=== PATIENT | female | born 1935 | race Caucasian/White ===

== ENCOUNTER 2018-01-12 14:12 | Inpatient (IN) | payer MEDICARE, OTHER ==
[~2018-01-12] VITALS: Ht 157.5 cm; Wt 71.8 kg
[2018-01-12] VITALS (20 sets, daily range): BP systolic 74–138; BP diastolic 48–61
[~2018-01-12 14:12] MED LIST: ESOM40CA25 PO; FLUC100T4 PO; FLUT1DIS IH; FURO-69 PO; HUM100VI5 SQ; HYDR25TA PO; LEVO25TA55 PO; LIPITOR80 MG PO; LISI-334 PO; MIRA25TA PO; PROAIR HFA8.5 GM IH; TRIA10PO2 MC
[2018-01-12] MEDS ORDERED: ESOM40CA PO (15:00)
[2018-01-12] MEDS ORDERED: MONT10TA9 PO (15:00)
[2018-01-12] MEDS ORDERED: OLOP5DRO EACHEYE (15:00)
[2018-01-12] MEDS ORDERED: LISI-378 PO (15:00)
[2018-01-12] MEDS ORDERED: ASPI-612 PO (15:00)
[2018-01-12] MEDS ORDERED: CALC-77 PO (15:00)
[2018-01-12] MEDS ORDERED: fentaNYL PF VIAL 100 MCG/2 ML VIAL IV PRN (15:15)
[2018-01-12] MEDS ORDERED: DEXTROSE 50% 25 GM / 50ML DISP.SYRIN. IV PRN (15:15)
[2018-01-12 16:05] LABS: BASE EXCESS ABG -7 mmol/L (-3-3); HCO3 ABG 18 mmol/L (21-28); PCO2 ABG 34 mmHg (35-46); PO2 ABG 59 mmHg (65-108); SAT O2 ABG 90 % (92-99)
[2018-01-12] MEDS: PIPERACILLIN/TAZOBACTAM 2.25 GM in IV NORMAL SALINE 50ML 50 ML IV SCH ×2 (16:23→23:32)
[2018-01-12] MEDS: IV NORMAL SALINE 1000ML BAG 1,000 ML IV SCH ×2 (16:29→21:27)
[2018-01-12] MEDS ORDERED: VANCOMYCIN 125 MG/2.5 ML ORAL SOLUTION. PO SCH (17:00)
[2018-01-12] MEDS: INSULIN LISPRO 300 UNITS/3 ML INSULN.PEN. SQ SCH (17:00)
[2018-01-12] MEDS ORDERED: LISI-130 PO (17:16)
[2018-01-12] MEDS ORDERED: MIRA25TA PO (17:16)
[2018-01-12] MEDS ORDERED: DIAZ5TAB PO (17:16)
[2018-01-12] MEDS ORDERED: INSU100I17 SQ (17:16)
[2018-01-12] MEDS ORDERED: DIPH25CA58 PO (17:16)
[2018-01-12] MEDS ORDERED: PREG75CA PO (17:16)
[2018-01-12] MEDS ORDERED: INSU100V13 SQ (17:16)
[2018-01-12] MEDS ORDERED: LEVO125T PO (17:16)
[2018-01-12] MEDS ORDERED: HYDR-2762 PO (17:16)
[2018-01-12] MEDS ORDERED: TRIA15CR TP (17:16)
[2018-01-12] MEDS ORDERED: AMLO10TA4 PO (17:16)
[2018-01-12 17:19] LABS: FIO2 ABG 21
[2018-01-12 17:22] LABS: BASO % 0 % (0-3); EOS % 0 % (0-3); HEMOGLOBIN 12.6 g/dL (12.0-15.5); LYMPH # 0.3 x10^3/uL (1.0-4.8); LYMPH % 4 % (24-48); MEAN CORPUSCULAR HEMOGLOBIN 31 pg (25-35); MEAN CORPUSCULAR HGB CONC 34 g/dL (31-37); MEAN CORPUSCULAR VOLUME 92 fL (79-100); MONO # 0.2 x10^3/uL (0.0-1.1); MONO % 3 % (0-9); NEUT # 8.4 x10^3uL (1.8-7.7); NEUT % 93 % (31-73); PLATELET COUNT 123 x10^3/uL (140-400); RED CELL DISTRIBUTION WIDTH 13.6 % (11.5-14.5); WHITE BLOOD COUNT 9.1 x10^3/uL (4.0-11.0)
[2018-01-12 17:32] LABS: CALCIUM 8.7 mg/dL (8.5-10.1); CREATININE 1.6 mg/dL (0.6-1.0); GFR 30.9; POTASSIUM 4.6 mmol/L (3.5-5.1)
[2018-01-12 17:37] LABS: ALBUMIN 1.9 g/dL (3.4-5.0); ALBUMIN/GLOBULIN RATIO 0.7 (1.0-1.7); TOTAL BILIRUBIN 0.6 mg/dL (0.2-1.0); TOTAL PROTEIN 4.8 g/dL (6.4-8.2)
[2018-01-12] MEDS ORDERED: NOREPINEPHRIN 8MG/250ML PREMIX 250 ML IV PRN (18:00)
[2018-01-12 18:55] LABS: % BANDS 47 % (0-9); % LYMPHS 8 % (24-48); % METAS 4 % (0-0); % MONOS 3 % (0-10); % SEGS 38 % (35-66)
[2018-01-12 18:56] LABS: PLT ESTIMATE DECREASED (ADEQUATE); TOXIC GRANULATION SLIGHT
[2018-01-12] MEDS: IPRATRPIUM/ALBUTEROL 0.5/2.5MG 3 ML NEBU. NEB SCH (20:10)
[2018-01-12] MEDS: KETOTIFEN FUMARATE 0.025% OPHTH SOLUTION BOTTLE. OU SCH (21:26)
[2018-01-13] VITALS (24 sets, daily range): BP systolic 89–139; BP diastolic 43–69
[2018-01-13] MEDS: IV NORMAL SALINE 1000ML BAG 1,000 ML IV SCH ×3 (05:02→23:05)
[2018-01-13] MEDS: PIPERACILLIN/TAZOBACTAM 2.25 GM in IV NORMAL SALINE 50ML 50 ML IV SCH (05:02)
[2018-01-13 06:40] LABS: BASO % 0 % (0-3); EOS % 0 % (0-3); HEMATOCRIT 39.5 % (36.0-47.0); HEMOGLOBIN 13.4 g/dL (12.0-15.5); LYMPH # 0.5 x10^3/uL (1.0-4.8); LYMPH % 5 % (24-48); MEAN CORPUSCULAR HEMOGLOBIN 31 pg (25-35); MEAN CORPUSCULAR HGB CONC 34 g/dL (31-37); MEAN CORPUSCULAR VOLUME 93 fL (79-100); MONO # 0.3 x10^3/uL (0.0-1.1); MONO % 3 % (0-9); NEUT # 9.9 x10^3uL (1.8-7.7); NEUT % 93 % (31-73); PLATELET COUNT 152 x10^3/uL (140-400); RED BLOOD COUNT 4.26 x10^6/uL (3.50-5.40); RED CELL DISTRIBUTION WIDTH 13.6 % (11.5-14.5); WHITE BLOOD COUNT 10.7 x10^3/uL (4.0-11.0)
[2018-01-13 06:53] LABS: ALBUMIN 1.9 g/dL (3.4-5.0); ALBUMIN/GLOBULIN RATIO 0.6 (1.0-1.7); CREATININE 1.3 mg/dL (0.6-1.0); GFR 39.2; POTASSIUM 4.5 mmol/L (3.5-5.1); TOTAL BILIRUBIN 0.9 mg/dL (0.2-1.0); TOTAL PROTEIN 5.2 g/dL (6.4-8.2)
[2018-01-13] MEDS: INSULIN LISPRO 300 UNITS/3 ML INSULN.PEN. SQ SCH ×3 (07:16→17:00)
--- NOTE | 2018-01-13 07:34 | PDOC ---
Infectious Disease Note Vital Sign Vital Signs Vital Signs Date Time Temp Pulse Resp B/P (MAP) Pulse Ox O2 Delivery O2 Flow Rate FiO2 01/13/18 06:05 108 20 105/59 (74) 100 Nasal Cannula 2.0 01/13/18 04:00 97.7 97.7 Labs Lab Laboratory Tests Test 01/12/18 15:11 01/12/18 16:22 01/12/18 17:15 01/12/18 23:30 O2 Saturation 90 % (92-99) Arterial Blood pH 7.33 (7.35-7.45) Arterial Blood pCO2 at Patient Temp 34 mmHg (35-46) Arterial Blood pO2 at Patient Temp 59 mmHg (65-108) Arterial Blood HCO3 18 mmol/L (21-28) Arterial Blood Base Excess -7 mmol/L (-3-3) FiO2 21 Glucose (Fingerstick) 173 mg/dL (70-99) 107 mg/dL (70-99) White Blood Count 9.1 x10^3/uL (4.0-11.0) Red Blood Count 4.00 x10^6/uL (3.50-5.40) Hemoglobin 12.6 g/dL (12.0-15.5) Hematocrit 37.0 % (36.0-47.0) Mean Corpuscular Volume 92 fL (79-100) Mean Corpuscular Hemoglobin 31 pg (25-35) Mean Corpuscular Hemoglobin Concent 34 g/dL (31-37) Red Cell Distribution Width 13.6 % (11.5-14.5) Platelet Count 123 x10^3/uL (140-400) Neutrophils (%) (Auto) 93 % (31-73) Lymphocytes (%) (Auto) 4 % (24-48) Monocytes (%) (Auto) 3 % (0-9) Eosinophils (%) (Auto) 0 % (0-3) Basophils (%) (Auto) 0 % (0-3) Neutrophils # (Auto) 8.4 x10^3uL (1.8-7.7) Lymphocytes # (Auto) 0.3 x10^3/uL (1.0-4.8) Monocytes # (Auto) 0.2 x10^3/uL (0.0-1.1) Eosinophils # (Auto) 0.0 x10^3/uL (0.0-0.7) Basophils # (Auto) 0.0 x10^3/uL (0.0-0.2) Segmented Neutrophils % 38 % (35-66) Band Neutrophils % 47 % (0-9) Lymphocytes % 8 % (24-48) Monocytes % 3 % (0-10) Metamyelocytes % 4 % (0-0) Toxic Granulation Slight Platelet Estimate Decreased (ADEQUATE) Sodium Level 143 mmol/L (136-145) Potassium Level 4.6 mmol/L (3.5-5.1) Chloride Level 111 mmol/L (98-107) Carbon Dioxide Level 20 mmol/L (21-32) Anion Gap 12 (6-14) Blood Urea Nitrogen 37 mg/dL (7-20) Creatinine 1.6 mg/dL (0.6-1.0) Estimated GFR (Cockcroft-Gault) 30.9 BUN/Creatinine Ratio 23 (6-20) Glucose Level 174 mg/dL (70-99) Lactic Acid Level 2.1 mmol/L (0.4-2.0) Calcium Level 8.7 mg/dL (8.5-10.1) Total Bilirubin 0.6 mg/dL (0.2-1.0) Aspartate Amino Transf (AST/SGOT) 57 U/L (15-37) Alanine Aminotransferase (ALT/SGPT) 40 U/L (14-59) Alkaline Phosphatase 147 U/L (46-116) Lactate Dehydrogenase 213 U/L (81-234) Total Protein 4.8 g/dL (6.4-8.2) Albumin 1.9 g/dL (3.4-5.0) Albumin/Globulin Ratio 0.7 (1.0-1.7) Test 01/13/18 05:40 White Blood Count 10.7 x10^3/uL (4.0-11.0) Red Blood Count 4.26 x10^6/uL (3.50-5.40) Hemoglobin 13.4 g/dL (12.0-15.5) Hematocrit 39.5 % (36.0-47.0) Mean Corpuscular Volume 93 fL (79-100) Mean Corpuscular Hemoglobin 31 pg (25-35) Mean Corpuscular Hemoglobin Concent 34 g/dL (31-37) Red Cell Distribution Width 13.6 % (11.5-14.5) Platelet Count 152 x10^3/uL (140-400) Neutrophils (%) (Auto) 93 % (31-73) Lymphocytes (%) (Auto) 5 % (24-48) Monocytes (%) (Auto) 3 % (0-9) Eosinophils (%) (Auto) 0 % (0-3) Basophils (%) (Auto) 0 % (0-3) Neutrophils # (Auto) 9.9 x10^3uL (1.8-7.7) Lymphocytes # (Auto) 0.5 x10^3/uL (1.0-4.8) Monocytes # (Auto) 0.3 x10^3/uL (0.0-1.1) Eosinophils # (Auto) 0.0 x10^3/uL (0.0-0.7) Basophils # (Auto) 0.0 x10^3/uL (0.0-0.2) Sodium Level 143 mmol/L (136-145) Potassium Level 4.5 mmol/L (3.5-5.1) Chloride Level 113 mmol/L (98-107) Carbon Dioxide Level 20 mmol/L (21-32) Anion Gap 10 (6-14) Blood Urea Nitrogen 34 mg/dL (7-20) Creatinine 1.3 mg/dL (0.6-1.0) Estimated GFR (Cockcroft-Gault) 39.2 BUN/Creatinine Ratio 26 (6-20) Glucose Level 107 mg/dL (70-99) Calcium Level 9.0 mg/dL (8.5-10.1) Total Bilirubin 0.9 mg/dL (0.2-1.0) Aspartate Amino Transf (AST/SGOT) 65 U/L (15-37) Alanine Aminotransferase (ALT/SGPT) 45 U/L (14-59) Alkaline Phosphatase 177 U/L (46-116) Total Protein 5.2 g/dL (6.4-8.2) Albumin 1.9 g/dL (3.4-5.0) Albumin/Globulin Ratio 0.6 (1.0-1.7) Objective Assessment Possible sepsis Colitis - Fecal impaction - ? DM gastroparesis Sulfa allergy - can't remember reaction Bandemia Right foot wound is clean GILL - did receive IV contrast - currently improving Plan Plan of Care Doubt C-diff but cont po Vanc until ruled out Cont Zosyn but increase dose Check procalcitoin ABD series GI eval F/u labs and cults Reviewed [facility]ulah's records D/w family D/w nursing 35 mins Thank you # [id number] JAYCEE CABELLO MD Jan 13, 2018 07:34
[2018-01-13] MEDS: IPRATRPIUM/ALBUTEROL 0.5/2.5MG 3 ML NEBU. NEB SCH (08:38)
[2018-01-13] MEDS: KETOTIFEN FUMARATE 0.025% OPHTH SOLUTION BOTTLE. OU SCH ×2 (08:40→21:03)
--- NOTE | 2018-01-13 08:41 | RAD ---
2 view abdominal series and AP upright chest [id number] study. Clinical indications: Abdominal pain. Fecal impaction. COMPARISON: No previous radiographic series available. FINDINGS: There is dilatation of the stomach and small bowel. Small air-fluid levels are seen. No free intraperitoneal air is seen. No air is seen within the rectum. No significant fecal retention is seen. There is a popcorn-like calcified mass within the pelvis consistent with a calcified uterine fibroid. Cholecystectomy clips are present. Chest x-ray demonstrates left lung base infiltrate and small left-sided pleural effusion. No pneumothorax is evident. The heart size and mediastinum are unremarkable. IMPRESSION: There is dilatation of stomach and small bowel. Distal small bowel obstruction is possible. No free air is evident. No significant fecal impaction is seen. Calcified uterine fibroid. Left lung base infiltrate. Small left-sided pleural effusion. Electronically signed by: Zack Garcia MD (01/13/2018 8:38 AM) [facility]
[2018-01-13] MEDS ORDERED: NON FORMULARY ITEM (Fluticasone/Salmeterol (Advair 100-50 Diskus) 1 INH) IH PRN (09:00)
[2018-01-13] MEDS ORDERED: NON FORMULARY ITEM (Albuterol Sulfate (Proair Hfa Inhaler) 2 PUFF) IH SCH (09:00)
[2018-01-13] MEDS ORDERED: ALBUTEROL SULFATE 2.5 MG/3 ML NEBU. NEB PRN (09:15)
--- NOTE | 2018-01-13 09:44 | PDOC2 ---
GI CONSULT Reason For Consult: fecal impaction ?DM gastroparesis HPI: HPI: 82 y/o female transferred from [facility] w/ possible sepsis. GI-andres, noted on CT A/ P w/o contrast (for abd and flank pain and n/v) on 01/11/18 w/ distention of sigmoid colon and rectum w/ large amount of fecal material w/ mild dilatation of the proximal colon, small intestine and stomach. CT angiogram (for elevated lactic acid) also noted distention from stool and suggested wall thickening of distal half of colon w/o non-specific colitis. Per daughter Iesla, she received an enema and had a "football-sized stool" prior to transfer. Per RN, has had liquid stool w/ hard pieces since arriving here. Acute abd series from this morning reports dilatation of stomach and small bowel w/o significant fecal impaction. She's not the best historian but is able to provide some information - daughter helps supplement. H/o GERD recently started on Nexium QD. Occasional dysphagia w/ solid foods (felt in neck, resolved w/ water), no regurgitation. Denies chronic issues w/ n/v or abd pain though didn't eat much for a couple days prior to admission. Currently has left-sided abd discomfort. Seems has h/ o intermittent constipation - mentions taking Dulcolax sometimes. D/w Dr. Arroyo earlier - h/o irregular/alternating bowel habits. Daughter mentions hematuria and is not sure about melena or hematochezia (no concern w/ this per staff). Not sure about weight loss. Can document past EGD by Dr. Burton in 2015 (for "esophageal mass on CT") which showed esophagitis, gastritis, and duodenitis (H. pylori negative). She denies previous colonoscopy or h/o colitis. S/p cholecystectomy for gallstones. Denies liver or pancreas history. Takes ibuprofen fairly regularly at home and is "supposed to take" ASA. Also has an old Rx for hydrocodone for foot and hand pain but does not use regularly per daughter. Lives w/ son, seems some issues w/ non-compliance. H/o DM, says glucose typically in 300s at home. Upon arriving at [facility], glucose was 600 and TSH was 11. Blood culture negative so far - on empiric vanco per ID. PMH: PMH: HTN, HLD, DM, peripheral neuropathy, hypothyroidism, OA, osteoporosis, GERD, hemorrhoids, cholecystectomy, tubal ligation FH: Family History: Cancer, DM Social History: Smoke: <1 pack per day ALCOHOL: none ROS: GEN: Denies fevers, chills, sweats HEENT: Denies blurred vision, sore throat CV: Denies chest pain RESP: +SOA (chronic) GI: Per HPI : +hematuria ENDO: Denies weight changes NEURO: +confusion MSK: +weakness SKIN: Denies jaundice, pruritus Vitals: Vitals: Vital Signs Date Time Temp Pulse Resp B/P (MAP) Pulse Ox O2 Delivery O2 Flow Rate FiO2 01/13/18 09:00 116 20 121/53 (75) 100 Nasal Cannula 2.0 01/13/18 08:00 98.8 98.8 Labs: Labs: Laboratory Tests Test 01/12/18 15:11 01/12/18 16:22 01/12/18 17:15 01/12/18 23:30 O2 Saturation 90 % (92-99) Arterial Blood pH 7.33 (7.35-7.45) Arterial Blood pCO2 at Patient Temp 34 mmHg (35-46) Arterial Blood pO2 at Patient Temp 59 mmHg (65-108) Arterial Blood HCO3 18 mmol/L (21-28) Arterial Blood Base Excess -7 mmol/L (-3-3) FiO2 21 Glucose (Fingerstick) 173 mg/dL (70-99) 107 mg/dL (70-99) White Blood Count 9.1 x10^3/uL (4.0-11.0) Red Blood Count 4.00 x10^6/uL (3.50-5.40) Hemoglobin 12.6 g/dL (12.0-15.5) Hematocrit 37.0 % (36.0-47.0) Mean Corpuscular Volume 92 fL (79-100) Mean Corpuscular Hemoglobin 31 pg (25-35) Mean Corpuscular Hemoglobin Concent 34 g/dL (31-37) Red Cell Distribution Width 13.6 % (11.5-14.5) Platelet Count 123 x10^3/uL (140-400) Neutrophils (%) (Auto) 93 % (31-73) Lymphocytes (%) (Auto) 4 % (24-48) Monocytes (%) (Auto) 3 % (0-9) Eosinophils (%) (Auto) 0 % (0-3) Basophils (%) (Auto) 0 % (0-3) Neutrophils # (Auto) 8.4 x10^3uL (1.8-7.7) Lymphocytes # (Auto) 0.3 x10^3/uL (1.0-4.8) Monocytes # (Auto) 0.2 x10^3/uL (0.0-1.1) Eosinophils # (Auto) 0.0 x10^3/uL (0.0-0.7) Basophils # (Auto) 0.0 x10^3/uL (0.0-0.2) Segmented Neutrophils % 38 % (35-66) Band Neutrophils % 47 % (0-9) Lymphocytes % 8 % (24-48) Monocytes % 3 % (0-10) Metamyelocytes % 4 % (0-0) Toxic Granulation Slight Platelet Estimate Decreased (ADEQUATE) Sodium Level 143 mmol/L (136-145) Potassium Level 4.6 mmol/L (3.5-5.1) Chloride Level 111 mmol/L (98-107) Carbon Dioxide Level 20 mmol/L (21-32) Anion Gap 12 (6-14) Blood Urea Nitrogen 37 mg/dL (7-20) Creatinine 1.6 mg/dL (0.6-1.0) Estimated GFR (Cockcroft-Gault) 30.9 BUN/Creatinine Ratio 23 (6-20) Glucose Level 174 mg/dL (70-99) Lactic Acid Level 2.1 mmol/L (0.4-2.0) Calcium Level 8.7 mg/dL (8.5-10.1) Total Bilirubin 0.6 mg/dL (0.2-1.0) Aspartate Amino Transf (AST/SGOT) 57 U/L (15-37) Alanine Aminotransferase (ALT/SGPT) 40 U/L (14-59) Alkaline Phosphatase 147 U/L (46-116) Lactate Dehydrogenase 213 U/L (81-234) Total Protein 4.8 g/dL (6.4-8.2) Albumin 1.9 g/dL (3.4-5.0) Albumin/Globulin Ratio 0.7 (1.0-1.7) Test 01/13/18 05:40 White Blood Count 10.7 x10^3/uL (4.0-11.0) Red Blood Count 4.26 x10^6/uL (3.50-5.40) Hemoglobin 13.4 g/dL (12.0-15.5) Hematocrit 39.5 % (36.0-47.0) Mean Corpuscular Volume 93 fL (79-100) Mean Corpuscular Hemoglobin 31 pg (25-35) Mean Corpuscular Hemoglobin Concent 34 g/dL (31-37) Red Cell Distribution Width 13.6 % (11.5-14.5) Platelet Count 152 x10^3/uL (140-400) Neutrophils (%) (Auto) 93 % (31-73) Lymphocytes (%) (Auto) 5 % (24-48) Monocytes (%) (Auto) 3 % (0-9) Eosinophils (%) (Auto) 0 % (0-3) Basophils (%) (Auto) 0 % (0-3) Neutrophils # (Auto) 9.9 x10^3uL (1.8-7.7) Lymphocytes # (Auto) 0.5 x10^3/uL (1.0-4.8) Monocytes # (Auto) 0.3 x10^3/uL (0.0-1.1) Eosinophils # (Auto) 0.0 x10^3/uL (0.0-0.7) Basophils # (Auto) 0.0 x10^3/uL (0.0-0.2) Sodium Level 143 mmol/L (136-145) Potassium Level 4.5 mmol/L (3.5-5.1) Chloride Level 113 mmol/L (98-107) Carbon Dioxide Level 20 mmol/L (21-32) Anion Gap 10 (6-14) Blood Urea Nitrogen 34 mg/dL (7-20) Creatinine 1.3 mg/dL (0.6-1.0) Estimated GFR (Cockcroft-Gault) 39.2 BUN/Creatinine Ratio 26 (6-20) Glucose Level 107 mg/dL (70-99) Calcium Level 9.0 mg/dL (8.5-10.1) Total Bilirubin 0.9 mg/dL (0.2-1.0) Aspartate Amino Transf (AST/SGOT) 65 U/L (15-37) Alanine Aminotransferase (ALT/SGPT) 45 U/L (14-59) Alkaline Phosphatase 177 U/L (46-116) Total Protein 5.2 g/dL (6.4-8.2) Albumin 1.9 g/dL (3.4-5.0) Albumin/Globulin Ratio 0.6 (1.0-1.7) Procalcitonin 14.81 ng/mL (0.00-0.10) Allergies: Coded Allergies: Sulfa (Sulfonamide Antibiotics) (Verified Allergy, Unknown, 02/18/14) Medications: Current Medications Medications (Trade) Dose Ordered Sig/Jailyn Route PRN Reason Start Time Stop Time Status Last Admin Dose Admin Piperacillin Sod/ Tazobactam Sod 2.25 gm/Sodium Chloride 50 ml @ 100 mls/hr Q6HRS IV 01/12/18 16:00 01/13/18 07:33 DC 01/13/18 05:02 Sodium Chloride 1,000 ml @ 125 mls/hr Q8H IV 01/12/18 15:15 01/13/18 05:02 Influenza Virus Vaccine (Afluria Trivalent [id number] Syringe) 0.5 ml ONCE ONCE VAX IM 01/13/18 09:00 01/13/18 09:01 DC 01/13/18 08:42 Ketotifen Fumarate (Zaditor) 1 drop BID OU 01/12/18 21:00 01/13/18 08:40 Albuterol/ Ipratropium (Duoneb) 3 ml RTQID NEB 01/12/18 20:00 01/13/18 09:14 DC 01/13/18 08:38 Norepinephrine Bitartrate 250 ml @ 1.875 mls/ hr CONT PRN IV SEE I/O RECORD 01/12/18 18:00 01/12/18 17:58 Imaging: Imaging: Acute Abd Series IMPRESSION: There is dilatation of stomach and small bowel. Distal small bowel obstruction is possible. No free air is evident. No significant fecal impaction is seen. Calcified uterine fibroid. Left lung base infiltrate. Small left-sided pleural effusion. PE: GEN: NAD HEENT: Atraumatic, PERRL LUNGS: clear, NC HEART: tachycardic ABD: BS+, ?some distention, left-sided tenderness NEURO/PSYCH: answers some questions, seems forgetful A/P: A/P: Possible sepsis - GILL, hypotension, lactic acidosis (better) Left-sided abd pain, ?n/v DM, hypothyroidism, non-compliance Abnormal CTs - fecal impaction, also mention of non-specific colitis GERD - recently started on PPI, EGD in 2014 (Dr. Burton) w/ esophagitis, H. pylori negative gastritis, duodenitis H/o intermittent constipation/alternating bowel habits CRC screen - none S/p cholecystectomy NSAID use -- Fecal impaction resolved. Has abd pain w/o h/o diarrhea or bleeding - unclear significance of "non-specific colitis" finding. Monitor stools and abd pain. Continue PPI for h/o GERD. Could have some element of gastroparesis w/ uncontrolled DM. Try Reglan PRN w/ trial of diet. JOHNATHAN BAKER Jan 13, 2018 09:44
[2018-01-13] MEDS: LEVOTHYROXINE 125 MCG TABLET PO SCH (10:18)
[2018-01-13] MEDS: PANTOPRAZOLE 40 MG TABLET.DR. PO SCH (10:18)
--- NOTE | 2018-01-13 10:58 | HP ---
ADMIT DATE: 01/12/2018 HISTORY OF PRESENT ILLNESS: The patient is an 82-year-old -[place] female patient, who was transferred from [facility], where she was originally admitted on 01/11/2018 with severe abdominal pain. She apparently has been sick for the last week, but refused to come to the hospital or a clinic. She has been having a little to eat or drink for the last couple of days. She is diabetic that is poorly controlled. Her sugar on arrival to the Emergency Room was more than 600 mg/dL and when she first came in, she was extremely hypotensive. She was given a liter of fluid. The patient also has been complaining of abdominal pain, the lower back pain as well as hemorrhoids. She was found to have a large impaction as well as having colitis of her colon. The patient was admitted for possible sepsis due to infectious colitis and hypotension as well as lactic acidosis. She was treated with IV fluid, IV antibiotic in the form of Rocephin and Levaquin. She was also started on oral vancomycin. Her initial lactic acid was apparently high 9.7. She was extremely hyperglycemic and her potassium was low initially at 2.9. She was treated with aggressive IV fluids and IV antibiotics and was transferred to the ICU in [facility] with the infectious colitis with sepsis and hypotension, lactic acidosis, hypokalemia and poorly controlled type 2 diabetes. I did change her antibiotics to piperacillin and tazobactam and continued with oral vancomycin and continued with IV fluids. She continued to be hypotensive and was started on Levophed. PAST MEDICAL HISTORY: Significant for: 1. Type 2 diabetes mellitus. 2. Diabetic peripheral neuropathy. 3. 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 4. Hypercholesterolemia. 5. Hypertension. 6. Hemorrhoids. 7. Gastroesophageal reflux disease. 8. Generalized osteoarthritis. 9. Osteoporosis. 10. Hypothyroidism. PAST SURGICAL HISTORY: Significant for tubal ligation, cholecystectomy as well as bilateral cataract extraction. FAMILY HISTORY: Positive for diabetes in her father and mother has some form of cancer. SOCIAL HISTORY: She apparently lives with her son. Smoked for about 75 years and does not drink alcohol or use any recreational drugs. She is up-to-date on her Pneumococcal vaccination and was vaccinated for influenza last year. MEDICATIONS: She is currently on the following medications: She is on aspirin 81 mg once a day, calcium with vitamin D 500/200 one tablet once a day, Lipitor 80 mg at bedtime, Lasix 20 mg daily and Patanol eye drops 1 drop to both eyes 2 times a day. She is on hydroxyzine 25 mg 3 times a day, Singulair 10 mg at bedtime, Zestril 20 mg daily, Nexium 40 mg once a day and Lyrica 75 mg twice a day. She is on Synthroid 125 mcg daily and hydrocodone/APAP 7.5/325 one to two tablets every 6 hours. She is also on Norvasc 10 mg daily. She is on NovoLog insulin sliding scale 3 times a day, Advair Diskus 100/50 one puff twice a day, triamcinolone cream applied topically 3 times a day, Valium 5 mg 4 times daily as needed, Myrbetriq 25 mg daily, ProAir 2 puffs 4 times a day and Levemir 25 units twice a day. REVIEW OF SYSTEMS: As per history of present illness. PHYSICAL EXAMINATION: GENERAL: On arrival to the ICU in [facility], the patient was pale, but not jaundiced or cyanosed. No lymphadenopathy, no thyromegaly. No jugular venous distention. No lower limb edema. VITAL SIGNS: Her heart rate was 110, blood pressure was 81/53, temperature was 98.4, respiratory rate was 20 and her oxygen saturation was 98%. HEENT: Examination of the head, eyes, ears, nose and throat showed normocephalic, atraumatic. NECK: Supple. HEART: Showed normal first and second heart sounds, with no gallop, rub or murmur. CHEST: Clear to auscultation. No crepitation or rhonchi. ABDOMEN: Distended, soft. No guarding or rigidity. No organomegaly. All hernial orifices intact and bowel sounds normal. NEUROLOGIC: She is awake, alert, somewhat confused, but no obvious lateralizing signs. All cranial nerves intact. She moves extremities without difficulty. LABORATORY DATA: Her lab work on arrival showed a white cell count of 9100, hemoglobin 12.6, hematocrit 37, MCV 92 and platelet count of 123,000 with normal manual differential. She has 93% polymorphic neutrophils, of which 47 were band cells. Her blood gases showed a pH of 7.33, a pCO2 of 34, pO2 of 59, bicarbonate of 18 and oxygen saturation was 90% on FiO2 of 21%. Her chemistry on arrival showed serum sodium of 143, potassium 4.6, chloride 111, bicarbonate 20, anion gap of 12, BUN 37, creatinine 1.6, estimated GFR was 31 mL per minute, her glucose 174 and calcium was 8.7. Lactic acid was 2.1. Her total bilirubin, AST, ALT were normal. Alkaline phosphatase slightly elevated. Lactate dehydrogenase was 213. Total protein was 4.8. Albumin was 1.9. SUMMARY: I switched her to Zosyn at 2.275 grams IV every 8 hours, was given a bolus of IV fluids as per sepsis protocol and started on Levophed to maintain her mean arterial pressure of more than 65. I did consult the Infectious Disease specialist, the supervisor mirror fabrication as well as the faculty dean and obviously will decide on further management accordingly. SAVANNA LYNN MD DR: STEPH/shanthi JOB#: [id number] / [id number]
[2018-01-13] MEDS: ALBUTEROL SULFATE 2.5 MG/3 ML NEBU. NEB SCH ×3 (12:09→19:39)
[2018-01-13] MEDS: PIPERACILLIN/TAZOBACTAM 3.375 GM in IV NORMAL SALINE 50ML 50 ML IV SCH ×3 (13:00→23:51)
--- NOTE | 2018-01-13 14:28 | PDOC2 ---
CONSULT Date of Consult Date of Consult DATE: 01/13/18 TIME: 14:16 Reason for Consult Reason for Consult: GILL Identification/Chief Complaint Chief Complaint States feeling good, No complaints currently Source Source: Caregiver, Chart review, Patient History of Present Illness Reason for Visit: Pt is 82 y/o AA female transferred from [facility] w/ possible sepsis. As per daughter she ws c/o severe abdominal pain . No N/V /D. H/o GERD recently started on Nexium QD. Occasional dysphagia w/ solid foods As per daughter she received an enema prior to transfer to [facility] . She has a Dx of DM, and had BS 0f 600 at [facility] . Denies any Kidney problems in past . No Urinary complaints Takes ibuprofen prn as per daughter- "not very often" Also has an old Rx for hydrocodone for foot and hand pain but does not use regularly. . Today reports she is feeling better. Denies any complaints Social History <1 pack per day ALCOHOL: none Current Medications Current Medications Current Medications Fentanyl Citrate (Fentanyl 2ml Vial) 50 mcg PRN Q3HRS PRN IV SEVERE PAIN; Start 01/12/18 at 15:15 Fentanyl Citrate (Fentanyl 2ml Vial) 25 mcg PRN Q3HRS PRN IV MODERATE PAIN; Start 01/12/18 at 15:15 Piperacillin Sod/ Tazobactam Sod 2.25 gm/Sodium Chloride 50 ml @ 100 mls/hr Q6HRS IV Last administered on 01/13/18at 05:02; Start 01/12/18 at 16:00; Stop 01/13/18 at 07:33; Status DC Sodium Chloride 1,000 ml @ 125 mls/hr Q8H IV Last administered on 01/13/18at 05:02; Start 01/12/18 at 15:15 Insulin Human Lispro (HumaLOG) 0-5 UNITS TIDWMEALS SQ ; Start 01/12/18 at 17:00 Dextrose (Dextrose 50%-Water Syringe) 12.5 gm PRN Q15MIN PRN IV SEE COMMENTS; Start 01/12/18 at 15:15 Vancomycin HCl (Vancomycin Oral Solution) 125 mg [id number] PO ; Start 01/12/18 at 17:00; Stop 01/12/18 at 17:00; Status DC Influenza Virus Vaccine (Afluria Trivalent [id number] Syringe) 0.5 ml ONCE ONCE VAX IM Last administered on 01/13/18at 08:42; Start 01/13/18 at 09:00; Stop 01/13/18 at 09:01; Status DC Ketotifen Fumarate (Zaditor) 1 drop BID OU Last administered on 01/13/18at 08: 40; Start 01/12/18 at 21:00 Albuterol/ Ipratropium (Duoneb) 3 ml RTQID NEB Last administered on 01/13/18at 08:38; Start 01/12/18 at 20:00; Stop 01/13/18 at 09:14; Status DC Norepinephrine Bitartrate 250 ml @ 1.875 mls/ hr CONT PRN IV SEE I/O RECORD Last administered on 01/12/18at 17:58; Start 01/12/18 at 18:00 Piperacillin Sod/ Tazobactam Sod 3.375 gm/Sodium Chloride 50 ml @ 100 mls/hr Q6HRS IV Last administered on 01/13/18at 13:00; Start 01/13/18 at 12:00 Non-Formulary Medication (Albuterol Sulfate (Proair Hfa Inhaler)) 2 puff PRN Q4- 6HRS IH ; Start 01/13/18 at 09:00; Status UNV Pantoprazole Sodium (Protonix) 40 mg DAILYAC PO Last administered on at 10:18; Start 01/13/18 at 09:30 Non-Formulary Medication (Fluticasone/ Salmeterol (Advair 100-50 Diskus)) 1 inh BID PRN IH SHORTNESS OF BREATH; Start 01/13/18 at 09:00; Status UNV Levothyroxine Sodium (Synthroid) 125 mcg DAILY06 PO Last administered on at 10:18; Start 01/13/18 at 10:00 Albuterol Sulfate (Ventolin Neb Soln) 2.5 mg RTQID NEB Last administered on at 12:09; Start 01/13/18 at 12:00 Budesonide (Pulmicort) 0.5 mg RTBID NEB ; Start 01/13/18 at 20:00 Albuterol Sulfate (Ventolin Neb Soln) 2.5 mg PRN Q4HRS PRN NEB SHORTNESS OF BREATH; Start 01/13/18 at 09:15 Metoclopramide HCl (Reglan Vial) 5 mg PRN Q6HRS PRN IV NAUSEA/VOMITING; Start 01/13/18 at 09:45 Lactobacillus Rhamnosus (Culturelle) 1 cap BID PO ; Start 01/13/18 at 21:00 Active Scripts Active Reported Levemir (Insulin Detemir) 100 Unit/1 Ml Vial 25 Unit SQ BID Benadryl (Diphenhydramine Hcl) 25 Mg Capsule 25 Mg PO TID Myrbetriq (Mirabegron) 25 Mg Tab.er.24h 25 Mg PO DAILY PRN Valium (Diazepam) 5 Mg Tablet 5 Mg PO QID Triamcinolone Acetonide 0.5% Cream (Triamcinolone Acetonide) 15 Gm Cream..g. 1 Alem TP TID PRN Novolog Flexpen (Insulin Aspart) 100 Unit/1 Ml Insuln.pen 1 Unit SQ TIDAC Lisinopril 40 Mg Tablet 40 Mg PO DAILY Norvasc (Amlodipine Besylate) 10 Mg Tablet 10 Mg PO DAILY Hydrocodone-Apap 7.5-325 (Hydrocodone Bit/Acetaminophen) 1 Each Tablet 1 Tab PO PRN Q6HRS PRN Synthroid (Levothyroxine Sodium) 125 Mcg Tablet 125 Mcg PO DAILYAC Lyrica (Pregabalin) 75 Mg Capsule 75 Mg PO BID Nexium Capsule (Esomeprazole Magnesium) 40 Mg Capsule.dr 40 Mg PO DAILYAC Zestril (Lisinopril) 20 Mg Tablet 20 Mg PO DAILY Montelukast Sodium Tablet (Montelukast Sodium) 10 Mg Tablet 10 Mg PO DAILY Patanol (Olopatadine Hcl) 5 Ml Drops 1 Drop EACHEYE BID Calcium + D3 Er Tablet (Calcium Carb & Cit/Vitamin D3) 1 Each Tablet.er 1 Each PO DAILY Aspirin Ec (Aspirin) 81 Mg Tablet.dr 81 Mg PO DAILY Lasix (Furosemide) 20 Mg Tablet 20 Mg PO DAILY Proair Hfa Inhaler (Albuterol Sulfate) 8.5 Gm Hfa.aer.ad 2 Puff IH PRN Q4-6HRS Advair 100-50 Diskus (Fluticasone/Salmeterol) 1 Each Disk.w.dev 1 Inh IH BID PRN Lipitor (Atorvastatin Calcium) 80 Mg Tablet 80 Mg PO HS Hydroxyzine Hcl 25 Mg Tablet 25 Mg PO TID PRN Allergies Allergies: Coded Allergies: Sulfa (Sulfonamide Antibiotics) (Verified Allergy, Intermediate, CANNOT REMEMBER, 01/14/18) ROS Review of System As per HPI Physical Exam Physical Exam GENERAL: NAD HEENT: om moist O2 by nc NECK: Supple. HEART: with no gallop, rub or murmur. CHEST: Clear to auscultation. Non labored ABDOMEN: Distended, soft. NEUROLOGIC: awake, alert, - Stover + \\Skin No rash Ext- No LE edema Vital Signs Vital Signs Date Time Temp Pulse Resp B/P (MAP) Pulse Ox O2 Delivery O2 Flow Rate FiO2 01/13/18 13:00 112 20 111/49 (69) 97 Room Air 01/13/18 12:06 98.7 98.7 01/13/18 09:00 2.0 Assessment & Plan GILL- Low pre-renal,? IV contrast Improving , Non Oliguric E-Lytes and Acid base stable Monitor CKD- Likely present, Hx of Uncontrolled DM use of NSAID Fecal impaction- resolved NSAID use DM- With BS in 600 at [facility] As per primary Labs Labs Laboratory Tests Test 01/12/18 15:11 01/12/18 16:22 01/12/18 17:15 01/12/18 23:30 O2 Saturation 90 % (92-99) Arterial Blood pH 7.33 (7.35-7.45) Arterial Blood pCO2 at Patient Temp 34 mmHg (35-46) Arterial Blood pO2 at Patient Temp 59 mmHg (65-108) Arterial Blood HCO3 18 mmol/L (21-28) Arterial Blood Base Excess -7 mmol/L (-3-3) FiO2 21 Glucose (Fingerstick) 173 mg/dL (70-99) 107 mg/dL (70-99) White Blood Count 9.1 x10^3/uL (4.0-11.0) Red Blood Count 4.00 x10^6/uL (3.50-5.40) Hemoglobin 12.6 g/dL (12.0-15.5) Hematocrit 37.0 % (36.0-47.0) Mean Corpuscular Volume 92 fL (79-100) Mean Corpuscular Hemoglobin 31 pg (25-35) Mean Corpuscular Hemoglobin Concent 34 g/dL (31-37) Red Cell Distribution Width 13.6 % (11.5-14.5) Platelet Count 123 x10^3/uL (140-400) Neutrophils (%) (Auto) 93 % (31-73) Lymphocytes (%) (Auto) 4 % (24-48) Monocytes (%) (Auto) 3 % (0-9) Eosinophils (%) (Auto) 0 % (0-3) Basophils (%) (Auto) 0 % (0-3) Neutrophils # (Auto) 8.4 x10^3uL (1.8-7.7) Lymphocytes # (Auto) 0.3 x10^3/uL (1.0-4.8) Monocytes # (Auto) 0.2 x10^3/uL (0.0-1.1) Eosinophils # (Auto) 0.0 x10^3/uL (0.0-0.7) Basophils # (Auto) 0.0 x10^3/uL (0.0-0.2) Segmented Neutrophils % 38 % (35-66) Band Neutrophils % 47 % (0-9) Lymphocytes % 8 % (24-48) Monocytes % 3 % (0-10) Metamyelocytes % 4 % (0-0) Toxic Granulation Slight Platelet Estimate Decreased (ADEQUATE) Sodium Level 143 mmol/L (136-145) Potassium Level 4.6 mmol/L (3.5-5.1) Chloride Level 111 mmol/L (98-107) Carbon Dioxide Level 20 mmol/L (21-32) Anion Gap 12 (6-14) Blood Urea Nitrogen 37 mg/dL (7-20) Creatinine 1.6 mg/dL (0.6-1.0) Estimated GFR (Cockcroft-Gault) 30.9 BUN/Creatinine Ratio 23 (6-20) Glucose Level 174 mg/dL (70-99) Lactic Acid Level 2.1 mmol/L (0.4-2.0) Calcium Level 8.7 mg/dL (8.5-10.1) Total Bilirubin 0.6 mg/dL (0.2-1.0) Aspartate Amino Transf (AST/SGOT) 57 U/L (15-37) Alanine Aminotransferase (ALT/SGPT) 40 U/L (14-59) Alkaline Phosphatase 147 U/L (46-116) Lactate Dehydrogenase 213 U/L (81-234) Total Protein 4.8 g/dL (6.4-8.2) Albumin 1.9 g/dL (3.4-5.0) Albumin/Globulin Ratio 0.7 (1.0-1.7) Test 01/13/18 05:40 01/13/18 12:45 White Blood Count 10.7 x10^3/uL (4.0-11.0) Red Blood Count 4.26 x10^6/uL (3.50-5.40) Hemoglobin 13.4 g/dL (12.0-15.5) Hematocrit 39.5 % (36.0-47.0) Mean Corpuscular Volume 93 fL (79-100) Mean Corpuscular Hemoglobin 31 pg (25-35) Mean Corpuscular Hemoglobin Concent 34 g/dL (31-37) Red Cell Distribution Width 13.6 % (11.5-14.5) Platelet Count 152 x10^3/uL (140-400) Neutrophils (%) (Auto) 93 % (31-73) Lymphocytes (%) (Auto) 5 % (24-48) Monocytes (%) (Auto) 3 % (0-9) Eosinophils (%) (Auto) 0 % (0-3) Basophils (%) (Auto) 0 % (0-3) Neutrophils # (Auto) 9.9 x10^3uL (1.8-7.7) Lymphocytes # (Auto) 0.5 x10^3/uL (1.0-4.8) Monocytes # (Auto) 0.3 x10^3/uL (0.0-1.1) Eosinophils # (Auto) 0.0 x10^3/uL (0.0-0.7) Basophils # (Auto) 0.0 x10^3/uL (0.0-0.2) Sodium Level 143 mmol/L (136-145) Potassium Level 4.5 mmol/L (3.5-5.1) Chloride Level 113 mmol/L (98-107) Carbon Dioxide Level 20 mmol/L (21-32) Anion Gap 10 (6-14) Blood Urea Nitrogen 34 mg/dL (7-20) Creatinine 1.3 mg/dL (0.6-1.0) Estimated GFR (Cockcroft-Gault) 39.2 BUN/Creatinine Ratio 26 (6-20) Glucose Level 107 mg/dL (70-99) Calcium Level 9.0 mg/dL (8.5-10.1) Total Bilirubin 0.9 mg/dL (0.2-1.0) Aspartate Amino Transf (AST/SGOT) 65 U/L (15-37) Alanine Aminotransferase (ALT/SGPT) 45 U/L (14-59) Alkaline Phosphatase 177 U/L (46-116) Total Protein 5.2 g/dL (6.4-8.2) Albumin 1.9 g/dL (3.4-5.0) Albumin/Globulin Ratio 0.6 (1.0-1.7) Procalcitonin 14.81 ng/mL (0.00-0.10) Glucose (Fingerstick) 95 mg/dL (70-99) Laboratory Tests Test 01/12/18 15:11 01/12/18 16:22 01/12/18 17:15 01/12/18 23:30 O2 Saturation 90 % (92-99) Arterial Blood pH 7.33 (7.35-7.45) Arterial Blood pCO2 at Patient Temp 34 mmHg (35-46) Arterial Blood pO2 at Patient Temp 59 mmHg (65-108) Arterial Blood HCO3 18 mmol/L (21-28) Arterial Blood Base Excess -7 mmol/L (-3-3) FiO2 21 Glucose (Fingerstick) 173 mg/dL (70-99) 107 mg/dL (70-99) White Blood Count 9.1 x10^3/uL (4.0-11.0) Red Blood Count 4.00 x10^6/uL (3.50-5.40) Hemoglobin 12.6 g/dL (12.0-15.5) Hematocrit 37.0 % (36.0-47.0) Mean Corpuscular Volume 92 fL (79-100) Mean Corpuscular Hemoglobin 31 pg (25-35) Mean Corpuscular Hemoglobin Concent 34 g/dL (31-37) Red Cell Distribution Width 13.6 % (11.5-14.5) Platelet Count 123 x10^3/uL (140-400) Neutrophils (%) (Auto) 93 % (31-73) Lymphocytes (%) (Auto) 4 % (24-48) Monocytes (%) (Auto) 3 % (0-9) Eosinophils (%) (Auto) 0 % (0-3) Basophils (%) (Auto) 0 % (0-3) Neutrophils # (Auto) 8.4 x10^3uL (1.8-7.7) Lymphocytes # (Auto) 0.3 x10^3/uL (1.0-4.8) Monocytes # (Auto) 0.2 x10^3/uL (0.0-1.1) Eosinophils # (Auto) 0.0 x10^3/uL (0.0-0.7) Basophils # (Auto) 0.0 x10^3/uL (0.0-0.2) Segmented Neutrophils % 38 % (35-66) Band Neutrophils % 47 % (0-9) Lymphocytes % 8 % (24-48) Monocytes % 3 % (0-10) Metamyelocytes % 4 % (0-0) Toxic Granulation Slight Platelet Estimate Decreased (ADEQUATE) Sodium Level 143 mmol/L (136-145) Potassium Level 4.6 mmol/L (3.5-5.1) Chloride Level 111 mmol/L (98-107) Carbon Dioxide Level 20 mmol/L (21-32) Anion Gap 12 (6-14) Blood Urea Nitrogen 37 mg/dL (7-20) Creatinine 1.6 mg/dL (0.6-1.0) Estimated GFR (Cockcroft-Gault) 30.9 BUN/Creatinine Ratio 23 (6-20) Glucose Level 174 mg/dL (70-99) Lactic Acid Level 2.1 mmol/L (0.4-2.0) Calcium Level 8.7 mg/dL (8.5-10.1) Total Bilirubin 0.6 mg/dL (0.2-1.0) Aspartate Amino Transf (AST/SGOT) 57 U/L (15-37) Alanine Aminotransferase (ALT/SGPT) 40 U/L (14-59) Alkaline Phosphatase 147 U/L (46-116) Lactate Dehydrogenase 213 U/L (81-234) Total Protein 4.8 g/dL (6.4-8.2) Albumin 1.9 g/dL (3.4-5.0) Albumin/Globulin Ratio 0.7 (1.0-1.7) Test 01/13/18 05:40 01/13/18 12:45 White Blood Count 10.7 x10^3/uL (4.0-11.0) Red Blood Count 4.26 x10^6/uL (3.50-5.40) Hemoglobin 13.4 g/dL (12.0-15.5) Hematocrit 39.5 % (36.0-47.0) Mean Corpuscular Volume 93 fL (79-100) Mean Corpuscular Hemoglobin 31 pg (25-35) Mean Corpuscular Hemoglobin Concent 34 g/dL (31-37) Red Cell Distribution Width 13.6 % (11.5-14.5) Platelet Count 152 x10^3/uL (140-400) Neutrophils (%) (Auto) 93 % (31-73) Lymphocytes (%) (Auto) 5 % (24-48) Monocytes (%) (Auto) 3 % (0-9) Eosinophils (%) (Auto) 0 % (0-3) Basophils (%) (Auto) 0 % (0-3) Neutrophils # (Auto) 9.9 x10^3uL (1.8-7.7) Lymphocytes # (Auto) 0.5 x10^3/uL (1.0-4.8) Monocytes # (Auto) 0.3 x10^3/uL (0.0-1.1) Eosinophils # (Auto) 0.0 x10^3/uL (0.0-0.7) Basophils # (Auto) 0.0 x10^3/uL (0.0-0.2) Sodium Level 143 mmol/L (136-145) Potassium Level 4.5 mmol/L (3.5-5.1) Chloride Level 113 mmol/L (98-107) Carbon Dioxide Level 20 mmol/L (21-32) Anion Gap 10 (6-14) Blood Urea Nitrogen 34 mg/dL (7-20) Creatinine 1.3 mg/dL (0.6-1.0) Estimated GFR (Cockcroft-Gault) 39.2 BUN/Creatinine Ratio 26 (6-20) Glucose Level 107 mg/dL (70-99) Calcium Level 9.0 mg/dL (8.5-10.1) Total Bilirubin 0.9 mg/dL (0.2-1.0) Aspartate Amino Transf (AST/SGOT) 65 U/L (15-37) Alanine Aminotransferase (ALT/SGPT) 45 U/L (14-59) Alkaline Phosphatase 177 U/L (46-116) Total Protein 5.2 g/dL (6.4-8.2) Albumin 1.9 g/dL (3.4-5.0) Albumin/Globulin Ratio 0.6 (1.0-1.7) Procalcitonin 14.81 ng/mL (0.00-0.10) Glucose (Fingerstick) 95 mg/dL (70-99) Review All relevant outside records, renal labs, imaging studies, telemetry/EKG's were reviewed. SOLOMON SULLIVAN MD Jan 13, 2018 14:28
[2018-01-13] MEDS ORDERED: POLYETHYLENE GLYCOL 3350 17 GM PACKET. PO PRN (14:30)
[2018-01-13] MEDS: fentaNYL PF VIAL 100 MCG/2 ML VIAL IV PRN ×2 (17:25→23:49)
--- NOTE | 2018-01-13 18:08 | CONS ---
DATE OF CONSULTATION: 01/13/2018 ROOM: 112. REQUESTING PHYSICIAN: Milad Mccormack MD. REASON FOR CONSULTATION: Sepsis and colitis. HISTORY OF PRESENT ILLNESS: The patient is an 82-year-old female with a history of diabetes for over 30 years, also has some hypothyroidism. She presented to [facility] on the 11 of January secondary to complaints of severe abdominal pain. She states she has been sick for over a week. She said that she has complications with constipation fairly regularly and every 2 weeks, she will have a severe elizondo and then will have some loose stools, which then improve after a normal bowel movement. She has not had any antimicrobials for quite some time that she cannot remember. She did not have any sinus congestion until her admission. She denies any ill contacts. She has no sore throat. She has no cough, but her mouth is dry. She has no chest pain. No dysuria, frequency, urgency, has not had a UTI for quite some time. Denies any falls or trauma or rashes. On arrival to [facility], she had a white count of 10.5 with 86% neutrophils. Urinalysis was negative for nitrite and leukocyte esterase, bacteria and white blood cells. Lactic acid was elevated at 9.7. Her creatinine was 1.9. Chest x-ray showed no acute cardio process. She underwent a CT scan of the abdomen and pelvis without contrast that showed marked distention of the sigmoid colon and rectum with a large amount of fecal material with mild dilation of the proximal colon, small intestine and stomach. A focal site of obstruction was not identified. She had a 4.5 cm calcified uterine fibroid. She had complications with some urinary retention, she has a Stover placed. CT angiography of the abdomen and pelvis did not show any complications. It showed the abdominal aorta branches were patent. She has moderate distention of the rectum and sigmoid colon and there is some wall thickening in the distal half of the colon suggestive of nonspecific colitis. She received Rocephin, levofloxacin, IV vancomycin and IV metronidazole and then oral vancomycin. She was stabilized and transferred to [facility] where she is now on Zosyn and oral vancomycin. Currently, she is lying fairly comfortable, but does feel a little distended, has a little discomfort in her left lower quadrant and feels dry. She does see a personal lines advisor. She has been going to a personal lines advisor for 2 years. She has a wound on her right foot that has been treated with some Salve, has not received any antibiotics. PAST MEDICAL HISTORY: Positive for diabetes, peripheral neuropathy, hypercholesterolemia, hypertension, previous colitis, hemorrhoids, abdominal pain, gastroesophageal reflux disease, abnormal uterine bleeding, arthritis, hypothyroidism. PAST SURGICAL HISTORY: Positive for cholecystectomy and tubal ligation. REVIEW OF SYSTEMS: Otherwise negative except for mentioned above. ALLERGIES: LISTED SULFA, BUT SHE CANNOT REMEMBER WHAT HAPPENS WHEN SHE TAKES THIS. IT OCCURRED WHEN SHE WAS IN [place]. SOCIAL HISTORY: She is a smoker. Denies any alcohol, does not have any pets. FAMILY HISTORY: Positive for diabetes. Her sister has thyroid cancer. Her mother also had some type of cancer. CURRENT MEDICATIONS: Include Levophed at 4 mcg, Zosyn, oral vancomycin, albuterol, Atrovent. Other meds are available, have been reviewed in the chart. PHYSICAL EXAMINATION: VITAL SIGNS: She has been afebrile, blood pressure has been as low as the 70s and 40s, current temperature is 97.7, pulse 108, respirations 20, blood pressure 105/59, satting 100% on 2 liters. CONSTITUTIONAL: She is pleasant. She is cooperative. She is in no acute distress. HEENT: Pupils equal and reactive. Oral cavity, pharynx is clear. She has dentures is dry. NECK: Supple, no JVD. LUNGS: Decreased in the bases. HEART: S1, S2. ABDOMEN: Mildly protuberant and soft. There is no guarding, there is no rebound. She has a little discomfort in the left lower quadrant. Stover without complications. EXTREMITIES: Without clubbing, cyanosis or gross edema. Her right foot on the medial aspect of the dorsal side, she has a dry scaly callus type area without surrounding signs of inflammation, no erythema, no warmth, no fluctuance. NEUROLOGIC: She is nonfocal. PSYCHIATRIC: Affect is pleasant. LABORATORY DATA: White count 10.7, hemoglobin 13.4, platelets of 152, neutrophils of 93. She did have 47% segs on arrival last evening. Creatinine from last evening was 1.6, currently is 1.3, glucose of 107, AST 65, ALT 45, alkaline phosphatase 177. Again, urinalysis reviewed from [facility] was clear. IMPRESSION: 1. Possible sepsis. 2. 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 3. SULFA ALLERGY, BUT CANNOT REMEMBER THE REACTION. 4. Bandemia. 5. Right foot wound is clean. 6. Acute kidney injury. She did receive IV contrast, currently improving. RECOMMENDATIONS: I doubt this is C. diff, given her denial of recent antimicrobials, but we will continue the oral vancomycin until this is ruled out as it is possible that she is tired or septic and little confused, she may not remember. We will continue the Zosyn, but given her improved renal function, we will increase the dose. We will check a procalcitonin level this morning. We will check abdominal series and consult GI also as this seemed to be a chronic problem. We will follow up labs and cultures. I did review Delfin's records, I discussed with the family who was in the room, discussed with nursing, spent 35 minutes of critical care time. Thanks for the opportunity to participate in the patient's care.. Should you have further questions, please do not hesitate to contact me. JAYCEE CABELLO MD DR: JORDON/shanthi JOB#: [id number] / [id number]
[2018-01-13] MEDS: ONDANSETRON PF 4 MG/2 ML VIAL. IV PRN (18:19)
--- NOTE | 2018-01-13 19:01 | PN ---
DATE: 01/13/2018 SUBJECTIVE: The patient is resting slightly propped up in bed, awake, alert. On questioning her, she stated her abdominal pain is much improved. Denied any nausea or vomiting. Denied any chills, rigors or fever. PHYSICAL EXAMINATION: GENERAL: When I examined her, she was pale. Not jaundiced or cyanosed. No lymphadenopathy, no thyromegaly. No jugular venous distension. No lower limb edema. VITAL SIGNS: Her heart rate was 109, blood pressure was 125/48, temperature was 98.8, respiratory rate 21 and oxygen saturation was 100% on 2 liters of oxygen by nasal cannula. HEAD, EYES, EARS, NOSE AND THROAT: Normocephalic, atraumatic. NECK: Supple. HEART: Showed normal first and second heart sounds with no gallop, rub or murmur. CHEST: Clear to auscultation. No crepitation or rhonchi. ABDOMEN: Distended, soft, nontender. No guarding or rigidity. No organomegaly with hernial orifice intact. Bowel sounds normal. NEUROLOGIC: She was awake, alert, responding appropriately, complaining that she is thirsty. All her cranial nerves intact. She moves extremities without difficulty. Her intake over the last 24 hours was 2100, output was 675. LABORATORY DATA: This morning showed a serum sodium 143, potassium 4.5, chloride 113, bicarbonate 20, anion gap of 10, BUN 34, creatinine 1.3, estimated GFR was 39 mL per minute. Her glucose 107, calcium was 9. Total bilirubin and ALT were normal. AST and alkaline phosphatase slightly elevated. Total protein was 5.2, albumin was 1.9. Her white cell count was 10,700, hemoglobin 13.4, hematocrit 39, MCV was 93 and platelet count up to 152. ASSESSMENT: In summary, this is an 82-year-old female patient who was admitted with severe abdominal pain, hypertension, found to be septic with probably infectious colitis. She has also fecal impaction, metabolic acidosis, poorly controlled type 2 diabetes with a blood sugar which was more than 600. Other medical problems include hypertension, hypothyroidism, hyperlipidemia, and diabetic peripheral neuropathy. We will obviously continue with IV fluid, continue with Levophed and titrate. Continue with IV antibiotic. She is on a clear liquid diet. I will probably restart her Synthroid. I will hold all her antihypertensive medication for the time being as well as her diuretics. SAVANNA LYNN MD DR: STEPH/shanthi JOB#: [id number] / [id number]
[2018-01-13] MEDS: BUDESONIDE 0.5 MG/2 ML NEBU. NEB SCH (19:39)
[2018-01-13] MEDS: LACTOBACILLUS RHAMNOSUS GG 1 CAPSULE. PO SCH (21:02)
[2018-01-14] VITALS (13 sets, daily range): BP systolic 101–136; BP diastolic 45–62
[2018-01-14 03:52] LABS: BASO % 0 % (0-3); EOS % 0 % (0-3); HEMATOCRIT 36.5 % (36.0-47.0); HEMOGLOBIN 12.4 g/dL (12.0-15.5); LYMPH # 0.4 x10^3/uL (1.0-4.8); LYMPH % 4 % (24-48); MEAN CORPUSCULAR HEMOGLOBIN 31 pg (25-35); MEAN CORPUSCULAR HGB CONC 34 g/dL (31-37); MEAN CORPUSCULAR VOLUME 92 fL (79-100); MONO # 0.4 x10^3/uL (0.0-1.1); MONO % 4 % (0-9); NEUT # 9.6 x10^3uL (1.8-7.7); NEUT % 92 % (31-73); PLATELET COUNT 147 x10^3/uL (140-400); RED BLOOD COUNT 3.96 x10^6/uL (3.50-5.40); RED CELL DISTRIBUTION WIDTH 13.9 % (11.5-14.5); WHITE BLOOD COUNT 10.4 x10^3/uL (4.0-11.0)
[2018-01-14 04:18] LABS: ALBUMIN 1.8 g/dL (3.4-5.0); ALBUMIN/GLOBULIN RATIO 0.5 (1.0-1.7); CALCIUM 8.6 mg/dL (8.5-10.1); CREATININE 1.2 mg/dL (0.6-1.0); POTASSIUM 3.8 mmol/L (3.5-5.1); TOTAL BILIRUBIN 1.1 mg/dL (0.2-1.0); TOTAL PROTEIN 5.5 g/dL (6.4-8.2)
[2018-01-14] MEDS: fentaNYL PF VIAL 100 MCG/2 ML VIAL IV PRN ×2 (05:41→20:54)
[2018-01-14] MEDS: LEVOTHYROXINE 125 MCG TABLET PO SCH (05:41)
[2018-01-14] MEDS: PIPERACILLIN/TAZOBACTAM 3.375 GM in IV NORMAL SALINE 50ML 50 ML IV SCH ×4 (05:42→23:23)
--- NOTE | 2018-01-14 07:27 | PDOC ---
Infectious Disease Note Subjective Subjective Feels better but still some LLQ discomfort No F/C/S/SOA/Rash Did vomit. Some + BM ROS ROS o/w neg Vital Sign Vital Signs Vital Signs Date Time Temp Pulse Resp B/P (MAP) Pulse Ox O2 Delivery O2 Flow Rate FiO2 01/14/18 06:10 16 96 Room Air 01/14/18 06:00 104 114/55 (74) 01/14/18 04:00 98.8 98.8 01/13/18 20:00 2.0 Physical Exam PHYSICAL EXAM CONSTITUTIONAL: She is pleasant. She is cooperative. She is in no acute distress. HEENT: Pupils equal and reactive. Oral cavity, pharynx is clear. She has dentures is more dry. NECK: Supple, no JVD. LUNGS: Decreased in the bases. HEART: S1, S2. ABDOMEN: Mildly protuberant and soft. There is no guarding, there is no rebound. She has a little discomfort in the left lower quadrant. : Stover without complications. EXTREMITIES: Without clubbing, cyanosis or gross edema. Her right foot on the medial aspect of the dorsal side, she has a dry scaly callus type area without surrounding signs of inflammation, no erythema, no warmth, no fluctuance. NEUROLOGIC: She is nonfocal. PSYCHIATRIC: Affect is pleasant Labs Lab Laboratory Tests Test 01/13/18 12:45 01/13/18 17:23 01/14/18 00:05 01/14/18 03:05 Glucose (Fingerstick) 95 mg/dL (70-99) 89 mg/dL (70-99) 100 mg/dL (70-99) White Blood Count 10.4 x10^3/uL (4.0-11.0) Red Blood Count 3.96 x10^6/uL (3.50-5.40) Hemoglobin 12.4 g/dL (12.0-15.5) Hematocrit 36.5 % (36.0-47.0) Mean Corpuscular Volume 92 fL (79-100) Mean Corpuscular Hemoglobin 31 pg (25-35) Mean Corpuscular Hemoglobin Concent 34 g/dL (31-37) Red Cell Distribution Width 13.9 % (11.5-14.5) Platelet Count 147 x10^3/uL (140-400) Neutrophils (%) (Auto) 92 % (31-73) Lymphocytes (%) (Auto) 4 % (24-48) Monocytes (%) (Auto) 4 % (0-9) Eosinophils (%) (Auto) 0 % (0-3) Basophils (%) (Auto) 0 % (0-3) Neutrophils # (Auto) 9.6 x10^3uL (1.8-7.7) Lymphocytes # (Auto) 0.4 x10^3/uL (1.0-4.8) Monocytes # (Auto) 0.4 x10^3/uL (0.0-1.1) Eosinophils # (Auto) 0.0 x10^3/uL (0.0-0.7) Basophils # (Auto) 0.0 x10^3/uL (0.0-0.2) Sodium Level 143 mmol/L (136-145) Potassium Level 3.8 mmol/L (3.5-5.1) Chloride Level 111 mmol/L (98-107) Carbon Dioxide Level 19 mmol/L (21-32) Anion Gap 13 (6-14) Blood Urea Nitrogen 28 mg/dL (7-20) Creatinine 1.2 mg/dL (0.6-1.0) Estimated GFR (Cockcroft-Gault) 43.0 BUN/Creatinine Ratio 23 (6-20) Glucose Level 94 mg/dL (70-99) Calcium Level 8.6 mg/dL (8.5-10.1) Total Bilirubin 1.1 mg/dL (0.2-1.0) Aspartate Amino Transf (AST/SGOT) 80 U/L (15-37) Alanine Aminotransferase (ALT/SGPT) 46 U/L (14-59) Alkaline Phosphatase 334 U/L (46-116) Total Protein 5.5 g/dL (6.4-8.2) Albumin 1.8 g/dL (3.4-5.0) Albumin/Globulin Ratio 0.5 (1.0-1.7) Test 01/14/18 05:50 Glucose (Fingerstick) 89 mg/dL (70-99) Micro IMPRESSION: There is dilatation of stomach and small bowel. Distal small bowel obstruction is possible. No free air is evident. No significant fecal impaction is seen Objective Assessment Possible sepsis - elevated procalcitonin but off pressors Colitis - Fecal impaction - resolved ? DM gastroparesis - dilated stomach and SB on Abd film - + vomiting Mild transaminitis Sulfa allergy - can't remember reaction Hypothyroid Bandemia Right foot wound is clean GILL - did receive IV contrast - currently improving Plan Plan of Care Doubt C-diff but cont po Vanc until ruled out Cont Zosyn Await further GI eval F/u labs in am and cults JAYCEE CABELLO MD Jan 14, 2018 07:27
[2018-01-14] MEDS: INSULIN LISPRO 300 UNITS/3 ML INSULN.PEN. SQ SCH ×3 (08:00→17:00)
[2018-01-14] MEDS: IV NORMAL SALINE 1000ML BAG 1,000 ML IV SCH ×2 (08:22→16:53)
[2018-01-14] MEDS: LACTOBACILLUS RHAMNOSUS GG 1 CAPSULE. PO SCH ×2 (08:23→20:54)
[2018-01-14] MEDS: KETOTIFEN FUMARATE 0.025% OPHTH SOLUTION BOTTLE. OU SCH ×2 (08:23→20:53)
[2018-01-14] MEDS: PANTOPRAZOLE 40 MG TABLET.DR. PO SCH (08:23)
[2018-01-14] MEDS: ALBUTEROL SULFATE 2.5 MG/3 ML NEBU. NEB SCH ×4 (09:03→20:21)
[2018-01-14] MEDS: BUDESONIDE 0.5 MG/2 ML NEBU. NEB SCH ×2 (09:03→20:21)
--- NOTE | 2018-01-14 09:10 | PDOC ---
Subjective: Subjective: Ate a little yesterday, had some nausea. Lower left abd pain, some to right as well. Objective: Objective: Per RN - a couple watery stools overnight. D/w Dr. Mccormack - plans for CT A/P w/ PO contrast. Vital Signs: Vital Signs Date Time Temp Pulse Resp B/P (MAP) Pulse Ox O2 Delivery O2 Flow Rate FiO2 01/14/18 08:00 Room Air 01/14/18 07:00 104 16 117/57 (77) 94 01/14/18 04:00 98.8 98.8 01/13/18 20:00 2.0 Labs: Laboratory Tests Test 01/13/18 12:45 01/13/18 17:23 01/14/18 00:05 01/14/18 03:05 Glucose (Fingerstick) 95 mg/dL 89 mg/dL 100 mg/dL White Blood Count 10.4 x10^3/uL Red Blood Count 3.96 x10^6/uL Hemoglobin 12.4 g/dL Hematocrit 36.5 % Mean Corpuscular Volume 92 fL Mean Corpuscular Hemoglobin 31 pg Mean Corpuscular Hemoglobin Concent 34 g/dL Red Cell Distribution Width 13.9 % Platelet Count 147 x10^3/uL Neutrophils (%) (Auto) 92 % Lymphocytes (%) (Auto) 4 % Monocytes (%) (Auto) 4 % Eosinophils (%) (Auto) 0 % Basophils (%) (Auto) 0 % Neutrophils # (Auto) 9.6 x10^3uL Lymphocytes # (Auto) 0.4 x10^3/uL Monocytes # (Auto) 0.4 x10^3/uL Eosinophils # (Auto) 0.0 x10^3/uL Basophils # (Auto) 0.0 x10^3/uL Sodium Level 143 mmol/L Potassium Level 3.8 mmol/L Chloride Level 111 mmol/L Carbon Dioxide Level 19 mmol/L Anion Gap 13 Blood Urea Nitrogen 28 mg/dL Creatinine 1.2 mg/dL Estimated GFR (Cockcroft-Gault) 43.0 BUN/Creatinine Ratio 23 Glucose Level 94 mg/dL Calcium Level 8.6 mg/dL Total Bilirubin 1.1 mg/dL Aspartate Amino Transf (AST/SGOT) 80 U/L Alanine Aminotransferase (ALT/SGPT) 46 U/L Alkaline Phosphatase 334 U/L Total Protein 5.5 g/dL Albumin 1.8 g/dL Albumin/Globulin Ratio 0.5 Test 01/14/18 05:50 01/14/18 07:50 01/14/18 08:28 Glucose (Fingerstick) 89 mg/dL 86 mg/dL Lactic Acid Level 0.8 mmol/L PE: GEN: NAD LUNGS: NC HEART: tachycardic ABD: LLQ discomfort, left to right, some distention NEURO/PSYCH: A & O 3 A/P: ?sepsis N/v, lower abd pain (L > R) -uncontrolled DM, has Reglan ordered PRN (not tried yet) -h/o GERD on PPI, last EGD 2014 -initial CTs w/ fecal impaction - significant stooling since, has Miralax PRN -- Plans to repeat CT, await this. Continue PPI, try Reglan - d/w RN. UPDATE - CT A/P Findings: There are prominent infiltrates of the lower lobes bilaterally at the lung bases also small bilateral pleural effusions. There is coronary calcification. There is [id number] dilatation of the visualized distal esophagus, air contrast level present. There is likely small hiatal hernia. There is small quantity of perihepatic free fluid. There is gastric distention. There is also small bowel dilatation, greatest of caliber about 4.5 cm, probable wall thickening more distally although the entirety of the small bowel is not opacified with oral contrast. More distal small bowel is fairly not as dilated. There may be transition of caliber in the right paracentral pelvic region. Evaluation of the colon is limited although there is wall thickening of the ascending colon, also likely descending colon and sigmoid colon. There is also fairly prominent pneumatosis of the sigmoid colon. No definitive free air is identified. There is mild nonorganized free fluid in the pelvis. There is diffuse mesenteric edema. There is diffuse body wall edema. There is atherosclerotic calcification of the abdominal aorta and iliac arteries. There are calcified masses of the uterus, findings of leiomyomas. There is no hydronephrosis of either kidney, no renal calculi. There is no obvious adrenal nodularity. There is no obvious abnormality of the liver or spleen, pancreas poorly visualized on this exam. Gallbladder is absent. There is multilevel lumbar degenerative disc disease. IMPRESSION: 1. There is small bowel and gastric dilatation, evidence of small bowel obstruction although difficult to determine transition site on this exam. There is long segment pneumatosis of the sigmoid colon. There is colonic wall thickening, evidence of colitis. 2. There is diffuse mesenteric and body wall edema. There are prominent infiltrates of the lower lobes lung bases bilaterally, also small bilateral pleural effusions. There is mild free fluid most notable about the liver, minimally in the pelvis. D/w Dr. Carlos - ask surgery to see, place NG tube. Possible ischemic compromise from prior obstipation. D/w RN - had plans to transfer to regular floor this afternoon - would d/w Dr. Mccormack. JOHNATHAN BAKER Jan 14, 2018 09:10
[2018-01-14] MEDS ORDERED: IOHEXOL 240 MG/ML 50ML VIAL. PO ONE (10:00)
--- NOTE | 2018-01-14 10:17 | PDOC ---
SUBJECTIVE ROS Vomitings Yesterday afternoon, better today OBJECTIVE Vital Signs Vital Signs Date Time Temp Pulse Resp B/P (MAP) Pulse Ox O2 Delivery O2 Flow Rate FiO2 01/14/18 09:00 105 18 109/56 (73) 97 Room Air 01/14/18 08:00 98.6 98.6 01/13/18 20:00 2.0 I & 0 Intake and Output 01/14/18 07:00 Intake Total 4186.4 ml Output Total 810 ml Balance 3376.4 ml Intake Oral 1140 ml IV Total 3046.4 ml Output Urine Total 810 ml # Bowel Movements 4 PHYSICAL EXAM Physical Exam GENERAL: NAD HEENT: om moist O2 by nc NECK: Supple. HEART: with no gallop, rub or murmur. CHEST: Clear to auscultation. Non labored ABDOMEN: Distended, soft. NEUROLOGIC: awake, alert, - Stover + \Skin No rash Ext- No LE edema DIAGNOSIS/ASSESSMENT Assessment & Plan GILL- Low pre-renal,? IV contrast Improving , Non Oliguric E-Lytes normal, Bicrb Mildly Low, stable, Monitor CKD- Likely present, Hx of Uncontrolled DM use of NSAID Fecal impaction- resolved CT Ordered by primary today Hx of NSAID use Elevated Alk Phos- as per primary DW RN COMMENT/RELEVANT DATA Meds Current Medications Medications (Trade) Dose Ordered Sig/Jailyn Start Time Stop Time Status Last Admin Dose Admin Albuterol Sulfate (Ventolin Neb Soln) 2.5 mg PRN Q4HRS PRN 01/13/18 09:15 Albuterol/ Ipratropium (Duoneb) 3 ml RTQID 01/12/18 20:00 01/13/18 09:14 DC 01/13/18 08:38 3 ML Budesonide (Pulmicort) 0.5 mg RTBID 01/13/18 20:00 01/14/18 09:03 0.5 MG Dextrose (Dextrose 50%-Water Syringe) 12.5 gm PRN Q15MIN PRN 01/12/18 15:15 Fentanyl Citrate (Fentanyl 2ml Vial) 25 mcg PRN Q3HRS PRN 01/12/18 15:15 01/13/18 20:00 25 MCG Influenza Virus Vaccine (Afluria Trivalent [id number] Syringe) 0.5 ml ONCE ONCE 01/13/18 09:00 01/13/18 09:01 DC 01/13/18 08:42 0.5 ML Insulin Human Lispro (HumaLOG) 0-5 UNITS TIDWMEALS 01/12/18 17:00 Iohexol (Omnipaque 240 Mg/ml) 50 ml 1X ONCE 01/14/18 10:00 01/14/18 10:01 DC Ketotifen Fumarate (Zaditor) 1 drop BID 01/12/18 21:00 01/14/18 08:23 1 DROP Lactobacillus Rhamnosus (Culturelle) 1 cap BID 01/13/18 21:00 01/14/18 08:23 1 CAP Levothyroxine Sodium (Synthroid) 125 mcg DAILY06 01/13/18 10:00 01/14/18 05:41 125 MCG Metoclopramide HCl (Reglan Vial) 5 mg PRN Q6HRS PRN 01/13/18 09:45 Non-Formulary Medication (Albuterol Sulfate (Proair Hfa Inhaler)) 2 puff PRN Q4-6HRS 01/13/18 09:00 UNV Non-Formulary Medication (Fluticasone/ Salmeterol (Advair 100-50 Diskus)) 1 inh BID PRN 01/13/18 09:00 UNV Norepinephrine Bitartrate 250 ml @ 1.875 mls/ hr CONT PRN 01/12/18 18:00 01/12/18 17:58 9.375 MLS/HR Ondansetron HCl (Zofran) 4 mg PRN Q8HRS PRN 01/13/18 18:00 01/13/18 18:19 4 MG Pantoprazole Sodium (Protonix) 40 mg DAILYAC 01/13/18 09:30 01/14/18 08:23 40 MG Piperacillin Sod/ Tazobactam Sod 2.25 gm/Sodium Chloride 50 ml @ 100 mls/hr Q6HRS 01/12/18 16:00 01/13/18 07:33 DC 01/13/18 05:02 100 MLS/HR Piperacillin Sod/ Tazobactam Sod 3.375 gm/Sodium Chloride 50 ml @ 100 mls/hr Q6HRS 01/13/18 12:00 01/14/18 05:42 100 MLS/HR Polyethylene Glycol (miraLAX PACKET) 17 gm PRN DAILY PRN 01/13/18 14:30 Sodium Chloride 1,000 ml @ 125 mls/hr Q8H 01/12/18 15:15 01/14/18 08:22 125 MLS/HR Vancomycin HCl (Vancomycin Oral Solution) 125 mg [id number] 01/14/18 09:30 Lab Laboratory Tests Test 01/13/18 12:45 01/13/18 17:23 01/14/18 00:05 01/14/18 03:05 Glucose (Fingerstick) 95 mg/dL (70-99) 89 mg/dL (70-99) 100 mg/dL (70-99) White Blood Count 10.4 x10^3/uL (4.0-11.0) Red Blood Count 3.96 x10^6/uL (3.50-5.40) Hemoglobin 12.4 g/dL (12.0-15.5) Hematocrit 36.5 % (36.0-47.0) Mean Corpuscular Volume 92 fL (79-100) Mean Corpuscular Hemoglobin 31 pg (25-35) Mean Corpuscular Hemoglobin Concent 34 g/dL (31-37) Red Cell Distribution Width 13.9 % (11.5-14.5) Platelet Count 147 x10^3/uL (140-400) Neutrophils (%) (Auto) 92 % (31-73) Lymphocytes (%) (Auto) 4 % (24-48) Monocytes (%) (Auto) 4 % (0-9) Eosinophils (%) (Auto) 0 % (0-3) Basophils (%) (Auto) 0 % (0-3) Neutrophils # (Auto) 9.6 x10^3uL (1.8-7.7) Lymphocytes # (Auto) 0.4 x10^3/uL (1.0-4.8) Monocytes # (Auto) 0.4 x10^3/uL (0.0-1.1) Eosinophils # (Auto) 0.0 x10^3/uL (0.0-0.7) Basophils # (Auto) 0.0 x10^3/uL (0.0-0.2) Sodium Level 143 mmol/L (136-145) Potassium Level 3.8 mmol/L (3.5-5.1) Chloride Level 111 mmol/L (98-107) Carbon Dioxide Level 19 mmol/L (21-32) Anion Gap 13 (6-14) Blood Urea Nitrogen 28 mg/dL (7-20) Creatinine 1.2 mg/dL (0.6-1.0) Estimated GFR (Cockcroft-Gault) 43.0 BUN/Creatinine Ratio 23 (6-20) Glucose Level 94 mg/dL (70-99) Calcium Level 8.6 mg/dL (8.5-10.1) Total Bilirubin 1.1 mg/dL (0.2-1.0) Aspartate Amino Transf (AST/SGOT) 80 U/L (15-37) Alanine Aminotransferase (ALT/SGPT) 46 U/L (14-59) Alkaline Phosphatase 334 U/L (46-116) Total Protein 5.5 g/dL (6.4-8.2) Albumin 1.8 g/dL (3.4-5.0) Albumin/Globulin Ratio 0.5 (1.0-1.7) Test 01/14/18 05:50 01/14/18 07:50 01/14/18 08:28 Glucose (Fingerstick) 89 mg/dL (70-99) 86 mg/dL (70-99) Lactic Acid Level 0.8 mmol/L (0.4-2.0) Results All relevant outside records, renal labs, imaging studies, telemetry/EKG's were reviewed. SOLOMON SULLIVAN MD Jan 14, 2018 10:17
[2018-01-14] MEDS: ONDANSETRON PF 4 MG/2 ML VIAL. IV PRN (10:48)
[2018-01-14] MEDS: METOCLOPRAMIDE HCL 10 MG/2 ML VIAL. IV PRN (10:48)
[2018-01-14] MEDS: VANCOMYCIN 125 MG/2.5 ML ORAL SOLUTION. PO SCH ×4 (11:53→20:54)
--- NOTE | 2018-01-14 15:11 | RAD ---
CT ABD PEL W/ORAL CONTRST ONLY Indication: Dilated stomach and small bowel, possible obstruction Technique: Noncontrast CT imaging was performed of the abdomen pelvis, multiplanar reconstruction images submitted. Oral contrast was given. One or more of the following individualized dose reduction techniques were utilized for this examination: 1. Automated exposure control 2. Adjustment of the mA and/or kV according to patient size 3. Use of iterative reconstruction technique. Comparison: None Findings: There are prominent infiltrates of the lower lobes bilaterally at the lung bases also small bilateral pleural effusions. There is coronary calcification. There is [id number] dilatation of the visualized distal esophagus, air contrast level present. There is likely small hiatal hernia. There is small quantity of perihepatic free fluid. There is gastric distention. There is also small bowel dilatation, greatest of caliber about 4.5 cm, probable wall thickening more distally although the entirety of the small bowel is not opacified with oral contrast. More distal small bowel is fairly not as dilated. There may be transition of caliber in the right paracentral pelvic region. Evaluation of the colon is limited although there is wall thickening of the ascending colon, also likely descending colon and sigmoid colon. There is also fairly prominent pneumatosis of the sigmoid colon. No definitive free air is identified. There is mild nonorganized free fluid in the pelvis. There is diffuse mesenteric edema. There is diffuse body wall edema. There is atherosclerotic calcification of the abdominal aorta and iliac arteries. There are calcified masses of the uterus, findings of leiomyomas. There is no hydronephrosis of either kidney, no renal calculi. There is no obvious adrenal nodularity. There is no obvious abnormality of the liver or spleen, pancreas poorly visualized on this exam. Gallbladder is absent. There is multilevel lumbar degenerative disc disease. IMPRESSION: 1. There is small bowel and gastric dilatation, evidence of small bowel obstruction although difficult to determine transition site on this exam. There is long segment pneumatosis of the sigmoid colon. There is colonic wall thickening, evidence of colitis. 2. There is diffuse mesenteric and body wall edema. There are prominent infiltrates of the lower lobes lung bases bilaterally, also small bilateral pleural effusions. There is mild free fluid most notable about the liver, minimally in the pelvis. Electronically signed by: Waldo Calderon MD (01/14/2018 3:08 PM) [email or web address]
--- NOTE | 2018-01-14 16:01 | RAD ---
EXAM: Abdomen sonogram. HISTORY: Abnormal liver enzymes laboratory values. TECHNIQUE: Sonographic imaging of the abdomen was performed. COMPARISON: None. FINDINGS: The liver is normal in size. There is heterogeneous coarse liver echotexture. The gallbladder is surgically absent. The common bile duct is normal in caliber for patient age. The right kidney is unremarkable. The inferior vena cava and pancreas are partially obscured due to bowel gas. There is trace abdominal ascites. There is a small right pleural effusion. IMPRESSION: 1. Heterogeneous coarse hepatic echotexture, a nonspecific finding which can be seen with hepatitis. No focal hepatic lesion is seen. 2. Trace abdominal ascites and small right pleural effusion. Electronically signed by: Joann Herzog MD (01/14/2018 3:58 PM) [id number]
[2018-01-14] MEDS: AMINO AC 3%/ELECTROLYTE/GLYCER 1,000 ML IV SCH (17:33)
--- NOTE | 2018-01-14 20:43 | PDOC2 ---
CONSULT Date of Consult Date of Consult DATE: 01/14/18 TIME: 20:28 Reason for Consult Reason for Consult: Colonic pneumatosis Referring Physician Referring Physician: [place] Identification/Chief Complaint Chief Complaint abd pain Source Source: Chart review, Patient History of Present Illness Reason for Visit: 82 yo F transferred from [facility] for abd pain, noted to have severe constipation, but has since had multiple stools. Pt reports feeling much better today, with near resolution of abd pain. No N/v. Main c/o is thirst. Seen in ICU, accompanied by supportive daughter. Past Medical History Cardiovascular: CAD, CHF, HTN, Hyperlipidemia Pulmonary: COPD CENTRAL NERVOUS SYSTEM: Other (forgetfullness) GI: Constipation Rheumatologic: Rheumatoid arthritis Endocrine: Diabetes (poorly controlled, glu >300) Past Surgical History Past Surgical History: Cholecystectomy, Cataract Removal, Tubal Ligation Family History Family History: Cancer, Diabetes Social History <1 pack per day (extensive smoking history) ALCOHOL: none Current Medications Current Medications Current Medications Fentanyl Citrate (Fentanyl 2ml Vial) 50 mcg PRN Q3HRS PRN IV SEVERE PAIN Last administered on 01/14/18at 05:41; Start 01/12/18 at 15:15 Fentanyl Citrate (Fentanyl 2ml Vial) 25 mcg PRN Q3HRS PRN IV MODERATE PAIN Last administered on 01/13/18at 20:00; Start 01/12/18 at 15:15 Piperacillin Sod/ Tazobactam Sod 2.25 gm/Sodium Chloride 50 ml @ 100 mls/hr Q6HRS IV Last administered on 01/13/18at 05:02; Start 01/12/18 at 16:00; Stop 01/13/18 at 07:33; Status DC Sodium Chloride 1,000 ml @ 125 mls/hr Q8H IV Last administered on 01/14/18at 16:53; Start 01/12/18 at 15:15; Stop 01/14/18 at 17:17; Status DC Insulin Human Lispro (HumaLOG) 0-5 UNITS TIDWMEALS SQ ; Start 01/12/18 at 17:00 Dextrose (Dextrose 50%-Water Syringe) 12.5 gm PRN Q15MIN PRN IV SEE COMMENTS; Start 01/12/18 at 15:15 Vancomycin HCl (Vancomycin Oral Solution) 125 mg [id number] PO ; Start 01/12/18 at 17:00; Stop 01/12/18 at 17:00; Status DC Influenza Virus Vaccine (Afluria Trivalent [id number] Syringe) 0.5 ml ONCE ONCE VAX IM Last administered on 01/13/18at 08:42; Start 01/13/18 at 09:00; Stop 01/13/18 at 09:01; Status DC Ketotifen Fumarate (Zaditor) 1 drop BID OU Last administered on 01/14/18 08: 23; Start 01/12/18 at 21:00 Albuterol/ Ipratropium (Duoneb) 3 ml RTQID NEB Last administered on 01/13/18at 08:38; Start 01/12/18 at 20:00; Stop 01/13/18 at 09:14; Status DC Norepinephrine Bitartrate 250 ml @ 1.875 mls/ hr CONT PRN IV SEE I/O RECORD Last administered on 01/12/18at 17:58; Start 01/12/18 at 18:00 Piperacillin Sod/ Tazobactam Sod 3.375 gm/Sodium Chloride 50 ml @ 100 mls/hr Q6HRS IV Last administered on 01/14/18 17:22; Start 01/13/18 at 12:00 Non-Formulary Medication (Albuterol Sulfate (Proair Hfa Inhaler)) 2 puff PRN Q4- 6HRS IH ; Start 01/13/18 at 09:00; Status UNV Pantoprazole Sodium (Protonix) 40 mg DAILYAC PO Last administered on at 08:23; Start 01/13/18 at 09:30 Non-Formulary Medication (Fluticasone/ Salmeterol (Advair 100-50 Diskus)) 1 inh BID PRN IH SHORTNESS OF BREATH; Start 01/13/18 at 09:00; Status UNV Levothyroxine Sodium (Synthroid) 125 mcg DAILY06 PO Last administered on at 05:41; Start 01/13/18 at 10:00 Albuterol Sulfate (Ventolin Neb Soln) 2.5 mg RTQID NEB Last administered on at 20:21; Start 01/13/18 at 12:00 Budesonide (Pulmicort) 0.5 mg RTBID NEB Last administered on 10/16/18at 20:21; Start 01/13/18 at 20:00 Albuterol Sulfate (Ventolin Neb Soln) 2.5 mg PRN Q4HRS PRN NEB SHORTNESS OF BREATH; Start 01/13/18 at 09:15 Metoclopramide HCl (Reglan Vial) 5 mg PRN Q6HRS PRN IV NAUSEA/VOMITING Last administered on 01/14/18at 10:48; Start 01/13/18 at 09:45 Lactobacillus Rhamnosus (Culturelle) 1 cap BID PO Last administered on at 08:23; Start 01/13/18 at 21:00 Polyethylene Glycol (miraLAX PACKET) 17 gm PRN DAILY PRN PO CONSTIPATION; Start 01/13/18 at 14:30 Ondansetron HCl (Zofran) 4 mg PRN Q8HRS PRN IV NAUSEA/VOMITING Last administered on 01/14/18at 10:48; Start 01/13/18 at 18:00 Vancomycin HCl (Vancomycin Oral Solution) 125 mg [id number] PO Last administered on 01/14/18at 11:53; Start 01/14/18 at 09:30 Iohexol (Omnipaque 240 Mg/ml) 50 ml 1X ONCE PO Last administered on at 10:00; Start 01/14/18 at 10:00; Stop 01/14/18 at 10:01; Status DC Amino Acids/ Glycerin/ Electrolytes 1,000 ml @ 75 mls/hr [id number] IV Last administered on 01/14/18at 17:33; Start 01/14/18 at 17:15 Active Scripts Active Reported Levemir (Insulin Detemir) 100 Unit/1 Ml Vial 25 Unit SQ BID Benadryl (Diphenhydramine Hcl) 25 Mg Capsule 25 Mg PO TID Myrbetriq (Mirabegron) 25 Mg Tab.er.24h 25 Mg PO DAILY PRN Valium (Diazepam) 5 Mg Tablet 5 Mg PO QID Triamcinolone Acetonide 0.5% Cream (Triamcinolone Acetonide) 15 Gm Cream..g. 1 Alem TP TID PRN Novolog Flexpen (Insulin Aspart) 100 Unit/1 Ml Insuln.pen 1 Unit SQ TIDAC Lisinopril 40 Mg Tablet 40 Mg PO DAILY Norvasc (Amlodipine Besylate) 10 Mg Tablet 10 Mg PO DAILY Hydrocodone-Apap 7.5-325 (Hydrocodone Bit/Acetaminophen) 1 Each Tablet 1 Tab PO PRN Q6HRS PRN Synthroid (Levothyroxine Sodium) 125 Mcg Tablet 125 Mcg PO DAILYAC Lyrica (Pregabalin) 75 Mg Capsule 75 Mg PO BID Nexium Capsule (Esomeprazole Magnesium) 40 Mg Capsule.dr 40 Mg PO DAILYAC Zestril (Lisinopril) 20 Mg Tablet 20 Mg PO DAILY Montelukast Sodium Tablet (Montelukast Sodium) 10 Mg Tablet 10 Mg PO DAILY Patanol (Olopatadine Hcl) 5 Ml Drops 1 Drop EACHEYE BID Calcium + D3 Er Tablet (Calcium Carb & Cit/Vitamin D3) 1 Each Tablet.er 1 Each PO DAILY Aspirin Ec (Aspirin) 81 Mg Tablet.dr 81 Mg PO DAILY Lasix (Furosemide) 20 Mg Tablet 20 Mg PO DAILY Proair Hfa Inhaler (Albuterol Sulfate) 8.5 Gm Hfa.aer.ad 2 Puff IH PRN Q4-6HRS Advair 100-50 Diskus (Fluticasone/Salmeterol) 1 Each Disk.w.dev 1 Inh IH BID PRN Lipitor (Atorvastatin Calcium) 80 Mg Tablet 80 Mg PO HS Hydroxyzine Hcl 25 Mg Tablet 25 Mg PO TID PRN Allergies Allergies: Coded Allergies: Sulfa (Sulfonamide Antibiotics) (Verified Allergy, Intermediate, CANNOT REMEMBER, 01/14/18) ROS Gastrointestinal: Yes Abdominal Pain, Yes Constipation Physical Exam General: Alert, Oriented X3, Cooperative, No acute distress HEENT: Atraumatic Lungs: Normal air movement Abdomen: Soft, Other (min TTP deep palpation LLQ) Extremities: No clubbing, No cyanosis Skin: No rashes, No breakdown Neuro: Normal speech, Sensation intact Psych/Mental Status: Mental status NL, Mood NL Vitals VITALS Vital Signs Date Time Temp Pulse Resp B/P (MAP) Pulse Ox O2 Delivery O2 Flow Rate FiO2 01/14/18 20:22 100 Room Air 01/14/18 19:35 98.0 110 22 111/51 (71) 98.0 01/13/18 20:00 2.0 Labs Labs Laboratory Tests Test 01/12/18 23:30 01/13/18 05:40 01/13/18 12:45 01/13/18 17:23 Glucose (Fingerstick) 107 mg/dL (70-99) 95 mg/dL (70-99) 89 mg/dL (70-99) White Blood Count 10.7 x10^3/uL (4.0-11.0) Red Blood Count 4.26 x10^6/uL (3.50-5.40) Hemoglobin 13.4 g/dL (12.0-15.5) Hematocrit 39.5 % (36.0-47.0) Mean Corpuscular Volume 93 fL (79-100) Mean Corpuscular Hemoglobin 31 pg (25-35) Mean Corpuscular Hemoglobin Concent 34 g/dL (31-37) Red Cell Distribution Width 13.6 % (11.5-14.5) Platelet Count 152 x10^3/uL (140-400) Neutrophils (%) (Auto) 93 % (31-73) Lymphocytes (%) (Auto) 5 % (24-48) Monocytes (%) (Auto) 3 % (0-9) Eosinophils (%) (Auto) 0 % (0-3) Basophils (%) (Auto) 0 % (0-3) Neutrophils # (Auto) 9.9 x10^3uL (1.8-7.7) Lymphocytes # (Auto) 0.5 x10^3/uL (1.0-4.8) Monocytes # (Auto) 0.3 x10^3/uL (0.0-1.1) Eosinophils # (Auto) 0.0 x10^3/uL (0.0-0.7) Basophils # (Auto) 0.0 x10^3/uL (0.0-0.2) Sodium Level 143 mmol/L (136-145) Potassium Level 4.5 mmol/L (3.5-5.1) Chloride Level 113 mmol/L (98-107) Carbon Dioxide Level 20 mmol/L (21-32) Anion Gap 10 (6-14) Blood Urea Nitrogen 34 mg/dL (7-20) Creatinine 1.3 mg/dL (0.6-1.0) Estimated GFR (Cockcroft-Gault) 39.2 BUN/Creatinine Ratio 26 (6-20) Glucose Level 107 mg/dL (70-99) Calcium Level 9.0 mg/dL (8.5-10.1) Total Bilirubin 0.9 mg/dL (0.2-1.0) Aspartate Amino Transf (AST/SGOT) 65 U/L (15-37) Alanine Aminotransferase (ALT/SGPT) 45 U/L (14-59) Alkaline Phosphatase 177 U/L (46-116) Total Protein 5.2 g/dL (6.4-8.2) Albumin 1.9 g/dL (3.4-5.0) Albumin/Globulin Ratio 0.6 (1.0-1.7) Procalcitonin 14.81 ng/mL (0.00-0.10) Test 01/14/18 00:05 01/14/18 03:05 01/14/18 05:50 01/14/18 07:50 Glucose (Fingerstick) 100 mg/dL (70-99) 89 mg/dL (70-99) White Blood Count 10.4 x10^3/uL (4.0-11.0) Red Blood Count 3.96 x10^6/uL (3.50-5.40) Hemoglobin 12.4 g/dL (12.0-15.5) Hematocrit 36.5 % (36.0-47.0) Mean Corpuscular Volume 92 fL (79-100) Mean Corpuscular Hemoglobin 31 pg (25-35) Mean Corpuscular Hemoglobin Concent 34 g/dL (31-37) Red Cell Distribution Width 13.9 % (11.5-14.5) Platelet Count 147 x10^3/uL (140-400) Neutrophils (%) (Auto) 92 % (31-73) Lymphocytes (%) (Auto) 4 % (24-48) Monocytes (%) (Auto) 4 % (0-9) Eosinophils (%) (Auto) 0 % (0-3) Basophils (%) (Auto) 0 % (0-3) Neutrophils # (Auto) 9.6 x10^3uL (1.8-7.7) Lymphocytes # (Auto) 0.4 x10^3/uL (1.0-4.8) Monocytes # (Auto) 0.4 x10^3/uL (0.0-1.1) Eosinophils # (Auto) 0.0 x10^3/uL (0.0-0.7) Basophils # (Auto) 0.0 x10^3/uL (0.0-0.2) Sodium Level 143 mmol/L (136-145) Potassium Level 3.8 mmol/L (3.5-5.1) Chloride Level 111 mmol/L (98-107) Carbon Dioxide Level 19 mmol/L (21-32) Anion Gap 13 (6-14) Blood Urea Nitrogen 28 mg/dL (7-20) Creatinine 1.2 mg/dL (0.6-1.0) Estimated GFR (Cockcroft-Gault) 43.0 BUN/Creatinine Ratio 23 (6-20) Glucose Level 94 mg/dL (70-99) Calcium Level 8.6 mg/dL (8.5-10.1) Total Bilirubin 1.1 mg/dL (0.2-1.0) Aspartate Amino Transf (AST/SGOT) 80 U/L (15-37) Alanine Aminotransferase (ALT/SGPT) 46 U/L (14-59) Alkaline Phosphatase 334 U/L (46-116) Total Protein 5.5 g/dL (6.4-8.2) Albumin 1.8 g/dL (3.4-5.0) Albumin/Globulin Ratio 0.5 (1.0-1.7) Lactic Acid Level 0.8 mmol/L (0.4-2.0) Test 01/14/18 08:28 01/14/18 11:55 01/14/18 16:56 Glucose (Fingerstick) 86 mg/dL (70-99) 87 mg/dL (70-99) 79 mg/dL (70-99) Laboratory Tests Test 01/14/18 00:05 01/14/18 03:05 01/14/18 05:50 01/14/18 07:50 Glucose (Fingerstick) 100 mg/dL (70-99) 89 mg/dL (70-99) White Blood Count 10.4 x10^3/uL (4.0-11.0) Red Blood Count 3.96 x10^6/uL (3.50-5.40) Hemoglobin 12.4 g/dL (12.0-15.5) Hematocrit 36.5 % (36.0-47.0) Mean Corpuscular Volume 92 fL (79-100) Mean Corpuscular Hemoglobin 31 pg (25-35) Mean Corpuscular Hemoglobin Concent 34 g/dL (31-37) Red Cell Distribution Width 13.9 % (11.5-14.5) Platelet Count 147 x10^3/uL (140-400) Neutrophils (%) (Auto) 92 % (31-73) Lymphocytes (%) (Auto) 4 % (24-48) Monocytes (%) (Auto) 4 % (0-9) Eosinophils (%) (Auto) 0 % (0-3) Basophils (%) (Auto) 0 % (0-3) Neutrophils # (Auto) 9.6 x10^3uL (1.8-7.7) Lymphocytes # (Auto) 0.4 x10^3/uL (1.0-4.8) Monocytes # (Auto) 0.4 x10^3/uL (0.0-1.1) Eosinophils # (Auto) 0.0 x10^3/uL (0.0-0.7) Basophils # (Auto) 0.0 x10^3/uL (0.0-0.2) Sodium Level 143 mmol/L (136-145) Potassium Level 3.8 mmol/L (3.5-5.1) Chloride Level 111 mmol/L (98-107) Carbon Dioxide Level 19 mmol/L (21-32) Anion Gap 13 (6-14) Blood Urea Nitrogen 28 mg/dL (7-20) Creatinine 1.2 mg/dL (0.6-1.0) Estimated GFR (Cockcroft-Gault) 43.0 BUN/Creatinine Ratio 23 (6-20) Glucose Level 94 mg/dL (70-99) Calcium Level 8.6 mg/dL (8.5-10.1) Total Bilirubin 1.1 mg/dL (0.2-1.0) Aspartate Amino Transf (AST/SGOT) 80 U/L (15-37) Alanine Aminotransferase (ALT/SGPT) 46 U/L (14-59) Alkaline Phosphatase 334 U/L (46-116) Total Protein 5.5 g/dL (6.4-8.2) Albumin 1.8 g/dL (3.4-5.0) Albumin/Globulin Ratio 0.5 (1.0-1.7) Lactic Acid Level 0.8 mmol/L (0.4-2.0) Test 01/14/18 08:28 01/14/18 11:55 01/14/18 16:56 Glucose (Fingerstick) 86 mg/dL (70-99) 87 mg/dL (70-99) 79 mg/dL (70-99) Images Images Reviewed CT, small bowel and stomach distention, resolved constipation, but pneumatosis noted in sigmoid colon, small amount free fluid Assessment/Plan Assessment/Plan Colonic pneumatosis, not present on recent scans. Recent scans were concerning for constipation and colitis, now improved. Her decreased pain and labs (decreased lactic acid) suggest improvement in clinical status. As such, agree with continued supportive care currently with bowel rest, IVF and abx. If she does not improve, may need to consider surgical intervention, although she represents a poor surgical candidate (uncontrolled DM, heart disease, long standing smoking) This was extensively d/w pt and pt's supportive daughter, whom appear to understand, and agree to current plan. Thanks for consult! BEATRIZ RAYMUNDO MD Jan 14, 2018 20:42
[2018-01-15] VITALS (10 sets, daily range): BP systolic 107–147; BP diastolic 51–72
[2018-01-15] MEDS: AMINO AC 3%/ELECTROLYTE/GLYCER 1,000 ML IV SCH ×2 (04:26→20:19)
[2018-01-15] MEDS: PIPERACILLIN/TAZOBACTAM 3.375 GM in IV NORMAL SALINE 50ML 50 ML IV SCH ×3 (04:26→17:07)
[2018-01-15 04:38] LABS: BASO % 0 % (0-3); EOS # 0.1 x10^3/uL (0.0-0.7); EOS % 1 % (0-3); HEMATOCRIT 35.4 % (36.0-47.0); LYMPH # 0.2 x10^3/uL (1.0-4.8); LYMPH % 2 % (24-48); MEAN CORPUSCULAR HEMOGLOBIN 31 pg (25-35); MEAN CORPUSCULAR HGB CONC 34 g/dL (31-37); MEAN CORPUSCULAR VOLUME 92 fL (79-100); MONO # 0.6 x10^3/uL (0.0-1.1); MONO % 5 % (0-9); NEUT # 10.8 x10^3uL (1.8-7.7); NEUT % 92 % (31-73); PLATELET COUNT 137 x10^3/uL (140-400); RED BLOOD COUNT 3.88 x10^6/uL (3.50-5.40); RED CELL DISTRIBUTION WIDTH 13.7 % (11.5-14.5); WHITE BLOOD COUNT 11.7 x10^3/uL (4.0-11.0)
[2018-01-15 05:04] LABS: ALBUMIN 1.8 g/dL (3.4-5.0); ALBUMIN/GLOBULIN RATIO 0.5 (1.0-1.7); CALCIUM 9.5 mg/dL (8.5-10.1); CREATININE 1.4 mg/dL (0.6-1.0); POTASSIUM 3.9 mmol/L (3.5-5.1); TOTAL BILIRUBIN 0.9 mg/dL (0.2-1.0); TOTAL PROTEIN 5.6 g/dL (6.4-8.2)
[2018-01-15] MEDS: LEVOTHYROXINE 125 MCG TABLET PO SCH (05:42)
[2018-01-15] MEDS: INSULIN LISPRO 300 UNITS/3 ML INSULN.PEN. SQ SCH ×3 (08:00→17:06)
--- NOTE | 2018-01-15 08:09 | PDOC ---
SURGICAL PROGRESS NOTE Subjective Pt with c/o thirst, but denies abd pain, no N/V Vital Signs Vital Signs Date Time Temp Pulse Resp B/P (MAP) Pulse Ox O2 Delivery O2 Flow Rate FiO2 01/15/18 04:15 97.9 110 21 133/56 (81) 98 Room Air 97.9 I&O Intake and Output 01/15/18 07:00 Intake Total 0 ml Output Total 1090 ml Balance -1090 ml Intake Oral 0 ml Output Urine Total 1090 ml # Bowel Movements 3 PATIENT HAS A ANDREA: Yes General: Alert, Oriented X3, Cooperative, No acute distress Abdomen: Soft, No tenderness, Other (some distention) Labs Laboratory Tests Test 01/13/18 12:45 01/13/18 17:23 01/14/18 00:05 01/14/18 03:05 Glucose (Fingerstick) 95 mg/dL (70-99) 89 mg/dL (70-99) 100 mg/dL (70-99) White Blood Count 10.4 x10^3/uL (4.0-11.0) Red Blood Count 3.96 x10^6/uL (3.50-5.40) Hemoglobin 12.4 g/dL (12.0-15.5) Hematocrit 36.5 % (36.0-47.0) Mean Corpuscular Volume 92 fL (79-100) Mean Corpuscular Hemoglobin 31 pg (25-35) Mean Corpuscular Hemoglobin Concent 34 g/dL (31-37) Red Cell Distribution Width 13.9 % (11.5-14.5) Platelet Count 147 x10^3/uL (140-400) Neutrophils (%) (Auto) 92 % (31-73) Lymphocytes (%) (Auto) 4 % (24-48) Monocytes (%) (Auto) 4 % (0-9) Eosinophils (%) (Auto) 0 % (0-3) Basophils (%) (Auto) 0 % (0-3) Neutrophils # (Auto) 9.6 x10^3uL (1.8-7.7) Lymphocytes # (Auto) 0.4 x10^3/uL (1.0-4.8) Monocytes # (Auto) 0.4 x10^3/uL (0.0-1.1) Eosinophils # (Auto) 0.0 x10^3/uL (0.0-0.7) Basophils # (Auto) 0.0 x10^3/uL (0.0-0.2) Sodium Level 143 mmol/L (136-145) Potassium Level 3.8 mmol/L (3.5-5.1) Chloride Level 111 mmol/L (98-107) Carbon Dioxide Level 19 mmol/L (21-32) Anion Gap 13 (6-14) Blood Urea Nitrogen 28 mg/dL (7-20) Creatinine 1.2 mg/dL (0.6-1.0) Estimated GFR (Cockcroft-Gault) 43.0 BUN/Creatinine Ratio 23 (6-20) Glucose Level 94 mg/dL (70-99) Calcium Level 8.6 mg/dL (8.5-10.1) Total Bilirubin 1.1 mg/dL (0.2-1.0) Aspartate Amino Transf (AST/SGOT) 80 U/L (15-37) Alanine Aminotransferase (ALT/SGPT) 46 U/L (14-59) Alkaline Phosphatase 334 U/L (46-116) Total Protein 5.5 g/dL (6.4-8.2) Albumin 1.8 g/dL (3.4-5.0) Albumin/Globulin Ratio 0.5 (1.0-1.7) Test 01/14/18 05:50 01/14/18 07:50 01/14/18 08:28 01/14/18 11:55 Glucose (Fingerstick) 89 mg/dL (70-99) 86 mg/dL (70-99) 87 mg/dL (70-99) Lactic Acid Level 0.8 mmol/L (0.4-2.0) Test 01/14/18 16:56 01/14/18 23:26 01/15/18 04:25 01/15/18 04:27 Glucose (Fingerstick) 79 mg/dL (70-99) 108 mg/dL (70-99) White Blood Count 11.7 x10^3/uL (4.0-11.0) Red Blood Count 3.88 x10^6/uL (3.50-5.40) Hemoglobin 12.0 g/dL (12.0-15.5) Hematocrit 35.4 % (36.0-47.0) Mean Corpuscular Volume 92 fL (79-100) Mean Corpuscular Hemoglobin 31 pg (25-35) Mean Corpuscular Hemoglobin Concent 34 g/dL (31-37) Red Cell Distribution Width 13.7 % (11.5-14.5) Platelet Count 137 x10^3/uL (140-400) Neutrophils (%) (Auto) 92 % (31-73) Lymphocytes (%) (Auto) 2 % (24-48) Monocytes (%) (Auto) 5 % (0-9) Eosinophils (%) (Auto) 1 % (0-3) Basophils (%) (Auto) 0 % (0-3) Neutrophils # (Auto) 10.8 x10^3uL (1.8-7.7) Lymphocytes # (Auto) 0.2 x10^3/uL (1.0-4.8) Monocytes # (Auto) 0.6 x10^3/uL (0.0-1.1) Eosinophils # (Auto) 0.1 x10^3/uL (0.0-0.7) Basophils # (Auto) 0.0 x10^3/uL (0.0-0.2) Sodium Level 140 mmol/L (136-145) Potassium Level 3.9 mmol/L (3.5-5.1) Chloride Level 109 mmol/L (98-107) Carbon Dioxide Level 17 mmol/L (21-32) Anion Gap 14 (6-14) Blood Urea Nitrogen 32 mg/dL (7-20) Creatinine 1.4 mg/dL (0.6-1.0) Estimated GFR (Cockcroft-Gault) 36.0 BUN/Creatinine Ratio 23 (6-20) Glucose Level 142 mg/dL (70-99) Calcium Level 9.5 mg/dL (8.5-10.1) Total Bilirubin 0.9 mg/dL (0.2-1.0) Aspartate Amino Transf (AST/SGOT) 82 U/L (15-37) Alanine Aminotransferase (ALT/SGPT) 45 U/L (14-59) Alkaline Phosphatase 417 U/L (46-116) Total Protein 5.6 g/dL (6.4-8.2) Albumin 1.8 g/dL (3.4-5.0) Albumin/Globulin Ratio 0.5 (1.0-1.7) Procalcitonin 7.76 ng/mL (0.00-0.10) Laboratory Tests Test 01/14/18 08:28 01/14/18 11:55 01/14/18 16:56 01/14/18 23:26 Glucose (Fingerstick) 86 mg/dL (70-99) 87 mg/dL (70-99) 79 mg/dL (70-99) 108 mg/dL (70-99) Test 01/15/18 04:25 01/15/18 04:27 White Blood Count 11.7 x10^3/uL (4.0-11.0) Red Blood Count 3.88 x10^6/uL (3.50-5.40) Hemoglobin 12.0 g/dL (12.0-15.5) Hematocrit 35.4 % (36.0-47.0) Mean Corpuscular Volume 92 fL (79-100) Mean Corpuscular Hemoglobin 31 pg (25-35) Mean Corpuscular Hemoglobin Concent 34 g/dL (31-37) Red Cell Distribution Width 13.7 % (11.5-14.5) Platelet Count 137 x10^3/uL (140-400) Neutrophils (%) (Auto) 92 % (31-73) Lymphocytes (%) (Auto) 2 % (24-48) Monocytes (%) (Auto) 5 % (0-9) Eosinophils (%) (Auto) 1 % (0-3) Basophils (%) (Auto) 0 % (0-3) Neutrophils # (Auto) 10.8 x10^3uL (1.8-7.7) Lymphocytes # (Auto) 0.2 x10^3/uL (1.0-4.8) Monocytes # (Auto) 0.6 x10^3/uL (0.0-1.1) Eosinophils # (Auto) 0.1 x10^3/uL (0.0-0.7) Basophils # (Auto) 0.0 x10^3/uL (0.0-0.2) Sodium Level 140 mmol/L (136-145) Potassium Level 3.9 mmol/L (3.5-5.1) Chloride Level 109 mmol/L (98-107) Carbon Dioxide Level 17 mmol/L (21-32) Anion Gap 14 (6-14) Blood Urea Nitrogen 32 mg/dL (7-20) Creatinine 1.4 mg/dL (0.6-1.0) Estimated GFR (Cockcroft-Gault) 36.0 BUN/Creatinine Ratio 23 (6-20) Glucose Level 142 mg/dL (70-99) Calcium Level 9.5 mg/dL (8.5-10.1) Total Bilirubin 0.9 mg/dL (0.2-1.0) Aspartate Amino Transf (AST/SGOT) 82 U/L (15-37) Alanine Aminotransferase (ALT/SGPT) 45 U/L (14-59) Alkaline Phosphatase 417 U/L (46-116) Total Protein 5.6 g/dL (6.4-8.2) Albumin 1.8 g/dL (3.4-5.0) Albumin/Globulin Ratio 0.5 (1.0-1.7) Procalcitonin 7.76 ng/mL (0.00-0.10) Problem List colonic pneumatosis clinically appears to be improved will try clears cont careful observation, hopefully will improve without surgical intervention BEATRIZ RAYMUNDO MD Jan 15, 2018 08:09
[2018-01-15] MEDS: BUDESONIDE 0.5 MG/2 ML NEBU. NEB SCH ×2 (08:29→19:48)
[2018-01-15] MEDS: ALBUTEROL SULFATE 2.5 MG/3 ML NEBU. NEB SCH ×4 (08:29→19:48)
[2018-01-15] MEDS: VANCOMYCIN 125 MG/2.5 ML ORAL SOLUTION. PO SCH ×4 (08:39→22:10)
[2018-01-15] MEDS: METOCLOPRAMIDE HCL 10 MG/2 ML VIAL. IV PRN (08:39)
[2018-01-15] MEDS: PANTOPRAZOLE 40 MG TABLET.DR. PO SCH (08:39)
[2018-01-15] MEDS: ONDANSETRON PF 4 MG/2 ML VIAL. IV PRN (08:39)
[2018-01-15] MEDS: LACTOBACILLUS RHAMNOSUS GG 1 CAPSULE. PO SCH ×2 (08:39→22:09)
[2018-01-15] MEDS: KETOTIFEN FUMARATE 0.025% OPHTH SOLUTION BOTTLE. OU SCH ×2 (08:40→21:00)
--- NOTE | 2018-01-15 09:13 | PDOC ---
Subjective: Subjective: Less pain today. Thirsty. Feels like she needs to belch. Objective: Objective: Reviewed other notes - surgery following, plans to try clear liquids. Per RN - smear of stool overnight. Has PPN. Vital Signs: Vital Signs Date Time Temp Pulse Resp B/P (MAP) Pulse Ox O2 Delivery O2 Flow Rate FiO2 01/15/18 08:30 96 Room Air 01/15/18 04:15 97.9 110 21 133/56 (81) 97.9 Labs: Laboratory Tests Test 01/14/18 11:55 01/14/18 16:56 01/14/18 23:26 01/15/18 04:25 Glucose (Fingerstick) 87 mg/dL 79 mg/dL 108 mg/dL White Blood Count 11.7 x10^3/uL Red Blood Count 3.88 x10^6/uL Hemoglobin 12.0 g/dL Hematocrit 35.4 % Mean Corpuscular Volume 92 fL Mean Corpuscular Hemoglobin 31 pg Mean Corpuscular Hemoglobin Concent 34 g/dL Red Cell Distribution Width 13.7 % Platelet Count 137 x10^3/uL Neutrophils (%) (Auto) 92 % Lymphocytes (%) (Auto) 2 % Monocytes (%) (Auto) 5 % Eosinophils (%) (Auto) 1 % Basophils (%) (Auto) 0 % Neutrophils # (Auto) 10.8 x10^3uL Lymphocytes # (Auto) 0.2 x10^3/uL Monocytes # (Auto) 0.6 x10^3/uL Eosinophils # (Auto) 0.1 x10^3/uL Basophils # (Auto) 0.0 x10^3/uL Sodium Level 140 mmol/L Potassium Level 3.9 mmol/L Chloride Level 109 mmol/L Carbon Dioxide Level 17 mmol/L Anion Gap 14 Blood Urea Nitrogen 32 mg/dL Creatinine 1.4 mg/dL Estimated GFR (Cockcroft-Gault) 36.0 BUN/Creatinine Ratio 23 Glucose Level 142 mg/dL Calcium Level 9.5 mg/dL Total Bilirubin 0.9 mg/dL Aspartate Amino Transf (AST/SGOT) 82 U/L Alanine Aminotransferase (ALT/SGPT) 45 U/L Alkaline Phosphatase 417 U/L Total Protein 5.6 g/dL Albumin 1.8 g/dL Albumin/Globulin Ratio 0.5 Test 01/15/18 04:27 Procalcitonin 7.76 ng/mL PE: GEN: NAD LUNGS: breathing treatment in process HEART: RRR ABD: still quiet, distended, less tender LLQ NEURO/PSYCH: A & O 3 A/P: Abnormal CT - gastric and SB dilation, pneumatosis sigmoid colon -- Plans to try liquids per surgery, will follow. JOHNATHAN BAKER Jan 15, 2018 09:13
--- NOTE | 2018-01-15 10:33 | PDOC ---
SUBJECTIVE ROS Stable, better. Can start clear liquids today as per GS , Good UOP OBJECTIVE Vital Signs Vital Signs Date Time Temp Pulse Resp B/P (MAP) Pulse Ox O2 Delivery O2 Flow Rate FiO2 01/15/18 09:00 104 19 147/58 (87) 95 Room Air 01/15/18 08:00 98.5 98.5 I & 0 Intake and Output 01/15/18 07:00 Intake Total 0 ml Output Total 1090 ml Balance -1090 ml Intake Oral 0 ml Output Urine Total 1090 ml # Bowel Movements 3 PHYSICAL EXAM Physical Exam GENERAL: NAD HEENT: om moist NECK: Supple. HEART: with no gallop, rub or murmur. CHEST: Clear to auscultation. Non labored ABDOMEN: Distended, soft. NEUROLOGIC: awake, alert, - Stover + \Skin No rash DIAGNOSIS/ASSESSMENT Assessment & Plan GILL- Likely pre-renal,? IV contrast Stable, Non Oliguric, Unknown baseline E-Lytes normal Metabolic acidosis- Bicarb Mildly Low, stable, Monitor CKD- Likely present, Hx of Uncontrolled DM use of NSAID Unknown baseline Fecal impaction- resolved CT Ordered by primary today Hx of NSAID use Elevated Alk Phos- as per primary DW RN , Pt and daughter at bedside COMMENT/RELEVANT DATA Meds Current Medications Medications (Trade) Dose Ordered Sig/Jailyn Start Time Stop Time Status Last Admin Dose Admin Albuterol Sulfate (Ventolin Neb Soln) 2.5 mg PRN Q4HRS PRN 01/13/18 09:15 Albuterol/ Ipratropium (Duoneb) 3 ml RTQID 01/12/18 20:00 01/13/18 09:14 DC 01/13/18 08:38 3 ML Amino Acids/ Glycerin/ Electrolytes 1,000 ml @ 75 mls/hr [id number] 01/14/18 17:15 01/15/18 04:26 75 MLS/HR Budesonide (Pulmicort) 0.5 mg RTBID 01/13/18 20:00 01/15/18 08:29 0.5 MG Dextrose (Dextrose 50%-Water Syringe) 12.5 gm PRN Q15MIN PRN 01/12/18 15:15 Fentanyl Citrate (Fentanyl 2ml Vial) 25 mcg PRN Q3HRS PRN 01/12/18 15:15 01/13/18 20:00 25 MCG Influenza Virus Vaccine (Afluria Trivalent [id number] Syringe) 0.5 ml ONCE ONCE 01/13/18 09:00 01/13/18 09:01 DC 01/13/18 08:42 0.5 ML Insulin Human Lispro (HumaLOG) 0-5 UNITS TIDWMEALS 01/12/18 17:00 Iohexol (Omnipaque 240 Mg/ml) 50 ml 1X ONCE 01/14/18 10:00 01/14/18 10:01 DC 01/14/18 10:00 50 ML Ketotifen Fumarate (Zaditor) 1 drop BID 01/12/18 21:00 01/15/18 08:40 1 DROP Lactobacillus Rhamnosus (Culturelle) 1 cap BID 01/13/18 21:00 01/15/18 08:39 1 CAP Levothyroxine Sodium (Synthroid) 125 mcg DAILY06 01/13/18 10:00 01/14/18 05:41 125 MCG Metoclopramide HCl (Reglan Vial) 5 mg PRN Q6HRS PRN 01/13/18 09:45 01/15/18 08:39 5 MG Non-Formulary Medication (Albuterol Sulfate (Proair Hfa Inhaler)) 2 puff PRN Q4-6HRS 01/13/18 09:00 UNV Non-Formulary Medication (Fluticasone/ Salmeterol (Advair 100-50 Diskus)) 1 inh BID PRN 01/13/18 09:00 UNV Norepinephrine Bitartrate 250 ml @ 1.875 mls/ hr CONT PRN 01/12/18 18:00 01/12/18 17:58 9.375 MLS/HR Ondansetron HCl (Zofran) 4 mg PRN Q8HRS PRN 01/13/18 18:00 01/15/18 08:39 4 MG Pantoprazole Sodium (Protonix) 40 mg DAILYAC 01/13/18 09:30 01/15/18 08:39 40 MG Piperacillin Sod/ Tazobactam Sod 2.25 gm/Sodium Chloride 50 ml @ 100 mls/hr Q6HRS 01/12/18 16:00 01/13/18 07:33 DC 01/13/18 05:02 100 MLS/HR Piperacillin Sod/ Tazobactam Sod 3.375 gm/Sodium Chloride 50 ml @ 100 mls/hr Q6HRS 01/13/18 12:00 01/15/18 04:26 100 MLS/HR Polyethylene Glycol (miraLAX PACKET) 17 gm PRN DAILY PRN 01/13/18 14:30 Sodium Chloride 1,000 ml @ 125 mls/hr Q8H 01/12/18 15:15 01/14/18 17:17 DC 01/14/18 16:53 125 MLS/HR Vancomycin HCl (Vancomycin Oral Solution) 125 mg [id number] 01/14/18 09:30 01/15/18 08:39 125 MG Lab Laboratory Tests Test 01/14/18 11:55 01/14/18 16:56 01/14/18 23:26 01/15/18 04:25 Glucose (Fingerstick) 87 mg/dL (70-99) 79 mg/dL (70-99) 108 mg/dL (70-99) White Blood Count 11.7 x10^3/uL (4.0-11.0) Red Blood Count 3.88 x10^6/uL (3.50-5.40) Hemoglobin 12.0 g/dL (12.0-15.5) Hematocrit 35.4 % (36.0-47.0) Mean Corpuscular Volume 92 fL (79-100) Mean Corpuscular Hemoglobin 31 pg (25-35) Mean Corpuscular Hemoglobin Concent 34 g/dL (31-37) Red Cell Distribution Width 13.7 % (11.5-14.5) Platelet Count 137 x10^3/uL (140-400) Neutrophils (%) (Auto) 92 % (31-73) Lymphocytes (%) (Auto) 2 % (24-48) Monocytes (%) (Auto) 5 % (0-9) Eosinophils (%) (Auto) 1 % (0-3) Basophils (%) (Auto) 0 % (0-3) Neutrophils # (Auto) 10.8 x10^3uL (1.8-7.7) Lymphocytes # (Auto) 0.2 x10^3/uL (1.0-4.8) Monocytes # (Auto) 0.6 x10^3/uL (0.0-1.1) Eosinophils # (Auto) 0.1 x10^3/uL (0.0-0.7) Basophils # (Auto) 0.0 x10^3/uL (0.0-0.2) Sodium Level 140 mmol/L (136-145) Potassium Level 3.9 mmol/L (3.5-5.1) Chloride Level 109 mmol/L (98-107) Carbon Dioxide Level 17 mmol/L (21-32) Anion Gap 14 (6-14) Blood Urea Nitrogen 32 mg/dL (7-20) Creatinine 1.4 mg/dL (0.6-1.0) Estimated GFR (Cockcroft-Gault) 36.0 BUN/Creatinine Ratio 23 (6-20) Glucose Level 142 mg/dL (70-99) Calcium Level 9.5 mg/dL (8.5-10.1) Total Bilirubin 0.9 mg/dL (0.2-1.0) Aspartate Amino Transf (AST/SGOT) 82 U/L (15-37) Alanine Aminotransferase (ALT/SGPT) 45 U/L (14-59) Alkaline Phosphatase 417 U/L (46-116) Total Protein 5.6 g/dL (6.4-8.2) Albumin 1.8 g/dL (3.4-5.0) Albumin/Globulin Ratio 0.5 (1.0-1.7) Test 01/15/18 04:27 Procalcitonin 7.76 ng/mL (0.00-0.10) Results All relevant outside records, renal labs, imaging studies, telemetry/EKG's were reviewed CT abdomen-- .1. There is small bowel and gastric dilatation, evidence of small bowel obstruction although difficult to determine transition site on this exam. There is long segment pneumatosis of the sigmoid colon. There is colonic wall thickening, evidence of colitis. 2. There is diffuse mesenteric and body wall edema. There are prominent infiltrates of the lower lobes lung bases bilaterally, also small bilateral pleural effusions. There is mild free fluid most notable about the liver, minimally in the pelvis. SOLOMON SULLIVAN MD Jan 15, 2018 10:33
--- NOTE | 2018-01-15 12:01 | PDOC ---
Infectious Disease Note Subjective Subjective Feels better but still some LLQ discomfort Tolerating clears. No Flatus or BM No F/C/S/SOA/Rash No vomiting today ROS ROS o/w neg Vital Sign Vital Signs Vital Signs Date Time Temp Pulse Resp B/P (MAP) Pulse Ox O2 Delivery O2 Flow Rate FiO2 01/15/18 10:00 103 20 107/51 (69) 96 Room Air 01/15/18 08:00 98.5 98.5 Physical Exam PHYSICAL EXAM CONSTITUTIONAL: She is pleasant. She is cooperative. She is in no acute distress. HEENT: Pupils equal and reactive. Oral cavity, pharynx is clear. She has dentures is more dry. NECK: Supple, no JVD. LUNGS: Decreased in the bases. HEART: S1, S2. ABDOMEN: Mildly protuberant and soft. There is no guarding, there is no rebound. She has a little discomfort in the left lower quadrant but less. : Stover without complications. EXTREMITIES: Without clubbing, cyanosis or gross edema. Her right foot on the medial aspect of the dorsal side, she has a dry scaly callus type area without surrounding signs of inflammation, no erythema, no warmth, no fluctuance. NEUROLOGIC: She is nonfocal. PSYCHIATRIC: Affect is pleasant Labs Lab Laboratory Tests Test 01/14/18 16:56 01/14/18 23:26 01/15/18 04:25 01/15/18 04:27 Glucose (Fingerstick) 79 mg/dL (70-99) 108 mg/dL (70-99) White Blood Count 11.7 x10^3/uL (4.0-11.0) Red Blood Count 3.88 x10^6/uL (3.50-5.40) Hemoglobin 12.0 g/dL (12.0-15.5) Hematocrit 35.4 % (36.0-47.0) Mean Corpuscular Volume 92 fL (79-100) Mean Corpuscular Hemoglobin 31 pg (25-35) Mean Corpuscular Hemoglobin Concent 34 g/dL (31-37) Red Cell Distribution Width 13.7 % (11.5-14.5) Platelet Count 137 x10^3/uL (140-400) Neutrophils (%) (Auto) 92 % (31-73) Lymphocytes (%) (Auto) 2 % (24-48) Monocytes (%) (Auto) 5 % (0-9) Eosinophils (%) (Auto) 1 % (0-3) Basophils (%) (Auto) 0 % (0-3) Neutrophils # (Auto) 10.8 x10^3uL (1.8-7.7) Lymphocytes # (Auto) 0.2 x10^3/uL (1.0-4.8) Monocytes # (Auto) 0.6 x10^3/uL (0.0-1.1) Eosinophils # (Auto) 0.1 x10^3/uL (0.0-0.7) Basophils # (Auto) 0.0 x10^3/uL (0.0-0.2) Sodium Level 140 mmol/L (136-145) Potassium Level 3.9 mmol/L (3.5-5.1) Chloride Level 109 mmol/L (98-107) Carbon Dioxide Level 17 mmol/L (21-32) Anion Gap 14 (6-14) Blood Urea Nitrogen 32 mg/dL (7-20) Creatinine 1.4 mg/dL (0.6-1.0) Estimated GFR (Cockcroft-Gault) 36.0 BUN/Creatinine Ratio 23 (6-20) Glucose Level 142 mg/dL (70-99) Calcium Level 9.5 mg/dL (8.5-10.1) Total Bilirubin 0.9 mg/dL (0.2-1.0) Aspartate Amino Transf (AST/SGOT) 82 U/L (15-37) Alanine Aminotransferase (ALT/SGPT) 45 U/L (14-59) Alkaline Phosphatase 417 U/L (46-116) Total Protein 5.6 g/dL (6.4-8.2) Albumin 1.8 g/dL (3.4-5.0) Albumin/Globulin Ratio 0.5 (1.0-1.7) Procalcitonin 7.76 ng/mL (0.00-0.10) Micro IMPRESSION: There is dilatation of stomach and small bowel. Distal small bowel obstruction is possible. No free air is evident. No significant fecal impaction is seen Objective Assessment Possible sepsis - elevated procalcitonin but better today but off pressors Colitis - Fecal impaction - resolved ? DM gastroparesis SBO- dilated stomach and SB on Abd film Mild leukocytosis ? reactive Mild transaminitis Sulfa allergy - can't remember reaction Hypothyroid Bandemia Right foot wound is clean GILL - did receive IV contrast - currently improving Plan Plan of Care Doubt C-diff but cont po Vanc until ruled out Cont Zosyn F/u labs in am and cults JAYCEE CABELLO MD Jan 15, 2018 12:01
--- NOTE | 2018-01-15 20:52 | PN ---
DATE: 01/15/2018 SUBJECTIVE: The patient is resting, slightly propped up in bed, in no apparent distress. She is awake, alert. On questioning her, denied any abdominal pain. Denied any nausea, vomiting. She apparently was seen by the surgical team and Dr. Anderson recommended a clear liquid diet. She apparently drank some water and Sprite and kept that without any problem. OBJECTIVE: GENERAL: When I saw her this morning, she looked well, slightly pale, but no jaundice, cyanosis or thyromegaly. No jugular venous distention. No limb edema. VITAL SIGNS: Her heart rate was 103, blood pressure was 107/51, temperature was 98.5, respiratory rate 20, and oxygen saturation was 96% on room air. HEAD, EYES, EARS, NOSE AND THROAT: Showed normocephalic, atraumatic. NECK: Supple. HEART: Showed normal first and second heart sounds. No gallop, rub or murmur. CHEST: Clear to auscultation. No crepitation or rhonchi. ABDOMEN: Distended, soft, nontender. No guarding or rigidity. No organomegaly. Hernial orifice intact and bowel sounds are sluggish to absent. NEUROLOGIC: However, she is awake, alert, responding appropriately. Cranial nerves intact. She moves extremities without difficulty, although she is mostly bed bound. Her intake yesterday was 3980, output was 840. LABORATORY DATA: This morning showed serum sodium of 140, potassium 3.9, chloride 109, bicarbonate 17, anion gap of 14, BUN 32, creatinine 1.4, estimated GFR was 36 mL per minute. Her glucose 142, calcium was 9.5. Total bilirubin, AST, ALT, alkaline phosphatase were normal. Her total protein was 5.6, albumin is 1.6. Her white cell count was 11,700; hemoglobin 12; hematocrit 35; MCV 92; and platelet count of 137,000. ASSESSMENT: 1. Abdominal pain, hypotension and sepsis, probably due to infectious colitis. 2. Fecal impaction, resolved, metabolic acidosis. 3. Poorly controlled type 2 diabetes, blood sugar more than 600. 4. Acute kidney injury on chronic kidney disease. 5. Hypothyroidism. 6. Hyperlipidemia. 7. Diabetic peripheral neuropathy. Her CT scan done yesterday with oral contrast only showed that there is a small bowel and gastric dilatation, evidence of small-bowel obstruction, though difficult to determine transition site on this exam. There is long segment with pneumatosis of the sigmoid colon, there is colonic wall thickening and evidence of colitis. There is diffuse mesenteric and body wall edema. There are prominent infiltrates in the lower lobes of the lung bases bilaterally, also small bilateral pleural effusion. There is mild free fluid, most notable about the liver, minimally in the pelvis. Did have also abdominal ultrasound which showed that there is a heterogenous coarse hepatic echotexture, a nonspecific finding which can be seen with hepatitis. No focal hepatic lesion is seen. Trace abdominal ascites and small right pleural effusion. PLAN: To continue with IV Zosyn and oral vancomycin. Continue with the PPN, continue with clear liquid diet for now, monitor her lab works closely and decide on further management accordingly. SAVANNA LYNN MD DR: STEPH/shanthi JOB#: [id number] / [id number]
[2018-01-16] MEDS: PIPERACILLIN/TAZOBACTAM 3.375 GM in IV NORMAL SALINE 50ML 50 ML IV SCH ×4 (00:42→18:05)
[2018-01-16 03:50] VITALS: BP 138/68
[2018-01-16 05:46] LABS: BASO # 0.1 x10^3/uL (0.0-0.2); BASO % 0 % (0-3); EOS # 0.1 x10^3/uL (0.0-0.7); EOS % 0 % (0-3); HEMATOCRIT 36.8 % (36.0-47.0); HEMOGLOBIN 12.6 g/dL (12.0-15.5); LYMPH # 0.5 x10^3/uL (1.0-4.8); LYMPH % 3 % (24-48); MEAN CORPUSCULAR HEMOGLOBIN 32 pg (25-35); MEAN CORPUSCULAR HGB CONC 34 g/dL (31-37); MEAN CORPUSCULAR VOLUME 93 fL (79-100); MONO # 0.9 x10^3/uL (0.0-1.1); MONO % 6 % (0-9); NEUT # 13.4 x10^3uL (1.8-7.7); NEUT % 90 % (31-73); PLATELET COUNT 140 x10^3/uL (140-400); RED BLOOD COUNT 3.97 x10^6/uL (3.50-5.40); RED CELL DISTRIBUTION WIDTH 13.9 % (11.5-14.5); WHITE BLOOD COUNT 14.9 x10^3/uL (4.0-11.0)
[2018-01-16 05:57] LABS: CALCIUM 9.5 mg/dL (8.5-10.1); CREATININE 1.5 mg/dL (0.6-1.0); GFR 33.2; POTASSIUM 3.8 mmol/L (3.5-5.1)
[2018-01-16] MEDS: LEVOTHYROXINE 125 MCG TABLET PO SCH (06:19)
[2018-01-16 07:15] VITALS: BP 138/68
[2018-01-16] MEDS: BUDESONIDE 0.5 MG/2 ML NEBU. NEB SCH ×2 (08:11→20:12)
[2018-01-16] MEDS: ALBUTEROL SULFATE 2.5 MG/3 ML NEBU. NEB SCH ×4 (08:11→20:12)
--- NOTE | 2018-01-16 08:12 | PDOC ---
SURGICAL PROGRESS NOTE Subjective Pt reports feeling better, no N/V, passing stools, notes pain has resolved Vital Signs Vital Signs Date Time Temp Pulse Resp B/P (MAP) Pulse Ox O2 Delivery O2 Flow Rate FiO2 01/16/18 07:15 101 18 138/68 (91) 92 Room Air 01/16/18 03:50 97.9 97.9 I&O Intake and Output 01/16/18 07:00 Intake Total 1150 ml Output Total 865 ml Balance 285 ml Intake Oral 1150 ml Output Urine Total 865 ml # Bowel Movements 2 General: Alert, Oriented X3, Cooperative, No acute distress Abdomen: Soft, No tenderness Labs Laboratory Tests Test 01/14/18 08:28 01/14/18 11:55 01/14/18 16:56 01/14/18 23:26 Glucose (Fingerstick) 86 mg/dL (70-99) 87 mg/dL (70-99) 79 mg/dL (70-99) 108 mg/dL (70-99) Test 01/15/18 04:25 01/15/18 04:27 01/15/18 12:21 01/15/18 16:40 White Blood Count 11.7 x10^3/uL (4.0-11.0) Red Blood Count 3.88 x10^6/uL (3.50-5.40) Hemoglobin 12.0 g/dL (12.0-15.5) Hematocrit 35.4 % (36.0-47.0) Mean Corpuscular Volume 92 fL (79-100) Mean Corpuscular Hemoglobin 31 pg (25-35) Mean Corpuscular Hemoglobin Concent 34 g/dL (31-37) Red Cell Distribution Width 13.7 % (11.5-14.5) Platelet Count 137 x10^3/uL (140-400) Neutrophils (%) (Auto) 92 % (31-73) Lymphocytes (%) (Auto) 2 % (24-48) Monocytes (%) (Auto) 5 % (0-9) Eosinophils (%) (Auto) 1 % (0-3) Basophils (%) (Auto) 0 % (0-3) Neutrophils # (Auto) 10.8 x10^3uL (1.8-7.7) Lymphocytes # (Auto) 0.2 x10^3/uL (1.0-4.8) Monocytes # (Auto) 0.6 x10^3/uL (0.0-1.1) Eosinophils # (Auto) 0.1 x10^3/uL (0.0-0.7) Basophils # (Auto) 0.0 x10^3/uL (0.0-0.2) Sodium Level 140 mmol/L (136-145) Potassium Level 3.9 mmol/L (3.5-5.1) Chloride Level 109 mmol/L (98-107) Carbon Dioxide Level 17 mmol/L (21-32) Anion Gap 14 (6-14) Blood Urea Nitrogen 32 mg/dL (7-20) Creatinine 1.4 mg/dL (0.6-1.0) Estimated GFR (Cockcroft-Gault) 36.0 BUN/Creatinine Ratio 23 (6-20) Glucose Level 142 mg/dL (70-99) Calcium Level 9.5 mg/dL (8.5-10.1) Total Bilirubin 0.9 mg/dL (0.2-1.0) Aspartate Amino Transf (AST/SGOT) 82 U/L (15-37) Alanine Aminotransferase (ALT/SGPT) 45 U/L (14-59) Alkaline Phosphatase 417 U/L (46-116) Total Protein 5.6 g/dL (6.4-8.2) Albumin 1.8 g/dL (3.4-5.0) Albumin/Globulin Ratio 0.5 (1.0-1.7) Procalcitonin 7.76 ng/mL (0.00-0.10) Glucose (Fingerstick) 195 mg/dL (70-99) 221 mg/dL (70-99) Test 01/15/18 21:35 01/16/18 05:00 01/16/18 07:48 Glucose (Fingerstick) 214 mg/dL (70-99) 235 mg/dL (70-99) White Blood Count 14.9 x10^3/uL (4.0-11.0) Red Blood Count 3.97 x10^6/uL (3.50-5.40) Hemoglobin 12.6 g/dL (12.0-15.5) Hematocrit 36.8 % (36.0-47.0) Mean Corpuscular Volume 93 fL (79-100) Mean Corpuscular Hemoglobin 32 pg (25-35) Mean Corpuscular Hemoglobin Concent 34 g/dL (31-37) Red Cell Distribution Width 13.9 % (11.5-14.5) Platelet Count 140 x10^3/uL (140-400) Neutrophils (%) (Auto) 90 % (31-73) Lymphocytes (%) (Auto) 3 % (24-48) Monocytes (%) (Auto) 6 % (0-9) Eosinophils (%) (Auto) 0 % (0-3) Basophils (%) (Auto) 0 % (0-3) Neutrophils # (Auto) 13.4 x10^3uL (1.8-7.7) Lymphocytes # (Auto) 0.5 x10^3/uL (1.0-4.8) Monocytes # (Auto) 0.9 x10^3/uL (0.0-1.1) Eosinophils # (Auto) 0.1 x10^3/uL (0.0-0.7) Basophils # (Auto) 0.1 x10^3/uL (0.0-0.2) Sodium Level 138 mmol/L (136-145) Potassium Level 3.8 mmol/L (3.5-5.1) Chloride Level 107 mmol/L (98-107) Carbon Dioxide Level 16 mmol/L (21-32) Anion Gap 15 (6-14) Blood Urea Nitrogen 40 mg/dL (7-20) Creatinine 1.5 mg/dL (0.6-1.0) Estimated GFR (Cockcroft-Gault) 33.2 Glucose Level 244 mg/dL (70-99) Calcium Level 9.5 mg/dL (8.5-10.1) Laboratory Tests Test 01/15/18 12:21 01/15/18 16:40 01/15/18 21:35 01/16/18 05:00 Glucose (Fingerstick) 195 mg/dL (70-99) 221 mg/dL (70-99) 214 mg/dL (70-99) White Blood Count 14.9 x10^3/uL (4.0-11.0) Red Blood Count 3.97 x10^6/uL (3.50-5.40) Hemoglobin 12.6 g/dL (12.0-15.5) Hematocrit 36.8 % (36.0-47.0) Mean Corpuscular Volume 93 fL (79-100) Mean Corpuscular Hemoglobin 32 pg (25-35) Mean Corpuscular Hemoglobin Concent 34 g/dL (31-37) Red Cell Distribution Width 13.9 % (11.5-14.5) Platelet Count 140 x10^3/uL (140-400) Neutrophils (%) (Auto) 90 % (31-73) Lymphocytes (%) (Auto) 3 % (24-48) Monocytes (%) (Auto) 6 % (0-9) Eosinophils (%) (Auto) 0 % (0-3) Basophils (%) (Auto) 0 % (0-3) Neutrophils # (Auto) 13.4 x10^3uL (1.8-7.7) Lymphocytes # (Auto) 0.5 x10^3/uL (1.0-4.8) Monocytes # (Auto) 0.9 x10^3/uL (0.0-1.1) Eosinophils # (Auto) 0.1 x10^3/uL (0.0-0.7) Basophils # (Auto) 0.1 x10^3/uL (0.0-0.2) Sodium Level 138 mmol/L (136-145) Potassium Level 3.8 mmol/L (3.5-5.1) Chloride Level 107 mmol/L (98-107) Carbon Dioxide Level 16 mmol/L (21-32) Anion Gap 15 (6-14) Blood Urea Nitrogen 40 mg/dL (7-20) Creatinine 1.5 mg/dL (0.6-1.0) Estimated GFR (Cockcroft-Gault) 33.2 Glucose Level 244 mg/dL (70-99) Calcium Level 9.5 mg/dL (8.5-10.1) Test 01/16/18 07:48 Glucose (Fingerstick) 235 mg/dL (70-99) Problem List colonic pneumatosis her clinical picture and labs are incongruent recommend proceeding with CT to reevaluate BEATRIZ RAYMUNDO MD Jan 16, 2018 08:12
[2018-01-16] MEDS: PANTOPRAZOLE 40 MG TABLET.DR. PO SCH (09:00)
[2018-01-16] MEDS: LACTOBACILLUS RHAMNOSUS GG 1 CAPSULE. PO SCH ×2 (09:00→19:47)
[2018-01-16] MEDS: KETOTIFEN FUMARATE 0.025% OPHTH SOLUTION BOTTLE. OU SCH ×2 (09:03→21:00)
[2018-01-16] MEDS: INSULIN LISPRO 300 UNITS/3 ML INSULN.PEN. SQ SCH ×3 (09:10→17:22)
[2018-01-16] MEDS: AMINO AC 3%/ELECTROLYTE/GLYCER 1,000 ML IV SCH (09:15)
[2018-01-16] MEDS ORDERED: IOHEXOL 240 MG/ML 50ML VIAL. PO ONE (09:30)
[2018-01-16] MEDS ORDERED: CONTRAST GIVEN. MC PRN (09:30)
--- NOTE | 2018-01-16 10:14 | PDOC ---
Infectious Disease Note Subjective Subjective Feels ok Tolerating clears. + BM No F/C/S/SOA/Rash No vomiting today ROS ROS o/w neg Vital Sign Vital Signs Vital Signs Date Time Temp Pulse Resp B/P (MAP) Pulse Ox O2 Delivery O2 Flow Rate FiO2 01/16/18 08:17 97 Room Air 01/16/18 07:15 101 18 138/68 (91) 01/16/18 03:50 97.9 97.9 Physical Exam PHYSICAL EXAM CONSTITUTIONAL: She is pleasant. She is cooperative. She is in no acute distress. Looks a little more tired today HEENT: Pupils equal and reactive. Oral cavity, pharynx is clear. She has dentures is more dry. NECK: Supple, no JVD. LUNGS: Decreased in the bases. HEART: S1, S2. ABDOMEN: Mildly - to protuberant and soft. There is no guarding, there is no rebound. She has a little discomfort in the left lower quadrant but less. : Stover without complications. EXTREMITIES: Without clubbing, cyanosis or gross edema. Her right foot on the medial aspect of the dorsal side, she has a dry scaly callus type area without surrounding signs of inflammation, no erythema, no warmth, no fluctuance. NEUROLOGIC: She is nonfocal. PSYCHIATRIC: Affect is pleasant Labs Lab Laboratory Tests Test 01/15/18 12:21 01/15/18 16:40 01/15/18 21:35 01/16/18 05:00 Glucose (Fingerstick) 195 mg/dL (70-99) 221 mg/dL (70-99) 214 mg/dL (70-99) White Blood Count 14.9 x10^3/uL (4.0-11.0) Red Blood Count 3.97 x10^6/uL (3.50-5.40) Hemoglobin 12.6 g/dL (12.0-15.5) Hematocrit 36.8 % (36.0-47.0) Mean Corpuscular Volume 93 fL (79-100) Mean Corpuscular Hemoglobin 32 pg (25-35) Mean Corpuscular Hemoglobin Concent 34 g/dL (31-37) Red Cell Distribution Width 13.9 % (11.5-14.5) Platelet Count 140 x10^3/uL (140-400) Neutrophils (%) (Auto) 90 % (31-73) Lymphocytes (%) (Auto) 3 % (24-48) Monocytes (%) (Auto) 6 % (0-9) Eosinophils (%) (Auto) 0 % (0-3) Basophils (%) (Auto) 0 % (0-3) Neutrophils # (Auto) 13.4 x10^3uL (1.8-7.7) Lymphocytes # (Auto) 0.5 x10^3/uL (1.0-4.8) Monocytes # (Auto) 0.9 x10^3/uL (0.0-1.1) Eosinophils # (Auto) 0.1 x10^3/uL (0.0-0.7) Basophils # (Auto) 0.1 x10^3/uL (0.0-0.2) Sodium Level 138 mmol/L (136-145) Potassium Level 3.8 mmol/L (3.5-5.1) Chloride Level 107 mmol/L (98-107) Carbon Dioxide Level 16 mmol/L (21-32) Anion Gap 15 (6-14) Blood Urea Nitrogen 40 mg/dL (7-20) Creatinine 1.5 mg/dL (0.6-1.0) Estimated GFR (Cockcroft-Gault) 33.2 Glucose Level 244 mg/dL (70-99) Calcium Level 9.5 mg/dL (8.5-10.1) Test 01/16/18 07:48 Glucose (Fingerstick) 235 mg/dL (70-99) Micro IMPRESSION: There is dilatation of stomach and small bowel. Distal small bowel obstruction is possible. No free air is evident. No significant fecal impaction is seen Objective Assessment Possible sepsis - elevated procalcitonin but better 01/15 but off pressors Colitis - Fecal impaction - resolved ? DM gastroparesis SBO- dilated stomach and SB on Abd film Mild leukocytosis ? reactive - increasing Mild transaminitis Sulfa allergy - can't remember reaction Hypothyroid Bandemia Right foot wound is clean GILL - did receive IV contrast - currently improving Plan Plan of Care Doubt C-diff but cont po Vanc until ruled out Cont Zosyn Add Micafungin Await CT scan F/u labs in am and cults D/w daughter JAYCEE CABELLO MD Jan 16, 2018 10:14
[2018-01-16] MEDS: MICAFUNGIN 100 MG in IV DEXTROSE 5% 100ML 100 ML IV SCH (10:28)
[2018-01-16] MEDS: VANCOMYCIN 125 MG/2.5 ML ORAL SOLUTION. PO SCH ×4 (10:47→19:37)
[2018-01-16 11:03] VITALS: BP 137/72
--- NOTE | 2018-01-16 11:27 | PDOC ---
SUBJECTIVE ROS Stable, good UOP, Transferred out of ICU OBJECTIVE Vital Signs Vital Signs Date Time Temp Pulse Resp B/P (MAP) Pulse Ox O2 Delivery O2 Flow Rate FiO2 01/16/18 08:17 97 Room Air 01/16/18 07:15 101 18 138/68 (91) 01/16/18 03:50 97.9 97.9 I & 0 Intake and Output 01/16/18 07:00 Intake Total 1150 ml Output Total 865 ml Balance 285 ml Intake Oral 1150 ml Output Urine Total 865 ml # Bowel Movements 2 PHYSICAL EXAM Physical Exam GENERAL: NAD HEENT: om moist NECK: Supple. HEART: with no gallop, rub or murmur. CHEST: Clear to auscultation. Non labored ABDOMEN: Distended, soft. NEUROLOGIC: awake, alert, - Stover + \Skin No rash DIAGNOSIS/ASSESSMENT Assessment & Plan GILL on? CKD - Likely pre-renal,? IV contrast Stable, Non Oliguric, Unknown baseline E-Lytes normal Metabolic acidosis- Bicarb Mildly Low, s May need PO NaHCO3 CKD- Likely present, Hx of Uncontrolled DM use of NSAID Unknown baseline Fecal impaction- resolved CT Ordered by primary today Hx of NSAID use Elevated Alk Phos- as per primary DW RN , Pt and daughter at bedside COMMENT/RELEVANT DATA Meds Current Medications Medications (Trade) Dose Ordered Sig/Jailyn Start Time Stop Time Status Last Admin Dose Admin Albuterol Sulfate (Ventolin Neb Soln) 2.5 mg PRN Q4HRS PRN 01/13/18 09:15 Albuterol/ Ipratropium (Duoneb) 3 ml RTQID 01/12/18 20:00 01/13/18 09:14 DC 01/13/18 08:38 3 ML Amino Acids/ Glycerin/ Electrolytes 1,000 ml @ 75 mls/hr [id number] 01/14/18 17:15 01/15/18 20:19 75 MLS/HR Budesonide (Pulmicort) 0.5 mg RTBID 01/13/18 20:00 01/16/18 08:11 0.5 MG Dextrose (Dextrose 50%-Water Syringe) 12.5 gm PRN Q15MIN PRN 01/12/18 15:15 Fentanyl Citrate (Fentanyl 2ml Vial) 25 mcg PRN Q3HRS PRN 01/12/18 15:15 01/13/18 20:00 25 MCG Influenza Virus Vaccine (Afluria Trivalent [id number] Syringe) 0.5 ml ONCE ONCE 01/13/18 09:00 01/13/18 09:01 DC 01/13/18 08:42 0.5 ML Info (CONTRAST GIVEN -- Rx MONITORING) 1 each PRN DAILY PRN 01/16/18 09:30 01/18/18 09:29 Insulin Human Lispro (HumaLOG) 0-5 UNITS TIDWMEALS 01/12/18 17:00 01/16/18 09:10 3 UNITS Iohexol (Omnipaque 240 Mg/ml) 30 ml 1X ONCE 01/16/18 09:30 01/16/18 09:31 DC Ketotifen Fumarate (Zaditor) 1 drop BID 01/12/18 21:00 01/16/18 09:03 1 DROP Lactobacillus Rhamnosus (Culturelle) 1 cap BID 01/13/18 21:00 01/16/18 09:00 1 CAP Levothyroxine Sodium (Synthroid) 125 mcg DAILY06 01/13/18 10:00 01/16/18 06:19 125 MCG Metoclopramide HCl (Reglan Vial) 5 mg PRN Q6HRS PRN 01/13/18 09:45 01/15/18 08:39 5 MG Micafungin Sodium 100 mg/Dextrose 100 ml @ 100 mls/hr Q24H 01/16/18 11:00 01/16/18 10:28 100 MLS/HR Non-Formulary Medication (Albuterol Sulfate (Proair Hfa Inhaler)) 2 puff PRN Q4-6HRS 01/13/18 09:00 UNV Non-Formulary Medication (Fluticasone/ Salmeterol (Advair 100-50 Diskus)) 1 inh BID PRN 01/13/18 09:00 UNV Norepinephrine Bitartrate 250 ml @ 1.875 mls/ hr CONT PRN 01/12/18 18:00 01/16/18 10:14 DC 01/12/18 17:58 9.375 MLS/HR Ondansetron HCl (Zofran) 4 mg PRN Q8HRS PRN 01/13/18 18:00 01/15/18 08:39 4 MG Pantoprazole Sodium (Protonix) 40 mg DAILYAC 01/13/18 09:30 01/16/18 09:00 40 MG Piperacillin Sod/ Tazobactam Sod 2.25 gm/Sodium Chloride 50 ml @ 100 mls/hr Q6HRS 01/12/18 16:00 01/13/18 07:33 DC 01/13/18 05:02 100 MLS/HR Piperacillin Sod/ Tazobactam Sod 3.375 gm/Sodium Chloride 50 ml @ 100 mls/hr Q6HRS 01/13/18 12:00 01/16/18 06:19 100 MLS/HR Polyethylene Glycol (miraLAX PACKET) 17 gm PRN DAILY PRN 01/13/18 14:30 Sodium Chloride 1,000 ml @ 125 mls/hr Q8H 01/12/18 15:15 01/14/18 17:17 DC 01/14/18 16:53 125 MLS/HR Vancomycin HCl (Vancomycin Oral Solution) 125 mg [id number] 01/14/18 09:30 01/16/18 10:47 125 MG Lab Laboratory Tests Test 01/15/18 12:21 01/15/18 16:40 01/15/18 21:35 01/16/18 05:00 Glucose (Fingerstick) 195 mg/dL (70-99) 221 mg/dL (70-99) 214 mg/dL (70-99) White Blood Count 14.9 x10^3/uL (4.0-11.0) Red Blood Count 3.97 x10^6/uL (3.50-5.40) Hemoglobin 12.6 g/dL (12.0-15.5) Hematocrit 36.8 % (36.0-47.0) Mean Corpuscular Volume 93 fL (79-100) Mean Corpuscular Hemoglobin 32 pg (25-35) Mean Corpuscular Hemoglobin Concent 34 g/dL (31-37) Red Cell Distribution Width 13.9 % (11.5-14.5) Platelet Count 140 x10^3/uL (140-400) Neutrophils (%) (Auto) 90 % (31-73) Lymphocytes (%) (Auto) 3 % (24-48) Monocytes (%) (Auto) 6 % (0-9) Eosinophils (%) (Auto) 0 % (0-3) Basophils (%) (Auto) 0 % (0-3) Neutrophils # (Auto) 13.4 x10^3uL (1.8-7.7) Lymphocytes # (Auto) 0.5 x10^3/uL (1.0-4.8) Monocytes # (Auto) 0.9 x10^3/uL (0.0-1.1) Eosinophils # (Auto) 0.1 x10^3/uL (0.0-0.7) Basophils # (Auto) 0.1 x10^3/uL (0.0-0.2) Sodium Level 138 mmol/L (136-145) Potassium Level 3.8 mmol/L (3.5-5.1) Chloride Level 107 mmol/L (98-107) Carbon Dioxide Level 16 mmol/L (21-32) Anion Gap 15 (6-14) Blood Urea Nitrogen 40 mg/dL (7-20) Creatinine 1.5 mg/dL (0.6-1.0) Estimated GFR (Cockcroft-Gault) 33.2 Glucose Level 244 mg/dL (70-99) Calcium Level 9.5 mg/dL (8.5-10.1) Test 01/16/18 07:48 Glucose (Fingerstick) 235 mg/dL (70-99) Results All relevant outside records, renal labs, imaging studies, telemetry/EKG's were reviewed. SOLOMON SULLIVAN MD Jan 16, 2018 11:27
--- NOTE | 2018-01-16 13:43 | PDOC ---
Subjective: Subjective: Denies nausea, says vomited yesterday - then clarifies it was "a big burp." A few watery stools - confirmed w/ RN. Denies abd pain. Objective: Objective: Reviewed surgery note - ordered repeat CT. Vital Signs: Vital Signs Date Time Temp Pulse Resp B/P (MAP) Pulse Ox O2 Delivery O2 Flow Rate FiO2 01/16/18 12:07 Room Air 01/16/18 11:03 98.3 99 20 137/72 (93) 94 98.3 Labs: Laboratory Tests Test 01/15/18 16:40 01/15/18 21:35 01/16/18 05:00 01/16/18 07:48 Glucose (Fingerstick) 221 mg/dL 214 mg/dL 235 mg/dL White Blood Count 14.9 x10^3/uL Red Blood Count 3.97 x10^6/uL Hemoglobin 12.6 g/dL Hematocrit 36.8 % Mean Corpuscular Volume 93 fL Mean Corpuscular Hemoglobin 32 pg Mean Corpuscular Hemoglobin Concent 34 g/dL Red Cell Distribution Width 13.9 % Platelet Count 140 x10^3/uL Neutrophils (%) (Auto) 90 % Lymphocytes (%) (Auto) 3 % Monocytes (%) (Auto) 6 % Eosinophils (%) (Auto) 0 % Basophils (%) (Auto) 0 % Neutrophils # (Auto) 13.4 x10^3uL Lymphocytes # (Auto) 0.5 x10^3/uL Monocytes # (Auto) 0.9 x10^3/uL Eosinophils # (Auto) 0.1 x10^3/uL Basophils # (Auto) 0.1 x10^3/uL Sodium Level 138 mmol/L Potassium Level 3.8 mmol/L Chloride Level 107 mmol/L Carbon Dioxide Level 16 mmol/L Anion Gap 15 Blood Urea Nitrogen 40 mg/dL Creatinine 1.5 mg/dL Estimated GFR (Cockcroft-Gault) 33.2 Glucose Level 244 mg/dL Calcium Level 9.5 mg/dL Test 01/16/18 11:43 Glucose (Fingerstick) 232 mg/dL Imaging: CT A/P pending PE: GEN: ill LUNGS: CTAB HEART: tachycardic ABD: distended, quiet, not much tenderness NEURO/PSYCH: A & O 3, drowsy A/P: Gastric and SB dilation Pneumatosis sigmoid colon Leukocytosis -- Await repeat CT. JOHNATHAN BAKER Jan 16, 2018 13:43
--- NOTE | 2018-01-16 14:06 | RAD ---
CT of the abdomen and pelvis without contrast, 01/16/2018: HISTORY: Elevated white blood cell count, colonic pneumatosis Multidetector CT imaging was performed following oral ingestion of contrast material. No IV contrast was administered as requested. Comparison is made to a study from 01/14/2018. There are small ongoing bilateral pleural effusions. There is moderate underlying atelectasis in both lower lobes. Coronary artery calcifications are present. Artifacts arising from the patient's arms degrade image quality in the upper abdomen. The gallbladder is surgically absent. There is increased density in the mesenteric fat as well as in the subcutaneous soft tissues bilaterally. The appearance is compatible with generalized anasarca. The pancreas is not clearly defined but shows no specific abnormality. The spleen is of normal size. The unopacified kidneys are unremarkable. There is moderate aortoiliac calcific plaquing. A Stover catheter is present in the collapsed urinary bladder. There are coarse uterine calcifications compatible with fibroids. There are persistent mural gas collections in the sigmoid colon. No portal venous gas is evident. There appears to be mild ongoing mural thickening involving the descending colon and the hepatic flexure region. Other portions of the colon are not clearly defined. No definite bowel obstruction is currently seen. There is no free air in the abdomen. A small volume of ascites is again noted. Moderate multilevel degenerative changes are present in the spine. IMPRESSION: 1. Unchanged small bilateral pleural effusions with moderate bilateral lower lobe atelectasis. 2. Persistent small volume of ascites. 3. Ongoing subcutaneous and generalized mesenteric edema suggesting anasarca. 4. Persistent colonic mural thickening and pneumatosis involving the sigmoid colon. This can be due to a variety of causes including infection or ischemia. PQRS Compliance Statement: One or more of the following individualized dose reduction techniques were utilized for this examination: 1. Automated exposure control 2. Adjustment of the mA and/or kV according to patient size 3. Use of iterative reconstruction technique Electronically signed by: Jan Cui MD (01/16/2018 2:03 PM) [facility]
[2018-01-16 15:04] VITALS: BP 124/68
[2018-01-16] MEDS: fentaNYL PF VIAL 100 MCG/2 ML VIAL IV PRN ×2 (19:37→21:46)
[2018-01-16 23:13] VITALS: BP 138/71
[2018-01-17] MEDS: AMINO AC 3%/ELECTROLYTE/GLYCER 1,000 ML IV SCH ×3 (00:54→14:05)
[2018-01-17] MEDS: PIPERACILLIN/TAZOBACTAM 3.375 GM in IV NORMAL SALINE 50ML 50 ML IV SCH ×5 (00:54→23:28)
[2018-01-17] MEDS: fentaNYL PF VIAL 100 MCG/2 ML VIAL IV PRN ×3 (00:54→21:45)
[2018-01-17 03:16] VITALS: BP 148/78
[2018-01-17 04:43] LABS: BASO % 0 % (0-3); EOS % 0 % (0-3); HEMATOCRIT 40.2 % (36.0-47.0); HEMOGLOBIN 13.7 g/dL (12.0-15.5); LYMPH # 0.5 x10^3/uL (1.0-4.8); LYMPH % 4 % (24-48); MEAN CORPUSCULAR HEMOGLOBIN 31 pg (25-35); MEAN CORPUSCULAR HGB CONC 34 g/dL (31-37); MEAN CORPUSCULAR VOLUME 91 fL (79-100); MONO % 8 % (0-9); NEUT # 11.6 x10^3uL (1.8-7.7); NEUT % 88 % (31-73); PLATELET COUNT 146 x10^3/uL (140-400); RED CELL DISTRIBUTION WIDTH 14.2 % (11.5-14.5); WHITE BLOOD COUNT 13.2 x10^3/uL (4.0-11.0)
[2018-01-17 05:05] LABS: ALBUMIN 1.6 g/dL (3.4-5.0); ALBUMIN/GLOBULIN RATIO 0.6 (1.0-1.7); CREATININE 1.5 mg/dL (0.6-1.0); GFR 33.2; POTASSIUM 4.1 mmol/L (3.5-5.1); TOTAL BILIRUBIN 0.6 mg/dL (0.2-1.0); TOTAL PROTEIN 4.5 g/dL (6.4-8.2)
[2018-01-17] MEDS: LEVOTHYROXINE 125 MCG TABLET PO SCH (05:30)
--- NOTE | 2018-01-17 06:06 | PN ---
DATE: 01/16/2018 SUBJECTIVE: The patient is resting slightly propped up in bed, no apparent respiratory distress. Awake, alert. On questioning her, she denied any complaint, in particular, she denied any nausea, vomiting. Denied any abdominal pain. She stated that she had a large bowel movement this morning. She has had another CT scan of the abdomen and pelvis this morning. PHYSICAL EXAMINATION: GENERAL: When I examined her, she was pale, but no jaundice, cyanosis, or thyromegaly. No jugular venous distension. No lower limb edema. VITAL SIGNS: Her heart rate was 99, blood pressure was 137/72, temperature was 98.3, respiratory rate was 20, and oxygen saturation was 94%. HEAD, EYES, EARS, NOSE AND THROAT: Showed normocephalic, atraumatic. NECK: Supple. HEART: Showed normal first and second heart sounds. No gallop, rub or murmur. CHEST: Clear to auscultation. No crepitation or rhonchi. ABDOMEN: Distended, soft, nontender. No guarding or rigidity. No organomegaly. Hernial orifice intact; however, the bowel sounds are sluggish. NEUROLOGIC: She is awake, alert, responding appropriately with cranial nerves intact. She moves extremities with difficulty. Her intake was 1150, output was 865. LABORATORY DATA: This morning showed a serum sodium 138, potassium 3.8, chloride 107, bicarbonate 16, anion gap of 15, BUN is 40, creatinine 1.5, estimated GFR was 33 mL per minute. Her glucose was 244, calcium was 9.5. Her white cell count is up to 14,900, hemoglobin 12.6, hematocrit 36.8, MCV 93, and platelet count of 140,000 with normal manual differential. ASSESSMENT: 1. Abdominal pain, hypertension, sepsis, thought to be due to infectious colitis. She continues to be on IV Zosyn and p.o. vancomycin. 2. Fecal impaction, resolved. 3. Poorly controlled type 2 diabetes mellitus. The blood sugar on admission was more than 600, resolved. Much better controlled now. 4. Acute kidney injury on chronic kidney disease. Her creatinine and BUN are going up slightly. Creatinine is up to 1.5 and BUN is 40, leukocytosis also rising. 5. Hypothyroidism. 6. Hyperlipidemia. 7. Diabetic peripheral neuropathy. Her CT scan of the abdomen and pelvis with oral contrast done 2 days ago showed that there is a small bowel and gastric dilatation, evidence of small-bowel obstruction, although difficult to determine transition site on this exam. There is a long segment of pneumatosis of the sigmoid colon, there is colonic wall thickening with evidence of colitis. She also has diffuse mesenteric and body wall edema. There are prominent infiltrates in the lower lobe lung bases bilaterally, also small bilateral pleural effusion. PLAN: To continue with the PPN for now; although, she is on a clear liquid diet, continue with IV Zosyn and p.o. vancomycin and micafungin was added this morning. SAVANNA LYNN MD DR: STEPH/shanthi JOB#: [id number] / [id number]
[2018-01-17 07:00] VITALS: BP 138/78
[2018-01-17] MEDS: ALBUTEROL SULFATE 2.5 MG/3 ML NEBU. NEB SCH ×4 (07:13→19:28)
[2018-01-17] MEDS: BUDESONIDE 0.5 MG/2 ML NEBU. NEB SCH ×2 (07:13→19:27)
[2018-01-17] MEDS: INSULIN LISPRO 300 UNITS/3 ML INSULN.PEN. SQ SCH ×3 (08:00→17:24)
[2018-01-17] MEDS: LACTOBACILLUS RHAMNOSUS GG 1 CAPSULE. PO SCH ×2 (09:11→20:36)
[2018-01-17] MEDS: PANTOPRAZOLE 40 MG TABLET.DR. PO SCH (09:11)
[2018-01-17] MEDS: KETOTIFEN FUMARATE 0.025% OPHTH SOLUTION BOTTLE. OU SCH ×2 (09:11→20:31)
[2018-01-17] MEDS: VANCOMYCIN 125 MG/2.5 ML ORAL SOLUTION. PO SCH ×4 (10:59→20:36)
[2018-01-17 11:00] VITALS: BP 128/72
[2018-01-17] MEDS: MICAFUNGIN 100 MG in IV DEXTROSE 5% 100ML 100 ML IV SCH (11:05)
--- NOTE | 2018-01-17 14:59 | PDOC ---
Infectious Disease Note Subjective Subjective Feels ok Tolerating clears. + BM No F/C/S/SOA/Rash No vomiting today Vital Sign Vital Signs Vital Signs Date Time Temp Pulse Resp B/P (MAP) Pulse Ox O2 Delivery O2 Flow Rate FiO2 01/17/18 11:21 96 Room Air 01/17/18 11:00 97.4 96 16 128/72 (90) 97.4 01/17/18 01:24 2.0 Physical Exam PHYSICAL EXAM CONSTITUTIONAL: She is pleasant. She is cooperative. She is in no acute distress. Looks a little more tired today HEENT: Pupils equal and reactive. Oral cavity, pharynx is clear. She has dentures is more dry. NECK: Supple, no JVD. LUNGS: Decreased in the bases. HEART: S1, S2. ABDOMEN: Mildly - to protuberant and soft. There is no guarding, there is no rebound. She has a little discomfort in the left lower quadrant but less. : Stover without complications. EXTREMITIES: Without clubbing, cyanosis or gross edema. Her right foot on the medial aspect of the dorsal side, she has a dry scaly callus type area without surrounding signs of inflammation, no erythema, no warmth, no fluctuance. NEUROLOGIC: She is nonfocal. PSYCHIATRIC: Affect is pleasant Labs Lab Laboratory Tests Test 01/16/18 16:57 01/16/18 21:12 01/17/18 03:50 01/17/18 07:43 Glucose (Fingerstick) 240 mg/dL (70-99) 239 mg/dL (70-99) 277 mg/dL (70-99) White Blood Count 13.2 x10^3/uL (4.0-11.0) Red Blood Count 4.40 x10^6/uL (3.50-5.40) Hemoglobin 13.7 g/dL (12.0-15.5) Hematocrit 40.2 % (36.0-47.0) Mean Corpuscular Volume 91 fL (79-100) Mean Corpuscular Hemoglobin 31 pg (25-35) Mean Corpuscular Hemoglobin Concent 34 g/dL (31-37) Red Cell Distribution Width 14.2 % (11.5-14.5) Platelet Count 146 x10^3/uL (140-400) Neutrophils (%) (Auto) 88 % (31-73) Lymphocytes (%) (Auto) 4 % (24-48) Monocytes (%) (Auto) 8 % (0-9) Eosinophils (%) (Auto) 0 % (0-3) Basophils (%) (Auto) 0 % (0-3) Neutrophils # (Auto) 11.6 x10^3uL (1.8-7.7) Lymphocytes # (Auto) 0.5 x10^3/uL (1.0-4.8) Monocytes # (Auto) 1.0 x10^3/uL (0.0-1.1) Eosinophils # (Auto) 0.0 x10^3/uL (0.0-0.7) Basophils # (Auto) 0.0 x10^3/uL (0.0-0.2) Sodium Level 142 mmol/L (136-145) Potassium Level 4.1 mmol/L (3.5-5.1) Chloride Level 109 mmol/L (98-107) Carbon Dioxide Level 17 mmol/L (21-32) Anion Gap 16 (6-14) Blood Urea Nitrogen 44 mg/dL (7-20) Creatinine 1.5 mg/dL (0.6-1.0) Estimated GFR (Cockcroft-Gault) 33.2 BUN/Creatinine Ratio 29 (6-20) Glucose Level 282 mg/dL (70-99) Calcium Level 9.0 mg/dL (8.5-10.1) Total Bilirubin 0.6 mg/dL (0.2-1.0) Aspartate Amino Transf (AST/SGOT) 75 U/L (15-37) Alanine Aminotransferase (ALT/SGPT) 33 U/L (14-59) Alkaline Phosphatase 454 U/L (46-116) Total Protein 4.5 g/dL (6.4-8.2) Albumin 1.6 g/dL (3.4-5.0) Albumin/Globulin Ratio 0.6 (1.0-1.7) Test 01/17/18 11:24 Glucose (Fingerstick) 285 mg/dL (70-99) Objective Assessment Possible sepsis - elevated procalcitonin but better 01/15 but off pressors Colitis - Fecal impaction - resolved ? DM gastroparesis SBO- dilated stomach and SB on Abd film Mild leukocytosis ? reactive - increasing Mild transaminitis Sulfa allergy - can't remember reaction Hypothyroid Bandemia Right foot wound is clean GILL - did receive IV contrast - currently improving Plan Plan of Care Doubt C-diff but cont po Vanc until ruled out Cont Zosyn Add Micafungin F/u labs in am and cults pt likely has ischemic colitis NICKY GARNICA MD Jan 17, 2018 14:59
--- NOTE | 2018-01-17 14:59 | PDOC ---
SURGICAL PROGRESS NOTE Subjective Pt without c/o, omar clears well Vital Signs Vital Signs Date Time Temp Pulse Resp B/P (MAP) Pulse Ox O2 Delivery O2 Flow Rate FiO2 01/17/18 11:21 96 Room Air 01/17/18 11:00 97.4 96 16 128/72 (90) 97.4 01/17/18 01:24 2.0 I&O Intake and Output 01/17/18 07:00 Intake Total 1510 ml Output Total 1700 ml Balance -190 ml Intake Oral 360 ml IV Total 1150 ml Output Urine Total 1700 ml # Bowel Movements 1 General: Alert, Oriented X3, Cooperative, No acute distress Abdomen: Soft, No tenderness Labs Laboratory Tests Test 01/15/18 16:40 01/15/18 21:35 01/16/18 05:00 01/16/18 07:48 Glucose (Fingerstick) 221 mg/dL (70-99) 214 mg/dL (70-99) 235 mg/dL (70-99) White Blood Count 14.9 x10^3/uL (4.0-11.0) Red Blood Count 3.97 x10^6/uL (3.50-5.40) Hemoglobin 12.6 g/dL (12.0-15.5) Hematocrit 36.8 % (36.0-47.0) Mean Corpuscular Volume 93 fL (79-100) Mean Corpuscular Hemoglobin 32 pg (25-35) Mean Corpuscular Hemoglobin Concent 34 g/dL (31-37) Red Cell Distribution Width 13.9 % (11.5-14.5) Platelet Count 140 x10^3/uL (140-400) Neutrophils (%) (Auto) 90 % (31-73) Lymphocytes (%) (Auto) 3 % (24-48) Monocytes (%) (Auto) 6 % (0-9) Eosinophils (%) (Auto) 0 % (0-3) Basophils (%) (Auto) 0 % (0-3) Neutrophils # (Auto) 13.4 x10^3uL (1.8-7.7) Lymphocytes # (Auto) 0.5 x10^3/uL (1.0-4.8) Monocytes # (Auto) 0.9 x10^3/uL (0.0-1.1) Eosinophils # (Auto) 0.1 x10^3/uL (0.0-0.7) Basophils # (Auto) 0.1 x10^3/uL (0.0-0.2) Sodium Level 138 mmol/L (136-145) Potassium Level 3.8 mmol/L (3.5-5.1) Chloride Level 107 mmol/L (98-107) Carbon Dioxide Level 16 mmol/L (21-32) Anion Gap 15 (6-14) Blood Urea Nitrogen 40 mg/dL (7-20) Creatinine 1.5 mg/dL (0.6-1.0) Estimated GFR (Cockcroft-Gault) 33.2 Glucose Level 244 mg/dL (70-99) Calcium Level 9.5 mg/dL (8.5-10.1) Test 01/16/18 11:43 01/16/18 16:57 01/16/18 21:12 01/17/18 03:50 Glucose (Fingerstick) 232 mg/dL (70-99) 240 mg/dL (70-99) 239 mg/dL (70-99) White Blood Count 13.2 x10^3/uL (4.0-11.0) Red Blood Count 4.40 x10^6/uL (3.50-5.40) Hemoglobin 13.7 g/dL (12.0-15.5) Hematocrit 40.2 % (36.0-47.0) Mean Corpuscular Volume 91 fL (79-100) Mean Corpuscular Hemoglobin 31 pg (25-35) Mean Corpuscular Hemoglobin Concent 34 g/dL (31-37) Red Cell Distribution Width 14.2 % (11.5-14.5) Platelet Count 146 x10^3/uL (140-400) Neutrophils (%) (Auto) 88 % (31-73) Lymphocytes (%) (Auto) 4 % (24-48) Monocytes (%) (Auto) 8 % (0-9) Eosinophils (%) (Auto) 0 % (0-3) Basophils (%) (Auto) 0 % (0-3) Neutrophils # (Auto) 11.6 x10^3uL (1.8-7.7) Lymphocytes # (Auto) 0.5 x10^3/uL (1.0-4.8) Monocytes # (Auto) 1.0 x10^3/uL (0.0-1.1) Eosinophils # (Auto) 0.0 x10^3/uL (0.0-0.7) Basophils # (Auto) 0.0 x10^3/uL (0.0-0.2) Sodium Level 142 mmol/L (136-145) Potassium Level 4.1 mmol/L (3.5-5.1) Chloride Level 109 mmol/L (98-107) Carbon Dioxide Level 17 mmol/L (21-32) Anion Gap 16 (6-14) Blood Urea Nitrogen 44 mg/dL (7-20) Creatinine 1.5 mg/dL (0.6-1.0) Estimated GFR (Cockcroft-Gault) 33.2 BUN/Creatinine Ratio 29 (6-20) Glucose Level 282 mg/dL (70-99) Calcium Level 9.0 mg/dL (8.5-10.1) Total Bilirubin 0.6 mg/dL (0.2-1.0) Aspartate Amino Transf (AST/SGOT) 75 U/L (15-37) Alanine Aminotransferase (ALT/SGPT) 33 U/L (14-59) Alkaline Phosphatase 454 U/L (46-116) Total Protein 4.5 g/dL (6.4-8.2) Albumin 1.6 g/dL (3.4-5.0) Albumin/Globulin Ratio 0.6 (1.0-1.7) Test 01/17/18 07:43 01/17/18 11:24 Glucose (Fingerstick) 277 mg/dL (70-99) 285 mg/dL (70-99) Laboratory Tests Test 01/16/18 16:57 01/16/18 21:12 01/17/18 03:50 01/17/18 07:43 Glucose (Fingerstick) 240 mg/dL (70-99) 239 mg/dL (70-99) 277 mg/dL (70-99) White Blood Count 13.2 x10^3/uL (4.0-11.0) Red Blood Count 4.40 x10^6/uL (3.50-5.40) Hemoglobin 13.7 g/dL (12.0-15.5) Hematocrit 40.2 % (36.0-47.0) Mean Corpuscular Volume 91 fL (79-100) Mean Corpuscular Hemoglobin 31 pg (25-35) Mean Corpuscular Hemoglobin Concent 34 g/dL (31-37) Red Cell Distribution Width 14.2 % (11.5-14.5) Platelet Count 146 x10^3/uL (140-400) Neutrophils (%) (Auto) 88 % (31-73) Lymphocytes (%) (Auto) 4 % (24-48) Monocytes (%) (Auto) 8 % (0-9) Eosinophils (%) (Auto) 0 % (0-3) Basophils (%) (Auto) 0 % (0-3) Neutrophils # (Auto) 11.6 x10^3uL (1.8-7.7) Lymphocytes # (Auto) 0.5 x10^3/uL (1.0-4.8) Monocytes # (Auto) 1.0 x10^3/uL (0.0-1.1) Eosinophils # (Auto) 0.0 x10^3/uL (0.0-0.7) Basophils # (Auto) 0.0 x10^3/uL (0.0-0.2) Sodium Level 142 mmol/L (136-145) Potassium Level 4.1 mmol/L (3.5-5.1) Chloride Level 109 mmol/L (98-107) Carbon Dioxide Level 17 mmol/L (21-32) Anion Gap 16 (6-14) Blood Urea Nitrogen 44 mg/dL (7-20) Creatinine 1.5 mg/dL (0.6-1.0) Estimated GFR (Cockcroft-Gault) 33.2 BUN/Creatinine Ratio 29 (6-20) Glucose Level 282 mg/dL (70-99) Calcium Level 9.0 mg/dL (8.5-10.1) Total Bilirubin 0.6 mg/dL (0.2-1.0) Aspartate Amino Transf (AST/SGOT) 75 U/L (15-37) Alanine Aminotransferase (ALT/SGPT) 33 U/L (14-59) Alkaline Phosphatase 454 U/L (46-116) Total Protein 4.5 g/dL (6.4-8.2) Albumin 1.6 g/dL (3.4-5.0) Albumin/Globulin Ratio 0.6 (1.0-1.7) Test 01/17/18 11:24 Glucose (Fingerstick) 285 mg/dL (70-99) Problem List colitis cont supportive care OK to add nutritional shakes no surgical plans currently BEATRIZ RAYMUNDO MD Jan 17, 2018 14:59
[2018-01-17 15:00] VITALS: BP 157/85
--- NOTE | 2018-01-17 15:43 | PDOC ---
Subjective: Subjective: Pt states she is feeling ok today. She denies nausea or vomiting. She states her stomach and bowels are "fine." She had a small BM this morning. Objective: Vital Signs: Vital Signs Date Time Temp Pulse Resp B/P (MAP) Pulse Ox O2 Delivery O2 Flow Rate FiO2 01/17/18 11:21 96 Room Air 01/17/18 11:00 97.4 96 16 128/72 (90) 97.4 01/17/18 01:24 2.0 Labs: Laboratory Tests Test 01/16/18 16:57 01/16/18 21:12 01/17/18 03:50 01/17/18 07:43 Glucose (Fingerstick) 240 mg/dL 239 mg/dL 277 mg/dL White Blood Count 13.2 x10^3/uL Red Blood Count 4.40 x10^6/uL Hemoglobin 13.7 g/dL Hematocrit 40.2 % Mean Corpuscular Volume 91 fL Mean Corpuscular Hemoglobin 31 pg Mean Corpuscular Hemoglobin Concent 34 g/dL Red Cell Distribution Width 14.2 % Platelet Count 146 x10^3/uL Neutrophils (%) (Auto) 88 % Lymphocytes (%) (Auto) 4 % Monocytes (%) (Auto) 8 % Eosinophils (%) (Auto) 0 % Basophils (%) (Auto) 0 % Neutrophils # (Auto) 11.6 x10^3uL Lymphocytes # (Auto) 0.5 x10^3/uL Monocytes # (Auto) 1.0 x10^3/uL Eosinophils # (Auto) 0.0 x10^3/uL Basophils # (Auto) 0.0 x10^3/uL Sodium Level 142 mmol/L Potassium Level 4.1 mmol/L Chloride Level 109 mmol/L Carbon Dioxide Level 17 mmol/L Anion Gap 16 Blood Urea Nitrogen 44 mg/dL Creatinine 1.5 mg/dL Estimated GFR (Cockcroft-Gault) 33.2 BUN/Creatinine Ratio 29 Glucose Level 282 mg/dL Calcium Level 9.0 mg/dL Total Bilirubin 0.6 mg/dL Aspartate Amino Transf (AST/SGOT) 75 U/L Alanine Aminotransferase (ALT/SGPT) 33 U/L Alkaline Phosphatase 454 U/L Total Protein 4.5 g/dL Albumin 1.6 g/dL Albumin/Globulin Ratio 0.6 Test 01/17/18 11:24 Glucose (Fingerstick) 285 mg/dL Current Medications Medications (Trade) Dose Ordered Sig/Jailyn Route PRN Reason Start Time Stop Time Status Last Admin Dose Admin Fentanyl Citrate (Fentanyl 2ml Vial) 50 mcg PRN Q3HRS PRN IV SEVERE PAIN 01/12/18 15:15 01/17/18 14:05 Fentanyl Citrate (Fentanyl 2ml Vial) 25 mcg PRN Q3HRS PRN IV MODERATE PAIN 01/12/18 15:15 01/13/18 20:00 Piperacillin Sod/ Tazobactam Sod 2.25 gm/Sodium Chloride 50 ml @ 100 mls/hr Q6HRS IV 01/12/18 16:00 01/13/18 07:33 DC 01/13/18 05:02 Sodium Chloride 1,000 ml @ 125 mls/hr Q8H IV 01/12/18 15:15 01/14/18 17:17 DC 01/14/18 16:53 Insulin Human Lispro (HumaLOG) 0-5 UNITS TIDWMEALS SQ 01/12/18 17:00 01/17/18 12:53 Dextrose (Dextrose 50%-Water Syringe) 12.5 gm PRN Q15MIN PRN IV SEE COMMENTS 01/12/18 15:15 Vancomycin HCl (Vancomycin Oral Solution) 125 mg [id number] PO 01/12/18 17:00 01/12/18 17:00 DC Influenza Virus Vaccine (Afluria Trivalent [id number] Syringe) 0.5 ml ONCE ONCE VAX IM 01/13/18 09:00 01/13/18 09:01 DC 01/13/18 08:42 Ketotifen Fumarate (Zaditor) 1 drop BID OU 01/12/18 21:00 01/17/18 09:11 Albuterol/ Ipratropium (Duoneb) 3 ml RTQID NEB 01/12/18 20:00 01/13/18 09:14 DC 01/13/18 08:38 Norepinephrine Bitartrate 250 ml @ 1.875 mls/ hr CONT PRN IV SEE I/O RECORD 01/12/18 18:00 01/16/18 10:14 DC 01/12/18 17:58 Piperacillin Sod/ Tazobactam Sod 3.375 gm/Sodium Chloride 50 ml @ 100 mls/hr Q6HRS IV 01/13/18 12:00 01/17/18 12:52 Non-Formulary Medication (Albuterol Sulfate (Proair Hfa Inhaler)) 2 puff PRN Q4-6HRS IH 01/13/18 09:00 UNV Pantoprazole Sodium (Protonix) 40 mg DAILYAC PO 01/13/18 09:30 01/17/18 09:11 Non-Formulary Medication (Fluticasone/ Salmeterol (Advair 100-50 Diskus)) 1 inh BID PRN IH SHORTNESS OF BREATH 01/13/18 09:00 UNV Levothyroxine Sodium (Synthroid) 125 mcg [id number] PO 01/13/18 10:00 01/17/18 05:30 Albuterol Sulfate (Ventolin Neb Soln) 2.5 mg RTQID NEB 01/13/18 12:00 01/17/18 11:18 Budesonide (Pulmicort) 0.5 mg RTBID NEB 01/13/18 20:00 01/17/18 07:13 Albuterol Sulfate (Ventolin Neb Soln) 2.5 mg PRN Q4HRS PRN NEB SHORTNESS OF BREATH 01/13/18 09:15 Metoclopramide HCl (Reglan Vial) 5 mg PRN Q6HRS PRN IV NAUSEA/VOMITING, 2nd CHOICE 01/13/18 09:45 01/15/18 08:39 Lactobacillus Rhamnosus (Culturelle) 1 cap BID PO 01/13/18 21:00 01/17/18 09:11 Polyethylene Glycol (miraLAX PACKET) 17 gm PRN DAILY PRN PO CONSTIPATION 01/13/18 14:30 Ondansetron HCl (Zofran) 4 mg PRN Q8HRS PRN IV NAUSEA/VOMITING, 1st CHOICE 01/13/18 18:00 01/15/18 08:39 Vancomycin HCl (Vancomycin Oral Solution) 125 mg [id number] PO 01/14/18 09:30 01/17/18 14:05 Iohexol (Omnipaque 240 Mg/ml) 50 ml 1X ONCE PO 01/14/18 10:00 01/14/18 10:01 DC 01/14/18 10:00 Amino Acids/ Glycerin/ Electrolytes 1,000 ml @ 70 mls/hr [id number] IV 01/14/18 17:15 10/19/18 14:05 Iohexol (Omnipaque 240 Mg/ml) 30 ml 1X ONCE PO 01/16/18 09:30 01/16/18 09:31 DC 01/16/18 09:30 Info (CONTRAST GIVEN -- Rx MONITORING) 1 each PRN DAILY PRN MC SEE COMMENTS 01/16/18 09:30 01/18/18 09:29 Micafungin Sodium 100 mg/Dextrose 100 ml @ 100 mls/hr Q24H IV 01/16/18 11:00 01/17/18 11:05 Imaging: CT A/P 01/16/18 1. Unchanged small bilateral pleural effusions with moderate bilateral lower lobe atelectasis. 2. Persistent small volume of ascites. 3. Ongoing subcutaneous and generalized mesenteric edema suggesting anasarca. 4. Persistent colonic mural thickening and pneumatosis involving the sigmoid colon. This can be due to a variety of causes including infection or ischemia. PE: GEN: ill LUNGS: CTAB HEART: tachycardic ABD: distended, quiet, not much tenderness NEURO/PSYCH: A & O 3, drowsy A/P: Gastric and SB dilation Pneumatosis sigmoid colon Leukocytosis -Continue current antibiotics -Pt still following with surgery, though no surgical intervention recommended at this time -- DORYS PADILLA Jan 17, 2018 15:43
--- NOTE | 2018-01-17 16:20 | PDOC ---
SUBJECTIVE ROS Stable OBJECTIVE Vital Signs Vital Signs Date Time Temp Pulse Resp B/P (MAP) Pulse Ox O2 Delivery O2 Flow Rate FiO2 01/17/18 14:35 Room Air 01/17/18 11:21 96 01/17/18 11:00 97.4 96 16 128/72 (90) 97.4 01/17/18 01:24 2.0 I & 0 Intake and Output 01/17/18 07:00 Intake Total 1510 ml Output Total 1700 ml Balance -190 ml Intake Oral 360 ml IV Total 1150 ml Output Urine Total 1700 ml # Bowel Movements 1 PHYSICAL EXAM Physical Exam GENERAL: NAD HEENT: om moist NECK: Supple. HEART: with no gallop, rub or murmur. CHEST: Clear to auscultation. Non labored ABDOMEN: Distended, soft. NEUROLOGIC: awake, alert, - Stover + \Skin No rash DIAGNOSIS/ASSESSMENT Assessment & Plan GILL on? CKD - Likely pre-renal,? IV contrast Stable, Non Oliguric, Unknown baseline E-Lytes normal Metabolic acidosis- Bicarb Mildly Low, adjust in TPN CKD- , Hx of Uncontrolled DM use of NSAID Unknown baseline Fecal impaction- Pneumatosis sigmoid colon following with surgery and GI no surgical intervention recommended at this time Hx of NSAID use Elevated Alk Phos- as per primary COMMENT/RELEVANT DATA Meds Current Medications Medications (Trade) Dose Ordered Sig/Jailyn Start Time Stop Time Status Last Admin Dose Admin Albuterol Sulfate (Ventolin Neb Soln) 2.5 mg PRN Q4HRS PRN 01/13/18 09:15 Albuterol/ Ipratropium (Duoneb) 3 ml RTQID 01/12/18 20:00 01/13/18 09:14 DC 01/13/18 08:38 3 ML Amino Acids/ Glycerin/ Electrolytes 1,000 ml @ 70 mls/hr [id number] 01/14/18 17:15 01/17/18 14:05 70 MLS/HR Budesonide (Pulmicort) 0.5 mg RTBID 01/13/18 20:00 01/17/18 07:13 0.5 MG Dextrose (Dextrose 50%-Water Syringe) 12.5 gm PRN Q15MIN PRN 01/12/18 15:15 Fentanyl Citrate (Fentanyl 2ml Vial) 25 mcg PRN Q3HRS PRN 01/12/18 15:15 01/13/18 20:00 25 MCG Influenza Virus Vaccine (Afluria Trivalent [id number] Syringe) 0.5 ml ONCE ONCE 01/13/18 09:00 01/13/18 09:01 DC 01/13/18 08:42 0.5 ML Info (CONTRAST GIVEN -- Rx MONITORING) 1 each PRN DAILY PRN 01/16/18 09:30 01/18/18 09:29 Insulin Human Lispro (HumaLOG) 0-5 UNITS TIDWMEALS 01/12/18 17:00 01/17/18 12:53 2 UNITS Iohexol (Omnipaque 240 Mg/ml) 30 ml 1X ONCE 01/16/18 09:30 01/16/18 09:31 DC 01/16/18 09:30 30 ML Ketotifen Fumarate (Zaditor) 1 drop BID 01/12/18 21:00 01/17/18 09:11 1 DROP Lactobacillus Rhamnosus (Culturelle) 1 cap BID 01/13/18 21:00 01/17/18 09:11 1 CAP Levothyroxine Sodium (Synthroid) 125 mcg DAILY06 01/13/18 10:00 01/17/18 05:30 125 MCG Metoclopramide HCl (Reglan Vial) 5 mg PRN Q6HRS PRN 01/13/18 09:45 01/15/18 08:39 5 MG Micafungin Sodium 100 mg/Dextrose 100 ml @ 100 mls/hr Q24H 01/16/18 11:00 01/17/18 11:05 100 MLS/HR Non-Formulary Medication (Albuterol Sulfate (Proair Hfa Inhaler)) 2 puff PRN Q4-6HRS 01/13/18 09:00 UNV Non-Formulary Medication (Fluticasone/ Salmeterol (Advair 100-50 Diskus)) 1 inh BID PRN 01/13/18 09:00 UNV Norepinephrine Bitartrate 250 ml @ 1.875 mls/ hr CONT PRN 01/12/18 18:00 01/16/18 10:14 DC 01/12/18 17:58 9.375 MLS/HR Ondansetron HCl (Zofran) 4 mg PRN Q8HRS PRN 01/13/18 18:00 01/15/18 08:39 4 MG Pantoprazole Sodium (Protonix) 40 mg DAILYAC 01/13/18 09:30 01/17/18 09:11 40 MG Piperacillin Sod/ Tazobactam Sod 2.25 gm/Sodium Chloride 50 ml @ 100 mls/hr Q6HRS 01/12/18 16:00 01/13/18 07:33 DC 01/13/18 05:02 100 MLS/HR Piperacillin Sod/ Tazobactam Sod 3.375 gm/Sodium Chloride 50 ml @ 100 mls/hr Q6HRS 01/13/18 12:00 01/17/18 12:52 100 MLS/HR Polyethylene Glycol (miraLAX PACKET) 17 gm PRN DAILY PRN 01/13/18 14:30 Sodium Chloride 1,000 ml @ 125 mls/hr Q8H 01/12/18 15:15 01/14/18 17:17 DC 01/14/18 16:53 125 MLS/HR Vancomycin HCl (Vancomycin Oral Solution) 125 mg [id number] 01/14/18 09:30 01/17/18 14:05 125 MG Lab Laboratory Tests Test 01/16/18 16:57 01/16/18 21:12 01/17/18 03:50 01/17/18 07:43 Glucose (Fingerstick) 240 mg/dL (70-99) 239 mg/dL (70-99) 277 mg/dL (70-99) White Blood Count 13.2 x10^3/uL (4.0-11.0) Red Blood Count 4.40 x10^6/uL (3.50-5.40) Hemoglobin 13.7 g/dL (12.0-15.5) Hematocrit 40.2 % (36.0-47.0) Mean Corpuscular Volume 91 fL (79-100) Mean Corpuscular Hemoglobin 31 pg (25-35) Mean Corpuscular Hemoglobin Concent 34 g/dL (31-37) Red Cell Distribution Width 14.2 % (11.5-14.5) Platelet Count 146 x10^3/uL (140-400) Neutrophils (%) (Auto) 88 % (31-73) Lymphocytes (%) (Auto) 4 % (24-48) Monocytes (%) (Auto) 8 % (0-9) Eosinophils (%) (Auto) 0 % (0-3) Basophils (%) (Auto) 0 % (0-3) Neutrophils # (Auto) 11.6 x10^3uL (1.8-7.7) Lymphocytes # (Auto) 0.5 x10^3/uL (1.0-4.8) Monocytes # (Auto) 1.0 x10^3/uL (0.0-1.1) Eosinophils # (Auto) 0.0 x10^3/uL (0.0-0.7) Basophils # (Auto) 0.0 x10^3/uL (0.0-0.2) Sodium Level 142 mmol/L (136-145) Potassium Level 4.1 mmol/L (3.5-5.1) Chloride Level 109 mmol/L (98-107) Carbon Dioxide Level 17 mmol/L (21-32) Anion Gap 16 (6-14) Blood Urea Nitrogen 44 mg/dL (7-20) Creatinine 1.5 mg/dL (0.6-1.0) Estimated GFR (Cockcroft-Gault) 33.2 BUN/Creatinine Ratio 29 (6-20) Glucose Level 282 mg/dL (70-99) Calcium Level 9.0 mg/dL (8.5-10.1) Total Bilirubin 0.6 mg/dL (0.2-1.0) Aspartate Amino Transf (AST/SGOT) 75 U/L (15-37) Alanine Aminotransferase (ALT/SGPT) 33 U/L (14-59) Alkaline Phosphatase 454 U/L (46-116) Total Protein 4.5 g/dL (6.4-8.2) Albumin 1.6 g/dL (3.4-5.0) Albumin/Globulin Ratio 0.6 (1.0-1.7) Test 01/17/18 11:24 Glucose (Fingerstick) 285 mg/dL (70-99) Results All relevant outside records, renal labs, imaging studies, telemetry/EKG's were reviewed. SOLOMON SULLIVAN MD Jan 17, 2018 16:19
[2018-01-17 19:25] VITALS: BP 117/61
[2018-01-17] MEDS ORDERED: INSULIN GLARGINE 300 UNITS/3 ML INSULN.PEN. SQ ONE (21:30)
[2018-01-17 23:25] VITALS: BP 149/78
[2018-01-18] MEDS: fentaNYL PF VIAL 100 MCG/2 ML VIAL IV PRN ×2 (01:24→09:55)
--- NOTE | 2018-01-18 01:49 | PN ---
DATE: 01/17/2018 SUBJECTIVE: The patient is resting, almost flat in bed, in no apparent distress. On questioning her, she denied any abdominal pain. Denied any nausea or vomiting. She did have a bowel movement last night according to nursing staff. PHYSICAL EXAMINATION: GENERAL: When I examined her this morning, she looked well and was clearly in no apparent respiratory distress. No pallor, jaundice, cyanosis, or thyromegaly. No jugular venous distension. No lower limb edema. VITAL SIGNS: Her heart rate was 100, blood pressure was 138/78, temperature was 98.9, respiratory rate was 18 and oxygen saturation was 94% on room air. HEAD, EYES, EARS, NOSE AND THROAT: Showed normocephalic, atraumatic. NECK: Supple. HEART: Showed normal first and second heart sounds. No gallop, rub or murmur. CHEST: Clear to auscultation. No crepitation or rhonchi. ABDOMEN: Distended, soft, nontender. No guarding or rigidity. No organomegaly. Hernial orifice intact; however, the bowel sounds are sluggish. NEUROLOGIC: She is awake, alert, responding appropriately. Cranial nerves intact. She moves extremities without difficulty. Her intake over the last 24 hours was 1150, output was 865. LABORATORY DATA: Her lab work this morning showed a white cell count of 13,200, hemoglobin 13.7, hematocrit 40, MCV 91, and platelet count of 146,000. Her chemistry showed serum sodium of 142, potassium 4.1, chloride 109, bicarbonate 17, anion gap of 16, BUN 44, creatinine 1.5, estimated GFR was 53 mL per minute. Her glucose was 282, calcium was 9. Total bilirubin, AST, ALT, alkaline phosphatase were elevated. Her total protein was 4.5, albumin was 1.6. Her CT scan of the abdomen and pelvis with oral contrast done yesterday showed that she has unchanged small bilateral pleural effusion, moderate bilateral lower lobe atelectasis. She has persistent small volume of ascites. She has ongoing subcutaneous and generalized mesenteric edema suggesting anasarca. Persistent colonic mural thickening and pneumatosis involving the sigmoid colon. This can be due to a variety of causes including infection or ischemia. ASSESSMENT: 1. In summary, this is an 82-year-old female patient who presented originally with abdominal pain, hypotension, sepsis, thought to be due to infectious colitis. She continues to be on IV Zosyn and p.o. vancomycin. 2. Fecal impaction, resolved. 3. Poorly controlled type 2 diabetes, much better controlled now. 4. Acute on chronic kidney injury. Her BUN and creatinine are stabilized at 44 and 1.5. 5. Hypothyroidism. 6. Hyperlipidemia. 7. Diabetic peripheral neuropathy. 8. Her second CT scan of the abdomen and pelvis showed no evidence of obstruction, but continued mural thickening of the sigmoid colon with pneumatosis coli. My plan is to cut down on her PPN to 70 mL per hour. Continue with IV micafungin as well as p.o. vancomycin and Zosyn. I will consult Physical and Occupational Therapy and decide on further management accordingly. SAVANNA LYNN MD DR: STEPH/shanthi JOB#: [id number] / [id number]
[2018-01-18 03:25] VITALS: BP 144/75
[2018-01-18] MEDS: AMINO AC 3%/ELECTROLYTE/GLYCER 1,000 ML IV SCH ×2 (04:54→22:30)
[2018-01-18] MEDS: PIPERACILLIN/TAZOBACTAM 3.375 GM in IV NORMAL SALINE 50ML 50 ML IV SCH ×4 (04:54→23:30)
[2018-01-18] MEDS: LEVOTHYROXINE 125 MCG TABLET PO SCH (05:00)
[2018-01-18 05:48] LABS: CALCIUM 9.4 mg/dL (8.5-10.1); CREATININE 1.5 mg/dL (0.6-1.0); GFR 33.2; POTASSIUM 4.2 mmol/L (3.5-5.1)
[2018-01-18 07:00] VITALS: BP 165/92
[2018-01-18] MEDS: BUDESONIDE 0.5 MG/2 ML NEBU. NEB SCH ×2 (07:59→20:36)
[2018-01-18] MEDS: ALBUTEROL SULFATE 2.5 MG/3 ML NEBU. NEB SCH ×4 (07:59→20:40)
[2018-01-18] MEDS: INSULIN LISPRO 300 UNITS/3 ML INSULN.PEN. SQ SCH ×3 (08:33→17:00)
--- NOTE | 2018-01-18 09:02 | PDOC ---
SURGICAL PROGRESS NOTE Subjective Patient doing well no complaints would like to eat more and denies any abdominal pain Vital Signs Vital Signs Date Time Temp Pulse Resp B/P (MAP) Pulse Ox O2 Delivery O2 Flow Rate FiO2 01/18/18 08:00 93 Room Air 01/18/18 07:00 97.5 91 20 165/92 (116) 97.5 I&O Intake and Output 01/18/18 07:00 Intake Total 880 ml Output Total 1525 ml Balance -645 ml Intake Oral 880 ml Output Urine Total 1525 ml PATIENT HAS A ANDREA: No General: Alert, Oriented X3, Cooperative, No acute distress Abdomen: Normal bowel sounds, Soft, No tenderness Labs Laboratory Tests Test 01/16/18 11:43 01/16/18 16:57 01/16/18 21:12 01/17/18 03:50 Glucose (Fingerstick) 232 mg/dL (70-99) 240 mg/dL (70-99) 239 mg/dL (70-99) White Blood Count 13.2 x10^3/uL (4.0-11.0) Red Blood Count 4.40 x10^6/uL (3.50-5.40) Hemoglobin 13.7 g/dL (12.0-15.5) Hematocrit 40.2 % (36.0-47.0) Mean Corpuscular Volume 91 fL (79-100) Mean Corpuscular Hemoglobin 31 pg (25-35) Mean Corpuscular Hemoglobin Concent 34 g/dL (31-37) Red Cell Distribution Width 14.2 % (11.5-14.5) Platelet Count 146 x10^3/uL (140-400) Neutrophils (%) (Auto) 88 % (31-73) Lymphocytes (%) (Auto) 4 % (24-48) Monocytes (%) (Auto) 8 % (0-9) Eosinophils (%) (Auto) 0 % (0-3) Basophils (%) (Auto) 0 % (0-3) Neutrophils # (Auto) 11.6 x10^3uL (1.8-7.7) Lymphocytes # (Auto) 0.5 x10^3/uL (1.0-4.8) Monocytes # (Auto) 1.0 x10^3/uL (0.0-1.1) Eosinophils # (Auto) 0.0 x10^3/uL (0.0-0.7) Basophils # (Auto) 0.0 x10^3/uL (0.0-0.2) Sodium Level 142 mmol/L (136-145) Potassium Level 4.1 mmol/L (3.5-5.1) Chloride Level 109 mmol/L (98-107) Carbon Dioxide Level 17 mmol/L (21-32) Anion Gap 16 (6-14) Blood Urea Nitrogen 44 mg/dL (7-20) Creatinine 1.5 mg/dL (0.6-1.0) Estimated GFR (Cockcroft-Gault) 33.2 BUN/Creatinine Ratio 29 (6-20) Glucose Level 282 mg/dL (70-99) Calcium Level 9.0 mg/dL (8.5-10.1) Total Bilirubin 0.6 mg/dL (0.2-1.0) Aspartate Amino Transf (AST/SGOT) 75 U/L (15-37) Alanine Aminotransferase (ALT/SGPT) 33 U/L (14-59) Alkaline Phosphatase 454 U/L (46-116) Total Protein 4.5 g/dL (6.4-8.2) Albumin 1.6 g/dL (3.4-5.0) Albumin/Globulin Ratio 0.6 (1.0-1.7) Test 01/17/18 07:43 01/17/18 11:24 01/17/18 16:47 01/17/18 20:53 Glucose (Fingerstick) 277 mg/dL (70-99) 285 mg/dL (70-99) 310 mg/dL (70-99) 319 mg/dL (70-99) Test 01/18/18 04:25 01/18/18 07:26 Sodium Level 140 mmol/L (136-145) Potassium Level 4.2 mmol/L (3.5-5.1) Chloride Level 107 mmol/L (98-107) Carbon Dioxide Level 19 mmol/L (21-32) Anion Gap 14 (6-14) Blood Urea Nitrogen 49 mg/dL (7-20) Creatinine 1.5 mg/dL (0.6-1.0) Estimated GFR (Cockcroft-Gault) 33.2 Glucose Level 330 mg/dL (70-99) Calcium Level 9.4 mg/dL (8.5-10.1) Lactate Dehydrogenase 292 U/L (81-234) Glucose (Fingerstick) 310 mg/dL (70-99) Laboratory Tests Test 01/17/18 11:24 01/17/18 16:47 01/17/18 20:53 01/18/18 04:25 Glucose (Fingerstick) 285 mg/dL (70-99) 310 mg/dL (70-99) 319 mg/dL (70-99) Sodium Level 140 mmol/L (136-145) Potassium Level 4.2 mmol/L (3.5-5.1) Chloride Level 107 mmol/L (98-107) Carbon Dioxide Level 19 mmol/L (21-32) Anion Gap 14 (6-14) Blood Urea Nitrogen 49 mg/dL (7-20) Creatinine 1.5 mg/dL (0.6-1.0) Estimated GFR (Cockcroft-Gault) 33.2 Glucose Level 330 mg/dL (70-99) Calcium Level 9.4 mg/dL (8.5-10.1) Lactate Dehydrogenase 292 U/L (81-234) Test 01/18/18 07:26 Glucose (Fingerstick) 310 mg/dL (70-99) Assessment/Plan Diverticulitis versus ischemic bowel asymptomatic Would advance diet as tolerated No plans for any surgical intervention MYRIAM JENSEN MD Jan 18, 2018 09:02
[2018-01-18] MEDS: PANTOPRAZOLE 40 MG TABLET.DR. PO SCH (09:54)
[2018-01-18] MEDS: LACTOBACILLUS RHAMNOSUS GG 1 CAPSULE. PO SCH ×2 (09:54→22:07)
[2018-01-18] MEDS: VANCOMYCIN 125 MG/2.5 ML ORAL SOLUTION. PO SCH ×4 (09:55→22:06)
[2018-01-18] MEDS: KETOTIFEN FUMARATE 0.025% OPHTH SOLUTION BOTTLE. OU SCH ×2 (09:56→22:07)
[2018-01-18 11:00] VITALS: BP 144/70
[2018-01-18] MEDS: MICAFUNGIN 100 MG in IV DEXTROSE 5% 100ML 100 ML IV SCH (11:00)
--- NOTE | 2018-01-18 11:46 | PDOC ---
Infectious Disease Note Subjective Subjective Feeling better Some back pain from lying in bed Mild abdominal cramping and bloating Denies SOA/CP/cough/N/V/D/F/C NPO ROS ROS per HPI otherwise neg Vital Sign Vital Signs Vital Signs Date Time Temp Pulse Resp B/P (MAP) Pulse Ox O2 Delivery O2 Flow Rate FiO2 01/18/18 11:25 93 Room Air 01/18/18 10:30 2.0 01/18/18 07:00 97.5 91 20 165/92 (116) 97.5 Physical Exam PHYSICAL EXAM GENERAL: Lying down, appears comfortable HEENT: Oral cavity, pharynx is clear. LUNGS: Decreased in the bases. HEART: S1, S2. ABDOMEN: Mildly - to protuberant and soft. There is no guarding, there is no rebound. Nontender : Stover EXTREMITIES: Without clubbing, cyanosis or gross edema. Her right foot on the medial aspect of the dorsal side, she has a dry scaly callus type area without surrounding signs of inflammation, no erythema, no warmth, no fluctuance. NEUROLOGIC: She is nonfocal. PIV Labs Lab Laboratory Tests Test 01/17/18 16:47 01/17/18 20:53 01/18/18 04:25 01/18/18 07:26 Glucose (Fingerstick) 310 mg/dL (70-99) 319 mg/dL (70-99) 310 mg/dL (70-99) Sodium Level 140 mmol/L (136-145) Potassium Level 4.2 mmol/L (3.5-5.1) Chloride Level 107 mmol/L (98-107) Carbon Dioxide Level 19 mmol/L (21-32) Anion Gap 14 (6-14) Blood Urea Nitrogen 49 mg/dL (7-20) Creatinine 1.5 mg/dL (0.6-1.0) Estimated GFR (Cockcroft-Gault) 33.2 Glucose Level 330 mg/dL (70-99) Calcium Level 9.4 mg/dL (8.5-10.1) Lactate Dehydrogenase 292 U/L (81-234) Test 01/18/18 11:12 Glucose (Fingerstick) 316 mg/dL (70-99) Objective Assessment Possible sepsis - elevated procalcitonin but better 01/15 but off pressors Colitis - Fecal impaction - resolved ? DM gastroparesis SBO- dilated stomach and SB on Abd film Mild leukocytosis ? reactive Mild transaminitis Sulfa allergy - can't remember reaction Hypothyroid Bandemia Right foot wound is clean GILL - did receive IV contrast - currently improving Plan Plan of Care Doubt C-diff but cont po Vanc until ruled out Cont Zosyn and Micafungin F/u labs and cults pt likely has ischemic colitis Patient seen, examined, I agree with above. Assessment and plan was formulated with HIMS CLERK. NANDINI CASTAÑEDA APRN Jan 18, 2018 11:46 ELIJAH GARNICA MD Jan 18, 2018 15:51
--- NOTE | 2018-01-18 12:27 | PDOC ---
SUBJECTIVE ROS F/up for GILL +/- CKD III She appears to be doing well and denies any specific complaints currently. CVS: no Orthopnea, no CP RESP: no SOB, no DIAZ GI: no Nausea, no Vomiting : no Dysuria, no Urgency OBJECTIVE Vital Signs Vital Signs Date Time Temp Pulse Resp B/P (MAP) Pulse Ox O2 Delivery O2 Flow Rate FiO2 01/18/18 11:25 93 Room Air 01/18/18 11:00 96.1 91 18 144/70 (94) 96.1 01/18/18 10:30 2.0 I & 0 Intake and Output 01/18/18 07:00 Intake Total 880 ml Output Total 1525 ml Balance -645 ml Intake Oral 880 ml Output Urine Total 1525 ml PHYSICAL EXAM Physical Exam GEN: Awake, Oriented x 1-2, In no distress EYES: Vision Unchanged, Conjunctiva Normal EN: No EN Drainage, Mucous Membranes moist NECK: no JVD, min JVP, Supple, no Thyromegaly CVS: S1S2, soft Murmur, No Gallop, No Rub,no Edema RESP: no Rales, no Rhonchi,no Acc. Muscle Use GI: BS + ve, NO Bruit, Non Tender, ? min Distended : no CVA tenderness, no Suprapubic Tenderness DIAGNOSIS/ASSESSMENT Assessment & Plan AK I due to contrast nephropathy , underlying colitis cannot be ruled out. Current fluid and E-lyte status does not necessitate emergent need for dialysis. Kidneys have been reportedly normal on imaging studies. Underlying CKD cannot be ruled out patient's daughter is not aware of that diagnosis. Presumably hypertensive nephrosclerosis given other foci of atherosclerotic vascular disease Metabolic acidosis appears to have resolved now. Once sodium is much better, IV bicarbonate can be given Elevated FS BS: We'll defer to Dr. Mccormack to correct at this time. Severe malnutrition with albumin of 1.8: She remains on PPN. If enteral feeds cannot be resumed in the near future, she may need TPN Discussed Plan of Care with family at bedside COMMENT/RELEVANT DATA Meds Current Medications Medications (Trade) Dose Ordered Sig/Jailyn Start Time Stop Time Status Last Admin Dose Admin Albuterol Sulfate (Ventolin Neb Soln) 2.5 mg PRN Q4HRS PRN 01/13/18 09:15 Albuterol/ Ipratropium (Duoneb) 3 ml RTQID 01/12/18 20:00 01/13/18 09:14 DC 01/13/18 08:38 3 ML Amino Acids/ Glycerin/ Electrolytes 1,000 ml @ 70 mls/hr [id number] 01/14/18 17:15 01/18/18 04:54 70 MLS/HR Budesonide (Pulmicort) 0.5 mg RTBID 01/13/18 20:00 01/18/18 07:59 0.5 MG Dextrose (Dextrose 50%-Water Syringe) 12.5 gm PRN Q15MIN PRN 01/12/18 15:15 Fentanyl Citrate (Fentanyl 2ml Vial) 25 mcg PRN Q3HRS PRN 01/12/18 15:15 01/13/18 20:00 25 MCG Influenza Virus Vaccine (Afluria Trivalent [id number] Syringe) 0.5 ml ONCE ONCE 01/13/18 09:00 01/13/18 09:01 DC 01/13/18 08:42 0.5 ML Info (CONTRAST GIVEN -- Rx MONITORING) 1 each PRN DAILY PRN 01/16/18 09:30 01/18/18 09:29 DC Insulin Glargine (Lantus) 10 units 1X ONCE 01/17/18 21:30 01/17/18 21:31 DC 01/17/18 21:51 10 UNITS Insulin Human Lispro (HumaLOG) 0-5 UNITS TIDWMEALS 01/12/18 17:00 01/18/18 08:33 3 UNITS Iohexol (Omnipaque 240 Mg/ml) 30 ml 1X ONCE 01/16/18 09:30 01/16/18 09:31 DC 01/16/18 09:30 30 ML Ketotifen Fumarate (Zaditor) 1 drop BID 01/12/18 21:00 01/18/18 09:56 1 DROP Lactobacillus Rhamnosus (Culturelle) 1 cap BID 01/13/18 21:00 01/18/18 09:54 1 CAP Levothyroxine Sodium (Synthroid) 125 mcg DAILY06 01/13/18 10:00 01/17/18 05:30 125 MCG Metoclopramide HCl (Reglan Vial) 5 mg PRN Q6HRS PRN 01/13/18 09:45 01/15/18 08:39 5 MG Micafungin Sodium 100 mg/Dextrose 100 ml @ 100 mls/hr Q24H 01/16/18 11:00 01/17/18 11:05 100 MLS/HR Non-Formulary Medication (Albuterol Sulfate (Proair Hfa Inhaler)) 2 puff PRN Q4-6HRS 01/13/18 09:00 UNV Non-Formulary Medication (Fluticasone/ Salmeterol (Advair 100-50 Diskus)) 1 inh BID PRN 01/13/18 09:00 UNV Norepinephrine Bitartrate 250 ml @ 1.875 mls/ hr CONT PRN 01/12/18 18:00 01/16/18 10:14 DC 01/12/18 17:58 9.375 MLS/HR Ondansetron HCl (Zofran) 4 mg PRN Q8HRS PRN 01/13/18 18:00 01/15/18 08:39 4 MG Pantoprazole Sodium (Protonix) 40 mg DAILYAC 01/13/18 09:30 01/18/18 09:54 40 MG Piperacillin Sod/ Tazobactam Sod 2.25 gm/Sodium Chloride 50 ml @ 100 mls/hr Q6HRS 01/12/18 16:00 01/13/18 07:33 DC 01/13/18 05:02 100 MLS/HR Piperacillin Sod/ Tazobactam Sod 3.375 gm/Sodium Chloride 50 ml @ 100 mls/hr Q6HRS 01/13/18 12:00 01/18/18 04:54 100 MLS/HR Polyethylene Glycol (miraLAX PACKET) 17 gm PRN DAILY PRN 01/13/18 14:30 Sodium Chloride 1,000 ml @ 125 mls/hr Q8H 01/12/18 15:15 01/14/18 17:17 DC 01/14/18 16:53 125 MLS/HR Vancomycin HCl (Vancomycin Oral Solution) 125 mg [id number] 01/14/18 09:30 01/18/18 09:55 125 MG Lab Laboratory Tests Test 01/17/18 16:47 01/17/18 20:53 01/18/18 04:25 01/18/18 07:26 Glucose (Fingerstick) 310 mg/dL (70-99) 319 mg/dL (70-99) 310 mg/dL (70-99) Sodium Level 140 mmol/L (136-145) Potassium Level 4.2 mmol/L (3.5-5.1) Chloride Level 107 mmol/L (98-107) Carbon Dioxide Level 19 mmol/L (21-32) Anion Gap 14 (6-14) Blood Urea Nitrogen 49 mg/dL (7-20) Creatinine 1.5 mg/dL (0.6-1.0) Estimated GFR (Cockcroft-Gault) 33.2 Glucose Level 330 mg/dL (70-99) Calcium Level 9.4 mg/dL (8.5-10.1) Lactate Dehydrogenase 292 U/L (81-234) Test 01/18/18 11:12 Glucose (Fingerstick) 316 mg/dL (70-99) Results All relevant outside records, renal labs, imaging studies, telemetry/EKG's were reviewed. GRISELDA GARNICA MD Jan 18, 2018 12:27
--- NOTE | 2018-01-18 12:38 | PN ---
DATE: 01/18/2018 SUBJECTIVE: The patient is resting slightly propped up in bed, in no apparent distress. Awake, alert. On questioning her, she denied any abdominal pain. Denied any nausea or vomiting. She apparently has some problems swallowing and speech therapy was consulted, although they have not seen her yet. Her main complaint is back pain. PHYSICAL EXAMINATION: GENERAL: When I examined her, she looked somewhat pale, but no jaundice, cyanosis, or thyromegaly. No jugular venous distension. No lower limb edema. VITAL SIGNS: Her heart rate was 91, blood pressure was 165/92, temperature was 97.5, respiratory rate was 20, and oxygen saturation was 93% on room air. HEAD, EYES, EARS, NOSE AND THROAT: Showed normocephalic, atraumatic. NECK: Supple. HEART: Showed normal first and second sounds. No gallop, rub or murmur. CHEST: Clear to auscultation. No crepitation or rhonchi. ABDOMEN: Distended, soft, nontender. No guarding or rigidity. No organomegaly. All hernial orifices intact. Bowel sounds are more active today. NEUROLOGIC: She is awake, alert, responding appropriately. All cranial nerves intact. She moves extremities without difficulty. She apparently managed to get out of bed yesterday to the chair. Her intake over the last 24 hours was 1500, output was 1700. LABORATORY DATA: Her white cell count was 13,000; hemoglobin 13; hematocrit 40; MCV 91; and platelet count of 146,000. Her chemistry showed a serum sodium 142, potassium 4.1, chloride 109, bicarbonate 17, anion gap of 16. Her BUN is 44, creatinine 1.5, estimated GFR was 33 mL per minute. Her glucose was 282, calcium was 9. Total bilirubin, AST, ALT, alkaline phosphatase are slightly elevated. Total protein was 4.5, albumin was 1.6. ASSESSMENT: 1. This is an 82-year-old -[place] female patient who presented initially with abdominal pain, hypotension and sepsis , thought to be due to infectious colitis. She continues to be on IV Zosyn and p.o. vancomycin. 2. Fecal impaction, resolved. 3. Poorly controlled diabetes mellitus, much better controlled now. 4. Ftabk-tf-ubjxcee kidney injury. Her BUN and creatinine have stabilized at 44 and 1.5. 5. Hypothyroidism. 6. Hyperlipidemia. 7. Diabetic peripheral neuropathy. 8. 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 PLAN: To continue with TPN, continue with IV micafungin as well as p.o. vancomycin and IV Zosyn. We are awaiting the speech therapy and I am hoping the patient's oral intake will increase over the weekend, so that we can discharge her back to [facility] on Saturday to start the process of physical and occupational therapy. SAVANNA LYNN MD DR: STEPH/shanthi JOB#: [id number] / [id number]
[2018-01-18 15:00] VITALS: BP 137/76
[2018-01-18 19:00] VITALS: BP 159/86
[2018-01-18 22:58] VITALS: BP 160/79
[2018-01-19 03:00] VITALS: BP 142/85
[2018-01-19 06:05] LABS: CALCIUM 9.4 mg/dL (8.5-10.1); CREATININE 1.4 mg/dL (0.6-1.0); POTASSIUM 4.5 mmol/L (3.5-5.1)
[2018-01-19] MEDS: PIPERACILLIN/TAZOBACTAM 3.375 GM in IV NORMAL SALINE 50ML 50 ML IV SCH ×3 (06:14→17:24)
[2018-01-19] MEDS: LEVOTHYROXINE 125 MCG TABLET PO SCH (06:14)
[2018-01-19 07:00] VITALS: BP 172/95
[2018-01-19] MEDS: ALBUTEROL SULFATE 2.5 MG/3 ML NEBU. NEB SCH ×4 (08:35→19:45)
[2018-01-19] MEDS: BUDESONIDE 0.5 MG/2 ML NEBU. NEB SCH ×2 (08:35→19:45)
[2018-01-19 09:05] LABS: PHOSPHORUS 3.4 mg/dL (2.6-4.7)
--- NOTE | 2018-01-19 09:24 | PDOC ---
SURGICAL PROGRESS NOTE Subjective Patient doing well without complaints Vital Signs Vital Signs Date Time Temp Pulse Resp B/P (MAP) Pulse Ox O2 Delivery O2 Flow Rate FiO2 01/19/18 08:35 96 Room Air 01/19/18 07:00 97.8 90 18 172/95 (120) 97.8 01/18/18 10:30 2.0 I&O Intake and Output 01/19/18 07:00 Intake Total 240 ml Output Total 1550 ml Balance -1310 ml Intake Oral 240 ml Output Urine Total 1550 ml PATIENT HAS A ANDREA: No General: Alert, Oriented X3, Cooperative, No acute distress Abdomen: Normal bowel sounds, Soft, No tenderness Labs Laboratory Tests Test 01/17/18 11:24 01/17/18 16:47 01/17/18 20:53 01/18/18 04:25 Glucose (Fingerstick) 285 mg/dL (70-99) 310 mg/dL (70-99) 319 mg/dL (70-99) Sodium Level 140 mmol/L (136-145) Potassium Level 4.2 mmol/L (3.5-5.1) Chloride Level 107 mmol/L (98-107) Carbon Dioxide Level 19 mmol/L (21-32) Anion Gap 14 (6-14) Blood Urea Nitrogen 49 mg/dL (7-20) Creatinine 1.5 mg/dL (0.6-1.0) Estimated GFR (Cockcroft-Gault) 33.2 Glucose Level 330 mg/dL (70-99) Calcium Level 9.4 mg/dL (8.5-10.1) Lactate Dehydrogenase 292 U/L (81-234) Test 01/18/18 07:26 01/18/18 11:12 01/18/18 16:44 01/18/18 20:59 Glucose (Fingerstick) 310 mg/dL (70-99) 316 mg/dL (70-99) 314 mg/dL (70-99) 272 mg/dL (70-99) Test 01/19/18 04:55 01/19/18 05:00 Sodium Level 137 mmol/L (136-145) Potassium Level 4.5 mmol/L (3.5-5.1) Chloride Level 108 mmol/L (98-107) Carbon Dioxide Level 15 mmol/L (21-32) Anion Gap 14 (6-14) Blood Urea Nitrogen 48 mg/dL (7-20) Creatinine 1.4 mg/dL (0.6-1.0) Estimated GFR (Cockcroft-Gault) 36.0 Glucose Level 358 mg/dL (70-99) Calcium Level 9.4 mg/dL (8.5-10.1) Thyroid Stimulating Hormone (TSH) 9.179 uIU/mL (0.358-3.74) Phosphorus Level 3.4 mg/dL (2.6-4.7) Magnesium Level 2.0 mg/dL (1.8-2.4) Laboratory Tests Test 01/18/18 11:12 01/18/18 16:44 01/18/18 20:59 01/19/18 04:55 Glucose (Fingerstick) 316 mg/dL (70-99) 314 mg/dL (70-99) 272 mg/dL (70-99) Sodium Level 137 mmol/L (136-145) Potassium Level 4.5 mmol/L (3.5-5.1) Chloride Level 108 mmol/L (98-107) Carbon Dioxide Level 15 mmol/L (21-32) Anion Gap 14 (6-14) Blood Urea Nitrogen 48 mg/dL (7-20) Creatinine 1.4 mg/dL (0.6-1.0) Estimated GFR (Cockcroft-Gault) 36.0 Glucose Level 358 mg/dL (70-99) Calcium Level 9.4 mg/dL (8.5-10.1) Thyroid Stimulating Hormone (TSH) 9.179 uIU/mL (0.358-3.74) Test 01/19/18 05:00 Phosphorus Level 3.4 mg/dL (2.6-4.7) Magnesium Level 2.0 mg/dL (1.8-2.4) Assessment/Plan Diverticulitis continue medical therapy No plans for surgery at this time MYRIAM JENSEN MD Jan 19, 2018 09:24
[2018-01-19] MEDS: PANTOPRAZOLE 40 MG TABLET.DR. PO SCH (10:09)
[2018-01-19] MEDS: VANCOMYCIN 125 MG/2.5 ML ORAL SOLUTION. PO SCH ×4 (10:09→20:46)
[2018-01-19] MEDS: KETOTIFEN FUMARATE 0.025% OPHTH SOLUTION BOTTLE. OU SCH ×2 (10:09→20:45)
[2018-01-19] MEDS: LACTOBACILLUS RHAMNOSUS GG 1 CAPSULE. PO SCH ×2 (10:10→20:45)
[2018-01-19] MEDS: INSULIN LISPRO 300 UNITS/3 ML INSULN.PEN. SQ SCH ×3 (10:15→17:27)
--- NOTE | 2018-01-19 10:27 | PDOC ---
Infectious Disease Note Subjective Subjective Feeling better, comfortable Now on dysphagia diet Denies pain/N/V/D Denies SOA/CP/cough Denies F/C/S NPO Vital Sign Vital Signs Vital Signs Date Time Temp Pulse Resp B/P (MAP) Pulse Ox O2 Delivery O2 Flow Rate FiO2 01/19/18 08:35 96 Room Air 01/19/18 07:00 97.8 90 18 172/95 (120) 97.8 01/18/18 10:30 2.0 Physical Exam PHYSICAL EXAM GENERAL: Lying down, alert, relaxed appearance HEENT: Oral cavity, pharynx is clear. LUNGS: Decreased in the bases. HEART: S1, S2. ABDOMEN: Soft, no guarding or rebound. Nontender EXTREMITIES: No gross edema or cyanosis SKIN: warm without rash NEUROLOGIC: Alert, responds appropriately and follows commands PIV Labs Lab Laboratory Tests Test 01/18/18 11:12 01/18/18 16:44 01/18/18 20:59 01/19/18 04:55 Glucose (Fingerstick) 316 mg/dL (70-99) 314 mg/dL (70-99) 272 mg/dL (70-99) Sodium Level 137 mmol/L (136-145) Potassium Level 4.5 mmol/L (3.5-5.1) Chloride Level 108 mmol/L (98-107) Carbon Dioxide Level 15 mmol/L (21-32) Anion Gap 14 (6-14) Blood Urea Nitrogen 48 mg/dL (7-20) Creatinine 1.4 mg/dL (0.6-1.0) Estimated GFR (Cockcroft-Gault) 36.0 Glucose Level 358 mg/dL (70-99) Calcium Level 9.4 mg/dL (8.5-10.1) Thyroid Stimulating Hormone (TSH) 9.179 uIU/mL (0.358-3.74) Test 01/19/18 05:00 Phosphorus Level 3.4 mg/dL (2.6-4.7) Magnesium Level 2.0 mg/dL (1.8-2.4) Objective Assessment Possible sepsis - elevated procalcitonin but better 01/15 but off pressors Colitis - Fecal impaction - resolved ? DM gastroparesis SBO- dilated stomach and SB on Abd film Mild leukocytosis ? reactive Mild transaminitis Sulfa allergy - can't remember reaction Hypothyroid Bandemia Right foot wound is clean GILL - did receive IV contrast - currently improving Plan Plan of Care Doubt C-diff but cont po Vanc until ruled out Cont Zosyn and Micafungin F/u labs and cults pt likely has ischemic colitis Patient seen, examined, I agree with above. Assessment and plan was formulated with [employer]. NANDINI CASTAÑEDA APRN Jan 19, 2018 10:27 ELIJAH GARNICA MD Jan 19, 2018 14:04
[2018-01-19 10:48] VITALS: BP 158/77
[2018-01-19] MEDS: MICAFUNGIN 100 MG in IV DEXTROSE 5% 100ML 100 ML IV SCH (11:00)
[2018-01-19] MEDS: TPN PER PHARMACY MC PRN (13:08)
[2018-01-19] MEDS: AMINO AC 3%/ELECTROLYTE/GLYCER 1,000 ML IV SCH (14:14)
--- NOTE | 2018-01-19 14:30 | RAD ---
AP portable chest 01/19/2018. Reason for exam: PICC line placement. Comparison is made with a prior exam of 01/13/2018. A right side PICC line has been placed. Its tip is near the cavoatrial junction. Depth of inspiration is shallow. Allowing for this, there is greater haziness in the lungs. This could indicate edema. There is also probably increased atelectasis at the left base. The heart does not appear enlarged. IMPRESSION: Placement of PICC line as discussed above. Electronically signed by: Chad Hilliard Jr., MD (01/19/2018 2:27 PM) [facility] [place]
[2018-01-19 15:00] VITALS: BP 147/78
[2018-01-19] MEDS: HEPARIN for SUB-Q USE 5,000 UNIT/ML VIAL. SQ SCH ×2 (15:16→21:00)
[2018-01-19 19:00] VITALS: BP 161/89
--- NOTE | 2018-01-19 19:33 | PN ---
DATE: 01/19/2018 SUBJECTIVE: The patient is resting flat in bed, sleeping comfortably, in no apparent distress. She is arousable. On questioning her, she denied any nausea or vomiting, denied any abdominal pain. She said she had a bowel movement yesterday. The nursing staff stated that her appetite is extremely poor. She was seen yesterday by the speech therapist and she is on dysphagia 2, which basically a mechanically soft diet; however, she has not really eaten anything this morning. Given that her appetite continues to be poor and she continues to require antibiotics, I will place PICC line and start her on TPN and consult the director of social media marketing to screen her for admission to [facility]. PHYSICAL EXAMINATION: GENERAL: When I saw her this morning, she looked well and was clearly in no apparent respiratory distress. Slightly pale. No jaundice, cyanosis, or thyromegaly. No jugular venous distension. No limb edema. VITAL SIGNS: Her heart rate was 92, blood pressure was 142/85, temperature was 98.7, respiratory rate was 18 and oxygen saturation was 95% on room air. HEAD, EYES, EARS, NOSE AND THROAT: Normocephalic, atraumatic. NECK: Supple. HEART: Showed normal first and second heart sounds. No gallop, rub or murmur. CHEST: Clear to auscultation. No crepitation or rhonchi. ABDOMEN: Distended, soft, nontender. No guarding or rigidity. No organomegaly with hernial orifice intact. Bowel sounds normal. NEUROLOGIC: She is awake, alert, although the nursing staff stated that she is more confused. All her cranial nerves are grossly intact. She moves her extremities without difficulty, although she is mostly bed bound. Her intake over the last 24 hours was 1880, output was 1525. LABORATORY DATA: This morning showed a serum sodium 137, potassium 4.5, chloride 108, bicarbonate 15, anion gap of 14, BUN of 48, creatinine 1.4, estimated GFR was 36 mL per minute. Her glucose was 358 and calcium was 9.4. Her TSH was high at 9.179. Her white cell count was 13,200, hemoglobin 13.7, hematocrit 40, MCV 91, and platelet count of 146,000. ASSESSMENT AND PLAN: My plan is to continue with IV antibiotics. Continue with all her other medications. I will put an order for PICC line and start her on TPN as per pharmacist and she is also bedridden and I will add SCDs. I will also consult the director of social media marketing to screen her for an LTAC placement. SAVANNA LYNN MD DR: STEPH/shanthi JOB#: [id number] / [id number]
[2018-01-19] MEDS ORDERED: TOTAL PARENTERAL NUTRITION 1,402.4987 ML, AMINO ACIDS 10 % 60 GM, DEXTROSE 70 % IN WATE... IV SCH ×10 (22:00)
[2018-01-19 23:00] VITALS: BP 161/93
[2018-01-20] MEDS: PIPERACILLIN/TAZOBACTAM 3.375 GM in IV NORMAL SALINE 50ML 50 ML IV SCH ×3 (00:18→12:14)
[2018-01-20 03:00] VITALS: BP 171/98
[2018-01-20 04:06] LABS: HEMOGLOBIN 12.9 g/dL (12.0-15.5); RED BLOOD COUNT 4.16 x10^6/uL (3.50-5.40); RED CELL DISTRIBUTION WIDTH 13.2 % (11.5-14.5); WHITE BLOOD COUNT 15.2 x10^3/uL (4.0-11.0)
[2018-01-20 04:29] LABS: ALBUMIN 1.7 g/dL (3.4-5.0); ALBUMIN/GLOBULIN RATIO 0.4 (1.0-1.7); CALCIUM 8.9 mg/dL (8.5-10.1); CREATININE 1.4 mg/dL (0.6-1.0); MAGNESIUM 1.7 mg/dL (1.8-2.4); PHOSPHORUS 3.2 mg/dL (2.6-4.7); POTASSIUM 3.9 mmol/L (3.5-5.1); TOTAL BILIRUBIN 0.5 mg/dL (0.2-1.0); TOTAL PROTEIN 5.5 g/dL (6.4-8.2)
[2018-01-20] MEDS: LEVOTHYROXINE 125 MCG TABLET PO SCH (05:41)
[2018-01-20] MEDS: HEPARIN for SUB-Q USE 5,000 UNIT/ML VIAL. SQ SCH (05:45)
[2018-01-20 07:00] VITALS: BP 188/95
[2018-01-20] MEDS: ALBUTEROL SULFATE 2.5 MG/3 ML NEBU. NEB SCH ×2 (07:58→11:38)
[2018-01-20] MEDS: BUDESONIDE 0.5 MG/2 ML NEBU. NEB SCH (07:58)
--- NOTE | 2018-01-20 08:15 | PDOC ---
DESTINEE YEN TRAY FILLER 01/20/1815: SURGICAL PROGRESS NOTE Subjective tolerating diet only complaint is back pain from laying in bed no nausea Vital Signs Vital Signs Date Time Temp Pulse Resp B/P (MAP) Pulse Ox O2 Delivery O2 Flow Rate FiO2 01/20/18 08:03 100 Nasal Cannula 2.5 01/20/18 07:00 97.8 95 20 188/95 (126) 97.8 I&O Intake and Output 01/20/18 07:00 Intake Total 580 ml Output Total 800 ml Balance -220 ml Intake Oral 580 ml Output Urine Total 800 ml General: Alert, Oriented X3, Cooperative, No acute distress Abdomen: Soft, No tenderness Labs Laboratory Tests Test 01/18/18 11:12 01/18/18 16:44 01/18/18 20:59 01/19/18 04:55 Glucose (Fingerstick) 316 mg/dL (70-99) 314 mg/dL (70-99) 272 mg/dL (70-99) Sodium Level 137 mmol/L (136-145) Potassium Level 4.5 mmol/L (3.5-5.1) Chloride Level 108 mmol/L (98-107) Carbon Dioxide Level 15 mmol/L (21-32) Anion Gap 14 (6-14) Blood Urea Nitrogen 48 mg/dL (7-20) Creatinine 1.4 mg/dL (0.6-1.0) Estimated GFR (Cockcroft-Gault) 36.0 Glucose Level 358 mg/dL (70-99) Calcium Level 9.4 mg/dL (8.5-10.1) Thyroid Stimulating Hormone (TSH) 9.179 uIU/mL (0.358-3.74) Test 01/19/18 05:00 01/19/18 07:23 01/19/18 11:20 01/19/18 16:17 Phosphorus Level 3.4 mg/dL (2.6-4.7) Magnesium Level 2.0 mg/dL (1.8-2.4) Glucose (Fingerstick) 309 mg/dL (70-99) 346 mg/dL (70-99) 358 mg/dL (70-99) Test 01/19/18 20:29 01/20/18 03:40 01/20/18 07:25 Glucose (Fingerstick) 321 mg/dL (70-99) 491 mg/dL (70-99) White Blood Count 15.2 x10^3/uL (4.0-11.0) Red Blood Count 4.16 x10^6/uL (3.50-5.40) Hemoglobin 12.9 g/dL (12.0-15.5) Hematocrit 38.0 % (36.0-47.0) Mean Corpuscular Volume 91 fL (79-100) Mean Corpuscular Hemoglobin 31 pg (25-35) Mean Corpuscular Hemoglobin Concent 34 g/dL (31-37) Red Cell Distribution Width 13.2 % (11.5-14.5) Platelet Count 166 x10^3/uL (140-400) Sodium Level 140 mmol/L (136-145) Potassium Level 3.9 mmol/L (3.5-5.1) Chloride Level 108 mmol/L (98-107) Carbon Dioxide Level 22 mmol/L (21-32) Anion Gap 10 (6-14) Blood Urea Nitrogen 41 mg/dL (7-20) Creatinine 1.4 mg/dL (0.6-1.0) Estimated GFR (Cockcroft-Gault) 36.0 BUN/Creatinine Ratio 29 (6-20) Glucose Level 468 mg/dL (70-99) Calcium Level 8.9 mg/dL (8.5-10.1) Phosphorus Level 3.2 mg/dL (2.6-4.7) Magnesium Level 1.7 mg/dL (1.8-2.4) Total Bilirubin 0.5 mg/dL (0.2-1.0) Aspartate Amino Transf (AST/SGOT) 49 U/L (15-37) Alanine Aminotransferase (ALT/SGPT) 24 U/L (14-59) Alkaline Phosphatase 340 U/L (46-116) Total Protein 5.5 g/dL (6.4-8.2) Albumin 1.7 g/dL (3.4-5.0) Albumin/Globulin Ratio 0.4 (1.0-1.7) Triglycerides Level 147 mg/dL (0-150) Laboratory Tests Test 01/19/18 11:20 01/19/18 16:17 01/19/18 20:29 01/20/18 03:40 Glucose (Fingerstick) 346 mg/dL (70-99) 358 mg/dL (70-99) 321 mg/dL (70-99) White Blood Count 15.2 x10^3/uL (4.0-11.0) Red Blood Count 4.16 x10^6/uL (3.50-5.40) Hemoglobin 12.9 g/dL (12.0-15.5) Hematocrit 38.0 % (36.0-47.0) Mean Corpuscular Volume 91 fL (79-100) Mean Corpuscular Hemoglobin 31 pg (25-35) Mean Corpuscular Hemoglobin Concent 34 g/dL (31-37) Red Cell Distribution Width 13.2 % (11.5-14.5) Platelet Count 166 x10^3/uL (140-400) Sodium Level 140 mmol/L (136-145) Potassium Level 3.9 mmol/L (3.5-5.1) Chloride Level 108 mmol/L (98-107) Carbon Dioxide Level 22 mmol/L (21-32) Anion Gap 10 (6-14) Blood Urea Nitrogen 41 mg/dL (7-20) Creatinine 1.4 mg/dL (0.6-1.0) Estimated GFR (Cockcroft-Gault) 36.0 BUN/Creatinine Ratio 29 (6-20) Glucose Level 468 mg/dL (70-99) Calcium Level 8.9 mg/dL (8.5-10.1) Phosphorus Level 3.2 mg/dL (2.6-4.7) Magnesium Level 1.7 mg/dL (1.8-2.4) Total Bilirubin 0.5 mg/dL (0.2-1.0) Aspartate Amino Transf (AST/SGOT) 49 U/L (15-37) Alanine Aminotransferase (ALT/SGPT) 24 U/L (14-59) Alkaline Phosphatase 340 U/L (46-116) Total Protein 5.5 g/dL (6.4-8.2) Albumin 1.7 g/dL (3.4-5.0) Albumin/Globulin Ratio 0.4 (1.0-1.7) Triglycerides Level 147 mg/dL (0-150) Test 01/20/18 07:25 Glucose (Fingerstick) 491 mg/dL (70-99) Problem List improved, no surgical plans BEATRIZ RAYMUNDO MD 01/20/18 1512: SURGICAL PROGRESS NOTE Problem List Pt seen and examined. Agree with Ms. Scout's note Pt without new c/o abd soft d/w pt and pt's daughter agree with plans for select encouraged to return if worsening sx DESTINEE YEN APRN Jan 20, 2018 08:15 BEATRIZ RAYMUNDO MD Jan 20, 2018 15:12
[2018-01-20] MEDS: LACTOBACILLUS RHAMNOSUS GG 1 CAPSULE. PO SCH (08:41)
[2018-01-20] MEDS: PANTOPRAZOLE 40 MG TABLET.DR. PO SCH (08:41)
[2018-01-20] MEDS: KETOTIFEN FUMARATE 0.025% OPHTH SOLUTION BOTTLE. OU SCH (08:42)
[2018-01-20] MEDS: INSULIN LISPRO 300 UNITS/3 ML INSULN.PEN. SQ SCH ×4 (08:55→12:23)
[2018-01-20] MEDS ORDERED: MONTELUKAST SODIUM 10 MG TABLET. PO SCH (09:00)
[2018-01-20] MEDS ORDERED: amLODIPine BESYLATE 10 MG TABLET PO SCH (09:00)
[2018-01-20] MEDS ORDERED: CALCIUM CARB/VIT D3 500/200 TABLET. PO SCH (09:00)
[2018-01-20] MEDS: VANCOMYCIN 125 MG/2.5 ML ORAL SOLUTION. PO SCH ×2 (09:16→12:15)
--- NOTE | 2018-01-20 11:03 | PDOC ---
Infectious Disease Note Subjective Subjective Feeling better, comfortable Now on dysphagia diet Denies pain/N/V/D Denies SOA/CP/cough Denies F/C/S NPO Vital Sign Vital Signs Vital Signs Date Time Temp Pulse Resp B/P (MAP) Pulse Ox O2 Delivery O2 Flow Rate FiO2 01/20/18 08:42 95 188/95 01/20/18 08:03 Room Air 01/20/18 07:00 97.8 20 97.8 Physical Exam PHYSICAL EXAM GENERAL: Lying down, alert, relaxed appearance HEENT: Oral cavity, pharynx is clear. LUNGS: Decreased in the bases. HEART: S1, S2. ABDOMEN: Soft, no guarding or rebound. Nontender EXTREMITIES: No gross edema or cyanosis SKIN: warm without rash NEUROLOGIC: Alert, responds appropriately and follows commands PIV Labs Lab Laboratory Tests Test 01/19/18 11:20 01/19/18 16:17 01/19/18 20:29 01/20/18 03:40 Glucose (Fingerstick) 346 mg/dL (70-99) 358 mg/dL (70-99) 321 mg/dL (70-99) White Blood Count 15.2 x10^3/uL (4.0-11.0) Red Blood Count 4.16 x10^6/uL (3.50-5.40) Hemoglobin 12.9 g/dL (12.0-15.5) Hematocrit 38.0 % (36.0-47.0) Mean Corpuscular Volume 91 fL (79-100) Mean Corpuscular Hemoglobin 31 pg (25-35) Mean Corpuscular Hemoglobin Concent 34 g/dL (31-37) Red Cell Distribution Width 13.2 % (11.5-14.5) Platelet Count 166 x10^3/uL (140-400) Sodium Level 140 mmol/L (136-145) Potassium Level 3.9 mmol/L (3.5-5.1) Chloride Level 108 mmol/L (98-107) Carbon Dioxide Level 22 mmol/L (21-32) Anion Gap 10 (6-14) Blood Urea Nitrogen 41 mg/dL (7-20) Creatinine 1.4 mg/dL (0.6-1.0) Estimated GFR (Cockcroft-Gault) 36.0 BUN/Creatinine Ratio 29 (6-20) Glucose Level 468 mg/dL (70-99) Calcium Level 8.9 mg/dL (8.5-10.1) Phosphorus Level 3.2 mg/dL (2.6-4.7) Magnesium Level 1.7 mg/dL (1.8-2.4) Total Bilirubin 0.5 mg/dL (0.2-1.0) Aspartate Amino Transf (AST/SGOT) 49 U/L (15-37) Alanine Aminotransferase (ALT/SGPT) 24 U/L (14-59) Alkaline Phosphatase 340 U/L (46-116) Total Protein 5.5 g/dL (6.4-8.2) Albumin 1.7 g/dL (3.4-5.0) Albumin/Globulin Ratio 0.4 (1.0-1.7) Triglycerides Level 147 mg/dL (0-150) Test 01/20/18 07:25 Glucose (Fingerstick) 491 mg/dL (70-99) Objective Assessment Possible sepsis - elevated procalcitonin but better 01/15 but off pressors Colitis - Fecal impaction - resolved ? DM gastroparesis SBO- dilated stomach and SB on Abd film Mild leukocytosis ? reactive Mild transaminitis Sulfa allergy - can't remember reaction Hypothyroid Bandemia Right foot wound is clean GILL - did receive IV contrast - currently improving Plan Plan of Care Doubt C-diff pending, po Vanc Cont Zosyn and d/c Micafungin F/u labs and cults pt likely has ischemic colitis d/w daughter in detail NICKY GARNICA MD Jan 20, 2018 11:03
[2018-01-20 11:14] VITALS: BP 184/89
--- NOTE | 2018-01-20 11:57 | PN ---
DATE: 01/20/2018 SUBJECTIVE: The patient is an 82-year-old -[place]ian female patient who was originally admitted with fecal impaction, was diagnosed with infectious colitis and possible bowel obstruction. Her appetite continued to be poor, although she did well on her video swallowing evaluation yesterday. I did place a PICC line and started her on TPN and consulted the rehabilitation case coordinator to see whether this qualifies to LTAC at [facility]. When I saw her this morning, she was sitting slightly propped up in bed, in no apparent respiratory distress. She denied any nausea or vomiting. Denied any abdominal pain. She continued to complain of back pain. PHYSICAL EXAMINATION: GENERAL: When I examined her, she looked pale, but no jaundice, cyanosis or thyromegaly. No jugular venous distension. No lower limb edema. VITAL SIGNS: Her heart rate was 95, blood pressure was 188/95, temperature was 97.8, respiratory rate was 20 and oxygen saturation was 96% on 2.5 liters of oxygen. HEAD, EYES, EARS, NOSE AND THROAT: Showed normocephalic, atraumatic. NECK: Supple. HEART: Showed normal first and second heart sounds with no gallop, rub or murmur. CHEST: Clear to auscultation. No crepitation or rhonchi. ABDOMEN: Distended, soft, nontender. No guarding or rigidity. No organomegaly. All hernial orifice intact. Bowel sounds normal. NEUROLOGIC: She is awake, alert, responding appropriately. All cranial nerves intact. She moves all extremities spontaneously, although she is mostly bed bound. Her intake over the last 24 hours was 240, output was 1550. LABORATORY DATA: As of this morning showed a white cell count of 15,200, hemoglobin 12.9, hematocrit 38, MCV 91 and platelet count of 166,000. Her chemistry this morning showed a serum sodium 140, potassium 3.8, chloride 108, bicarbonate 22, anion gap of 10, glucose was 41 and creatinine was 1.4. Estimated GFR was 46 mL per minute. Her glucose was 468 and calcium was 8.9, phosphorus 3.2, magnesium was 1.7. Total bilirubin, AST, alkaline phosphatase are elevated. ALT was normal. Her total protein was 5.5, albumin was 1.7, triglycerides 147. ASSESSMENT: 1. Abdominal pain, hypertension, sepsis, thought to be due to infectious colitis. She continues to be on IV Zosyn and p.o. vancomycin. She is off vasopressors. 2. Fecal impaction, resolved. 3. Poorly controlled type 2 diabetes mellitus, much better controlled. However, with TPN, her blood sugars are high again. 4. Acute on chronic kidney injury. Her BUN and creatinine has stabilized at 44 and 1.4. 5. Hypothyroidism. 6. Hyperlipidemia. 7. Diabetic peripheral neuropathy. 8. Poor appetite and severe protein-calorie malnutrition. Her albumin is only 1.7 g/dL Although she did well on her video swallowing evaluation, her intake is extremely poor. PLAN: My plan is to consult the rehabilitation case coordinator to see if she qualifies to go to [facility], to continue with the TPN for nutritional support, IV antibiotic and to start the process of physical and occupational therapy. I will start her on insulin sliding scale and perhaps Lantus. insulin SAVANNA LYNN MD DR: STEPH/shanthi JOB#: [id number] / [id number]
--- NOTE | 2018-01-20 12:22 | PDOC ---
Renal-Progress Notes Subjective Notes Notes EATING BETTER Vitals Vitals Vital Signs Date Time Temp Pulse Resp B/P (MAP) Pulse Ox O2 Delivery O2 Flow Rate FiO2 01/20/18 11:38 96 Room Air 01/20/18 11:14 97.8 92 20 184/89 (120) 97.8 01/20/18 08:03 Weight Weight [ ] I.O. Intake and Output Intake and Output 01/20/18 07:00 Intake Total 580 ml Output Total 800 ml Balance -220 ml Intake Oral 580 ml Output Urine Total 800 ml Labs Labs Laboratory Tests Test 01/19/18 16:17 01/19/18 20:29 01/20/18 03:40 01/20/18 07:25 Glucose (Fingerstick) 358 mg/dL (70-99) 321 mg/dL (70-99) 491 mg/dL (70-99) White Blood Count 15.2 x10^3/uL (4.0-11.0) Red Blood Count 4.16 x10^6/uL (3.50-5.40) Hemoglobin 12.9 g/dL (12.0-15.5) Hematocrit 38.0 % (36.0-47.0) Mean Corpuscular Volume 91 fL (79-100) Mean Corpuscular Hemoglobin 31 pg (25-35) Mean Corpuscular Hemoglobin Concent 34 g/dL (31-37) Red Cell Distribution Width 13.2 % (11.5-14.5) Platelet Count 166 x10^3/uL (140-400) Sodium Level 140 mmol/L (136-145) Potassium Level 3.9 mmol/L (3.5-5.1) Chloride Level 108 mmol/L (98-107) Carbon Dioxide Level 22 mmol/L (21-32) Anion Gap 10 (6-14) Blood Urea Nitrogen 41 mg/dL (7-20) Creatinine 1.4 mg/dL (0.6-1.0) Estimated GFR (Cockcroft-Gault) 36.0 BUN/Creatinine Ratio 29 (6-20) Glucose Level 468 mg/dL (70-99) Calcium Level 8.9 mg/dL (8.5-10.1) Phosphorus Level 3.2 mg/dL (2.6-4.7) Magnesium Level 1.7 mg/dL (1.8-2.4) Total Bilirubin 0.5 mg/dL (0.2-1.0) Aspartate Amino Transf (AST/SGOT) 49 U/L (15-37) Alanine Aminotransferase (ALT/SGPT) 24 U/L (14-59) Alkaline Phosphatase 340 U/L (46-116) Total Protein 5.5 g/dL (6.4-8.2) Albumin 1.7 g/dL (3.4-5.0) Albumin/Globulin Ratio 0.4 (1.0-1.7) Triglycerides Level 147 mg/dL (0-150) Test 01/20/18 11:43 Glucose (Fingerstick) 491 mg/dL (70-99) Review of Systems Constitutional: yes: weakness, alert, oriented Ears/Nose/Throat: Yes: no symptom reported Eyes: Yes: no symptom reported Pulmonary: Yes no symptom reported Cardiovascular: Yes no symptom reported Genitourinary: Yes: no symptom reported Musculoskeletal: Yes: no symptom reported Skin: Yes no symptom reported Psychiatric/Neurological: Yes: no symptom reported Endocrine: Yes: no symptom reported Physical Exam General Appearance: no apparent distress Skin: warm Respiratory: bilateral CTA Heart: S1S2 Abdomen: soft, bowel sounds present Genitourinary: bladder flat Extremities: pulses present Neurology: alert Assessment Assessment IMP DIVERTICULITIS CKD STAGE 3-CR STABLE AT 1.5 PLAN ON TPN ENC PO WILL FOLLOW LADARIUS DRAKE MD Jan 20, 2018 12:22
[2018-01-20] MEDS: TPN PER PHARMACY MC PRN (12:48)
[2018-01-20] MEDS ORDERED: INSU100I13 SQ (13:14)
[2018-01-20] MEDS ORDERED: INSU100C SQ (13:14)
--- NOTE | 2018-01-20 13:16 | DISCH ---
DISCHARGE DISCHARGE INFORMATION: CONDITION ON DISCHARGE: Stable CODE STATUS: Code Status: Full TREATMENT/EQUIPMENT ORDERS: INFUSION EQUIPMENT NEEDED: PICC Line RESPIRATORY EQUIPMENT NEEDED: Oxygen, Nebulizer Physical Therapy For: Evalulation/Treatment Occupational Therapy For: Evaluation/Treatment DISCHARGE MEDICATIONS: Home Meds Reported Medications Insulin Detemir (LEVEMIR) 100 Unit/1 Ml Vial, 25 UNIT SQ BID, VIAL 01/12/18 Diphenhydramine Hcl (BENADRYL) 25 Mg Capsule, 25 MG PO TID for itching, CAP 01/12/18 Mirabegron (MYRBETRIQ) 25 Mg Tab.er.24h, 25 MG PO DAILY PRN for overactive bladder, TAB.SR 01/12/18 Diazepam (VALIUM) 5 Mg Tablet, 5 MG PO QID for anxiety, TAB 01/12/18 Triamcinolone Acetonide (TRIAMCINOLONE ACETONIDE 0.5% CREAM) 15 Gm Cream..g., 1 CELINE TP TID PRN for ITCHING, #15 GM 1 Refill 01/12/18 Insulin Aspart (NOVOLOG FLEXPEN) 100 Unit/1 Ml Insuln.pen, 1 UNIT SQ TIDAC, SYR 01/12/18 Lisinopril (LISINOPRIL) 40 Mg Tablet, 40 MG PO DAILY for FOR HYPERTENSION, #30 TAB 0 Refills 01/12/18 Amlodipine Besylate (NORVASC) 10 Mg Tablet, 10 MG PO DAILY, TAB 01/12/18 Hydrocodone Bit/Acetaminophen (HYDROCODONE-APAP 7.5-325 ) 1 Each Tablet, 1 TAB PO PRN Q6HRS PRN for PAIN, TAB 0 Refills 01/12/18 Levothyroxine Sodium (SYNTHROID) 125 Mcg Tablet, 125 MCG PO DAILYAC for THYROID SUPPLEMENT, #30 TAB 0 Refills 01/12/18 Pregabalin (LYRICA) 75 Mg Capsule, 75 MG PO BID, CAP 01/12/18 Esomeprazole Magnesium (NEXIUM CAPSULE) 40 Mg Capsule.dr, 40 MG PO DAILYAC, #30 CAP 0 Refills 01/12/18 Lisinopril (ZESTRIL) 20 Mg Tablet, 20 MG PO DAILY for FOR HYPERTENSION, #30 TAB 0 Refills 01/12/18 Montelukast Sodium (MONTELUKAST SODIUM TABLET) 10 Mg Tablet, 10 MG PO DAILY for FOR ASTHMA, #30 TAB 0 Refills 01/12/18 Olopatadine Hcl (PATANOL) 5 Ml Drops, 1 DROP EACHEYE BID, #5 ML 3 Refills 01/12/18 Calcium Carb & Cit/Vitamin D3 (CALCIUM + D3 ER TABLET) 1 Each Tablet.er, 1 EACH PO DAILY, TAB.SR 01/12/18 Aspirin (ASPIRIN EC) 81 Mg Tablet.dr, 81 MG PO DAILY, TAB.SR 01/12/18 Furosemide (LASIX) 20 Mg Tablet, 20 MG PO DAILY, TAB 02/18/14 Albuterol Sulfate (PROAIR HFA INHALER) 8.5 Gm Hfa.aer.ad, 2 PUFF IH PRN Q4-6HRS , #1 INHALER 02/18/14 Fluticasone/Salmeterol (ADVAIR 100-50 DISKUS) 1 Each Disk.w.dev, 1 INH IH BID PRN for SHORTNESS OF BREATH, INHALER 02/18/14 Atorvastatin Calcium (LIPITOR) 80 Mg Tablet, 80 MG PO HS for FOR CHOLESTEROL, # 30 TAB 0 Refills 02/18/14 Hydroxyzine Hcl (HYDROXYZINE HCL) 25 Mg Tablet, 25 MG PO TID PRN for ANXIETY / AGITATION, TAB 02/18/14 SAVANNA LYNN MD Jan 20, 2018 13:16
--- NOTE | 2018-01-20 14:12 | DS ---
DATE OF DISCHARGE: 01/20/2018 HOSPITAL COURSE: The patient is resting, slightly propped up in bed, in no apparent distress. She denied any abdominal pain, denied any nausea or vomiting. Her appetite continued to be extremely poor and therefore we did place a PICC line, start her on TPN and given that she was markedly debilitated and requires physical and occupational therapy, a decision was made to transfer her to [facility] to continue with IV antibiotic, continue with nutritional support and to start the process of physical and occupational therapy. PHYSICAL EXAMINATION: GENERAL: When I examined her today, she looked pale, but no jaundice, cyanosis, or thyromegaly. No jugular venous distension. No limb edema. VITAL SIGNS: Her heart rate was 92, blood pressure was 184/89, temperature was 97.8, respiratory rate was 20, and her oxygen saturation was 96% on room air. HEAD, EYES, EARS, NOSE AND THROAT: Normocephalic, atraumatic. NECK: Supple. HEART: Showed normal first and second sounds. No gallop, rub or murmur. CHEST: Clear to auscultation. No crepitation or rhonchi. ABDOMEN: Distended, soft, nontender. No guarding or rigidity. No organomegaly. Hernial orifice intact. Bowel sounds normal. NEUROLOGIC: She is awake, alert, responding appropriately. The cranial nerves intact. She moves extremities without difficulty, although she is mostly bed bound. Her intake over the last 24 hours was 240, output was 1550. LABORATORY DATA: Her lab work this morning showed a white cell count 15,200, hemoglobin 12.6, hematocrit 38, MCV 91, and platelet count of 166,000. Serum sodium 140, potassium 3.9, chloride 108, bicarbonate 22, anion gap of 10, BUN ____, creatinine 1.4, estimated GFR was 36 mL per minute. Her glucose was 168, calcium was 8.9. Total phosphorus was 3.2, magnesium was 1.7. Total bilirubin, AST, alkaline phosphatase are elevated. ALT was normal. Total protein was 5.5, albumin is only ____. DISCHARGE MEDICATIONS: She was transferred to [facility] to continue with her Lantus 25 units at bedtime, Humalog insulin 8 units every 6 hours, albuterol sulfate 2 puffs every 4 hours, amlodipine 10 mg once a day, aspirin 81 mg once a day, atorvastatin 80 mg at bedtime, she is on calcium carbonate with vitamin D 1 tablet daily, diphenhydramine 25 mg 3 times a day, Nexium 40 mg once a day, Advair Diskus 1 puff twice a day, hydrocodone/APAP 7.5/325 one tablet every 6 hours, levothyroxine sodium (Synthroid) 125 mcg once a day, montelukast sodium 10 mg at bedtime, olopatadine (Patanol) 1 drop to both eyes twice a day, pregabalin 75 mg twice a day, triamcinolone acetonide 0.5% cream applied topically twice a day for itching, she will continue also on Zosyn 3.375 grams IV q.8 hourly, oral vancomycin 125 mg p.o. every 6 hours as well as TPN as per pharmacy recommendation. FINAL DISCHARGE DIAGNOSES: 1. Abdominal pain, hypotension and sepsis, thought to be due to infectious colitis. She continues to be on IV Zosyn and p.o. vancomycin. She is off vasopressors. 2. Fecal impaction, resolved. 3. Poorly controlled type 2 diabetes mellitus, now back on Lantus and Humalog insulin. 4. Poor appetite and extremely poor oral intake for which she is on TPN. 5. Acute on chronic kidney injury with BUN and creatinine stabilized at ____ and 1.4. 6. Hypothyroidism, on Synthroid. 7. Hyperlipidemia. 8. Diabetic peripheral neuropathy. 9. Severe protein calorie malnutrition with serum albumin is only ____ gram per deciliter. SAVANNA LYNN MD DR: STEPH/shanthi JOB#: [id number] / [id number]
--- NOTE | 2018-01-20 15:09 | PDOC ---
Subjective: Subjective: Pt states she is feeling well today. She has had 2-3 BM's today. She denies abdominal pain. She has not been eating much, and is now on TPN due to malnourishment. She states she will be going to [facility] today. Objective: Vital Signs: Vital Signs Date Time Temp Pulse Resp B/P (MAP) Pulse Ox O2 Delivery O2 Flow Rate FiO2 01/20/18 11:38 96 Room Air 01/20/18 11:14 97.8 92 20 184/89 (120) 97.8 01/20/18 08:03 Labs: Laboratory Tests Test 01/19/18 16:17 01/19/18 20:29 01/20/18 03:40 01/20/18 07:25 Glucose (Fingerstick) 358 mg/dL 321 mg/dL 491 mg/dL White Blood Count 15.2 x10^3/uL Red Blood Count 4.16 x10^6/uL Hemoglobin 12.9 g/dL Hematocrit 38.0 % Mean Corpuscular Volume 91 fL Mean Corpuscular Hemoglobin 31 pg Mean Corpuscular Hemoglobin Concent 34 g/dL Red Cell Distribution Width 13.2 % Platelet Count 166 x10^3/uL Sodium Level 140 mmol/L Potassium Level 3.9 mmol/L Chloride Level 108 mmol/L Carbon Dioxide Level 22 mmol/L Anion Gap 10 Blood Urea Nitrogen 41 mg/dL Creatinine 1.4 mg/dL Estimated GFR (Cockcroft-Gault) 36.0 BUN/Creatinine Ratio 29 Glucose Level 468 mg/dL Calcium Level 8.9 mg/dL Phosphorus Level 3.2 mg/dL Magnesium Level 1.7 mg/dL Total Bilirubin 0.5 mg/dL Aspartate Amino Transf (AST/SGOT) 49 U/L Alanine Aminotransferase (ALT/SGPT) 24 U/L Alkaline Phosphatase 340 U/L Total Protein 5.5 g/dL Albumin 1.7 g/dL Albumin/Globulin Ratio 0.4 Triglycerides Level 147 mg/dL Test 01/20/18 11:43 Glucose (Fingerstick) 491 mg/dL Current Medications Medications (Trade) Dose Ordered Sig/Jailyn Route PRN Reason Start Time Stop Time Status Last Admin Dose Admin Fentanyl Citrate (Fentanyl 2ml Vial) 50 mcg PRN Q3HRS PRN IV SEVERE PAIN 01/12/18 15:15 01/18/18 09:55 Fentanyl Citrate (Fentanyl 2ml Vial) 25 mcg PRN Q3HRS PRN IV MODERATE PAIN 01/12/18 15:15 01/13/18 20:00 Piperacillin Sod/ Tazobactam Sod 2.25 gm/Sodium Chloride 50 ml @ 100 mls/hr Q6HRS IV 01/12/18 16:00 01/13/18 07:33 DC 01/13/18 05:02 Sodium Chloride 1,000 ml @ 125 mls/hr Q8H IV 01/12/18 15:15 01/14/18 17:17 DC 01/14/18 16:53 Insulin Human Lispro (HumaLOG) 0-5 UNITS TIDWMEALS SQ 01/12/18 17:00 01/20/18 12:23 Dextrose (Dextrose 50%-Water Syringe) 12.5 gm PRN Q15MIN PRN IV SEE COMMENTS 01/12/18 15:15 Vancomycin HCl (Vancomycin Oral Solution) 125 mg [id number] PO 01/12/18 17:00 01/12/18 17:00 DC Influenza Virus Vaccine (Afluria Trivalent [id number] Syringe) 0.5 ml ONCE ONCE VAX IM 01/13/18 09:00 01/13/18 09:01 DC 01/13/18 08:42 Ketotifen Fumarate (Zaditor) 1 drop BID OU 01/12/18 21:00 01/20/18 08:42 Albuterol/ Ipratropium (Duoneb) 3 ml RTQID NEB 01/12/18 20:00 01/13/18 09:14 DC 01/13/18 08:38 Norepinephrine Bitartrate 250 ml @ 1.875 mls/ hr CONT PRN IV SEE I/O RECORD 01/12/18 18:00 01/16/18 10:14 DC 01/12/18 17:58 Piperacillin Sod/ Tazobactam Sod 3.375 gm/Sodium Chloride 50 ml @ 100 mls/hr Q6HRS IV 01/13/18 12:00 01/20/18 12:14 Non-Formulary Medication (Albuterol Sulfate (Proair Hfa Inhaler)) 2 puff PRN Q4-6HRS IH 01/13/18 09:00 UNV Pantoprazole Sodium (Protonix) 40 mg DAILYAC PO 01/13/18 09:30 01/20/18 08:41 Non-Formulary Medication (Fluticasone/ Salmeterol (Advair 100-50 Diskus)) 1 inh BID PRN IH SHORTNESS OF BREATH 01/13/18 09:00 UNV Levothyroxine Sodium (Synthroid) 125 mcg [id number] PO 01/13/18 10:00 01/20/18 05:41 Albuterol Sulfate (Ventolin Neb Soln) 2.5 mg RTQID NEB 01/13/18 12:00 01/20/18 11:38 Budesonide (Pulmicort) 0.5 mg RTBID NEB 01/13/18 20:00 01/20/18 07:58 Albuterol Sulfate (Ventolin Neb Soln) 2.5 mg PRN Q4HRS PRN NEB SHORTNESS OF BREATH 01/13/18 09:15 Metoclopramide HCl (Reglan Vial) 5 mg PRN Q6HRS PRN IV NAUSEA/VOMITING, 2nd CHOICE 01/13/18 09:45 01/15/18 08:39 Lactobacillus Rhamnosus (Culturelle) 1 cap BID PO 01/13/18 21:00 01/20/18 08:41 Polyethylene Glycol (miraLAX PACKET) 17 gm PRN DAILY PRN PO CONSTIPATION 01/13/18 14:30 Ondansetron HCl (Zofran) 4 mg PRN Q8HRS PRN IV NAUSEA/VOMITING, 1st CHOICE 01/13/18 18:00 01/15/18 08:39 Vancomycin HCl (Vancomycin Oral Solution) 125 mg [id number] PO 01/14/18 09:30 01/20/18 12:15 Iohexol (Omnipaque 240 Mg/ml) 50 ml 1X ONCE PO 01/14/18 10:00 01/14/18 10:01 DC 01/14/18 10:00 Amino Acids/ Glycerin/ Electrolytes 1,000 ml @ 70 mls/hr [id number] IV 01/14/18 17:15 01/19/18 21:59 DC 01/18/18 22:30 Iohexol (Omnipaque 240 Mg/ml) 30 ml 1X ONCE PO 01/16/18 09:30 01/16/18 09:31 DC 01/16/18 09:30 Info (CONTRAST GIVEN -- Rx MONITORING) 1 each PRN DAILY PRN MC SEE COMMENTS 01/16/18 09:30 01/18/18 09:29 DC Micafungin Sodium 100 mg/Dextrose 100 ml @ 100 mls/hr Q24H IV 01/16/18 11:00 01/20/18 11:04 DC 01/18/18 11:00 Insulin Glargine (Lantus) 10 units 1X ONCE SQ 01/17/18 21:30 01/17/18 21:31 DC 01/17/18 21:51 Info (Tpn Per Pharmacy) 1 each PRN DAILY PRN MC SEE COMMENTS 01/19/18 08:30 01/20/18 12:48 Heparin Sodium (Porcine) (Heparin Sodium) 5,000 unit Q8HRS SQ 01/19/18 14:00 01/20/18 05:45 Sodium Acetate 90 meq/Potassium Acetate 50 meq/ Potassium Phosphate 13.6 mmol/Magnesium Sulfate 10 meq/ Calcium Gluconate 10 meq/ Multivitamins 10 ml/Chromium/ Copper/Manganese/ Seleni/Zn 1 ml/ Total Parenteral Nutrition/Amino Acids/Dextrose/ Fat Emulsion Intravenous 1,512 ml @ 63 mls/hr TPN CONT IV 01/19/18 22:00 01/20/18 21:59 01/19/18 20:55 Amlodipine Besylate (Norvasc) 10 mg DAILY PO 01/20/18 09:00 01/20/18 08:42 Atorvastatin Calcium (Lipitor) 80 mg QHS PO 01/20/18 21:00 Calcium/Vitamin D (Oscal D 500mg/ 200uts) 1 tab DAILY PO 01/20/18 09:00 01/20/18 08:41 Montelukast Sodium (Singulair) 10 mg DAILY PO 01/20/18 09:00 01/20/18 08:42 Insulin Glargine (Lantus) 25 units QHS SQ 01/20/18 21:00 Insulin Human Lispro (HumaLOG) 8 units Q6HRS SQ 01/20/18 09:00 01/20/18 12:23 Imaging: Chest x-ray 01/19/18 A right side PICC line has been placed. Its tip is near the cavoatrial junction. Depth of inspiration is shallow. Allowing for this, there is greater haziness in the lungs. This could indicate edema. There is also probably increased atelectasis at the left base. The heart does not appear enlarged. IMPRESSION: Placement of PICC line as discussed above. PE: GEN: NAD HEENT: Atraumatic, PERRLA LUNGS: CTAB HEART: RRR, no murmurs ABD: NABS, S/ND/NT, no masses EXTREMITY: No edema SKIN: No rashes, no jaundice NEURO/PSYCH: A & O 3 A/P: Gastric and SB dilation Pneumatosis sigmoid colon Leukocytosis -Continue current antibiotics -Pt still following with surgery, though no surgical intervention recommended at this time Malnourishment -Pt currently on TPN Pt plans on being discharged to [facility] today. DORYS PADILLA Jan 20, 2018 15:09
[2018-01-20] MEDS ORDERED: INSULIN GLARGINE 300 UNITS/3 ML INSULN.PEN. SQ SCH (21:00)
[2018-01-20] MEDS ORDERED: ATORVASTATIN CALCIUM 40 MG TABLET. PO SCH (21:00)
== END 2018-01-20 15:15 | DRG 871 ==
LOC: 1 WEST ICU 14:17 → 5 SOUTH 01-15 15:39
PROVIDERS: ADMIT Internal Medicine; ATTEND Internal Medicine
PROC: 02HV33Z Insertion of Infusion Device into Superior Vena Cava, Percutaneous Approach (ICD-10-PCS; principal; 2018-01-19)
DX: A41.9 Sepsis, unspecified organism (principal); N17.0 Acute kidney failure with tubular necrosis; E43 Unspecified severe protein-calorie malnutrition; A09 Infectious gastroenteritis and colitis, unspecified; K57.92 Diverticulitis of intestine, part unspecified, without perforation or abscess without bleeding; I13.0 Hypertensive heart and chronic kidney disease with heart failure and stage 1 through stage 4 chronic kidney disease, or unspecified chronic kidney disease; D25.9 Leiomyoma of uterus, unspecified; E11.42 Type 2 diabetes mellitus with diabetic polyneuropathy; E11.22 Type 2 diabetes mellitus with diabetic chronic kidney disease; E11.65 Type 2 diabetes mellitus with hyperglycemia; Z68.29 Body mass index [BMI] 29.0-29.9, adult; E78.00 Pure hypercholesterolemia, unspecified; E78.5 Hyperlipidemia, unspecified; E87.6 Hypokalemia; F17.210 Nicotine dependence, cigarettes, uncomplicated; E03.9 Hypothyroidism, unspecified; I50.9 Heart failure, unspecified; J44.9 Chronic obstructive pulmonary disease, unspecified; K21.9 Gastro-esophageal reflux disease without esophagitis; K64.9 Unspecified hemorrhoids; I25.10 Atherosclerotic heart disease of native coronary artery without angina pectoris; M06.9 Rheumatoid arthritis, unspecified; M15.9 Polyosteoarthritis, unspecified; M81.0 Age-related osteoporosis without current pathological fracture; N18.3 Chronic kidney disease, stage 3 (moderate); R13.10 Dysphagia, unspecified; K56.41 Fecal impaction; Z80.8 Family history of malignant neoplasm of other organs or systems; Z83.3 Family history of diabetes mellitus; Z88.2 Allergy status to sulfonamides; Z98.41 Cataract extraction status, right eye; Z90.49 Acquired absence of other specified parts of digestive tract; Z98.42 Cataract extraction status, left eye; Z98.51 Tubal ligation status; Z79.899 Other long term (current) drug therapy
CPT/HCPCS: 36415; 36569; 36600; 71045; 74022; 74176; 76705; 80048; 80053; 82805; 82962; 83605; 83615; 83735; 84100; 84145; 84443; 84478; 85007; 85025; 85027; 87324; 87641; 90471; 90756; 94640; 94660; 94760; J0610; J1644; J1815; J2248; J2405; J2543; J2765; J3010; J3475; J7030; J7613; J7620; J7626; Q9966; 92526; 92610; 97110; 97116; 97530; 97535; Q2035

== ENCOUNTER 2019-05-07 18:30 | Inpatient (IN) | payer MEDICARE, OTHER ==
[~2019-05-07] VITALS: Ht 152.4 cm; Wt 62.9 kg
[~2019-05-07 18:30] MED LIST changes: +ACET325T9 PO; +ALBU2.5V8 IH; +AMLO10TA4 PO; +AMOX1TAB61 PO; +ASCO500T3 PO; +ASPI-612 PO; +ATOR20TA58 PO; +BUPR100T7 PO; +CALC-77 PO; +DEXT38GE2 PO; +DIAZ5TAB PO; +DIPH25CA58 PO; +ESOM40CA PO; +HYDR-2765 PO; +HYDR453.3 TP; +INSU100C SQ; +INSU100I13 SQ; +INSU100I17 SQ; +INSU100V13 SQ; +INSU200I SQ; +KETO5DRO4 EACHEYE; +LACT1CAP2 PO; +LEVO125T PO; +LIDO700A21 TP; +LISI-130 PO; +LISI-378 PO; +MONT10TA49 PO; +OLOP5DRO EACHEYE; +OXYC1TAB15 PO; +POLY17PO29 PO; +POTA20TA4 PO; +PREG75CA PO; -PROAIR HFA8.5 GM IH; +TAMS0.4C2 PO; +TRIA15CR TP
[2019-05-07 18:38] VITALS: BP 164/75
[2019-05-07] MEDS ORDERED: INSU100I13 SQ (19:59)
[2019-05-07] MEDS ORDERED: INSU100V38 SQ (19:59)
[2019-05-07] MEDS ORDERED: GABA300C18 PO (20:00)
[2019-05-07] MEDS ORDERED: BETA15CR5 TP (20:01)
[2019-05-07] MEDS ORDERED: DOCUSATE SODIUM 100 MG CAPSULE. PO PRN (20:15)
[2019-05-07] MEDS ORDERED: guaiFENesin ORAL 200 MG/10 ML LIQUID. PO PRN (20:15)
[2019-05-07] MEDS ORDERED: MAG HYDROX/ALUMINUM HYD/SIMETH 30 ML ORAL.SUSP PO PRN (20:15)
[2019-05-07] MEDS ORDERED: IV NORMAL SALINE 1000ML BAG 1,000 ML IV SCH (21:00)
[2019-05-07] MEDS ORDERED: DEXTROSE 50% 25 GM / 50ML DISP.SYRIN. IV PRN (21:15)
[2019-05-07] MEDS ORDERED: IV DEXTROSE 5% 250 ML BAG. IV PRN (21:15)
[2019-05-07] MEDS: HEPARIN for SUB-Q USE 5,000 UNIT/ML VIAL. SQ SCH (21:34)
--- NOTE | 2019-05-07 21:34 | PDOC1 ---
History and Physical Date of Admission Date of Admission DATE: 05/07/19 TIME: 21:07 Identification/Chief Complaint Chief Complaint AMS Problems: (1) Encephalopathy acute Source Source: Caregiver, Chart review History of Present Illness History of Present Illness 83 year old BF with hx of COPD, DM, insulin dependent DM, osteoporosis, hypothyr oidism, skin cancer HLD, peripheral neuropathy, colon resection due to bowel obstruction s/p steotomy, lap chol, tubal ligations who initially presented to [facility] with mental status changes. according to the daughter where most of the history obtained patient was last seen normal at 3 pm on 05/04/19. Patient lives with her son and was found in a chair unresponsive and slouched. per the daughter she was like this for 24 hrs. the son thought she was asleep so he didn't bother her. daughter took her to [facility] ER. on arrival to the ER she was found unresponsive, only to noxious stimuli. She was unable to communicate or follow commands. She was found dehydrated and admitted to the hospitalist service at [facility] for further work up. per documentation, no evidence of seizure, falls, weakness, or head injury. While at [place], patient had CT head, EEG, carotid US which were all negative. Neuro consulted and deemed this was encephalopathy of unclear etiology but needed MRI so sent to [place] for further work up. Upon arrival to [place] patient is dysarthric, does not follow follow commands and mumbles. does not move extremities when asked but did so with nurse. she has been NPO while at [facility]. unclear if she had speech eval. daughter at bedside and updated on plan of care. Past Medical History Cardiovascular: CAD, CHF, HTN, Hyperlipidemia Pulmonary: COPD CENTRAL NERVOUS SYSTEM: Other GI: Constipation Rheumatologic: Rheumatoid arthritis Endocrine: Diabetes Past Surgical History Past Surgical History: Cholecystectomy, Cataract Removal, Tubal Ligation Family History Family History: Cancer, Diabetes Social History ALCOHOL: none Drugs: None Current Medications Current Medications Current Medications Al Hydroxide/Mg Hydroxide (Mylanta Plus Xs) 30 ml PRN DAILY PRN PO HEARTBURN / GAS; Start 05/07/19 at 20:15 Docusate Sodium (Colace) 100 mg PRN BID PRN PO CONSTIPATION; Start 05/07/19 at 20:15 Guaifenesin (Robitussin) 200 mg PRN Q4HRS PRN PO COUGH; Start 05/07/19 at 20:15 Active Scripts Active Reported Betamethasone Dipropionate 15 Gm Cream..g. 1 Alem TP BID Gabapentin 300 Mg Capsule 300 Mg PO TID Insulin Lispro 100 Unit/1 Ml Vial 5 Unit SQ TIDBFRMEAL Lantus Solostar (Insulin Glargine,Hum.rec.anlog) 100 Unit/1 Ml Insuln.pen 20 Unit SQ BID Glucose Gel (Dextrose) 38 Gm Gel..gram. 38 Gm PO PRN PRN Tamsulosin Hcl 0.4 Mg Cap.er.24h 0.8 Mg PO DAILY Ascorbic Acid 500 Mg Tablet 500 Mg PO DAILY Potassium Chloride (Potassium Chloride) 20 Meq Tablet.er 20 Meq PO BID Acidophilus (Lactobacillus Acidophilus) 1 Each Capsule 1 Each PO BID Zaditor (Ketotifen Fumarate) 5 Ml Drops 1 Drop EACHEYE BID Hydrocortisone 453.6 Gm Cream..g. 1 Alem TP PRN BID PRN Miralax (Polyethylene Glycol 3350) 17 Gm Powd.pack 1 Packet PO PRN DAILY PRN Tylenol (Acetaminophen) 325 Mg Tablet 2 Tab PO PRN Q6HRS PRN Atorvastatin Calcium 20 Mg Tablet 20 Mg PO HS Norvasc (Amlodipine Besylate) 10 Mg Tablet 10 Mg PO DAILY Synthroid (Levothyroxine Sodium) 125 Mcg Tablet 125 Mcg PO DAILYAC Calcium + D3 Er Tablet (Calcium Carb & Cit/Vitamin D3) 1 Each Tablet.er 1 Each PO DAILY Allergies Allergies: Coded Allergies: Sulfa (Sulfonamide Antibiotics) (Verified Allergy, Intermediate, CANNOT REMEMBER, 01/14/18) ROS Review of System difficult to obtain given inability to follow commands Physical Exam Physical Exam GENERAL: No apparent distress. Alert and oriented. HEENT: Head normocephalic, atraumatic. NECK: Supple LUNGS: Clear to auscultation. HEART: RRR, S1, S2 present, pulses intact ABDOMEN: Soft, positive bowel sounds. + ostomy pouch EXTREMITIES: No cyanosis or edema. does not follow commands NEUROLOGIC: dysarthria, does not follow commands PSYCHIATRIC: Normal affect, normal mood. SKIN: plantar ulceration POA Vitals Vitals Vital Signs Date Time Temp Pulse Resp B/P (MAP) Pulse Ox O2 Delivery O2 Flow Rate FiO2 05/07/19 18:38 99.8 87 20 164/75 (104) 98 Room Air 99.8 Labs Labs Laboratory Tests Test 05/07/19 20:38 Glucose (Fingerstick) 197 mg/dL (70-99) Laboratory Tests Test 05/07/19 20:38 Glucose (Fingerstick) 197 mg/dL (70-99) VTE Prophylaxis Ordered VTE Prophylaxis Devices: Yes VTE Pharmacological Prophylaxi: Yes Assessment/Plan Assessment/Plan ASSESSMENT Acute Encephalopathy of unclear etiololgy, suspect CVA HTN HLD DM Hypothyroidism Peripheral Neuropathy Bowel Obstruction s/p colon resection with ostomy pouch PLAN admit to tele bed NPO status IVF neurochecks q4 hrs MRI brain without contrast EEG, carotid US, CT head at [facility] negative speech eval PT/OT neuro consult in AM change PO synthroid to IV (decrease by 50% dose) IV metoprolol 5 mg q6. hold oral BP meds for now hold all other nonessential PO meds med rec completed check TSH, B12, ESR, lipids, A1c, ammonia level, CBC, BMP, LFTS dvt ppx: heparin full code >2 MN los due to acute encephalopathy unclear etiology, further imaging and consultative services. >45 min spent reviewing [facility] records, obtaining history and physical, and formulating plan of care EVARISTO KEITH MD May 07, 2019 21:34
[2019-05-07] MEDS: INSULIN GLARGINE SYRINGE. SQ SCH (21:35)
[2019-05-07 22:50] VITALS: BP 160/68
[2019-05-08] MEDS: METOPROLOL TARTRATE 5 MG/5 ML VIAL. IVP SCH ×4 (00:19→17:50)
[2019-05-08 03:26] VITALS: BP 151/70
[2019-05-08 04:09] LABS: BASO # 0.1 x10^3/uL (0.0-0.2); BASO % 1 % (0-3); EOS % 0 % (0-3); HEMATOCRIT 35.9 % (36.0-47.0); HEMOGLOBIN 11.8 g/dL (12.0-15.5); LYMPH % 11 % (24-48); MEAN CORPUSCULAR HEMOGLOBIN 30 pg (25-35); MEAN CORPUSCULAR HGB CONC 33 g/dL (31-37); MEAN CORPUSCULAR VOLUME 90 fL (79-100); MONO # 0.7 x10^3/uL (0.0-1.1); MONO % 8 % (0-9); NEUT # 7.4 x10^3/uL (1.8-7.7); NEUT % 80 % (31-73); PLATELET COUNT 170 x10^3/uL (140-400); RED BLOOD COUNT 3.99 x10^6/uL (3.50-5.40); WHITE BLOOD COUNT 9.3 x10^3/uL (4.0-11.0)
[2019-05-08 04:22] LABS: ALBUMIN 1.9 g/dL (3.4-5.0); CALCIUM 9.5 mg/dL (8.5-10.1); DIRECT BILIRUBIN 0.1 mg/dL (0.0-0.2); POTASSIUM 3.9 mmol/L (3.5-5.1); TOTAL BILIRUBIN 0.3 mg/dL (0.2-1.0); TOTAL PROTEIN 5.7 g/dL (6.4-8.2)
[2019-05-08 04:23] LABS: CHOLESTEROL/HDL RATIO 1.9
[2019-05-08] MEDS: HEPARIN for SUB-Q USE 5,000 UNIT/ML VIAL. SQ SCH ×3 (06:01→21:43)
[2019-05-08 07:00] VITALS: BP 155/70
--- NOTE | 2019-05-08 07:20 | NUR ---
Patient arrived to unit at approx 1830. Accompanied by DaughterIsela. Patient is alert to self. Pt was able to squeeze hands, was not able to move legs. Patient opens eyes when spoken to, or light shaking. Pt family dynamics is questionable- daughter states that brother Artemio is to have no contact with patient. patient currently lives with Isela Ulloa is DPOA and customer care consultant. Assessment complete, VS obtained and stable. Plan of care explained to daughter. Call light in reach, bed in low locked position, bed alarm on. Will continue to monitor.
[2019-05-08] MEDS ORDERED: LABETALOL 20 MG/4 ML DISP.SYRIN. IVP PRN (08:45)
[2019-05-08] MEDS ORDERED: AMINO AC 3%/ELECTROLYTE/GLYCER 1,000 ML IV SCH (08:45)
[2019-05-08] MEDS ORDERED: ACETAMINOPHEN 325 MG TABLET. PO PRN (08:45)
[2019-05-08] MEDS ORDERED: ACETAMINOPHEN 650 MG SUPP.RECT. PR PRN (08:45)
[2019-05-08] MEDS: AA 4.25 %/CALCIUM/LYTES/D5W 1,000 ML IV SCH ×2 (08:59→23:13)
[2019-05-08] MEDS: KETOTIFEN FUMARATE 0.025% OPHTH SOLUTION BOTTLE. OU SCH ×2 (09:00→21:00)
[2019-05-08] MEDS: INSULIN LISPRO 300 UNITS/3 ML VIAL. SQ SCH ×3 (09:06→17:59)
--- NOTE | 2019-05-08 09:34 | PDOC2 ---
NEUROLOGY CONSULT Date of Admission Date of Admission DATE: 05/08/19 TIME: 09:34 Referring Physician Referring Physician: Dr. Ybarra PCP: Dr. Vann Source Source: Caregiver (Daughter), Chart review History of Present Illness History of Present Illness The patient is an 83-year-old right-handed female who came to [place] emergency room on 05/04. The patient was last seen normal at 3 PM on 05/03. She was found in a chair unresponsive. Her son was with her, but he has some psychiatric and palacios bstance abuse issues. She has been noncompliant with her insulin for diabetes and did have a low sugar. At [facility], she had 2 CT scans of the head, carotid Doppler studies, and an electroencephalogram, all reportedly negative although EEG report is not in the chart. She was transferred here so that she could have an MRI. There is no history of stroke, seizure, or head injury. Past Medical History Cardiovascular: HTN, Hyperlipidemia Pulmonary: COPD CENTRAL NERVOUS SYSTEM: Periperal neuropathy Musculoskeletal: Osteoarthritis Endocrine: Diabetes, Hypothyroidism, Osteoporosis Dermatology: Other ( skin cancer) Past Surgical History Past Surgical History: Cholecystectomy ( laparoscopic), Tubal Ligation, Colon Resection ( has colostomy) Family History Family History: Cancer, DM Social History Social History Smoker, son lives with her and he has substance abuse and psychiatric disease as described above, rare alcohol, retired Current Medications Current Medications Current Medications Al Hydroxide/Mg Hydroxide (Mylanta Plus Xs) 30 ml PRN DAILY PRN PO HEARTBURN / GAS; Start 05/07/19 at 20:15 Docusate Sodium (Colace) 100 mg PRN BID PRN PO CONSTIPATION; Start 05/07/19 at 20:15 Guaifenesin (Robitussin) 200 mg PRN Q4HRS PRN PO COUGH; Start 05/07/19 at 20:15 Sodium Chloride 1,000 ml @ 75 mls/hr [id number] IV Last administered on 05/07/19at 21:32; Start 05/07/19 at 21:00; Stop 05/08/19 at 08:41; Status DC Ketotifen Fumarate (Zaditor) 1 drop BID OU ; Start 05/08/19 at 09:00 Levothyroxine Sodium 62.5 mcg/ Sodium Chloride 5 ml @ 75 mls/hr Q72H IVP ; Start 05/15/19 at 09:00 Metoprolol Tartrate (Lopressor Vial) 5 mg Q6HRS IVP Last administered on 05/08/19at 05:39; Start 05/08/19 at 00:00 Insulin Glargine (Lantus Syringe) 10 unit QHS SQ Last administered on 05/07/19at 21:35; Start 05/07/19 at 21:30 Insulin Human Lispro (HumaLOG) 0-7 UNITS TIDWMEALS SQ Last administered on 05/08/19at 09:06; Start 05/08/19 at 08:00 Dextrose (Dextrose 50%-Water Syringe) 12.5 gm PRN Q15MIN PRN IV SEE COMMENTS; Start 05/07/19 at 21:15 Dextrose (Iv Dextrose 5%) 250 ml PRN Q15MIN PRN IV SEE COMMENTS; Start 05/07/19 at 21:15 Heparin Sodium (Porcine) (Heparin Sodium) 5,000 unit Q8HRS SQ Last administered on 05/08/19at 06:01; Start 05/07/19 at 22:00 Labetalol HCl (Normodyne Iv Push) 10 mg PRN Q10MIN PRN IVP ELEVATED BP, SEE COMMENTS; Start 05/08/19 at 08:45 Acetaminophen (Tylenol) 650 mg PRN Q6HRS PRN PO TEMP > 100.4F; Start 05/08/19 at 08:45 Acetaminophen (Tylenol Supp) 650 mg PRN Q4HRS PRN MD TEMP > 100.4F; Start 05/08/19 at 08:45 Aspirin (Ecotrin) 325 mg DAILYWBKFT PO ; Start 05/09/19 at 10:00 Aspirin (Aspirin Rectal Supp) 300 mg PRN DAILY PRN MD IF UNABLE TO TAKE PO; Start 05/08/19 at 08:45 Amino Acids/ Glycerin/ Electrolytes 1,000 ml @ 80 mls/hr [id number] IV ; Start 05/08/19 at 08:45; Status UNV Amino Acids/ Electrolytes/ Dextrose 1,000 ml @ 80 mls/hr [id number] IV Last administered on 05/08/19at 08:59; Start 05/08/19 at 09:00 Active Scripts Active Reported Betamethasone Dipropionate 15 Gm Cream..g. 1 Alem TP BID Gabapentin 300 Mg Capsule 300 Mg PO TID Insulin Lispro 100 Unit/1 Ml Vial 5 Unit SQ TIDBFRMEAL Lantus Solostar (Insulin Glargine,Hum.rec.anlog) 100 Unit/1 Ml Insuln.pen 20 Unit SQ BID Glucose Gel (Dextrose) 38 Gm Gel..gram. 38 Gm PO PRN PRN Tamsulosin Hcl 0.4 Mg Cap.er.24h 0.8 Mg PO DAILY Ascorbic Acid 500 Mg Tablet 500 Mg PO DAILY Potassium Chloride (Potassium Chloride) 20 Meq Tablet.er 20 Meq PO BID Acidophilus (Lactobacillus Acidophilus) 1 Each Capsule 1 Each PO BID Zaditor (Ketotifen Fumarate) 5 Ml Drops 1 Drop EACHEYE BID Hydrocortisone 453.6 Gm Cream..g. 1 Alem TP PRN BID PRN Miralax (Polyethylene Glycol 3350) 17 Gm Powd.pack 1 Packet PO PRN DAILY PRN Tylenol (Acetaminophen) 325 Mg Tablet 2 Tab PO PRN Q6HRS PRN Atorvastatin Calcium 20 Mg Tablet 20 Mg PO HS Norvasc (Amlodipine Besylate) 10 Mg Tablet 10 Mg PO DAILY Synthroid (Levothyroxine Sodium) 125 Mcg Tablet 125 Mcg PO DAILYAC Calcium + D3 Er Tablet (Calcium Carb & Cit/Vitamin D3) 1 Each Tablet.er 1 Each PO DAILY Allergies Allergies: Coded Allergies: Sulfa (Sulfonamide Antibiotics) (Verified Allergy, Intermediate, CANNOT REMEMBER, 01/14/18) ROS Review of System Negative for fever, chills, weight loss, shortness of breath, chest pain, indigestion, hematochezia, melena, and dysuria. Full 14-point review of systems is negative. Physical Exam Physical Examination General: Well-developed, well-nourished black female in no acute distress HEENT: Normocephalic andatraumatic. Tympanic membranes clear.Temporal arteriespulsatile and nontender.Fundoscopic exam unremarkable Neck: Supple without bruit, no meningismus Musculoskeletal: Stability:see neurologic. Gait exam:see neurologic. Tone:see neurologic.Strength:see neurologic. Neurological: Mental Status: orientation, memory, attention span/concentration, language, fund of knowledge: she opens her eyes up to voice, does not follow commands, nonsense speech. Cranial Nerves:Pupils equal and reactive to light, extraocular movements areintact, visual shahid are full to confrontation. Facial sensation is normal. There is a subtle right central facial weakness. Vestibulo-ocular reflex is intact. All other cranial related problems are negative except as mentioned before.Reflexes:0+ and symmetric with silent plantar responses. Motor: moves the right side less than the left. Coordination and gait: not tested. Sensory: not cooperative, does withdraw to pain. Vitals VITALS Vital Signs Date Time Temp Pulse Resp B/P (MAP) Pulse Ox O2 Delivery O2 Flow Rate FiO2 05/08/19 07:50 Room Air 05/08/19 07:00 99.9 69 20 155/70 (98) 95 99.9 Labs Labs Labs from [place]: CBC revealed white blood cells of 10,100, hemoglobin 11.2, hematocrit 34.6, platelet count 165,000. Chemistry: Sodium of 147, potassium 3.7, chloride, 116, pCO2 of 22, BUN 22, creatinine 1, glucose is 77, calcium 8.8. Hemoglobin A1c is 9.2. Vitamin B12 is 640. Urinalysis is negative for urinary tract infections. Urine drug screen is negative. Ammonia level from yesterday was less than 10 and TSH is low at 0.245. Troponin level is normal and lactic acid 1.4. Laboratory Tests Test 05/07/19 20:38 05/08/19 01:03 05/08/19 04:00 05/08/19 07:47 Glucose (Fingerstick) 197 mg/dL (70-99) 179 mg/dL (70-99) 158 mg/dL (70-99) White Blood Count 9.3 x10^3/uL (4.0-11.0) Red Blood Count 3.99 x10^6/uL (3.50-5.40) Hemoglobin 11.8 g/dL (12.0-15.5) Hematocrit 35.9 % (36.0-47.0) Mean Corpuscular Volume 90 fL (79-100) Mean Corpuscular Hemoglobin 30 pg (25-35) Mean Corpuscular Hemoglobin Concent 33 g/dL (31-37) Red Cell Distribution Width 14.0 % (11.5-14.5) Platelet Count 170 x10^3/uL (140-400) Neutrophils (%) (Auto) 80 % (31-73) Lymphocytes (%) (Auto) 11 % (24-48) Monocytes (%) (Auto) 8 % (0-9) Eosinophils (%) (Auto) 0 % (0-3) Basophils (%) (Auto) 1 % (0-3) Neutrophils # (Auto) 7.4 x10^3/uL (1.8-7.7) Lymphocytes # (Auto) 1.0 x10^3/uL (1.0-4.8) Monocytes # (Auto) 0.7 x10^3/uL (0.0-1.1) Eosinophils # (Auto) 0.0 x10^3/uL (0.0-0.7) Basophils # (Auto) 0.1 x10^3/uL (0.0-0.2) Erythrocyte Sedimentation Rate 90 (0-25) Sodium Level 153 mmol/L (136-145) Potassium Level 3.9 mmol/L (3.5-5.1) Chloride Level 116 mmol/L (98-107) Carbon Dioxide Level 28 mmol/L (21-32) Anion Gap 9 (6-14) Blood Urea Nitrogen 23 mg/dL (7-20) Creatinine 1.0 mg/dL (0.6-1.0) Estimated GFR (Cockcroft-Gault) 53.0 Glucose Level 186 mg/dL (70-99) Calcium Level 9.5 mg/dL (8.5-10.1) Total Bilirubin 0.3 mg/dL (0.2-1.0) Direct Bilirubin 0.1 mg/dL (0.0-0.2) Aspartate Amino Transf (AST/SGOT) 15 U/L (15-37) Alanine Aminotransferase (ALT/SGPT) 17 U/L (14-59) Alkaline Phosphatase 159 U/L (46-116) Ammonia 15 mcmol/L (11-34) Total Protein 5.7 g/dL (6.4-8.2) Albumin 1.9 g/dL (3.4-5.0) Triglycerides Level 82 mg/dL (0-150) Cholesterol Level 83 mg/dL (0-200) LDL Cholesterol, Calculated 24 mg/dL (0-100) VLDL Cholesterol, Calculated 16 mg/dL (0-40) Non-HDL Cholesterol Calculated 40 mg/dL (0-129) HDL Cholesterol 43 mg/dL (40-60) Cholesterol/HDL Ratio 1.9 Thyroid Stimulating Hormone (TSH) 0.345 uIU/mL (0.358-3.74) Laboratory Tests Test 05/07/19 20:38 05/08/19 01:03 05/08/19 04:00 05/08/19 07:47 Glucose (Fingerstick) 197 mg/dL (70-99) 179 mg/dL (70-99) 158 mg/dL (70-99) White Blood Count 9.3 x10^3/uL (4.0-11.0) Red Blood Count 3.99 x10^6/uL (3.50-5.40) Hemoglobin 11.8 g/dL (12.0-15.5) Hematocrit 35.9 % (36.0-47.0) Mean Corpuscular Volume 90 fL (79-100) Mean Corpuscular Hemoglobin 30 pg (25-35) Mean Corpuscular Hemoglobin Concent 33 g/dL (31-37) Red Cell Distribution Width 14.0 % (11.5-14.5) Platelet Count 170 x10^3/uL (140-400) Neutrophils (%) (Auto) 80 % (31-73) Lymphocytes (%) (Auto) 11 % (24-48) Monocytes (%) (Auto) 8 % (0-9) Eosinophils (%) (Auto) 0 % (0-3) Basophils (%) (Auto) 1 % (0-3) Neutrophils # (Auto) 7.4 x10^3/uL (1.8-7.7) Lymphocytes # (Auto) 1.0 x10^3/uL (1.0-4.8) Monocytes # (Auto) 0.7 x10^3/uL (0.0-1.1) Eosinophils # (Auto) 0.0 x10^3/uL (0.0-0.7) Basophils # (Auto) 0.1 x10^3/uL (0.0-0.2) Erythrocyte Sedimentation Rate 90 (0-25) Sodium Level 153 mmol/L (136-145) Potassium Level 3.9 mmol/L (3.5-5.1) Chloride Level 116 mmol/L (98-107) Carbon Dioxide Level 28 mmol/L (21-32) Anion Gap 9 (6-14) Blood Urea Nitrogen 23 mg/dL (7-20) Creatinine 1.0 mg/dL (0.6-1.0) Estimated GFR (Cockcroft-Gault) 53.0 Glucose Level 186 mg/dL (70-99) Calcium Level 9.5 mg/dL (8.5-10.1) Total Bilirubin 0.3 mg/dL (0.2-1.0) Direct Bilirubin 0.1 mg/dL (0.0-0.2) Aspartate Amino Transf (AST/SGOT) 15 U/L (15-37) Alanine Aminotransferase (ALT/SGPT) 17 U/L (14-59) Alkaline Phosphatase 159 U/L (46-116) Ammonia 15 mcmol/L (11-34) Total Protein 5.7 g/dL (6.4-8.2) Albumin 1.9 g/dL (3.4-5.0) Triglycerides Level 82 mg/dL (0-150) Cholesterol Level 83 mg/dL (0-200) LDL Cholesterol, Calculated 24 mg/dL (0-100) VLDL Cholesterol, Calculated 16 mg/dL (0-40) Non-HDL Cholesterol Calculated 40 mg/dL (0-129) HDL Cholesterol 43 mg/dL (40-60) Cholesterol/HDL Ratio 1.9 Thyroid Stimulating Hormone (TSH) 0.345 uIU/mL (0.358-3.74) Images Images Carotids: Findings: Within the right carotid arterial system, there is minimal mural thickening and irregularity without significant stenosis.. The Doppler velocities and waveforms are normal with a peak systolic velocity of 50 cm/s in the distal internal carotid artery. The ICA/CCA ratio is 0.7. The common carotid artery has a peak systolic velocity of 73 cm/sec. The external carotid artery has a peak systolic velocity of 67 cm/sec. There is antegrade flow in the right vertebral artery. Within the left carotid arterial system, there is minimal atheromatous thickening without significant stenosis.. The Doppler velocities and waveforms are normal with a peak systolic velocity of 77 cm/s in the distal internal carotid artery. The ICA/CCA ratio is 1.The common carotid artery has a peak systolic velocity of 84 cm/sec. The external carotid artery has a peak systolic velocity of 106 cm/sec. There is antegrade flow in the left vertebral artery. Impression: <50 percent ICA stenosis bilaterally. CT head without contrast 05/07/2019 10:46 AM INDICATION: Worsening responsiveness COMPARISON: May 04, 2019 CT head TECHNIQUE: Multiple axial CT images of the head were obtained from skull base through the vertex without intravenous contrast. FINDINGS: Head: Ventricles, sulci and basal cisterns are prominent compatible with moderate to advanced generalized cerebral volume loss. Low-attenuation in the periventricular white matter is suggestive of chronic small vessel ischemic changes. There is no hydrocephalus. Crews-white matter differentiation is normal. There is no acute intracranial hemorrhage. There is no mass, mass effect or midline shift. Posterior fossa is normal in appearance. Sinus and calcifications are identified within the basal ganglia bilaterally. Visualized portions of the orbits are normal with exception of bilateral lens replacement. Mild to moderate mucosal thickening of the ethmoid air cells and sphenoid sinuses. Mastoid. Mastoid air cells are well aerated. Scalp and calvaria are normal. IMPRESSION: No acute intracranial hemorrhage. Moderate to advanced generalized cerebral volume loss. Low-attenuation in the periventricular white matter is suggestive of chronic small vessel ischemic changes. CT Head without IV contrast, 2/3 FINDINGS: There is no evidence of hemorrhage, mass or extra-axial fluid collection. Miramontes-white differentiation is maintained with no evidence of edema. Diffuse periventricular, subcortical and deep white matter hypoattenuation likely changes of chronic cholecystitis. There is no mass effect or shift of the intracranial structures. There is prominence of the ventricles and sulci bilaterally consistent with generalized atrophy. The cerebellum and brainstem are unremarkable. The calvarium demonstrates no evidence of fracture or focal lesion. Changes of right lamina papyracea deformity, likely old fracture. There is normal aeration of the visualized paranasal sinuses and mastoid air cells. The visualized portions of the orbits are normal. IMPRESSION: 1. No evidence for acute intracranial hemorrhage. 2. White matter changes likely chronic small vessel disease. 3. There is prominence of the ventricles and sulci bilaterally consistent with generalized atrophy. 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 Recommendations: MRI of the brain Also see stroke orders I will consider a lumbar puncture is the MRI is unrevealing. Fully discussed with the patient's daughter. Thank you for letting me help with the patient's care. JAYDEN SALDIVAR MD May 08, 2019 09:34
[2019-05-08 11:00] VITALS: BP 149/67
--- NOTE | 2019-05-08 14:34 | RAD ---
EXAM: Brain MRI without contrast. HISTORY: Confusion. TECHNIQUE: Multiplanar, multisequence magnetic resonance imaging of the brain was performed without contrast. COMPARISON: None. FINDINGS: There is no restricted diffusion to suggest acute or subacute infarction. There is no susceptibility effect to suggest hemorrhage. There is no mass effect or midline shift. There is ventricular enlargement due to cerebral volume loss. There are scattered areas of signal change throughout the cerebral white matter and asia, a finding which can be seen with chronic small vessel disease. 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 There is evidence of lens surgery. There is paranasal sinus mucosal thickening. There is minimal fluid within mastoid air cells. There are normal flow voids within the cerebral vessels. No calvarial lesion is seen. IMPRESSION: 1. No acute intracranial finding. 2. Scattered areas of signal change throughout the cerebral white, a nonspecific finding which can be seen with chronic small vessel disease. 3. Cerebral volume loss. 4. 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 Electronically signed by: Joann Herzog MD (05/08/2019 2:31 PM) [facility]
[2019-05-08 15:00] VITALS: BP 159/68
--- NOTE | 2019-05-08 15:01 | NUR ---
SS following for discharge planning. SS reviewed pt chart. Pt is from home with son and is currently on room air. PT/OT ordered. SS will continue to follow for discharge planning.
--- NOTE | 2019-05-08 19:09 | PDOC ---
PROGRESS NOTES Chief Complaint Chief Complaint ASSESSMENT Acute Encephalopathy of unclear etiololgy, suspect CVA HTN HLD DM Hypothyroidism Peripheral Neuropathy Bowel Obstruction s/p colon resection with ostomy pouch PLAN tele bed MRI results reviewed IVF resume diet once evaluated by MRI brain without contrast EEG, carotid US, CT head at [facility] negative speech eval PT/OT neuro consult appreicated change PO synthroid to IV (decrease by 50% dose) IV metoprolol 5 mg q6. hold oral BP meds for now hold all other nonessential PO meds med rec completed normal TSH, B12, lipids, elevated ESR dvt ppx: heparin full code >2 MN los due to acute encephalopathy unclear etiology, further imaging and consultative services. History of Present Illness History of Present Illness No new changes,, no acute events reported overnight, colostomy working well, no new neurolgoical deficits reported. Daughter at bedside reassurance provided Vitals Vitals Vital Signs Date Time Temp Pulse Resp B/P (MAP) Pulse Ox O2 Delivery O2 Flow Rate FiO2 05/08/19 17:50 63 159/68 05/08/19 15:00 98.9 18 92 Room Air 98.9 Physical Exam General: Alert, Oriented X3, Cooperative, No acute distress Heart: Regular rate, Normal S1, Normal S2 Lungs: Clear Abdomen: Normal bowel sounds, Soft, No tenderness Extremities: No clubbing, No cyanosis Skin: No rashes, No breakdown Labs LABS MRI results: IMPRESSION: 1. No acute intracranial finding. 2. Scattered areas of signal change throughout the cerebral white, a nonspecific finding which can be seen with chronic small vessel disease. 3. Cerebral volume loss. 4. 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 Laboratory Tests Test 05/07/19 20:38 05/08/19 01:03 05/08/19 04:00 05/08/19 07:47 Glucose (Fingerstick) 197 mg/dL (70-99) 179 mg/dL (70-99) 158 mg/dL (70-99) White Blood Count 9.3 x10^3/uL (4.0-11.0) Red Blood Count 3.99 x10^6/uL (3.50-5.40) Hemoglobin 11.8 g/dL (12.0-15.5) Hematocrit 35.9 % (36.0-47.0) Mean Corpuscular Volume 90 fL (79-100) Mean Corpuscular Hemoglobin 30 pg (25-35) Mean Corpuscular Hemoglobin Concent 33 g/dL (31-37) Red Cell Distribution Width 14.0 % (11.5-14.5) Platelet Count 170 x10^3/uL (140-400) Neutrophils (%) (Auto) 80 % (31-73) Lymphocytes (%) (Auto) 11 % (24-48) Monocytes (%) (Auto) 8 % (0-9) Eosinophils (%) (Auto) 0 % (0-3) Basophils (%) (Auto) 1 % (0-3) Neutrophils # (Auto) 7.4 x10^3/uL (1.8-7.7) Lymphocytes # (Auto) 1.0 x10^3/uL (1.0-4.8) Monocytes # (Auto) 0.7 x10^3/uL (0.0-1.1) Eosinophils # (Auto) 0.0 x10^3/uL (0.0-0.7) Basophils # (Auto) 0.1 x10^3/uL (0.0-0.2) Erythrocyte Sedimentation Rate 90 (0-25) Sodium Level 153 mmol/L (136-145) Potassium Level 3.9 mmol/L (3.5-5.1) Chloride Level 116 mmol/L (98-107) Carbon Dioxide Level 28 mmol/L (21-32) Anion Gap 9 (6-14) Blood Urea Nitrogen 23 mg/dL (7-20) Creatinine 1.0 mg/dL (0.6-1.0) Estimated GFR (Cockcroft-Gault) 53.0 Glucose Level 186 mg/dL (70-99) Calcium Level 9.5 mg/dL (8.5-10.1) Total Bilirubin 0.3 mg/dL (0.2-1.0) Direct Bilirubin 0.1 mg/dL (0.0-0.2) Aspartate Amino Transf (AST/SGOT) 15 U/L (15-37) Alanine Aminotransferase (ALT/SGPT) 17 U/L (14-59) Alkaline Phosphatase 159 U/L (46-116) Ammonia 15 mcmol/L (11-34) Total Protein 5.7 g/dL (6.4-8.2) Albumin 1.9 g/dL (3.4-5.0) Triglycerides Level 82 mg/dL (0-150) Cholesterol Level 83 mg/dL (0-200) LDL Cholesterol, Calculated 24 mg/dL (0-100) VLDL Cholesterol, Calculated 16 mg/dL (0-40) Non-HDL Cholesterol Calculated 40 mg/dL (0-129) HDL Cholesterol 43 mg/dL (40-60) Cholesterol/HDL Ratio 1.9 Vitamin B12 Level 802 pg/mL (247-911) Thyroid Stimulating Hormone (TSH) 0.345 uIU/mL (0.358-3.74) Free Thyroxine 0.96 ng/dL (0.76-1.46) Test 05/08/19 11:43 05/08/19 16:39 Glucose (Fingerstick) 184 mg/dL (70-99) 162 mg/dL (70-99) Comment Review of Relevant I have reviewed the following items leonel (where applicable) has been applied. Labs Laboratory Tests Test 05/07/19 20:38 05/08/19 01:03 05/08/19 04:00 05/08/19 07:47 Glucose (Fingerstick) 197 mg/dL (70-99) 179 mg/dL (70-99) 158 mg/dL (70-99) White Blood Count 9.3 x10^3/uL (4.0-11.0) Red Blood Count 3.99 x10^6/uL (3.50-5.40) Hemoglobin 11.8 g/dL (12.0-15.5) Hematocrit 35.9 % (36.0-47.0) Mean Corpuscular Volume 90 fL (79-100) Mean Corpuscular Hemoglobin 30 pg (25-35) Mean Corpuscular Hemoglobin Concent 33 g/dL (31-37) Red Cell Distribution Width 14.0 % (11.5-14.5) Platelet Count 170 x10^3/uL (140-400) Neutrophils (%) (Auto) 80 % (31-73) Lymphocytes (%) (Auto) 11 % (24-48) Monocytes (%) (Auto) 8 % (0-9) Eosinophils (%) (Auto) 0 % (0-3) Basophils (%) (Auto) 1 % (0-3) Neutrophils # (Auto) 7.4 x10^3/uL (1.8-7.7) Lymphocytes # (Auto) 1.0 x10^3/uL (1.0-4.8) Monocytes # (Auto) 0.7 x10^3/uL (0.0-1.1) Eosinophils # (Auto) 0.0 x10^3/uL (0.0-0.7) Basophils # (Auto) 0.1 x10^3/uL (0.0-0.2) Erythrocyte Sedimentation Rate 90 (0-25) Sodium Level 153 mmol/L (136-145) Potassium Level 3.9 mmol/L (3.5-5.1) Chloride Level 116 mmol/L (98-107) Carbon Dioxide Level 28 mmol/L (21-32) Anion Gap 9 (6-14) Blood Urea Nitrogen 23 mg/dL (7-20) Creatinine 1.0 mg/dL (0.6-1.0) Estimated GFR (Cockcroft-Gault) 53.0 Glucose Level 186 mg/dL (70-99) Calcium Level 9.5 mg/dL (8.5-10.1) Total Bilirubin 0.3 mg/dL (0.2-1.0) Direct Bilirubin 0.1 mg/dL (0.0-0.2) Aspartate Amino Transf (AST/SGOT) 15 U/L (15-37) Alanine Aminotransferase (ALT/SGPT) 17 U/L (14-59) Alkaline Phosphatase 159 U/L (46-116) Ammonia 15 mcmol/L (11-34) Total Protein 5.7 g/dL (6.4-8.2) Albumin 1.9 g/dL (3.4-5.0) Triglycerides Level 82 mg/dL (0-150) Cholesterol Level 83 mg/dL (0-200) LDL Cholesterol, Calculated 24 mg/dL (0-100) VLDL Cholesterol, Calculated 16 mg/dL (0-40) Non-HDL Cholesterol Calculated 40 mg/dL (0-129) HDL Cholesterol 43 mg/dL (40-60) Cholesterol/HDL Ratio 1.9 Vitamin B12 Level 802 pg/mL (247-911) Thyroid Stimulating Hormone (TSH) 0.345 uIU/mL (0.358-3.74) Free Thyroxine 0.96 ng/dL (0.76-1.46) Test 05/08/19 11:43 05/08/19 16:39 Glucose (Fingerstick) 184 mg/dL (70-99) 162 mg/dL (70-99) Laboratory Tests Test 05/07/19 20:38 05/08/19 01:03 05/08/19 04:00 05/08/19 07:47 Glucose (Fingerstick) 197 mg/dL (70-99) 179 mg/dL (70-99) 158 mg/dL (70-99) White Blood Count 9.3 x10^3/uL (4.0-11.0) Red Blood Count 3.99 x10^6/uL (3.50-5.40) Hemoglobin 11.8 g/dL (12.0-15.5) Hematocrit 35.9 % (36.0-47.0) Mean Corpuscular Volume 90 fL (79-100) Mean Corpuscular Hemoglobin 30 pg (25-35) Mean Corpuscular Hemoglobin Concent 33 g/dL (31-37) Red Cell Distribution Width 14.0 % (11.5-14.5) Platelet Count 170 x10^3/uL (140-400) Neutrophils (%) (Auto) 80 % (31-73) Lymphocytes (%) (Auto) 11 % (24-48) Monocytes (%) (Auto) 8 % (0-9) Eosinophils (%) (Auto) 0 % (0-3) Basophils (%) (Auto) 1 % (0-3) Neutrophils # (Auto) 7.4 x10^3/uL (1.8-7.7) Lymphocytes # (Auto) 1.0 x10^3/uL (1.0-4.8) Monocytes # (Auto) 0.7 x10^3/uL (0.0-1.1) Eosinophils # (Auto) 0.0 x10^3/uL (0.0-0.7) Basophils # (Auto) 0.1 x10^3/uL (0.0-0.2) Erythrocyte Sedimentation Rate 90 (0-25) Sodium Level 153 mmol/L (136-145) Potassium Level 3.9 mmol/L (3.5-5.1) Chloride Level 116 mmol/L (98-107) Carbon Dioxide Level 28 mmol/L (21-32) Anion Gap 9 (6-14) Blood Urea Nitrogen 23 mg/dL (7-20) Creatinine 1.0 mg/dL (0.6-1.0) Estimated GFR (Cockcroft-Gault) 53.0 Glucose Level 186 mg/dL (70-99) Calcium Level 9.5 mg/dL (8.5-10.1) Total Bilirubin 0.3 mg/dL (0.2-1.0) Direct Bilirubin 0.1 mg/dL (0.0-0.2) Aspartate Amino Transf (AST/SGOT) 15 U/L (15-37) Alanine Aminotransferase (ALT/SGPT) 17 U/L (14-59) Alkaline Phosphatase 159 U/L (46-116) Ammonia 15 mcmol/L (11-34) Total Protein 5.7 g/dL (6.4-8.2) Albumin 1.9 g/dL (3.4-5.0) Triglycerides Level 82 mg/dL (0-150) Cholesterol Level 83 mg/dL (0-200) LDL Cholesterol, Calculated 24 mg/dL (0-100) VLDL Cholesterol, Calculated 16 mg/dL (0-40) Non-HDL Cholesterol Calculated 40 mg/dL (0-129) HDL Cholesterol 43 mg/dL (40-60) Cholesterol/HDL Ratio 1.9 Vitamin B12 Level 802 pg/mL (247-911) Thyroid Stimulating Hormone (TSH) 0.345 uIU/mL (0.358-3.74) Free Thyroxine 0.96 ng/dL (0.76-1.46) Test 05/08/19 11:43 05/08/19 16:39 Glucose (Fingerstick) 184 mg/dL (70-99) 162 mg/dL (70-99) Medications Current Medications Al Hydroxide/Mg Hydroxide (Mylanta Plus Xs) 30 ml PRN DAILY PRN PO HEARTBURN / GAS; Start 05/07/19 at 20:15 Docusate Sodium (Colace) 100 mg PRN BID PRN PO CONSTIPATION; Start 05/07/19 at 20:15 Guaifenesin (Robitussin) 200 mg PRN Q4HRS PRN PO COUGH; Start 05/07/19 at 20:15 Sodium Chloride 1,000 ml @ 75 mls/hr [id number] IV Last administered on 05/07/19at 21:32; Start 05/07/19 at 21:00; Stop 05/08/19 at 08:41; Status DC Ketotifen Fumarate (Zaditor) 1 drop BID OU ; Start 05/08/19 at 09:00 Levothyroxine Sodium 62.5 mcg/ Sodium Chloride 5 ml @ 75 mls/hr Q72H IVP ; Start 05/15/19 at 09:00 Metoprolol Tartrate (Lopressor Vial) 5 mg Q6HRS IVP Last administered on 05/08/19at 17:50; Start 05/08/19 at 00:00 Insulin Glargine (Lantus Syringe) 10 unit QHS SQ Last administered on 05/07/19at 21:35; Start 05/07/19 at 21:30 Insulin Human Lispro (HumaLOG) 0-7 UNITS TIDWMEALS SQ Last administered on 05/08/19at 17:59; Start 05/08/19 at 08:00 Dextrose (Dextrose 50%-Water Syringe) 12.5 gm PRN Q15MIN PRN IV SEE COMMENTS; Start 05/07/19 at 21:15 Dextrose (Iv Dextrose 5%) 250 ml PRN Q15MIN PRN IV SEE COMMENTS; Start 05/07/19 at 21:15 Heparin Sodium (Porcine) (Heparin Sodium) 5,000 unit Q8HRS SQ Last administered on 05/08/19at 15:09; Start 05/07/19 at 22:00 Labetalol HCl (Normodyne Iv Push) 10 mg PRN Q10MIN PRN IVP ELEVATED BP, SEE COMMENTS; Start 05/08/19 at 08:45 Acetaminophen (Tylenol) 650 mg PRN Q6HRS PRN PO TEMP > 100.4F; Start 05/08/19 at 08:45 Acetaminophen (Tylenol Supp) 650 mg PRN Q4HRS PRN [place] TEMP > 100.4F; Start 05/08/19 at 08:45 Aspirin (Ecotrin) 325 mg DAILYWBKFT PO ; Start 05/09/19 at 10:00 Aspirin (Aspirin Rectal Supp) 300 mg PRN DAILY PRN [place] IF UNABLE TO TAKE PO; Start 05/08/19 at 08:45 Amino Acids/ Glycerin/ Electrolytes 1,000 ml @ 80 mls/hr [id number] IV ; Start 05/08/19 at 08:45; Status UNV Amino Acids/ Electrolytes/ Dextrose 1,000 ml @ 80 mls/hr [id number] IV Last administered on 05/08/19at 08:59; Start 05/08/19 at 09:00 Active Scripts Active Reported Betamethasone Dipropionate 15 Gm Cream..g. 1 Alem TP BID Gabapentin 300 Mg Capsule 300 Mg PO TID Insulin Lispro 100 Unit/1 Ml Vial 5 Unit SQ TIDBFRMEAL Lantus Solostar (Insulin Glargine,Hum.rec.anlog) 100 Unit/1 Ml Insuln.pen 20 Unit SQ BID Glucose Gel (Dextrose) 38 Gm Gel..gram. 38 Gm PO PRN PRN Tamsulosin Hcl 0.4 Mg Cap.er.24h 0.8 Mg PO DAILY Ascorbic Acid 500 Mg Tablet 500 Mg PO DAILY Potassium Chloride (Potassium Chloride) 20 Meq Tablet.er 20 Meq PO BID Acidophilus (Lactobacillus Acidophilus) 1 Each Capsule 1 Each PO BID Zaditor (Ketotifen Fumarate) 5 Ml Drops 1 Drop EACHEYE BID Hydrocortisone 453.6 Gm Cream..g. 1 Alem TP PRN BID PRN Miralax (Polyethylene Glycol 3350) 17 Gm Powd.pack 1 Packet PO PRN DAILY PRN Tylenol (Acetaminophen) 325 Mg Tablet 2 Tab PO PRN Q6HRS PRN Atorvastatin Calcium 20 Mg Tablet 20 Mg PO HS Norvasc (Amlodipine Besylate) 10 Mg Tablet 10 Mg PO DAILY Synthroid (Levothyroxine Sodium) 125 Mcg Tablet 125 Mcg PO DAILYAC Calcium + D3 Er Tablet (Calcium Carb & Cit/Vitamin D3) 1 Each Tablet.er 1 Each PO DAILY Vitals/I & O Vital Sign - Last 24 Hours 05/07/19 05/08/19 05/08/19 05/08/19 22:50 00:19 03:26 05:39 Temp 99.0 98.6 99.0 98.6 Pulse 83 84 72 73 Resp 18 16 B/P (MAP) 160/68 (98) 157/65 151/70 (97) 176/73 Pulse Ox 95 96 O2 Delivery Room Air Room Air 05/08/19 05/08/19 05/08/19 05/08/19 07:00 07:50 11:00 12:04 Temp 99.9 99.0 99.9 99.0 Pulse 69 64 61 Resp 20 20 B/P (MAP) 155/70 (98) 149/67 (94) 149/67 Pulse Ox 95 96 O2 Delivery Room Air Room Air Room Air 05/08/19 05/08/19 15:00 17:50 Temp 98.9 98.9 Pulse 63 63 Resp 18 B/P (MAP) 159/68 (98) 159/68 Pulse Ox 92 O2 Delivery Room Air Intake and Output 05/07/19 05/07/19 05/08/19 14:00 22:00 06:00 Intake Total 0 ml Output Total 450 ml Balance -450 ml DOUG ALBRIGHT MD May 08, 2019 19:09
[2019-05-08 19:15] VITALS: BP 158/67
[2019-05-08] MEDS: INSULIN GLARGINE SYRINGE. SQ SCH (21:44)
[2019-05-08 23:08] LABS: HEMOGLOBIN A1C 8.9 % (4.8-5.6)
[2019-05-08 23:45] VITALS: BP 171/74
[2019-05-09] VITALS (7 sets, daily range): BP systolic 142–186; BP diastolic 64–81
[2019-05-09] MEDS: METOPROLOL TARTRATE 5 MG/5 ML VIAL. IVP SCH ×5 (06:17→23:55)
[2019-05-09] MEDS: HEPARIN for SUB-Q USE 5,000 UNIT/ML VIAL. SQ SCH ×3 (06:18→21:13)
[2019-05-09] MEDS ORDERED: ACETAMINOPHEN 325 MG TABLET. PO PRN (08:45)
[2019-05-09] MEDS ORDERED: POLYETHYLENE GLYCOL 3350 17 GM PACKET. PO PRN (08:45)
[2019-05-09] MEDS: hydrALAZINE 20 MG/ML VIAL. IVP PRN (08:55)
[2019-05-09] MEDS: INSULIN GLARGINE SYRINGE. SQ SCH ×2 (09:00→21:12)
[2019-05-09] MEDS: LEVOTHYROXINE 125 MCG TABLET PO SCH (09:00)
[2019-05-09] MEDS: amLODIPine BESYLATE 10 MG TABLET PO SCH (09:00)
[2019-05-09] MEDS: LACTOBACILLUS RHAMNOSUS GG 1 CAPSULE. PO SCH ×2 (09:00→20:04)
[2019-05-09] MEDS: CALCIUM CARB/VIT D3 500/200 TABLET. PO SCH (09:00)
[2019-05-09] MEDS: GABAPENTIN 300 MG CAPSULE. PO SCH ×3 (09:00→20:04)
[2019-05-09] MEDS: BETAMETHASONE DP AUGMENTED 0.05% 15gm CREAM TUBE. TP SCH ×2 (09:00→21:00)
[2019-05-09] MEDS: INSULIN LISPRO 300 UNITS/3 ML VIAL. SQ SCH ×6 (09:00→17:47)
[2019-05-09] MEDS: POTASSIUM CHLORIDE 20 MEQ TABLET.ER. PO SCH ×2 (09:00→17:00)
[2019-05-09] MEDS: ASCORBIC ACID 500 MG TABLET PO SCH (09:00)
[2019-05-09] MEDS: TAMSULOSIN 0.4 MG CAP.ER.24H. PO SCH (09:00)
[2019-05-09] MEDS ORDERED: HYDROCORTISONE 1% TOPICAL CREAM 30GM TUBE. TP PRN (09:00)
[2019-05-09] MEDS: KETOTIFEN FUMARATE 0.025% OPHTH SOLUTION BOTTLE. OU SCH ×2 (09:11→21:07)
[2019-05-09] MEDS: ASPIRIN ENTERIC COATED 325 MG TABLET.DR. PO SCH (10:00)
[2019-05-09] MEDS: AA 4.25 %/CALCIUM/LYTES/D5W 1,000 ML IV SCH (12:13)
[2019-05-09] MEDS: ASPIRIN RECTAL 300 MG SUPP. PR PRN (12:14)
--- NOTE | 2019-05-09 13:01 | PDOC ---
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 Plan Given improvement, hold off on lumbar puncture Observe over the weekend Transfer to longterm if still not back to baseline by 05/11 Okay from me to discontinue telemetry Fully discussed with the patient's daughter. Subjective Denies pain Objective Vital Signs Date Time Temp Pulse Resp B/P (MAP) Pulse Ox O2 Delivery O2 Flow Rate FiO2 05/09/19 12:14 72 142/64 05/09/19 11:00 98.1 20 98 Room Air 98.1 Intake and Output 05/09/19 07:00 Intake Total 1000 ml Output Total 1275 ml Balance -275 ml Intake Oral 0 ml IV Total 1000 ml Output Urine Total 1150 ml Stool Total 125 ml PHYSICAL EXAM Alert. Follows commands, can tell me her name, poor naming PERRL. EOMI. CN: I still feel there is a subtle right central facial weakness Muscle tone: normal. Muscle strength: Moves both sides equally DTR: 0+ Plantar reflex: flexor Gait: not examined in bed. Sensory exam: no abnormal findings. No cerebellar signs elicited. Review of Relevant I have reviewed the following items leonel (where applicable) has been applied. Labs Laboratory Tests Test 05/07/19 20:38 05/08/19 01:03 05/08/19 04:00 05/08/19 07:47 Glucose (Fingerstick) 197 mg/dL (70-99) 179 mg/dL (70-99) 158 mg/dL (70-99) White Blood Count 9.3 x10^3/uL (4.0-11.0) Red Blood Count 3.99 x10^6/uL (3.50-5.40) Hemoglobin 11.8 g/dL (12.0-15.5) Hematocrit 35.9 % (36.0-47.0) Mean Corpuscular Volume 90 fL (79-100) Mean Corpuscular Hemoglobin 30 pg (25-35) Mean Corpuscular Hemoglobin Concent 33 g/dL (31-37) Red Cell Distribution Width 14.0 % (11.5-14.5) Platelet Count 170 x10^3/uL (140-400) Neutrophils (%) (Auto) 80 % (31-73) Lymphocytes (%) (Auto) 11 % (24-48) Monocytes (%) (Auto) 8 % (0-9) Eosinophils (%) (Auto) 0 % (0-3) Basophils (%) (Auto) 1 % (0-3) Neutrophils # (Auto) 7.4 x10^3/uL (1.8-7.7) Lymphocytes # (Auto) 1.0 x10^3/uL (1.0-4.8) Monocytes # (Auto) 0.7 x10^3/uL (0.0-1.1) Eosinophils # (Auto) 0.0 x10^3/uL (0.0-0.7) Basophils # (Auto) 0.1 x10^3/uL (0.0-0.2) Erythrocyte Sedimentation Rate 90 (0-25) Sodium Level 153 mmol/L (136-145) Potassium Level 3.9 mmol/L (3.5-5.1) Chloride Level 116 mmol/L (98-107) Carbon Dioxide Level 28 mmol/L (21-32) Anion Gap 9 (6-14) Blood Urea Nitrogen 23 mg/dL (7-20) Creatinine 1.0 mg/dL (0.6-1.0) Estimated GFR (Cockcroft-Gault) 53.0 Glucose Level 186 mg/dL (70-99) Hemoglobin A1c 8.9 % (4.8-5.6) Calcium Level 9.5 mg/dL (8.5-10.1) Total Bilirubin 0.3 mg/dL (0.2-1.0) Direct Bilirubin 0.1 mg/dL (0.0-0.2) Aspartate Amino Transf (AST/SGOT) 15 U/L (15-37) Alanine Aminotransferase (ALT/SGPT) 17 U/L (14-59) Alkaline Phosphatase 159 U/L (46-116) Ammonia 15 mcmol/L (11-34) Total Protein 5.7 g/dL (6.4-8.2) Albumin 1.9 g/dL (3.4-5.0) Triglycerides Level 82 mg/dL (0-150) Cholesterol Level 83 mg/dL (0-200) LDL Cholesterol, Calculated 24 mg/dL (0-100) VLDL Cholesterol, Calculated 16 mg/dL (0-40) Non-HDL Cholesterol Calculated 40 mg/dL (0-129) HDL Cholesterol 43 mg/dL (40-60) Cholesterol/HDL Ratio 1.9 Vitamin B12 Level 802 pg/mL (247-911) Thyroid Stimulating Hormone (TSH) 0.345 uIU/mL (0.358-3.74) Free Thyroxine 0.96 ng/dL (0.76-1.46) Test 05/08/19 11:43 05/08/19 16:39 Glucose (Fingerstick) 184 mg/dL (70-99) 162 mg/dL (70-99) Laboratory Tests Test 05/08/19 16:39 Glucose (Fingerstick) 162 mg/dL (70-99) Medications Current Medications Al Hydroxide/Mg Hydroxide (Mylanta Plus Xs) 30 ml PRN DAILY PRN PO HEARTBURN / GAS; Start 05/07/19 at 20:15 Docusate Sodium (Colace) 100 mg PRN BID PRN PO CONSTIPATION; Start 05/07/19 at 20:15 Guaifenesin (Robitussin) 200 mg PRN Q4HRS PRN PO COUGH; Start 05/07/19 at 20:15 Sodium Chloride 1,000 ml @ 75 mls/hr [id number] IV Last administered on 05/07/19at 21:32; Start 05/07/19 at 21:00; Stop 05/08/19 at 08:41; Status DC Ketotifen Fumarate (Zaditor) 1 drop BID OU Last administered on 05/09/19at 09:11; Start 05/08/19 at 09:00 Levothyroxine Sodium 62.5 mcg/ Sodium Chloride 5 ml @ 75 mls/hr Q72H IVP ; Start 05/15/19 at 09:00; Stop 05/09/19 at 08:48; Status DC Metoprolol Tartrate (Lopressor Vial) 5 mg Q6HRS IVP Last administered on 05/09/19at 12:14; Start 05/08/19 at 00:00 Insulin Glargine (Lantus Syringe) 10 unit QHS SQ Last administered on 05/08/19at 21:44; Start 05/07/19 at 21:30; Stop 05/09/19 at 08:50; Status DC Insulin Human Lispro (HumaLOG) 0-7 UNITS TIDWMEALS SQ Last administered on 05/09/19at 12:24; Start 05/08/19 at 08:00 Dextrose (Dextrose 50%-Water Syringe) 12.5 gm PRN Q15MIN PRN IV SEE COMMENTS; Start 05/07/19 at 21:15 Dextrose (Iv Dextrose 5%) 250 ml PRN Q15MIN PRN IV SEE COMMENTS; Start 05/07/19 at 21:15 Heparin Sodium (Porcine) (Heparin Sodium) 5,000 unit Q8HRS SQ Last administered on 05/09/19at 06:18; Start 05/07/19 at 22:00 Labetalol HCl (Normodyne Iv Push) 10 mg PRN Q10MIN PRN IVP ELEVATED BP, SEE COMMENTS; Start 05/08/19 at 08:45 Acetaminophen (Tylenol) 650 mg PRN Q6HRS PRN PO TEMP > 100.4F; Start 05/08/19 at 08:45; Stop 05/09/19 at 08:47; Status DC Acetaminophen (Tylenol Supp) 650 mg PRN Q4HRS PRN [place] TEMP > 100.4F; Start 05/08/19 at 08:45 Aspirin (Ecotrin) 325 mg DAILYWBKFT PO ; Start 05/09/19 at 10:00 Aspirin (Aspirin Rectal Supp) 300 mg PRN DAILY PRN [place] IF UNABLE TO TAKE PO Last administered on 05/09/19at 12:14; Start 05/08/19 at 08:45 Amino Acids/ Glycerin/ Electrolytes 1,000 ml @ 80 mls/hr [id number] IV ; Start 05/08/19 at 08:45; Status UNV Amino Acids/ Electrolytes/ Dextrose 1,000 ml @ 80 mls/hr [id number] IV Last administered on 05/09/19at 12:13; Start 05/08/19 at 09:00 Acetaminophen (Tylenol) 650 mg PRN Q6HRS PRN PO MILD PAIN / TEMP; Start 05/09/19 at 08:45 Amlodipine Besylate (Norvasc) 10 mg DAILY PO ; Start 05/09/19 at 09:00 Ascorbic Acid (Vitamin C) 500 mg DAILY PO ; Start 05/09/19 at 09:00 Atorvastatin Calcium (Lipitor) 20 mg HS PO ; Start 2/8/20 at 21:00 Gabapentin (Neurontin) 300 mg TID PO ; Start 05/09/19 at 09:00 Insulin Human Lispro (HumaLOG) 5 units TIDWMEALS SQ Last administered on 05/09/19at 12:23; Start 05/09/19 at 09:00 Levothyroxine Sodium (Synthroid) 125 mcg DAILYAC PO ; Start 05/09/19 at 09:00 Polyethylene Glycol (miraLAX PACKET) 17 gm PRN DAILY PRN PO CONSTIPATION; Start 05/09/19 at 08:45 Potassium Chloride (Klor-Con) 20 meq BIDWMEALS PO ; Start 05/09/19 at 09:00 Tamsulosin HCl (Flomax) 0.8 mg DAILY PO ; Start 05/09/19 at 09:00 Betamethasone Dipropion Augmented (Betamethasone Dp Aug 0.05% Cream) 1 alem BID TP ; Start 05/09/19 at 09:00 Calcium/Vitamin D (Oscal D 500mg/ 200uts) 1 tab DAILY PO ; Start 05/09/19 at 09:00 Hydrocortisone (Cortaid) 1 alem PRN BID PRN TP ITCHING; Start 05/09/19 at 09:00 Insulin Glargine (Lantus Syringe) 20 unit BID SQ ; Start 05/09/19 at 09:00 Lactobacillus Rhamnosus (Culturelle) 1 cap BID PO ; Start 05/09/19 at 09:00 Hydralazine HCl (Apresoline Inj) 25 mg PRN Q4HRS PRN IVP ELEVATED BP, SEE COMMENTS Last administered on 05/09/19at 08:55; Start 05/09/19 at 08:45 Active Scripts Active Reported Betamethasone Dipropionate 15 Gm Cream..g. 1 Alem TP BID Gabapentin 300 Mg Capsule 300 Mg PO TID Insulin Lispro 100 Unit/1 Ml Vial 5 Unit SQ TIDBFRMEAL Lantus Solostar (Insulin Glargine,Hum.rec.anlog) 100 Unit/1 Ml Insuln.pen 20 Unit SQ BID Glucose Gel (Dextrose) 38 Gm Gel..gram. 38 Gm PO PRN PRN Tamsulosin Hcl 0.4 Mg Cap.er.24h 0.8 Mg PO DAILY Ascorbic Acid 500 Mg Tablet 500 Mg PO DAILY Potassium Chloride (Potassium Chloride) 20 Meq Tablet.er 20 Meq PO BID Acidophilus (Lactobacillus Acidophilus) 1 Each Capsule 1 Each PO BID Zaditor (Ketotifen Fumarate) 5 Ml Drops 1 Drop EACHEYE BID Hydrocortisone 453.6 Gm Cream..g. 1 Alem TP PRN BID PRN Miralax (Polyethylene Glycol 3350) 17 Gm Powd.pack 1 Packet PO PRN DAILY PRN Tylenol (Acetaminophen) 325 Mg Tablet 2 Tab PO PRN Q6HRS PRN Atorvastatin Calcium 20 Mg Tablet 20 Mg PO HS Norvasc (Amlodipine Besylate) 10 Mg Tablet 10 Mg PO DAILY Synthroid (Levothyroxine Sodium) 125 Mcg Tablet 125 Mcg PO DAILYAC Calcium + D3 Er Tablet (Calcium Carb & Cit/Vitamin D3) 1 Each Tablet.er 1 Each PO DAILY Vitals/I & O Vital Sign - Last 24 Hours 05/08/19 05/08/19 05/08/19 05/08/19 15:00 17:50 19:15 20:00 Temp 98.9 97.5 98.9 97.5 Pulse 63 63 60 Resp 18 18 B/P (MAP) 159/68 (98) 159/68 158/67 (97) Pulse Ox 92 98 O2 Delivery Room Air Room Air Room Air 05/08/19 05/09/19 05/09/19 05/09/19 23:45 00:00 03:45 06:17 Temp 97.7 97.7 97.7 97.7 Pulse 66 68 63 66 Resp 20 18 B/P (MAP) 171/74 (106) 164/67 186/81 (116) 177/72 Pulse Ox 98 99 O2 Delivery Room Air Room Air 05/09/19 05/09/19 05/09/19 05/09/19 07:00 08:00 08:55 11:00 Temp 98.3 98.1 98.3 98.1 Pulse 61 61 72 Resp 20 20 B/P (MAP) 185/79 (114) 185/79 171/70 (103) Pulse Ox 96 98 O2 Delivery Room Air Room Air Room Air 05/09/19 05/09/19 11:59 12:14 Pulse 72 B/P (MAP) 142/64 (90) 142/64 l Intake and Output 05/08/19 05/08/19 05/09/19 15:00 23:00 07:00 Intake Total 0 ml 1000 ml Output Total 575 ml 700 ml Balance 0 ml -575 ml 300 ml Images Brain MRI without contrast. HISTORY: Confusion. TECHNIQUE: Multiplanar, multisequence magnetic resonance imaging of the brain was performed without contrast. COMPARISON: None. FINDINGS: There is no restricted diffusion to suggest acute or subacute infarction. There is no susceptibility effect to suggest hemorrhage. There is no mass effect or midline shift. There is ventricular enlargement due to cerebral volume loss. There are scattered areas of signal change throughout the cerebral white matter and [place], a finding which can be seen with chronic small vessel disease. 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 There is evidence of lens surgery. There is paranasal sinus mucosal thickening. There is minimal fluid within mastoid air cells. There are normal flow voids within the cerebral vessels. No calvarial lesion is seen. IMPRESSION: 1. No acute intracranial finding. 2. Scattered areas of signal change throughout the cerebral white, a nonspecific finding which can be seen with chronic small vessel disease. 3. Cerebral volume loss. 4. 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 JAYDEN SALDIVAR MD May 09, 2019 13:01
[2019-05-09] MEDS: ATORVASTATIN CALCIUM 20 MG TABLET PO SCH (20:04)
--- NOTE | 2019-05-09 20:08 | PDOC ---
PROGRESS NOTES Chief Complaint Chief Complaint ASSESSMENT Metabolic Encephalopathy no evidence of acute event on MRI HTN HLD DM Hypothyroidism Peripheral Neuropathy Bowel Obstruction s/p colon resection with ostomy pouch PLAN tele bed MRI results reviewed IVF resume diet once evaluated by EEG, carotid US, CT head at [facility] negative speech eval PT/OT neuro consult appreciated, will continue to monitor over the weekend and work on discharge on Saturday once referrals can be sent change PO synthroid to IV (decrease by 50% dose) IV metoprolol 5 mg q6. hold oral BP meds for now hold all other nonessential PO meds med rec completed normal TSH, B12, lipids, dvt ppx: heparin full code >2 MN los due to acute encephalopathy unclear etiology, further imaging and consultative services. History of Present Illness History of Present Illness No new changes,, no acute events reported overnight, colostomy working well, no new neurolgoical deficits reported. Daughter at bedside reassurance provided Vitals Vitals Vital Signs Date Time Temp Pulse Resp B/P (MAP) Pulse Ox O2 Delivery O2 Flow Rate FiO2 05/09/19 19:15 98.6 62 20 165/76 (105) 93 Room Air 98.6 Physical Exam General: Alert, Oriented X3, Cooperative, No acute distress Heart: Regular rate, Normal S1, Normal S2 Lungs: Clear Abdomen: Normal bowel sounds, Soft, No tenderness Extremities: No clubbing, No cyanosis Skin: No rashes, No breakdown Comment Review of Relevant I have reviewed the following items leonel (where applicable) has been applied. Labs Laboratory Tests Test 05/07/19 20:38 05/08/19 01:03 05/08/19 04:00 05/08/19 07:47 Glucose (Fingerstick) 197 mg/dL (70-99) 179 mg/dL (70-99) 158 mg/dL (70-99) White Blood Count 9.3 x10^3/uL (4.0-11.0) Red Blood Count 3.99 x10^6/uL (3.50-5.40) Hemoglobin 11.8 g/dL (12.0-15.5) Hematocrit 35.9 % (36.0-47.0) Mean Corpuscular Volume 90 fL (79-100) Mean Corpuscular Hemoglobin 30 pg (25-35) Mean Corpuscular Hemoglobin Concent 33 g/dL (31-37) Red Cell Distribution Width 14.0 % (11.5-14.5) Platelet Count 170 x10^3/uL (140-400) Neutrophils (%) (Auto) 80 % (31-73) Lymphocytes (%) (Auto) 11 % (24-48) Monocytes (%) (Auto) 8 % (0-9) Eosinophils (%) (Auto) 0 % (0-3) Basophils (%) (Auto) 1 % (0-3) Neutrophils # (Auto) 7.4 x10^3/uL (1.8-7.7) Lymphocytes # (Auto) 1.0 x10^3/uL (1.0-4.8) Monocytes # (Auto) 0.7 x10^3/uL (0.0-1.1) Eosinophils # (Auto) 0.0 x10^3/uL (0.0-0.7) Basophils # (Auto) 0.1 x10^3/uL (0.0-0.2) Erythrocyte Sedimentation Rate 90 (0-25) Sodium Level 153 mmol/L (136-145) Potassium Level 3.9 mmol/L (3.5-5.1) Chloride Level 116 mmol/L (98-107) Carbon Dioxide Level 28 mmol/L (21-32) Anion Gap 9 (6-14) Blood Urea Nitrogen 23 mg/dL (7-20) Creatinine 1.0 mg/dL (0.6-1.0) Estimated GFR (Cockcroft-Gault) 53.0 Glucose Level 186 mg/dL (70-99) Hemoglobin A1c 8.9 % (4.8-5.6) Calcium Level 9.5 mg/dL (8.5-10.1) Total Bilirubin 0.3 mg/dL (0.2-1.0) Direct Bilirubin 0.1 mg/dL (0.0-0.2) Aspartate Amino Transf (AST/SGOT) 15 U/L (15-37) Alanine Aminotransferase (ALT/SGPT) 17 U/L (14-59) Alkaline Phosphatase 159 U/L (46-116) Ammonia 15 mcmol/L (11-34) Total Protein 5.7 g/dL (6.4-8.2) Albumin 1.9 g/dL (3.4-5.0) Triglycerides Level 82 mg/dL (0-150) Cholesterol Level 83 mg/dL (0-200) LDL Cholesterol, Calculated 24 mg/dL (0-100) VLDL Cholesterol, Calculated 16 mg/dL (0-40) Non-HDL Cholesterol Calculated 40 mg/dL (0-129) HDL Cholesterol 43 mg/dL (40-60) Cholesterol/HDL Ratio 1.9 Vitamin B12 Level 802 pg/mL (247-911) Thyroid Stimulating Hormone (TSH) 0.345 uIU/mL (0.358-3.74) Free Thyroxine 0.96 ng/dL (0.76-1.46) Test 05/08/19 11:43 05/08/19 16:39 Glucose (Fingerstick) 184 mg/dL (70-99) 162 mg/dL (70-99) Medications Current Medications Al Hydroxide/Mg Hydroxide (Mylanta Plus Xs) 30 ml PRN DAILY PRN PO HEARTBURN / GAS; Start 05/07/19 at 20:15 Docusate Sodium (Colace) 100 mg PRN BID PRN PO CONSTIPATION; Start 05/07/19 at 20:15 Guaifenesin (Robitussin) 200 mg PRN Q4HRS PRN PO COUGH; Start 05/07/19 at 20:15 Sodium Chloride 1,000 ml @ 75 mls/hr [id number] IV Last administered on 05/07/19at 21:32; Start 05/07/19 at 21:00; Stop 05/08/19 at 08:41; Status DC Ketotifen Fumarate (Zaditor) 1 drop BID OU Last administered on 05/09/19at 09:11; Start 05/08/19 at 09:00 Levothyroxine Sodium 62.5 mcg/ Sodium Chloride 5 ml @ 75 mls/hr Q72H IVP ; Start 05/15/19 at 09:00; Stop 05/09/19 at 08:48; Status DC Metoprolol Tartrate (Lopressor Vial) 5 mg Q6HRS IVP Last administered on 05/09/19at 17:42; Start 05/08/19 at 00:00 Insulin Glargine (Lantus Syringe) 10 unit QHS SQ Last administered on 05/08/19at 21:44; Start 05/07/19 at 21:30; Stop 05/09/19 at 08:50; Status DC Insulin Human Lispro (HumaLOG) 0-7 UNITS TIDWMEALS SQ Last administered on 05/09/19at 17:47; Start 05/08/19 at 08:00 Dextrose (Dextrose 50%-Water Syringe) 12.5 gm PRN Q15MIN PRN IV SEE COMMENTS; Start 05/07/19 at 21:15 Dextrose (Iv Dextrose 5%) 250 ml PRN Q15MIN PRN IV SEE COMMENTS; Start 05/07/19 at 21:15 Heparin Sodium (Porcine) (Heparin Sodium) 5,000 unit Q8HRS SQ Last administered on 05/09/19at 14:40; Start 05/07/19 at 22:00 Labetalol HCl (Normodyne Iv Push) 10 mg PRN Q10MIN PRN IVP ELEVATED BP, SEE COMMENTS; Start 05/08/19 at 08:45 Acetaminophen (Tylenol) 650 mg PRN Q6HRS PRN PO TEMP > 100.4F; Start 05/08/19 at 08:45; Stop 05/09/19 at 08:47; Status DC Acetaminophen (Tylenol Supp) 650 mg PRN Q4HRS PRN OK TEMP > 100.4F; Start 05/08/19 at 08:45 Aspirin (Ecotrin) 325 mg DAILYWBKFT PO ; Start 05/09/19 at 10:00 Aspirin (Aspirin Rectal Supp) 300 mg PRN DAILY PRN OK IF UNABLE TO TAKE PO Last administered on 05/09/19at 12:14; Start 05/08/19 at 08:45 Amino Acids/ Glycerin/ Electrolytes 1,000 ml @ 80 mls/hr [id number] IV ; Start 05/08/19 at 08:45; Status UNV Amino Acids/ Electrolytes/ Dextrose 1,000 ml @ 80 mls/hr [id number] IV Last administered on 05/09/19at 12:13; Start 05/08/19 at 09:00 Acetaminophen (Tylenol) 650 mg PRN Q6HRS PRN PO MILD PAIN / TEMP; Start 05/09/19 at 08:45 Amlodipine Besylate (Norvasc) 10 mg DAILY PO ; Start 05/09/19 at 09:00 Ascorbic Acid (Vitamin C) 500 mg DAILY PO ; Start 05/09/19 at 09:00 Atorvastatin Calcium (Lipitor) 20 mg HS PO ; Start 05/09/19 at 21:00 Gabapentin (Neurontin) 300 mg TID PO ; Start 05/09/19 at 09:00 Insulin Human Lispro (HumaLOG) 5 units TIDWMEALS SQ Last administered on 05/09/19at 17:46; Start 05/09/19 at 09:00 Levothyroxine Sodium (Synthroid) 125 mcg DAILYAC PO ; Start 05/09/19 at 09:00 Polyethylene Glycol (miraLAX PACKET) 17 gm PRN DAILY PRN PO CONSTIPATION; Start 05/09/19 at 08:45 Potassium Chloride (Klor-Con) 20 meq BIDWMEALS PO ; Start 05/09/19 at 09:00 Tamsulosin HCl (Flomax) 0.8 mg DAILY PO ; Start 05/09/19 at 09:00 Betamethasone Dipropion Augmented (Betamethasone Dp Aug 0.05% Cream) 1 alem BID TP ; Start 05/09/19 at 09:00 Calcium/Vitamin D (Oscal D 500mg/ 200uts) 1 tab DAILY PO ; Start 05/09/19 at 09:00 Hydrocortisone (Cortaid) 1 alem PRN BID PRN TP ITCHING; Start 05/09/19 at 09:00 Insulin Glargine (Lantus Syringe) 20 unit BID SQ ; Start 05/09/19 at 09:00 Lactobacillus Rhamnosus (Culturelle) 1 cap BID PO ; Start 05/09/19 at 09:00 Hydralazine HCl (Apresoline Inj) 25 mg PRN Q4HRS PRN IVP ELEVATED BP, SEE COMMENTS Last administered on 05/09/19at 08:55; Start 05/09/19 at 08:45 Active Scripts Active Reported Betamethasone Dipropionate 15 Gm Cream..g. 1 Alem TP BID Gabapentin 300 Mg Capsule 300 Mg PO TID Insulin Lispro 100 Unit/1 Ml Vial 5 Unit SQ TIDBFRMEAL Lantus Solostar (Insulin Glargine,Hum.rec.anlog) 100 Unit/1 Ml Insuln.pen 20 Unit SQ BID Glucose Gel (Dextrose) 38 Gm Gel..gram. 38 Gm PO PRN PRN Tamsulosin Hcl 0.4 Mg Cap.er.24h 0.8 Mg PO DAILY Ascorbic Acid 500 Mg Tablet 500 Mg PO DAILY Potassium Chloride (Potassium Chloride) 20 Meq Tablet.er 20 Meq PO BID Acidophilus (Lactobacillus Acidophilus) 1 Each Capsule 1 Each PO BID Zaditor (Ketotifen Fumarate) 5 Ml Drops 1 Drop EACHEYE BID Hydrocortisone 453.6 Gm Cream..g. 1 Alem TP PRN BID PRN Miralax (Polyethylene Glycol 3350) 17 Gm Powd.pack 1 Packet PO PRN DAILY PRN Tylenol (Acetaminophen) 325 Mg Tablet 2 Tab PO PRN Q6HRS PRN Atorvastatin Calcium 20 Mg Tablet 20 Mg PO HS Norvasc (Amlodipine Besylate) 10 Mg Tablet 10 Mg PO DAILY Synthroid (Levothyroxine Sodium) 125 Mcg Tablet 125 Mcg PO DAILYAC Calcium + D3 Er Tablet (Calcium Carb & Cit/Vitamin D3) 1 Each Tablet.er 1 Each PO DAILY Vitals/I & O Vital Sign - Last 24 Hours 05/08/19 05/09/19 05/09/19 05/09/19 23:45 00:00 03:45 06:17 Temp 97.7 97.7 97.7 97.7 Pulse 66 68 63 66 Resp 20 18 B/P (MAP) 171/74 (106) 164/67 186/81 (116) 177/72 Pulse Ox 98 99 O2 Delivery Room Air Room Air 05/09/19 05/09/19 05/09/19 05/09/19 07:00 08:00 08:55 11:00 Temp 98.3 98.1 98.3 98.1 Pulse 61 61 72 Resp 20 20 B/P (MAP) 185/79 (114) 185/79 171/70 (103) Pulse Ox 96 98 O2 Delivery Room Air Room Air Room Air 05/09/19 05/09/19 05/09/19 05/09/19 11:59 12:14 15:00 17:42 Temp 97.9 97.9 Pulse 72 66 70 Resp 20 B/P (MAP) 142/64 (90) 142/64 172/71 (104) 156/70 Pulse Ox 98 O2 Delivery Room Air 05/09/19 19:15 Temp 98.6 98.6 Pulse 62 Resp 20 B/P (MAP) 165/76 (105) Pulse Ox 93 O2 Delivery Room Air Intake and Output 05/08/19 05/08/19 05/09/19 15:00 23:00 07:00 Intake Total 0 ml 1000 ml Output Total 575 ml 700 ml Balance 0 ml -575 ml 300 ml DOUG ALBRIGHT MD May 09, 2019 20:08
[2019-05-10] MEDS: AA 4.25 %/CALCIUM/LYTES/D5W 1,000 ML IV SCH ×3 (00:36→23:48)
[2019-05-10 03:30] VITALS: BP 155/68
[2019-05-10] MEDS: METOPROLOL TARTRATE 5 MG/5 ML VIAL. IVP SCH ×4 (06:08→23:48)
[2019-05-10] MEDS: HEPARIN for SUB-Q USE 5,000 UNIT/ML VIAL. SQ SCH ×3 (06:12→21:25)
[2019-05-10 07:00] VITALS: BP 168/74
[2019-05-10] MEDS: POTASSIUM CHLORIDE 20 MEQ TABLET.ER. PO SCH ×2 (07:30→17:00)
[2019-05-10] MEDS: ASPIRIN ENTERIC COATED 325 MG TABLET.DR. PO SCH (07:30)
[2019-05-10] MEDS: LEVOTHYROXINE 125 MCG TABLET PO SCH (07:30)
[2019-05-10] MEDS: ASCORBIC ACID 500 MG TABLET PO SCH (07:31)
[2019-05-10] MEDS: LACTOBACILLUS RHAMNOSUS GG 1 CAPSULE. PO SCH ×2 (07:31→21:00)
[2019-05-10] MEDS: GABAPENTIN 300 MG CAPSULE. PO SCH ×3 (07:31→21:00)
[2019-05-10] MEDS: amLODIPine BESYLATE 10 MG TABLET PO SCH (07:31)
[2019-05-10] MEDS: CALCIUM CARB/VIT D3 500/200 TABLET. PO SCH (07:31)
[2019-05-10] MEDS: TAMSULOSIN 0.4 MG CAP.ER.24H. PO SCH (07:31)
[2019-05-10] MEDS: INSULIN LISPRO 300 UNITS/3 ML VIAL. SQ SCH ×6 (08:00→17:37)
[2019-05-10] MEDS: KETOTIFEN FUMARATE 0.025% OPHTH SOLUTION BOTTLE. OU SCH ×2 (08:08→21:23)
[2019-05-10] MEDS: hydrALAZINE 20 MG/ML VIAL. IVP PRN ×2 (08:09→18:23)
[2019-05-10] MEDS: BETAMETHASONE DP AUGMENTED 0.05% 15gm CREAM TUBE. TP SCH ×2 (08:13→21:00)
[2019-05-10] MEDS ORDERED: DEXTROSE 50% 25 GM / 50ML DISP.SYRIN. IV PRN (08:15)
[2019-05-10] MEDS ORDERED: IV DEXTROSE 5% 250 ML BAG. IV PRN (08:15)
--- NOTE | 2019-05-10 09:11 | PDOC ---
PROGRESS NOTES Chief Complaint Chief Complaint ASSESSMENT Metabolic Encephalopathy no evidence of acute event on MRI Hypernatremia scondary to poor oral intake, patient currently on TPN may need to increase water content. HTN HLD DM Hypothyroidism Peripheral Neuropathy Bowel Obstruction s/p colon resection with ostomy pouch PLAN follow labs especially NA+ may need to increase water content on parenteral nutrition resume diet once evaluated by ST EEG, carotid US, [facility] head at [facility] negative PT/OT neuro consult appreciated, will continue to monitor over the weekend and work on discharge on Saturday once referrals can be sent change PO synthroid to IV (decrease by 50% dose) IV metoprolol 5 mg q6. hold oral BP meds for now hold all other nonessential PO meds med rec completed normal TSH, B12, lipids, dvt ppx: heparin full code Disposition: SNF when arranged by CM History of Present Illness History of Present Illness No new changes,, no acute events reported overnight, colostomy working well, no new neurolgoical deficits reported. Daughter at bedside reassurance provided Vitals Vitals Vital Signs Date Time Temp Pulse Resp B/P (MAP) Pulse Ox O2 Delivery O2 Flow Rate FiO2 05/10/19 08:09 58 168/74 05/10/19 07:00 97.1 18 94 Room Air 97.1 Physical Exam General: Alert, Oriented X3, Cooperative, No acute distress Heart: Regular rate, Normal S1, Normal S2 Lungs: Clear Abdomen: Normal bowel sounds, Soft, No tenderness Extremities: No clubbing, No cyanosis Skin: No rashes, No breakdown Labs LABS Laboratory Tests Test 05/09/19 20:45 05/10/19 07:37 Glucose (Fingerstick) 207 mg/dL (70-99) 178 mg/dL (70-99) Comment Review of Relevant I have reviewed the following items leonel (where applicable) has been applied. Labs Laboratory Tests Test 05/08/19 11:43 05/08/19 16:39 05/09/19 20:45 05/10/19 07:37 Glucose (Fingerstick) 184 mg/dL (70-99) 162 mg/dL (70-99) 207 mg/dL (70-99) 178 mg/dL (70-99) Laboratory Tests Test 05/09/19 20:45 05/10/19 07:37 Glucose (Fingerstick) 207 mg/dL (70-99) 178 mg/dL (70-99) Medications Current Medications Al Hydroxide/Mg Hydroxide (Mylanta Plus Xs) 30 ml PRN DAILY PRN PO HEARTBURN / GAS; Start 05/07/19 at 20:15 Docusate Sodium (Colace) 100 mg PRN BID PRN PO HARD STOOLS; Start 05/07/19 at 20:15 Guaifenesin (Robitussin) 200 mg PRN Q4HRS PRN PO COUGH; Start 05/07/19 at 20:15 Sodium Chloride 1,000 ml @ 75 mls/hr [id number] IV Last administered on 05/07/19at 21:32; Start 05/07/19 at 21:00; Stop 05/08/19 at 08:41; Status DC Ketotifen Fumarate (Zaditor) 1 drop BID OU Last administered on 05/10/19at 08:08; Start 05/08/19 at 09:00 Levothyroxine Sodium 62.5 mcg/ Sodium Chloride 5 ml @ 75 mls/hr Q72H IVP ; Start 05/15/19 at 09:00; Stop 05/09/19 at 08:48; Status DC Metoprolol Tartrate (Lopressor Vial) 5 mg Q6HRS IVP Last administered on 05/10/19at 06:08; Start 05/08/19 at 00:00 Insulin Glargine (Lantus Syringe) 10 unit QHS SQ Last administered on 05/08/19at 21:44; Start 05/07/19 at 21:30; Stop 05/09/19 at 08:50; Status DC Insulin Human Lispro (HumaLOG) 0-7 UNITS TIDWMEALS SQ Last administered on 05/09/19at 17:47; Start 05/08/19 at 08:00 Dextrose (Dextrose 50%-Water Syringe) 12.5 gm PRN Q15MIN PRN IV SEE COMMENTS; Start 05/07/19 at 21:15; Stop 05/10/19 at 08:06; Status DC Dextrose (Iv Dextrose 5%) 250 ml PRN Q15MIN PRN IV SEE COMMENTS; Start 05/07/19 at 21:15; Stop 05/10/19 at 08:07; Status DC Heparin Sodium (Porcine) (Heparin Sodium) 5,000 unit Q8HRS SQ Last administered on 05/10/19at 06:12; Start 05/07/19 at 22:00 Labetalol HCl (Normodyne Iv Push) 10 mg PRN Q10MIN PRN IVP ELEVATED BP, 2ND CHOICE; Start 05/08/19 at 08:45 Acetaminophen (Tylenol) 650 mg PRN Q6HRS PRN PO TEMP > 100.4F; Start 05/08/19 at 08:45; Stop 05/09/19 at 08:47; Status DC Acetaminophen (Tylenol Supp) 650 mg PRN Q4HRS PRN GA TEMP > 100.4F; Start 05/08/19 at 08:45 Aspirin (Ecotrin) 325 mg DAILYWBKFT PO ; Start 05/09/19 at 10:00 Aspirin (Aspirin Rectal Supp) 300 mg PRN DAILY PRN GA IF UNABLE TO TAKE PO Last administered on 05/09/19at 12:14; Start 05/08/19 at 08:45 Amino Acids/ Glycerin/ Electrolytes 1,000 ml @ 80 mls/hr [id number] IV ; Start 05/08/19 at 08:45; Status UNV Amino Acids/ Electrolytes/ Dextrose 1,000 ml @ 80 mls/hr [id number] IV Last administered on 05/10/19at 00:36; Start 05/08/19 at 09:00 Acetaminophen (Tylenol) 650 mg PRN Q6HRS PRN PO MILD PAIN / TEMP; Start 05/09/19 at 08:45 Amlodipine Besylate (Norvasc) 10 mg DAILY PO ; Start 05/09/19 at 09:00 Ascorbic Acid (Vitamin C) 500 mg DAILY PO ; Start 05/09/19 at 09:00 Atorvastatin Calcium (Lipitor) 20 mg HS PO ; Start 05/09/19 at 21:00 Gabapentin (Neurontin) 300 mg TID PO ; Start 05/09/19 at 09:00 Insulin Human Lispro (HumaLOG) 5 units TIDWMEALS SQ Last administered on 05/09/19 at 17:46; Start 05/09/19 at 09:00 Levothyroxine Sodium (Synthroid) 125 mcg DAILYAC PO ; Start 05/09/19 at 09:00 Polyethylene Glycol (miraLAX PACKET) 17 gm PRN DAILY PRN PO CONSTIPATION; Start 05/09/19 at 08:45 Potassium Chloride (Klor-Con) 20 meq BIDWMEALS PO ; Start 05/09/19 at 09:00 Tamsulosin HCl (Flomax) 0.8 mg DAILY PO ; Start 05/09/19 at 09:00 Betamethasone Dipropion Augmented (Betamethasone Dp Aug 0.05% Cream) 1 alem BID TP ; Start 05/09/19 at 09:00 Calcium/Vitamin D (Oscal D 500mg/ 200uts) 1 tab DAILY PO ; Start 05/09/19 at 09:00 Hydrocortisone (Cortaid) 1 alem PRN BID PRN TP ITCHING; Start 05/09/19 at 09:00 Insulin Glargine (Lantus Syringe) 20 unit BID SQ Last administered on 05/09/19at 21:12; Start 05/09/19 at 09:00; Stop 05/10/19 at 08:07; Status DC Lactobacillus Rhamnosus (Culturelle) 1 cap BID PO ; Start 05/09/19 at 09:00 Hydralazine HCl (Apresoline Inj) 25 mg PRN Q4HRS PRN IVP ELEVATED BP, 1ST CHOICE Last administered on 05/10/19at 08:09; Start 05/09/19 at 08:45 Insulin Glargine (Lantus Syringe) 12 unit BID SQ ; Start 05/10/19 at 09:00 Dextrose (Dextrose 50%-Water Syringe) 12.5 gm PRN Q15MIN PRN IV SEE COMMENTS; Start 05/10/19 at 08:15 Dextrose (Iv Dextrose 5%) 250 ml PRN Q15MIN PRN IV SEE COMMENTS; Start 05/10/19 at 08:15 Active Scripts Active Reported Betamethasone Dipropionate 15 Gm Cream..g. 1 Alem TP BID Gabapentin 300 Mg Capsule 300 Mg PO TID Insulin Lispro 100 Unit/1 Ml Vial 5 Unit SQ TIDBFRMEAL Lantus Solostar (Insulin Glargine,Hum.rec.anlog) 100 Unit/1 Ml Insuln.pen 20 Unit SQ BID Glucose Gel (Dextrose) 38 Gm Gel..gram. 38 Gm PO PRN PRN Tamsulosin Hcl 0.4 Mg Cap.er.24h 0.8 Mg PO DAILY Ascorbic Acid 500 Mg Tablet 500 Mg PO DAILY Potassium Chloride (Potassium Chloride) 20 Meq Tablet.er 20 Meq PO BID Acidophilus (Lactobacillus Acidophilus) 1 Each Capsule 1 Each PO BID Zaditor (Ketotifen Fumarate) 5 Ml Drops 1 Drop EACHEYE BID Hydrocortisone 453.6 Gm Cream..g. 1 Alem TP PRN BID PRN Miralax (Polyethylene Glycol 3350) 17 Gm Powd.pack 1 Packet PO PRN DAILY PRN Tylenol (Acetaminophen) 325 Mg Tablet 2 Tab PO PRN Q6HRS PRN Atorvastatin Calcium 20 Mg Tablet 20 Mg PO HS Norvasc (Amlodipine Besylate) 10 Mg Tablet 10 Mg PO DAILY Synthroid (Levothyroxine Sodium) 125 Mcg Tablet 125 Mcg PO DAILYAC Calcium + D3 Er Tablet (Calcium Carb & Cit/Vitamin D3) 1 Each Tablet.er 1 Each PO DAILY Vitals/I & O Vital Sign - Last 24 Hours 05/09/19 05/09/19 05/09/19 05/09/19 11:00 11:59 12:14 15:00 Temp 98.1 97.9 98.1 97.9 Pulse 72 72 66 Resp 20 20 B/P (MAP) 171/70 (103) 142/64 (90) 142/64 172/71 (104) Pulse Ox 98 98 O2 Delivery Room Air Room Air 05/09/19 05/09/19 05/09/19 05/09/19 17:42 19:15 20:11 23:30 Temp 98.6 98.9 98.6 98.9 Pulse 70 62 64 Resp 20 21 B/P (MAP) 156/70 165/76 (105) 173/71 (105) Pulse Ox 93 91 O2 Delivery Room Air Room Air Room Air 05/09/19 05/10/19 05/10/19 05/10/19 23:55 03:30 06:08 07:00 Temp 98.1 97.1 98.1 97.1 Pulse 63 63 59 Resp 20 18 B/P (MAP) 173/71 155/68 (97) 155/68 168/74 (105) Pulse Ox 92 94 O2 Delivery Room Air Room Air 05/10/19 08:09 Pulse 58 B/P (MAP) 168/74 Intake and Output 05/09/19 05/09/19 05/10/19 15:00 23:00 07:00 Intake Total 0 ml Output Total 650 ml 600 ml 700 ml Balance -650 ml -600 ml -700 ml DOUG ALBRIGHT MD May 10, 2019 09:11
[2019-05-10] MEDS: INSULIN GLARGINE SYRINGE. SQ SCH ×2 (09:52→21:25)
[2019-05-10 10:59] LABS: BASO % 0 % (0-3); EOS % 1 % (0-3); HEMATOCRIT 36.8 % (36.0-47.0); LYMPH % 16 % (24-48); MEAN CORPUSCULAR HEMOGLOBIN 29 pg (25-35); MEAN CORPUSCULAR HGB CONC 33 g/dL (31-37); MEAN CORPUSCULAR VOLUME 90 fL (79-100); MONO # 0.3 x10^3/uL (0.0-1.1); MONO % 6 % (0-9); NEUT # 4.8 x10^3/uL (1.8-7.7); NEUT % 77 % (31-73); PLATELET COUNT 191 x10^3/uL (140-400); RED BLOOD COUNT 4.08 x10^6/uL (3.50-5.40); RED CELL DISTRIBUTION WIDTH 13.6 % (11.5-14.5); WHITE BLOOD COUNT 6.2 x10^3/uL (4.0-11.0)
[2019-05-10 11:06] LABS: CALCIUM 9.3 mg/dL (8.5-10.1); CREATININE 0.8 mg/dL (0.6-1.0); GFR 68.5; POTASSIUM 3.5 mmol/L (3.5-5.1)
[2019-05-10 11:26] VITALS: BP 126/83
[2019-05-10] MEDS: ASPIRIN RECTAL 300 MG SUPP. PR PRN (12:23)
--- NOTE | 2019-05-10 13:24 | PDOC ---
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 Refuses to eat Plan Given improvement, hold off on lumbar puncture Observe over the weekend Retry swallow eval tomorrow Okay from me to discontinue telemetry Fully discussed with the patient's daughter. Subjective Says she is willing to eat Objective Vital Signs Date Time Temp Pulse Resp B/P (MAP) Pulse Ox O2 Delivery O2 Flow Rate FiO2 05/10/19 12:22 71 126/83 05/10/19 11:26 98.2 20 96 Room Air 98.2 Intake and Output 05/10/19 07:00 Intake Total 0 ml Output Total 1950 ml Balance -1950 ml Intake Oral 0 ml Output Urine Total 1850 ml Stool Total 100 ml PHYSICAL EXAM Alert. Follows commands, can tell me her name, poor naming, dysarthric PERRL. EOMI. CN: I still feel there is a subtle right central facial weakness Muscle tone: normal. Muscle strength: Moves both sides equally DTR: 0+ Plantar reflex: flexor Gait: not examined in bed. Sensory exam: no abnormal findings. No cerebellar signs elicited. Review of Relevant I have reviewed the following items leonel (where applicable) has been applied. Labs Laboratory Tests Test 05/08/19 16:39 05/09/19 20:45 05/10/19 07:37 05/10/19 10:35 Glucose (Fingerstick) 162 mg/dL (70-99) 207 mg/dL (70-99) 178 mg/dL (70-99) White Blood Count 6.2 x10^3/uL (4.0-11.0) Red Blood Count 4.08 x10^6/uL (3.50-5.40) Hemoglobin 12.0 g/dL (12.0-15.5) Hematocrit 36.8 % (36.0-47.0) Mean Corpuscular Volume 90 fL (79-100) Mean Corpuscular Hemoglobin 29 pg (25-35) Mean Corpuscular Hemoglobin Concent 33 g/dL (31-37) Red Cell Distribution Width 13.6 % (11.5-14.5) Platelet Count 191 x10^3/uL (140-400) Neutrophils (%) (Auto) 77 % (31-73) Lymphocytes (%) (Auto) 16 % (24-48) Monocytes (%) (Auto) 6 % (0-9) Eosinophils (%) (Auto) 1 % (0-3) Basophils (%) (Auto) 0 % (0-3) Neutrophils # (Auto) 4.8 x10^3/uL (1.8-7.7) Lymphocytes # (Auto) 1.0 x10^3/uL (1.0-4.8) Monocytes # (Auto) 0.3 x10^3/uL (0.0-1.1) Eosinophils # (Auto) 0.0 x10^3/uL (0.0-0.7) Basophils # (Auto) 0.0 x10^3/uL (0.0-0.2) Sodium Level 149 mmol/L (136-145) Potassium Level 3.5 mmol/L (3.5-5.1) Chloride Level 113 mmol/L (98-107) Carbon Dioxide Level 30 mmol/L (21-32) Anion Gap 6 (6-14) Blood Urea Nitrogen 25 mg/dL (7-20) Creatinine 0.8 mg/dL (0.6-1.0) Estimated GFR (Cockcroft-Gault) 68.5 Glucose Level 237 mg/dL (70-99) Calcium Level 9.3 mg/dL (8.5-10.1) Test 05/10/19 11:14 Glucose (Fingerstick) 213 mg/dL (70-99) Laboratory Tests Test 05/09/19 20:45 05/10/19 07:37 05/10/19 10:35 05/10/19 11:14 Glucose (Fingerstick) 207 mg/dL (70-99) 178 mg/dL (70-99) 213 mg/dL (70-99) White Blood Count 6.2 x10^3/uL (4.0-11.0) Red Blood Count 4.08 x10^6/uL (3.50-5.40) Hemoglobin 12.0 g/dL (12.0-15.5) Hematocrit 36.8 % (36.0-47.0) Mean Corpuscular Volume 90 fL (79-100) Mean Corpuscular Hemoglobin 29 pg (25-35) Mean Corpuscular Hemoglobin Concent 33 g/dL (31-37) Red Cell Distribution Width 13.6 % (11.5-14.5) Platelet Count 191 x10^3/uL (140-400) Neutrophils (%) (Auto) 77 % (31-73) Lymphocytes (%) (Auto) 16 % (24-48) Monocytes (%) (Auto) 6 % (0-9) Eosinophils (%) (Auto) 1 % (0-3) Basophils (%) (Auto) 0 % (0-3) Neutrophils # (Auto) 4.8 x10^3/uL (1.8-7.7) Lymphocytes # (Auto) 1.0 x10^3/uL (1.0-4.8) Monocytes # (Auto) 0.3 x10^3/uL (0.0-1.1) Eosinophils # (Auto) 0.0 x10^3/uL (0.0-0.7) Basophils # (Auto) 0.0 x10^3/uL (0.0-0.2) Sodium Level 149 mmol/L (136-145) Potassium Level 3.5 mmol/L (3.5-5.1) Chloride Level 113 mmol/L (98-107) Carbon Dioxide Level 30 mmol/L (21-32) Anion Gap 6 (6-14) Blood Urea Nitrogen 25 mg/dL (7-20) Creatinine 0.8 mg/dL (0.6-1.0) Estimated GFR (Cockcroft-Gault) 68.5 Glucose Level 237 mg/dL (70-99) Calcium Level 9.3 mg/dL (8.5-10.1) Medications Current Medications Al Hydroxide/Mg Hydroxide (Mylanta Plus Xs) 30 ml PRN DAILY PRN PO HEARTBURN / GAS; Start 05/07/19 at 20:15 Docusate Sodium (Colace) 100 mg PRN BID PRN PO HARD STOOLS; Start 05/07/19 at 20:15 Guaifenesin (Robitussin) 200 mg PRN Q4HRS PRN PO COUGH; Start 05/07/19 at 20:15 Sodium Chloride 1,000 ml @ 75 mls/hr [id number] IV Last administered on 05/07/19at 21:32; Start 05/07/19 at 21:00; Stop 05/08/19 at 08:41; Status DC Ketotifen Fumarate (Zaditor) 1 drop BID OU Last administered on 05/10/19at 08:08; Start 05/08/19 at 09:00 Levothyroxine Sodium 62.5 mcg/ Sodium Chloride 5 ml @ 75 mls/hr Q72H IVP ; Start 05/15/19 at 09:00; Stop 05/09/19 at 08:48; Status DC Metoprolol Tartrate (Lopressor Vial) 5 mg Q6HRS IVP Last administered on 05/10/19at 12:22; Start 05/08/19 at 00:00 Insulin Glargine (Lantus Syringe) 10 unit QHS SQ Last administered on 05/08/19at 21:44; Start 05/07/19 at 21:30; Stop 05/09/19 at 08:50; Status DC Insulin Human Lispro (HumaLOG) 0-7 UNITS TIDWMEALS SQ Last administered on 05/10/19at 12:14; Start 05/08/19 at 08:00 Dextrose (Dextrose 50%-Water Syringe) 12.5 gm PRN Q15MIN PRN IV SEE COMMENTS; Start 05/07/19 at 21:15; Stop 05/10/19 at 08:06; Status DC Dextrose (Iv Dextrose 5%) 250 ml PRN Q15MIN PRN IV SEE COMMENTS; Start 05/07/19 at 21:15; Stop 05/10/19 at 08:07; Status DC Heparin Sodium (Porcine) (Heparin Sodium) 5,000 unit Q8HRS SQ Last administered on 05/10/19at 06:12; Start 05/07/19 at 22:00 Labetalol HCl (Normodyne Iv Push) 10 mg PRN Q10MIN PRN IVP ELEVATED BP, 2ND CHOICE; Start 05/08/19 at 08:45 Acetaminophen (Tylenol) 650 mg PRN Q6HRS PRN PO TEMP > 100.4F; Start 05/08/19 at 08:45; Stop 05/09/19 at 08:47; Status DC Acetaminophen (Tylenol Supp) [address] TEMP > 100.4F; Start 05/08/19 at 08:45 Aspirin (Ecotrin) 325 mg DAILYWBKFT PO ; Start 05/09/19 at 10:00 Aspirin (Aspirin Rectal Supp) [address] IF UNABLE TO TAKE PO Last administered on 05/10/19at 12:23; Start 05/08/19 at 08:45 Amino Acids/ Glycerin/ Electrolytes 1,000 ml @ 80 mls/hr [id number] IV ; Start 05/08/19 at 08:45; Status UNV Amino Acids/ Electrolytes/ Dextrose 1,000 ml @ 80 mls/hr [id number] IV Last administered on 05/10/19at 12:08; Start 05/08/19 at 09:00 Acetaminophen (Tylenol) 650 mg PRN Q6HRS PRN PO MILD PAIN / TEMP; Start 05/09/19 at 08:45 Amlodipine Besylate (Norvasc) 10 mg DAILY PO ; Start 05/09/19 at 09:00 Ascorbic Acid (Vitamin C) 500 mg DAILY PO ; Start 05/09/19 at 09:00 Atorvastatin Calcium (Lipitor) 20 mg HS PO ; Start 05/09/19 at 21:00 Gabapentin (Neurontin) 300 mg TID PO ; Start 05/09/19 at 09:00 Insulin Human Lispro (HumaLOG) 5 units TIDWMEALS SQ Last administered on 05/10/19at 12:14; Start 05/09/19 at 09:00 Levothyroxine Sodium (Synthroid) 125 mcg DAILYAC PO ; Start 05/09/19 at 09:00 Polyethylene Glycol (miraLAX PACKET) 17 gm PRN DAILY PRN PO CONSTIPATION; Start 05/09/19 at 08:45 Potassium Chloride (Klor-Con) 20 meq BIDWMEALS PO ; Start 05/09/19 at 09:00 Tamsulosin HCl (Flomax) 0.8 mg DAILY PO ; Start 05/09/19 at 09:00 Betamethasone Dipropion Augmented (Betamethasone Dp Aug 0.05% Cream) 1 alem BID TP ; Start 05/09/19 at 09:00 Calcium/Vitamin D (Oscal D 500mg/ 200uts) 1 tab DAILY PO ; Start 05/09/19 at 09:00 Hydrocortisone (Cortaid) 1 alem PRN BID PRN TP ITCHING; Start 05/09/19 at 09:00 Insulin Glargine (Lantus Syringe) 20 unit BID SQ Last administered on 05/09/19at 21:12; Start 05/09/19 at 09:00; Stop 05/10/19 at 08:07; Status DC Lactobacillus Rhamnosus (Culturelle) 1 cap BID PO ; Start 05/09/19 at 09:00 Hydralazine HCl (Apresoline Inj) 25 mg PRN Q4HRS PRN IVP ELEVATED BP, 1ST CHOICE Last administered on 05/10/19at 08:09; Start 05/09/19 at 08:45 Insulin Glargine (Lantus Syringe) 12 unit BID SQ Last administered on 05/10/19at 09:52; Start 05/10/19 at 09:00 Dextrose (Dextrose 50%-Water Syringe) 12.5 gm PRN Q15MIN PRN IV SEE COMMENTS; Start 05/10/19 at 08:15 Dextrose (Iv Dextrose 5%) 250 ml PRN Q15MIN PRN IV SEE COMMENTS; Start 05/10/19 at 08:15 Active Scripts Active Reported Betamethasone Dipropionate 15 Gm Cream..g. 1 Alem TP BID Gabapentin 300 Mg Capsule 300 Mg PO TID Insulin Lispro 100 Unit/1 Ml Vial 5 Unit SQ TIDBFRMEAL Lantus Solostar (Insulin Glargine,Hum.rec.anlog) 100 Unit/1 Ml Insuln.pen 20 Unit SQ BID Glucose Gel (Dextrose) 38 Gm Gel..gram. 38 Gm PO PRN PRN Tamsulosin Hcl 0.4 Mg Cap.er.24h 0.8 Mg PO DAILY Ascorbic Acid 500 Mg Tablet 500 Mg PO DAILY Potassium Chloride (Potassium Chloride) 20 Meq Tablet.er 20 Meq PO BID Acidophilus (Lactobacillus Acidophilus) 1 Each Capsule 1 Each PO BID Zaditor (Ketotifen Fumarate) 5 Ml Drops 1 Drop EACHEYE BID Hydrocortisone 453.6 Gm Cream..g. 1 Alem TP PRN BID PRN Miralax (Polyethylene Glycol 3350) 17 Gm Powd.pack 1 Packet PO PRN DAILY PRN Tylenol (Acetaminophen) 325 Mg Tablet 2 Tab PO PRN Q6HRS PRN Atorvastatin Calcium 20 Mg Tablet 20 Mg PO HS Norvasc (Amlodipine Besylate) 10 Mg Tablet 10 Mg PO DAILY Synthroid (Levothyroxine Sodium) 125 Mcg Tablet 125 Mcg PO DAILYAC Calcium + D3 Er Tablet (Calcium Carb & Cit/Vitamin D3) 1 Each Tablet.er 1 Each PO DAILY Vitals/I & O Vital Sign - Last 24 Hours 05/09/19 05/09/19 05/09/19 05/09/19 15:00 17:42 19:15 20:11 Temp 97.9 98.6 97.9 98.6 Pulse 66 70 62 Resp 20 20 B/P (MAP) 172/71 (104) 156/70 165/76 (105) Pulse Ox 98 93 O2 Delivery Room Air Room Air Room Air 05/09/19 05/09/19 05/10/19 05/10/19 23:30 23:55 03:30 06:08 Temp 98.9 98.1 98.9 98.1 Pulse 64 63 63 Resp 21 20 B/P (MAP) 173/71 (105) 173/71 155/68 (97) 155/68 Pulse Ox 91 92 O2 Delivery Room Air Room Air 05/10/19 05/10/19 05/10/19 05/10/19 07:00 08:00 08:09 11:26 Temp 97.1 98.2 97.1 98.2 Pulse 59 58 71 Resp 18 20 B/P (MAP) 168/74 (105) 168/74 126/83 (97) Pulse Ox 94 96 O2 Delivery Room Air Room Air Room Air 05/10/19 12:22 Pulse 71 B/P (MAP) 126/83 Intake and Output 05/09/19 05/09/19 05/10/19 15:00 23:00 07:00 Intake Total 0 ml Output Total 650 ml 600 ml 700 ml Balance -650 ml -600 ml -700 ml JAYDEN SALDIVAR MD May 10, 2019 13:24
[2019-05-10 15:00] VITALS: BP 160/85
[2019-05-10 18:41] VITALS: BP 194/78
[2019-05-10] MEDS: ATORVASTATIN CALCIUM 20 MG TABLET PO SCH (21:00)
[2019-05-10 23:00] VITALS: BP 150/64
[2019-05-11] MEDS: METOPROLOL TARTRATE 5 MG/5 ML VIAL. IVP SCH ×3 (06:32→18:34)
[2019-05-11] MEDS: HEPARIN for SUB-Q USE 5,000 UNIT/ML VIAL. SQ SCH ×3 (06:36→20:50)
[2019-05-11 06:57] VITALS: BP 175/76
[2019-05-11] MEDS: LEVOTHYROXINE 125 MCG TABLET PO SCH (07:30)
[2019-05-11] MEDS: INSULIN LISPRO 300 UNITS/3 ML VIAL. SQ SCH ×6 (08:00→18:40)
[2019-05-11] MEDS: POTASSIUM CHLORIDE 20 MEQ TABLET.ER. PO SCH ×2 (08:00→17:00)
[2019-05-11] MEDS: ASPIRIN ENTERIC COATED 325 MG TABLET.DR. PO SCH (08:00)
--- NOTE | 2019-05-11 08:51 | PDOC ---
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 Refuses to eat, I do not know why, daughter asked me if that is part of encephalopathy and I told her that was not something I see with this condition. This may be some sort of psychological issue. Perhaps her mouth is sore from removing dentures in the emergency department, but she denies pain Plan Retry swallow eval Okay from me to discontinue telemetry Fully discussed with the patient's daughter Subjective Denies pain Objective Vital Signs Date Time Temp Pulse Resp B/P (MAP) Pulse Ox O2 Delivery O2 Flow Rate FiO2 05/11/19 06:57 97.4 62 20 175/76 (109) 96 Room Air 97.4 Intake and Output 05/11/19 07:00 Intake Total 0 ml Output Total 1400 ml Balance -1400 ml Intake Oral 0 ml Output Urine Total 1400 ml PHYSICAL EXAM Alert. Follows commands, can tell me her name, poor naming, dysarthric PERRL. EOMI. CN: I still feel there is a subtle right central facial weakness Muscle tone: normal. Muscle strength: Moves both sides equally DTR: 0+ Plantar reflex: flexor Gait: not examined in bed. Sensory exam: no abnormal findings. No cerebellar signs elicited. Review of Relevant I have reviewed the following items leonel (where applicable) has been applied. Labs Laboratory Tests Test 05/09/19 20:45 05/10/19 07:37 05/10/19 10:35 05/10/19 11:14 Glucose (Fingerstick) 207 mg/dL (70-99) 178 mg/dL (70-99) 213 mg/dL (70-99) White Blood Count 6.2 x10^3/uL (4.0-11.0) Red Blood Count 4.08 x10^6/uL (3.50-5.40) Hemoglobin 12.0 g/dL (12.0-15.5) Hematocrit 36.8 % (36.0-47.0) Mean Corpuscular Volume 90 fL (79-100) Mean Corpuscular Hemoglobin 29 pg (25-35) Mean Corpuscular Hemoglobin Concent 33 g/dL (31-37) Red Cell Distribution Width 13.6 % (11.5-14.5) Platelet Count 191 x10^3/uL (140-400) Neutrophils (%) (Auto) 77 % (31-73) Lymphocytes (%) (Auto) 16 % (24-48) Monocytes (%) (Auto) 6 % (0-9) Eosinophils (%) (Auto) 1 % (0-3) Basophils (%) (Auto) 0 % (0-3) Neutrophils # (Auto) 4.8 x10^3/uL (1.8-7.7) Lymphocytes # (Auto) 1.0 x10^3/uL (1.0-4.8) Monocytes # (Auto) 0.3 x10^3/uL (0.0-1.1) Eosinophils # (Auto) 0.0 x10^3/uL (0.0-0.7) Basophils # (Auto) 0.0 x10^3/uL (0.0-0.2) Sodium Level 149 mmol/L (136-145) Potassium Level 3.5 mmol/L (3.5-5.1) Chloride Level 113 mmol/L (98-107) Carbon Dioxide Level 30 mmol/L (21-32) Anion Gap 6 (6-14) Blood Urea Nitrogen 25 mg/dL (7-20) Creatinine 0.8 mg/dL (0.6-1.0) Estimated GFR (Cockcroft-Gault) 68.5 Glucose Level 237 mg/dL (70-99) Calcium Level 9.3 mg/dL (8.5-10.1) Test 05/10/19 16:31 05/10/19 21:23 05/11/19 07:03 Glucose (Fingerstick) 178 mg/dL (70-99) 156 mg/dL (70-99) 145 mg/dL (70-99) Laboratory Tests Test 05/10/19 10:35 05/10/19 11:14 05/10/19 16:31 05/10/19 21:23 White Blood Count 6.2 x10^3/uL (4.0-11.0) Red Blood Count 4.08 x10^6/uL (3.50-5.40) Hemoglobin 12.0 g/dL (12.0-15.5) Hematocrit 36.8 % (36.0-47.0) Mean Corpuscular Volume 90 fL (79-100) Mean Corpuscular Hemoglobin 29 pg (25-35) Mean Corpuscular Hemoglobin Concent 33 g/dL (31-37) Red Cell Distribution Width 13.6 % (11.5-14.5) Platelet Count 191 x10^3/uL (140-400) Neutrophils (%) (Auto) 77 % (31-73) Lymphocytes (%) (Auto) 16 % (24-48) Monocytes (%) (Auto) 6 % (0-9) Eosinophils (%) (Auto) 1 % (0-3) Basophils (%) (Auto) 0 % (0-3) Neutrophils # (Auto) 4.8 x10^3/uL (1.8-7.7) Lymphocytes # (Auto) 1.0 x10^3/uL (1.0-4.8) Monocytes # (Auto) 0.3 x10^3/uL (0.0-1.1) Eosinophils # (Auto) 0.0 x10^3/uL (0.0-0.7) Basophils # (Auto) 0.0 x10^3/uL (0.0-0.2) Sodium Level 149 mmol/L (136-145) Potassium Level 3.5 mmol/L (3.5-5.1) Chloride Level 113 mmol/L (98-107) Carbon Dioxide Level 30 mmol/L (21-32) Anion Gap 6 (6-14) Blood Urea Nitrogen 25 mg/dL (7-20) Creatinine 0.8 mg/dL (0.6-1.0) Estimated GFR (Cockcroft-Gault) 68.5 Glucose Level 237 mg/dL (70-99) Calcium Level 9.3 mg/dL (8.5-10.1) Glucose (Fingerstick) 213 mg/dL (70-99) 178 mg/dL (70-99) 156 mg/dL (70-99) Test 05/11/19 07:03 Glucose (Fingerstick) 145 mg/dL (70-99) Medications Current Medications Al Hydroxide/Mg Hydroxide (Mylanta Plus Xs) 30 ml PRN DAILY PRN PO HEARTBURN / GAS; Start 05/07/19 at 20:15 Docusate Sodium (Colace) 100 mg PRN BID PRN PO HARD STOOLS; Start 05/07/19 at 20:15 Guaifenesin (Robitussin) 200 mg PRN Q4HRS PRN PO COUGH; Start 05/07/19 at 20:15 Sodium Chloride 1,000 ml @ 75 mls/hr [id number] IV Last administered on 05/07/19at 21:32; Start 05/07/19 at 21:00; Stop 05/08/19 at 08:41; Status DC Ketotifen Fumarate (Zaditor) 1 drop BID OU Last administered on 05/10/19at 21:23; Start 05/08/19 at 09:00 Levothyroxine Sodium 62.5 mcg/ Sodium Chloride 5 ml @ 75 mls/hr Q72H IVP ; Start 05/15/19 at 09:00; Stop 05/09/19 at 08:48; Status DC Metoprolol Tartrate (Lopressor Vial) 5 mg Q6HRS IVP Last administered on 05/11/19at 06:32; Start 05/08/19 at 00:00 Insulin Glargine (Lantus Syringe) 10 unit QHS SQ Last administered on 05/08/19at 21:44; Start 05/07/19 at 21:30; Stop 05/09/19 at 08:50; Status DC Insulin Human Lispro (HumaLOG) 0-7 UNITS TIDWMEALS SQ Last administered on 05/10/19at 12:14; Start 05/08/19 at 08:00 Dextrose (Dextrose 50%-Water Syringe) 12.5 gm PRN Q15MIN PRN IV SEE COMMENTS; Start 05/07/19 at 21:15; Stop 05/10/19 at 08:06; Status DC Dextrose (Iv Dextrose 5%) 250 ml PRN Q15MIN PRN IV SEE COMMENTS; Start 05/07/19 at 21:15; Stop 05/10/19 at 08:07; Status DC Heparin Sodium (Porcine) (Heparin Sodium) 5,000 unit Q8HRS SQ Last administered on 05/11/19at 06:36; Start 05/07/19 at 22:00 Labetalol HCl (Normodyne Iv Push) 10 mg PRN Q10MIN PRN IVP ELEVATED BP, 2ND CHOICE; Start 05/08/19 at 08:45 Acetaminophen (Tylenol) 650 mg PRN Q6HRS PRN PO TEMP > 100.4F; Start 05/08/19 at 08:45; Stop 05/09/19 at 08:47; Status DC Acetaminophen (Tylenol Supp) 650 mg PRN Q4HRS PRN NV TEMP > 100.4F; Start 05/08/19 at 08:45 Aspirin (Ecotrin) 325 mg DAILYWBKFT PO ; Start 05/09/19 at 10:00 Aspirin (Aspirin Rectal Supp) 300 mg PRN DAILY PRN NV IF UNABLE TO TAKE PO Last administered on 05/10/19at 12:23; Start 05/08/19 at 08:45 Amino Acids/ Glycerin/ Electrolytes 1,000 ml @ 80 mls/hr [id number] IV ; Start 05/08/19 at 08:45; Status UNV Amino Acids/ Electrolytes/ Dextrose 1,000 ml @ 80 mls/hr [id number] IV Last administered on 05/10/19at 23:48; Start 05/08/19 at 09:00 Acetaminophen (Tylenol) 650 mg PRN Q6HRS PRN PO MILD PAIN / TEMP; Start 05/09/19 at 08:45 Amlodipine Besylate (Norvasc) 10 mg DAILY PO ; Start 05/09/19 at 09:00 Ascorbic Acid (Vitamin C) 500 mg DAILY PO ; Start 05/09/19 at 09:00 Atorvastatin Calcium (Lipitor) 20 mg HS PO ; Start 05/09/19 at 21:00 Gabapentin (Neurontin) 300 mg TID PO ; Start 05/09/19 at 09:00 Insulin Human Lispro (HumaLOG) 5 units TIDWMEALS SQ Last administered on 05/10/19at 17:37; Start 05/09/19 at 09:00 Levothyroxine Sodium (Synthroid) 125 mcg DAILYAC PO ; Start 05/09/19 at 09:00 Polyethylene Glycol (miraLAX PACKET) 17 gm PRN DAILY PRN PO CONSTIPATION; Start 05/09/19 at 08:45 Potassium Chloride (Klor-Con) 20 meq BIDWMEALS PO ; Start 05/09/19 at 09:00 Tamsulosin HCl (Flomax) 0.8 mg DAILY PO ; Start 05/09/19 at 09:00 Betamethasone Dipropion Augmented (Betamethasone Dp Aug 0.05% Cream) 1 alem BID TP ; Start 05/09/19 at 09:00 Calcium/Vitamin D (Oscal D 500mg/ 200uts) 1 tab DAILY PO ; Start 05/09/19 at 09:00 Hydrocortisone (Cortaid) 1 alem PRN BID PRN TP ITCHING; Start 05/09/19 at 09:00 Insulin Glargine (Lantus Syringe) 20 unit BID SQ Last administered on 05/09/19at 21:12; Start 05/09/19 at 09:00; Stop 05/10/19 at 08:07; Status DC Lactobacillus Rhamnosus (Culturelle) 1 cap BID PO ; Start 05/09/19 at 09:00 Hydralazine HCl (Apresoline Inj) 25 mg PRN Q4HRS PRN IVP ELEVATED BP, 1ST CHOICE Last administered on 05/10/19at 18:23; Start 05/09/19 at 08:45 Insulin Glargine (Lantus Syringe) 12 unit BID SQ Last administered on 05/10/19at 21:25; Start 05/10/19 at 09:00 Dextrose (Dextrose 50%-Water Syringe) 12.5 gm PRN Q15MIN PRN IV SEE COMMENTS; Start 05/10/19 at 08:15 Dextrose (Iv Dextrose 5%) 250 ml PRN Q15MIN PRN IV SEE COMMENTS; Start 05/10/19 at 08:15 Active Scripts Active Reported Betamethasone Dipropionate 15 Gm Cream..g. 1 Alem TP BID Gabapentin 300 Mg Capsule 300 Mg PO TID Insulin Lispro 100 Unit/1 Ml Vial 5 Unit SQ TIDBFRMEAL Lantus Solostar (Insulin Glargine,Hum.rec.anlog) 100 Unit/1 Ml Insuln.pen 20 Unit SQ BID Glucose Gel (Dextrose) 38 Gm Gel..gram. 38 Gm PO PRN PRN Tamsulosin Hcl 0.4 Mg Cap.er.24h 0.8 Mg PO DAILY Ascorbic Acid 500 Mg Tablet 500 Mg PO DAILY Potassium Chloride (Potassium Chloride) 20 Meq Tablet.er 20 Meq PO BID Acidophilus (Lactobacillus Acidophilus) 1 Each Capsule 1 Each PO BID Zaditor (Ketotifen Fumarate) 5 Ml Drops 1 Drop EACHEYE BID Hydrocortisone 453.6 Gm Cream..g. 1 Alem TP PRN BID PRN Miralax (Polyethylene Glycol 3350) 17 Gm Powd.pack 1 Packet PO PRN DAILY PRN Tylenol (Acetaminophen) 325 Mg Tablet 2 Tab PO PRN Q6HRS PRN Atorvastatin Calcium 20 Mg Tablet 20 Mg PO HS Norvasc (Amlodipine Besylate) 10 Mg Tablet 10 Mg PO DAILY Synthroid (Levothyroxine Sodium) 125 Mcg Tablet 125 Mcg PO DAILYAC Calcium + D3 Er Tablet (Calcium Carb & Cit/Vitamin D3) 1 Each Tablet.er 1 Each PO DAILY Vitals/I & O Vital Sign - Last 24 Hours 05/10/19 05/10/19 05/10/19 05/10/19 11:26 12:22 15:00 18:00 Temp 98.2 98.4 98.2 98.4 Pulse 71 71 64 57 Resp 20 B/P (MAP) 126/83 (97) 126/83 160/85 (110) Pulse Ox 96 96 O2 Delivery Room Air Room Air 05/10/19 05/10/19 05/10/19 05/10/19 18:23 18:41 19:55 23:00 Temp 97.6 97.3 97.6 97.3 Pulse 57 64 77 Resp 20 20 B/P (MAP) 194/78 194/78 (116) 150/64 (92) Pulse Ox 97 97 O2 Delivery Room Air Room Air Room Air 05/10/19 05/11/19 05/11/19 05/11/19 23:48 03:15 06:32 06:57 Temp 97.4 97.4 Pulse 77 67 65 62 Resp 20 B/P (MAP) 150/64 175/76 (109) Pulse Ox 96 O2 Delivery Room Air Intake and Output 05/10/19 05/10/19 05/11/19 15:00 23:00 07:00 Intake Total 0 ml 0 ml 0 ml Output Total 650 ml 750 ml Balance 0 ml -650 ml -750 ml JAYDEN SALDIVAR MD May 11, 2019 08:51
[2019-05-11] MEDS: KETOTIFEN FUMARATE 0.025% OPHTH SOLUTION BOTTLE. OU SCH ×2 (09:00→20:49)
[2019-05-11] MEDS: CALCIUM CARB/VIT D3 500/200 TABLET. PO SCH (09:00)
[2019-05-11] MEDS: LACTOBACILLUS RHAMNOSUS GG 1 CAPSULE. PO SCH ×2 (09:00→21:00)
[2019-05-11] MEDS: TAMSULOSIN 0.4 MG CAP.ER.24H. PO SCH (09:00)
[2019-05-11] MEDS: GABAPENTIN 300 MG CAPSULE. PO SCH ×3 (09:00→21:00)
[2019-05-11] MEDS: amLODIPine BESYLATE 10 MG TABLET PO SCH (09:00)
[2019-05-11] MEDS: BETAMETHASONE DP AUGMENTED 0.05% 15gm CREAM TUBE. TP SCH ×2 (09:00→21:00)
[2019-05-11] MEDS: ASCORBIC ACID 500 MG TABLET PO SCH (09:00)
[2019-05-11 09:01] LABS: BASO # 0.1 x10^3/uL (0.0-0.2); BASO % 1 % (0-3); EOS # 0.1 x10^3/uL (0.0-0.7); EOS % 1 % (0-3); HEMATOCRIT 36.7 % (36.0-47.0); LYMPH # 1.1 x10^3/uL (1.0-4.8); LYMPH % 18 % (24-48); MEAN CORPUSCULAR HEMOGLOBIN 29 pg (25-35); MEAN CORPUSCULAR HGB CONC 33 g/dL (31-37); MEAN CORPUSCULAR VOLUME 89 fL (79-100); MONO # 0.4 x10^3/uL (0.0-1.1); MONO % 6 % (0-9); NEUT # 4.4 x10^3/uL (1.8-7.7); NEUT % 74 % (31-73); PLATELET COUNT 182 x10^3/uL (140-400); RED CELL DISTRIBUTION WIDTH 13.4 % (11.5-14.5)
[2019-05-11 09:08] LABS: CALCIUM 9.6 mg/dL (8.5-10.1); CREATININE 0.7 mg/dL (0.6-1.0); GFR 79.9; POTASSIUM 3.7 mmol/L (3.5-5.1)
[2019-05-11 10:11] VITALS: BP 182/80
--- NOTE | 2019-05-11 11:58 | NUR ---
SS following up with discharge planning. PT/OT recommended fdc unit. SS met with pt and pt's daughter in room to discuss fdc unit and discharge planning. Per pt's daughter, pt now refusing to eat and is on full liquid nutrition through IV. Pt's daughter reported that pt has had previous stay at [facility], ; fax [phone], and would like pt to transfer to [facility]. SS phoned and faxed referral to [facility]. SS will await acceptance decision and will proceed accordingly.
[2019-05-11 14:14] VITALS: BP 141/68
[2019-05-11] MEDS: INSULIN GLARGINE SYRINGE. SQ SCH ×2 (15:00→20:48)
[2019-05-11] MEDS: AA 4.25 %/CALCIUM/LYTES/D5W 1,000 ML IV SCH (15:14)
--- NOTE | 2019-05-11 16:16 | PDOC ---
[employer] PROGRESS NOTE Chief Complaint Chief Complaint Metabolic Encephalopathy no evidence of acute event on MRI Hypernatremia secondary to poor oral intake, patient currently on PPN may need to increase water content. HTN HLD DM Hypothyroidism Peripheral Neuropathy Bowel Obstruction s/p colon resection with ostomy pouch History of Present Illness History of Present Illness Patient seen and examined alongside her daughter. Discussed with RN Chart reviewed No acute events reported overnight, no new neurological deficits reported. Vitals/I&O Vitals/I&O: Vital Signs Date Time Temp Pulse Resp B/P (MAP) Pulse Ox O2 Delivery O2 Flow Rate FiO2 05/11/19 15:13 75 141/68 05/11/19 14:14 97.7 20 97 Room Air 97.7 I & O 05/10/19 05/10/19 05/11/19 15:00 23:00 07:00 Intake Total 0 ml 0 ml 0 ml Output Total 650 ml 750 ml Balance 0 ml -650 ml -750 ml Physical Exam General: Alert, No acute distress Heart: Regular rate, Normal S1, Normal S2 Lungs: Clear Abdomen: Normal bowel sounds, Soft, No tenderness Extremities: No clubbing, No cyanosis Skin: No rashes, No breakdown Labs Labs: Laboratory Tests Test 05/10/19 16:31 05/10/19 21:23 05/11/19 07:03 05/11/19 08:55 Glucose (Fingerstick) 178 mg/dL (70-99) 156 mg/dL (70-99) 145 mg/dL (70-99) White Blood Count 6.0 x10^3/uL (4.0-11.0) Red Blood Count 4.10 x10^6/uL (3.50-5.40) Hemoglobin 12.0 g/dL (12.0-15.5) Hematocrit 36.7 % (36.0-47.0) Mean Corpuscular Volume 89 fL (79-100) Mean Corpuscular Hemoglobin 29 pg (25-35) Mean Corpuscular Hemoglobin Concent 33 g/dL (31-37) Red Cell Distribution Width 13.4 % (11.5-14.5) Platelet Count 182 x10^3/uL (140-400) Neutrophils (%) (Auto) 74 % (31-73) Lymphocytes (%) (Auto) 18 % (24-48) Monocytes (%) (Auto) 6 % (0-9) Eosinophils (%) (Auto) 1 % (0-3) Basophils (%) (Auto) 1 % (0-3) Neutrophils # (Auto) 4.4 x10^3/uL (1.8-7.7) Lymphocytes # (Auto) 1.1 x10^3/uL (1.0-4.8) Monocytes # (Auto) 0.4 x10^3/uL (0.0-1.1) Eosinophils # (Auto) 0.1 x10^3/uL (0.0-0.7) Basophils # (Auto) 0.1 x10^3/uL (0.0-0.2) Sodium Level 148 mmol/L (136-145) Potassium Level 3.7 mmol/L (3.5-5.1) Chloride Level 113 mmol/L (98-107) Carbon Dioxide Level 30 mmol/L (21-32) Anion Gap 5 (6-14) Blood Urea Nitrogen 25 mg/dL (7-20) Creatinine 0.7 mg/dL (0.6-1.0) Estimated GFR (Cockcroft-Gault) 79.9 Glucose Level 169 mg/dL (70-99) Calcium Level 9.6 mg/dL (8.5-10.1) Test 05/11/19 11:11 05/11/19 15:27 Glucose (Fingerstick) 177 mg/dL (70-99) 195 mg/dL (70-99) Review of Systems Review of Systems: pt unable to communicate Assessment and Plan Assessmemt and Plan ASSESSMENT Metabolic Encephalopathy no evidence of acute event on MRI Hypernatremia scondary to poor oral intake, patient currently on TPN may need to increase water content. HTN HLD DM Hypothyroidism Peripheral Neuropathy Bowel Obstruction s/p colon resection with ostomy pouch PLAN -Continue PPN -Encourage PO intake -Consult PT/OT -Renew Stover at bedside dvt ppx: heparin Code status changed to DNR per daughter Disposition: SNF when arranged by CM Comment Review of Relevant I have reviewed the following items leonel (where applicable) has been applied. MARTHA GOOD III, DO May 11, 2019 16:16
[2019-05-11 19:40] VITALS: BP 147/70
[2019-05-11] MEDS: ATORVASTATIN CALCIUM 20 MG TABLET PO SCH (21:00)
[2019-05-11 22:53] VITALS: BP 147/65
[2019-05-12] MEDS: METOPROLOL TARTRATE 5 MG/5 ML VIAL. IVP SCH ×3 (00:17→12:24)
[2019-05-12 03:36] VITALS: BP 151/72
[2019-05-12] MEDS: AA 4.25 %/CALCIUM/LYTES/D5W 1,000 ML IV SCH ×2 (05:13→13:00)
[2019-05-12] MEDS: HEPARIN for SUB-Q USE 5,000 UNIT/ML VIAL. SQ SCH (06:13)
[2019-05-12 07:05] VITALS: BP_SYST 155; BP_SYST 189; BP_DIAS 72; BP_DIAS 83
[2019-05-12] MEDS: LEVOTHYROXINE 125 MCG TABLET PO SCH (07:30)
[2019-05-12] MEDS: POTASSIUM CHLORIDE 20 MEQ TABLET.ER. PO SCH (07:57)
[2019-05-12] MEDS: LACTOBACILLUS RHAMNOSUS GG 1 CAPSULE. PO SCH (07:57)
[2019-05-12] MEDS: ASPIRIN ENTERIC COATED 325 MG TABLET.DR. PO SCH (07:57)
[2019-05-12] MEDS: TAMSULOSIN 0.4 MG CAP.ER.24H. PO SCH (07:58)
[2019-05-12] MEDS: amLODIPine BESYLATE 10 MG TABLET PO SCH (07:58)
[2019-05-12] MEDS: GABAPENTIN 300 MG CAPSULE. PO SCH ×2 (07:58→13:21)
[2019-05-12] MEDS: CALCIUM CARB/VIT D3 500/200 TABLET. PO SCH (07:58)
[2019-05-12] MEDS: ASCORBIC ACID 500 MG TABLET PO SCH (07:58)
[2019-05-12] MEDS: INSULIN LISPRO 300 UNITS/3 ML VIAL. SQ SCH ×4 (08:00→12:00)
[2019-05-12] MEDS: BETAMETHASONE DP AUGMENTED 0.05% 15gm CREAM TUBE. TP SCH (09:00)
[2019-05-12] MEDS: INSULIN GLARGINE SYRINGE. SQ SCH (09:10)
[2019-05-12] MEDS: KETOTIFEN FUMARATE 0.025% OPHTH SOLUTION BOTTLE. OU SCH (09:11)
[2019-05-12 10:06] VITALS: BP_SYST 179; BP_SYST 279; BP_DIAS 81
--- NOTE | 2019-05-12 10:14 | PDOC ---
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 Refuses to eat, Perioral pain Plan Check x-rays Retry swallow eval Okay from me to discontinue telemetry Fully discussed with the patient's daughter Subjective No complaints Objective Vital Signs Date Time Temp Pulse Resp B/P (MAP) Pulse Ox O2 Delivery O2 Flow Rate FiO2 05/12/19 10:06 97.9 56 14 179/81 (113) 98 Room Air 97.9 Intake and Output 05/12/19 07:00 Intake Total 0 ml Output Total 1475 ml Balance -1475 ml Intake Oral 0 ml Output Urine Total 1350 ml Stool Total 125 ml PHYSICAL EXAM Alert. Follows commands, can tell me her name, poor naming, dysarthric Diffuse tenderness, mandible and maxilla PERRL. EOMI. CN: I still feel there is a subtle right central facial weakness Muscle tone: normal. Muscle strength: Moves both sides equally DTR: 0+ Plantar reflex: flexor Gait: not examined in bed. Sensory exam: no abnormal findings. No cerebellar signs elicited. Review of Relevant I have reviewed the following items leonel (where applicable) has been applied. Labs Laboratory Tests Test 05/10/19 10:35 05/10/19 11:14 05/10/19 16:31 05/10/19 21:23 White Blood Count 6.2 x10^3/uL (4.0-11.0) Red Blood Count 4.08 x10^6/uL (3.50-5.40) Hemoglobin 12.0 g/dL (12.0-15.5) Hematocrit 36.8 % (36.0-47.0) Mean Corpuscular Volume 90 fL (79-100) Mean Corpuscular Hemoglobin 29 pg (25-35) Mean Corpuscular Hemoglobin Concent 33 g/dL (31-37) Red Cell Distribution Width 13.6 % (11.5-14.5) Platelet Count 191 x10^3/uL (140-400) Neutrophils (%) (Auto) 77 % (31-73) Lymphocytes (%) (Auto) 16 % (24-48) Monocytes (%) (Auto) 6 % (0-9) Eosinophils (%) (Auto) 1 % (0-3) Basophils (%) (Auto) 0 % (0-3) Neutrophils # (Auto) 4.8 x10^3/uL (1.8-7.7) Lymphocytes # (Auto) 1.0 x10^3/uL (1.0-4.8) Monocytes # (Auto) 0.3 x10^3/uL (0.0-1.1) Eosinophils # (Auto) 0.0 x10^3/uL (0.0-0.7) Basophils # (Auto) 0.0 x10^3/uL (0.0-0.2) Sodium Level 149 mmol/L (136-145) Potassium Level 3.5 mmol/L (3.5-5.1) Chloride Level 113 mmol/L (98-107) Carbon Dioxide Level 30 mmol/L (21-32) Anion Gap 6 (6-14) Blood Urea Nitrogen 25 mg/dL (7-20) Creatinine 0.8 mg/dL (0.6-1.0) Estimated GFR (Cockcroft-Gault) 68.5 Glucose Level 237 mg/dL (70-99) Calcium Level 9.3 mg/dL (8.5-10.1) Glucose (Fingerstick) 213 mg/dL (70-99) 178 mg/dL (70-99) 156 mg/dL (70-99) Test 05/11/19 07:03 05/11/19 08:55 05/11/19 11:11 05/11/19 15:27 Glucose (Fingerstick) 145 mg/dL (70-99) 177 mg/dL (70-99) 195 mg/dL (70-99) White Blood Count 6.0 x10^3/uL (4.0-11.0) Red Blood Count 4.10 x10^6/uL (3.50-5.40) Hemoglobin 12.0 g/dL (12.0-15.5) Hematocrit 36.7 % (36.0-47.0) Mean Corpuscular Volume 89 fL (79-100) Mean Corpuscular Hemoglobin 29 pg (25-35) Mean Corpuscular Hemoglobin Concent 33 g/dL (31-37) Red Cell Distribution Width 13.4 % (11.5-14.5) Platelet Count 182 x10^3/uL (140-400) Neutrophils (%) (Auto) 74 % (31-73) Lymphocytes (%) (Auto) 18 % (24-48) Monocytes (%) (Auto) 6 % (0-9) Eosinophils (%) (Auto) 1 % (0-3) Basophils (%) (Auto) 1 % (0-3) Neutrophils # (Auto) 4.4 x10^3/uL (1.8-7.7) Lymphocytes # (Auto) 1.1 x10^3/uL (1.0-4.8) Monocytes # (Auto) 0.4 x10^3/uL (0.0-1.1) Eosinophils # (Auto) 0.1 x10^3/uL (0.0-0.7) Basophils # (Auto) 0.1 x10^3/uL (0.0-0.2) Sodium Level 148 mmol/L (136-145) Potassium Level 3.7 mmol/L (3.5-5.1) Chloride Level 113 mmol/L (98-107) Carbon Dioxide Level 30 mmol/L (21-32) Anion Gap 5 (6-14) Blood Urea Nitrogen 25 mg/dL (7-20) Creatinine 0.7 mg/dL (0.6-1.0) Estimated GFR (Cockcroft-Gault) 79.9 Glucose Level 169 mg/dL (70-99) Calcium Level 9.6 mg/dL (8.5-10.1) Test 05/11/19 16:36 05/11/19 20:30 05/12/19 07:10 Glucose (Fingerstick) 220 mg/dL (70-99) 192 mg/dL (70-99) 145 mg/dL (70-99) Laboratory Tests Test 05/11/19 11:11 05/11/19 15:27 05/11/19 16:36 05/11/19 20:30 Glucose (Fingerstick) 177 mg/dL (70-99) 195 mg/dL (70-99) 220 mg/dL (70-99) 192 mg/dL (70-99) Test 05/12/19 07:10 Glucose (Fingerstick) 145 mg/dL (70-99) Medications Current Medications Al Hydroxide/Mg Hydroxide (Mylanta Plus Xs) 30 ml PRN DAILY PRN PO HEARTBURN / GAS; Start 05/07/19 at 20:15 Docusate Sodium (Colace) 100 mg PRN BID PRN PO HARD STOOLS; Start 05/07/19 at 20:15 Guaifenesin (Robitussin) 200 mg PRN Q4HRS PRN PO COUGH; Start 05/07/19 at 20:15 Sodium Chloride 1,000 ml @ 75 mls/hr [id number] IV Last administered on 05/07/19at 21:32; Start 05/07/19 at 21:00; Stop 05/08/19 at 08:41; Status DC Ketotifen Fumarate (Zaditor) 1 drop BID OU Last administered on 05/12/19at 09:11; Start 05/08/19 at 09:00 Levothyroxine Sodium 62.5 mcg/ Sodium Chloride 5 ml @ 75 mls/hr Q72H IVP ; Start 05/15/19 at 09:00; Stop 05/09/19 at 08:48; Status DC Metoprolol Tartrate (Lopressor Vial) 5 mg Q6HRS IVP Last administered on 05/12/19at 05:13; Start 05/08/19 at 00:00 Insulin Glargine (Lantus Syringe) 10 unit QHS SQ Last administered on 05/08/19at 21:44; Start 05/07/19 at 21:30; Stop 05/09/19 at 08:50; Status DC Insulin Human Lispro (HumaLOG) 0-7 UNITS TIDWMEALS SQ Last administered on 05/10/19at 12:14; Start 05/08/19 at 08:00 Dextrose (Dextrose 50%-Water Syringe) 12.5 gm PRN Q15MIN PRN IV SEE COMMENTS; Start 05/07/19 at 21:15; Stop 05/10/19 at 08:06; Status DC Dextrose (Iv Dextrose 5%) 250 ml PRN Q15MIN PRN IV SEE COMMENTS; Start 05/07/19 at 21:15; Stop 05/10/19 at 08:07; Status DC Heparin Sodium (Porcine) (Heparin Sodium) 5,000 unit Q8HRS SQ Last administered on 05/12/19at 06:13; Start 05/07/19 at 22:00 Labetalol HCl (Normodyne Iv Push) 10 mg PRN Q10MIN PRN IVP ELEVATED BP, 2ND CHOICE; Start 05/08/19 at 08:45 Acetaminophen (Tylenol) 650 mg PRN Q6HRS PRN PO TEMP > 100.4F; Start 05/08/19 at 08:45; Stop 05/09/19 at 08:47; Status DC Acetaminophen (Tylenol Supp) 650 mg PRN Q4HRS PRN MT TEMP > 100.4F; Start 05/08/19 at 08:45 Aspirin (Ecotrin) 325 mg DAILYWBKFT PO ; Start 05/09/19 at 10:00 Aspirin (Aspirin Rectal Supp) 300 mg PRN DAILY PRN MT IF UNABLE TO TAKE PO Last administered on 05/10/19at 12:23; Start 05/08/19 at 08:45 Amino Acids/ Glycerin/ Electrolytes 1,000 ml @ 80 mls/hr [id number] IV ; Start 05/08/19 at 08:45; Status UNV Amino Acids/ Electrolytes/ Dextrose 1,000 ml @ 80 mls/hr [id number] IV Last adm inistered on 05/12/19at 05:13; Start 05/08/19 at 09:00 Acetaminophen (Tylenol) 650 mg PRN Q6HRS PRN PO MILD PAIN / TEMP; Start 05/09/19 at 08:45 Amlodipine Besylate (Norvasc) 10 mg DAILY PO ; Start 05/09/19 at 09:00 Ascorbic Acid (Vitamin C) 500 mg DAILY PO ; Start 05/09/19 at 09:00 Atorvastatin Calcium (Lipitor) 20 mg HS PO ; Start 05/09/19 at 21:00 Gabapentin (Neurontin) 300 mg TID PO ; Start 05/09/19 at 09:00 Insulin Human Lispro (HumaLOG) 5 units TIDWMEALS SQ Last administered on 05/12/19at 09:11; Start 05/09/19 at 09:00 Levothyroxine Sodium (Synthroid) 125 mcg DAILYAC PO ; Start 05/09/19 at 09:00 Polyethylene Glycol (miraLAX PACKET) 17 gm PRN DAILY PRN PO CONSTIPATION; Start 05/09/19 at 08:45 Potassium Chloride (Klor-Con) 20 meq BIDWMEALS PO ; Start 05/09/19 at 09:00 Tamsulosin HCl (Flomax) 0.8 mg DAILY PO ; Start 05/09/19 at 09:00 Betamethasone Dipropion Augmented (Betamethasone Dp Aug 0.05% Cream) 1 alem BID TP ; Start 05/09/19 at 09:00 Calcium/Vitamin D (Oscal D 500mg/ 200uts) 1 tab DAILY PO ; Start 05/09/19 at 09 :00 Hydrocortisone (Cortaid) 1 alem PRN BID PRN TP ITCHING; Start 05/09/19 at 09:00 Insulin Glargine (Lantus Syringe) 20 unit BID SQ Last administered on 05/09/19at 21:12; Start 05/09/19 at 09:00; Stop 05/10/19 at 08:07; Status DC Lactobacillus Rhamnosus (Culturelle) 1 cap BID PO ; Start 05/09/19 at 09:00 Hydralazine HCl (Apresoline Inj) 25 mg PRN Q4HRS PRN IVP ELEVATED BP, 1ST CHOICE Last administered on 05/10/19at 18:23; Start 05/09/19 at 08:45 Insulin Glargine (Lantus Syringe) 12 unit BID SQ Last administered on 05/12/19at 09:10; Start 05/10/19 at 09:00 Dextrose (Dextrose 50%-Water Syringe) 12.5 gm PRN Q15MIN PRN IV SEE COMMENTS; Start 05/10/19 at 08:15 Dextrose (Iv Dextrose 5%) 250 ml PRN Q15MIN PRN IV SEE COMMENTS; Start 05/10/19 at 08:15 Active Scripts Active Reported Betamethasone Dipropionate 15 Gm Cream..g. 1 Alem TP BID Gabapentin 300 Mg Capsule 300 Mg PO TID Insulin Lispro 100 Unit/1 Ml Vial 5 Unit SQ TIDBFRMEAL Lantus Solostar (Insulin Glargine,Hum.rec.anlog) 100 Unit/1 Ml Insuln.pen 20 Unit SQ BID Glucose Gel (Dextrose) 38 Gm Gel..gram. 38 Gm PO PRN PRN Tamsulosin Hcl 0.4 Mg Cap.er.24h 0.8 Mg PO DAILY Ascorbic Acid 500 Mg Tablet 500 Mg PO DAILY Potassium Chloride (Potassium Chloride) 20 Meq Tablet.er 20 Meq PO BID Acidophilus (Lactobacillus Acidophilus) 1 Each Capsule 1 Each PO BID Zaditor (Ketotifen Fumarate) 5 Ml Drops 1 Drop EACHEYE BID Hydrocortisone 453.6 Gm Cream..g. 1 Alem TP PRN BID PRN Miralax (Polyethylene Glycol 3350) 17 Gm Powd.pack 1 Packet PO PRN DAILY PRN Tylenol (Acetaminophen) 325 Mg Tablet 2 Tab PO PRN Q6HRS PRN Atorvastatin Calcium 20 Mg Tablet 20 Mg PO HS Norvasc (Amlodipine Besylate) 10 Mg Tablet 10 Mg PO DAILY Synthroid (Levothyroxine Sodium) 125 Mcg Tablet 125 Mcg PO DAILYAC Calcium + D3 Er Tablet (Calcium Carb & Cit/Vitamin D3) 1 Each Tablet.er 1 Each PO DAILY Vitals/I & O Vital Sign - Last 24 Hours 05/11/19 05/11/19 05/11/19 05/11/19 14:14 15:13 18:34 19:40 Temp 97.7 98.6 97.7 98.6 Pulse 69 75 65 61 Resp 20 16 B/P (MAP) 141/68 (92) 141/68 177/82 147/70 (95) Pulse Ox 97 99 O2 Delivery Room Air Room Air 05/11/19 05/11/19 05/11/19 05/12/19 20:00 21:14 22:53 00:17 Temp 98.1 98.1 Pulse 63 63 Resp 16 B/P (MAP) 147/65 (92) 147/65 Pulse Ox 97 O2 Delivery Room Air Room Air Room Air 05/12/19 05/12/19 05/12/19 05/12/19 03:36 05:13 07:05 10:06 Temp 98.1 97.7 97.9 98.1 97.7 97.9 Pulse 62 62 55 56 Resp 14 14 14 B/P (MAP) 151/72 (98) 151/72 155/72 (99) 179/81 (113) Pulse Ox 96 98 98 O2 Delivery Room Air Room Air Room Air Intake and Output 05/11/19 05/11/19 05/12/19 15:00 23:00 07:00 Intake Total 0 ml 0 ml 0 ml Output Total 750 ml 725 ml Balance 0 ml -750 ml -725 ml JAYDEN SALDIVAR MD May 12, 2019 10:14
--- NOTE | 2019-05-12 10:24 | RAD ---
4 view study of the mandible Clinical indications: Jaw pain. FINDINGS: No acute fracture or lytic process is seen. No dislocation of either TMJ is seen. IMPRESSION: No acute osseous abnormality. Electronically signed by: Zack Garcia MD (05/12/2019 10:21 AM) [facility]
--- NOTE | 2019-05-12 11:34 | NUR ---
SS following up with discharge planning. Pt accepted at [facility], ; fax [phone]. Discharge order received for [facility]. Pt will discharge today and go to [facility] at 1230 via [facility] ambulance, . SS phoned and faxed discharge orders to [facility]. Pt, pt's RN, and pt's daughter notified.
--- NOTE | 2019-05-12 11:48 | SNU/HH DC ---
DISCHARGE ORDERS DISCHARGE INFORMATION: CONDITION ON DISCHARGE: Stable CODE STATUS: Code Status: Full LONG TERM: SNF STAY <30 DAYS: No HOSPICE: HOSPICE: No HOSPICE EVAL & TREAT: No LTAC: ADMIT TO LTAC: Yes POST DISCHARGE ORDERS: ACTIVITY ORDERS: Activity as tolerated WEIGHT BEARING STATUS: As tolerated BATHING ORDERS: No Tub Bath until see Dr. GERMAN AFTER DISCHARGE: RUSS WOUND/INCISION CARE: Change dressing CHECKS AFTER DISCHARGE: CHECKS AFTER DISCHARGE: Check blood sugar, ac/hs TREATMENT/EQUIPMENT ORDERS: RESPIRATORY EQUIPMENT NEEDED: Oxygen, Nebulizer Physical Therapy For: Evalulation/Treatment Occupational Therapy For: Evaluation/Treatment DISCHARGE MEDICATIONS: Home Meds Reported Medications Betamethasone Dipropionate (BETAMETHASONE DIPROPIONATE) 15 Gm Cream..g., 1 CELINE TP BID for , #15 GM 3 Refills 05/07/19 Gabapentin (GABAPENTIN) 300 Mg Capsule, 300 MG PO TID for NEUROGENIC PAIN, CAP 05/07/19 Insulin Lispro (Insulin Lispro) 100 Unit/1 Ml Vial, 5 UNIT SQ TIDBFRMEAL for , EACH 05/07/19 Insulin Glargine,Hum.rec.anlog (LANTUS SOLOSTAR) 100 Unit/1 Ml Insuln.pen, 20 UNIT SQ BID for , #15 ML 5 Refills 05/07/19 Dextrose (GLUCOSE GEL) 38 Gm Gel..gram., 38 GM PO PRN PRN for SEE COMMENTS, EACH 02/24/18 Tamsulosin Hcl (TAMSULOSIN HCL) 0.4 Mg Cap.er.24h, 0.8 MG PO DAILY for overactive bladder, TAB 02/24/18 Ascorbic Acid (ASCORBIC ACID) 500 Mg Tablet, 500 MG PO DAILY for supplement, TAB 02/24/18 Potassium Chloride (POTASSIUM CHLORIDE ) 20 Meq Tablet.er, 20 MEQ PO BID for supplement, TAB.SR 02/24/18 Lactobacillus Acidophilus (ACIDOPHILUS) 1 Each Capsule, 1 EACH PO BID for supplement, CAP 02/24/18 Ketotifen Fumarate (ZADITOR) 5 Ml Drops, 1 DROP EACHEYE BID for allergies, #5 ML 3 Refills 02/24/18 Hydrocortisone (HYDROCORTISONE) 453.6 Gm Cream..g., 1 CELINE TP PRN BID PRN for ITCHING, #30 GM 02/24/18 Polyethylene Glycol 3350 (MIRALAX) 17 Gm Powd.pack, 1 PACKET PO PRN DAILY PRN for CONSTIPATION, #2 PACKET 02/24/18 Acetaminophen (TYLENOL) 325 Mg Tablet, 2 TAB PO PRN Q6HRS PRN for MILD PAIN / TEMP, #30 TAB 02/24/18 Atorvastatin Calcium (ATORVASTATIN CALCIUM) 20 Mg Tablet, 20 MG PO HS for FOR CHOLESTEROL, #30 TAB 0 Refills 02/24/18 Amlodipine Besylate (NORVASC) 10 Mg Tablet, 10 MG PO DAILY, TAB 01/12/18 Levothyroxine Sodium (SYNTHROID) 125 Mcg Tablet, 125 MCG PO DAILYAC for THYROID SUPPLEMENT, #30 TAB 0 Refills 01/12/18 Calcium Carb & Cit/Vitamin D3 (CALCIUM + D3 ER TABLET) 1 Each Tablet.er, 1 EACH PO DAILY, TAB.SR 01/12/18 Discontinued Reported Medications Bupropion Hcl (WELLBUTRIN SR) 100 Mg Tablet.er, 75 MG PO DAILY for depression, TAB.SR 02/24/18 MARTHA GOOD III DO May 12, 2019 11:48
--- NOTE | 2019-05-12 12:00 | NUR ---
Report called to Rachell at [facility], patient scheduled to be picked up at 1230 by [facility]. 20g IV in right hand, and 16 Syri[address] Stover leaving with patient.
--- NOTE | 2019-05-12 12:07 | PDOC ---
[employer] PROGRESS NOTE Chief Complaint Chief Complaint Metabolic Encephalopathy no evidence of acute event on MRI Hypernatremia secondary to poor oral intake, patient currently on PPN may need to increase water content. HTN HLD DM Hypothyroidism Peripheral Neuropathy Bowel Obstruction s/p colon resection with ostomy pouch History of Present Illness History of Present Illness Patient seen and examined Collateral information obtained from daughter Discussed with RN Chart reviewed No acute events reported overnight, no new neurological deficits reported. Patient had an X-ray this AM due to jaw pain Reviewed all home meds Vitals/I&O Vitals/I&O: Vital Signs Date Time Temp Pulse Resp B/P (MAP) Pulse Ox O2 Delivery O2 Flow Rate FiO2 05/12/19 10:06 97.9 56 14 179/81 (113) 98 Room Air 97.9 I & O 05/11/19 05/11/19 05/12/19 15:00 23:00 07:00 Intake Total 0 ml 0 ml 0 ml Output Total 750 ml 725 ml Balance 0 ml -750 ml -725 ml Physical Exam Physical Exam: General: appears non-toxic, as stated age General: Alert, No acute distress Heart: Regular rate, Normal S1, Normal S2 Lungs: Clear Abdomen: Normal bowel sounds, Soft, No tenderness Extremities: No clubbing, No cyanosis, No edema Skin: No rashes, No breakdown Labs Labs: Laboratory Tests Test 05/11/19 15:27 05/11/19 16:36 05/11/19 20:30 05/12/19 07:10 Glucose (Fingerstick) 195 mg/dL (70-99) 220 mg/dL (70-99) 192 mg/dL (70-99) 145 mg/dL (70-99) Test 05/12/19 11:16 Glucose (Fingerstick) 120 mg/dL (70-99) Review of Systems Review of Systems: ENT: complains of mouth pain per patients daughter Assessment and Plan Assessmemt and Plan Assessment: Metabolic Encephalopathy no evidence of acute event on MRI Hypernatremia secondary to poor oral intake, patient currently on PPN may need to increase water content. HTN HLD DM Hypothyroidism Peripheral Neuropathy Bowel Obstruction s/p colon resection with ostomy pouch Plan: Patient remains at baseline Will review results of oral x-ray prepare for D/C to LTAC Comment Review of Relevant I have reviewed the following items leonel (where applicable) has been applied. MARTHA GOOD III DO May 12, 2019 12:07
[2019-05-12 13:23] VITALS: BP 146/68
[2019-05-15] MEDS ORDERED: LEVOTHYROXINE SODIUM IVP SCH (09:00)
[2019-05-15] MEDS ORDERED: NORMAL SALINE IVP SCH (09:00)
== END 2019-05-12 14:10 | DRG 640 ==
LOC: 2 NORTH 18:30
PROVIDERS: ADMIT Internal Medicine; ATTEND Internal Medicine
DX: E87.0 Hyperosmolality and hypernatremia (principal); G93.41 Metabolic encephalopathy; M81.0 Age-related osteoporosis without current pathological fracture; E03.9 Hypothyroidism, unspecified; J44.9 Chronic obstructive pulmonary disease, unspecified; E11.42 Type 2 diabetes mellitus with diabetic polyneuropathy; I25.10 Atherosclerotic heart disease of native coronary artery without angina pectoris; E78.5 Hyperlipidemia, unspecified; F17.200 Nicotine dependence, unspecified, uncomplicated; E11.649 Type 2 diabetes mellitus with hypoglycemia without coma; I11.0 Hypertensive heart disease with heart failure; I50.9 Heart failure, unspecified; M06.9 Rheumatoid arthritis, unspecified; M19.90 Unspecified osteoarthritis, unspecified site; Z79.4 Long term (current) use of insulin; Z93.3 Colostomy status; Z91.14 Patient's other noncompliance with medication regimen; Z90.49 Acquired absence of other specified parts of digestive tract; Z85.828 Personal history of other malignant neoplasm of skin; Z83.3 Family history of diabetes mellitus; Z88.2 Allergy status to sulfonamides
CPT/HCPCS: 36415; 70110; 70551; 80048; 80061; 80076; 82140; 82607; 82962; 83036; 84439; 84443; 85025; 85651; J0360; J1644; J1815; J3490; J7030; 97530; G0378

== ENCOUNTER 2019-06-15 11:46 | Emergency (ER) | payer MEDICARE, OTHER ==
[~2019-06-15] VITALS: Ht 162.6 cm; Wt 72.0 kg
[~2019-06-15 11:46] MED LIST changes: +BETA15CR5 TP; +GABA300C18 PO; +HYDR-2867 PO; +INSU100V38 SQ; +LEVO100T82 PO
[2019-06-15 13:31] VITALS: BP 177/88
--- NOTE | 2019-06-15 13:47 | PHYS DOC ---
Past Medical History Past Medical History: Arthritis, Constipation, Depression, Diabetes-Type II, GERD, High Cholesterol, Hypertension, Hypothyroid, Other Additional Past Medical Histor: fecal impaction ,OA,NEUROPATHY,OAB Past Surgical History: Cholecystectomy Smoking Status: Former Smoker Alcohol Use: None Drug Use: None Adult General Chief Complaint Chief Complaint: OSTOMY PROBLEM HPI HPI Patient is a 84 year old female who presents with concern for herniated stoma. The patient came from her correction was sent by the staff at that correction. The patient has a history of dementia and so she is not sure when the last on the bag was changed, and is not sure whether she is producing stool or not. Complete ROS were reviewed and found to be within normal limits, except as documented in the HPI Allergies Allergies Allergies Coded Allergies Type Severity Reaction Last Updated Verified Sulfa (Sulfonamide Antibiotics) Allergy Intermediate CANNOT REMEMBER 05/18/19 Yes Physical Exam Physical Exam Constitutional: Well developed, well nourished, no acute distress, non-toxic appearance. [] HENT: Normocephalic, atraumatic, bilateral external ears normal, oropharynx moist, no oral exudates, nose normal. [] Lungs & Thorax: Bilateral breath sounds clear to auscultation [] Abdomen: Abdomen has ostomy bag with small amount of stool in bag. Ostomy is erythematous and swollen. Neurologic: Alert and oriented X 3, normal motor function, normal sensory function, no focal deficits noted. [] Psychologic: Affect normal, judgement normal, mood normal. [] Current Patient Data Vital Signs Vital Signs Date Time Temp Pulse Resp B/P (MAP) Pulse Ox O2 Delivery O2 Flow Rate FiO2 06/15/19 13:31 97.7 77 20 177/88 (117) 97 Room Air 97.7 EKG EKG [] Radiology/Procedures Radiology/Procedures [] Course & Med Decision Making Course & Med Decision Making Pertinent Labs and Imaging studies reviewed. (See chart for details) Patient is unable to produce information. Discussed with correction nurse who states that there was stool in the bag today and she had a medium movement. Will have them follow up with Dr. Raymundo. Goldy Disclaimer Goldy Disclaimer This electronic medical record was generated, in whole or in part, using a voice recognition dictation system. Departure Departure Impression: Primary Impression: Encounter for medical screening examination Disposition: HOME, SELF-CARE Condition: STABLE Referrals: ZOYA GUERRERO MD (PCP) BEATRIZ RAYMUNDO MD Patient Instructions: Ostomy Support Information Additional Instructions: Thank you for visiting [facility]. We appreciate you trusting us with your care. If any additional problems come up don't hesitate to return to visit us. Please follow up with your primary care provider so they can plan additional care if needed and know about the problem that you had. If symptoms worsen come back to the Emergency Department. Any concerning symptoms that start such as chest pain, shortness of air, weakness or numbness on one side of the body, running high fevers or any other concerning symptoms return to the ER. Please follow up with Dr. Raymundo. DARCY REYNOSO APRN Jun 15, 2019 13:47
== END 2019-06-15 14:00 | disposition home or self-care (01) ==
LOC: ER 11:46
DX: Z00.8 Encounter for other general examination (principal); Z93.3 Colostomy status; M19.90 Unspecified osteoarthritis, unspecified site; F32.9 Major depressive disorder, single episode, unspecified; E11.9 Type 2 diabetes mellitus without complications; K21.9 Gastro-esophageal reflux disease without esophagitis; E78.00 Pure hypercholesterolemia, unspecified; I10 Essential (primary) hypertension; E03.9 Hypothyroidism, unspecified; Z87.891 Personal history of nicotine dependence; Z90.49 Acquired absence of other specified parts of digestive tract; Z88.2 Allergy status to sulfonamides
CPT/HCPCS: 99281